=== PATIENT | female | born 1935 | race Caucasian/White ===

== ENCOUNTER → 2016-03-27 | Outpatient (CLI) | payer MEDICARE, BC ==
[~2016-03-27] MED LIST: /ADVA50050 IN; /CARBXR20T OR; /WARF25TA OR; ALBUPOW9 INH; ALBUTEROL INH; AMBI12.52 PO; AMBI5TAB OR; BONI3INJ PO; BONIVA PO; CALCTAB22 PO; CALCTAB7 PO; CALCTAB93 PO; FLON0.05; GASTROGRAFIN SOLUTION 30ML (Q9963) As Ordered ONE; IMIT5SPR INJ; IMIT6INJ IJ; ISOVUE-370 76% 100ML VIAL (Q9967) As Ordered ONE; TRAM50TA2 OR; TRAM50TA2 PO; TRAMADOL PO; TYLE325T5 PO; ULTR50TA PO; VALI2TAB OR; VALI5TAB PO; VICO5TA PO; VICO5TAB PO; VIT D 2000 PO; VITA100054 PO; VITAMIN D PO; VOLT1GEL TOP; celebrex PO
--- NOTE | 2016-03-27 18:46 | REP ---
CT PELVIS WITHOUT IV CONTRAST: CT pelvis performed in the axial plane with oral contrast only. No IV contrast was administered. Saggital and coronal reconstruction images are performed. There is no inguinal or anterior pelvic wall hernia. The appendix is normal. Bowel loops are not thickened. There is extensive sigmoid diverticulosis without evidence of acute diverticulitis. Patient appears to have had a hysterectomy. Urinary bladder is mildly distended and is not well evaluated to artifact from the adjacent metallic right hip prosthesis. There is no other evidence of mass, free fluid or adenopathy. There are degenerative changes of the lower lumbar spine. IMPRESSION: No evidence of inguinal or anterior pelvic wall hernia. Sigmoid diverticulosis with no acute diverticulitis. No adenopathy or free fluid. Appendix is normal. Signed by Onel Zayas MD 03/27/2016 07:43 P
== END ==
LOC: M RAD 16:07
PROVIDERS: ATTEND Surgery
DX: K57.30 Diverticulosis of large intestine without perforation or abscess without bleeding (principal)
CPT/HCPCS: 72192; Q9963

== ENCOUNTER 2016-12-12 07:27 | Inpatient (IN) | payer MEDICARE, BC ==
[~2016-12-12] VITALS: Ht 162.6 cm; Wt 75.9 kg
[~2016-12-12 07:27] MED LIST changes: +ALBU17IN INH; +CALC600T31 PO; -GASTROGRAFIN SOLUTION 30ML (Q9963) As Ordered ONE; +IMIT6INJ SC; -ISOVUE-370 76% 100ML VIAL (Q9967) As Ordered ONE; +TOPI200T7 PO; +VITA100067 PO
[2016-12-12] MEDS ORDERED: oxyCODONE 5MG TAB PO PRN (11:15)
[2016-12-12] MEDS ORDERED: LORazepam 1 MG TAB PO PRN (11:15)
[2016-12-12] MEDS ORDERED: ALBUTEROL 90 MCG/ACT 8GM HFA INHALER INH PRN (11:15)
[2016-12-12] MEDS ORDERED: MOM 30ML SUSPENSION UDC PO PRN (11:15)
[2016-12-12 14:15] VITALS: BP 137/67
[2016-12-12] MEDS ORDERED: DOCU100T8 PO (14:55)
[2016-12-12] MEDS ORDERED: TOPI50TA9 PO (14:55)
[2016-12-12] MEDS ORDERED: VANC10005 INJ (14:55)
[2016-12-12] MEDS ORDERED: OXYC-517 PO (14:55)
[2016-12-12] MEDS ORDERED: LIDO5DIS41 TD (14:55)
[2016-12-12] MEDS ORDERED: NUTRPOW11 PO (14:55)
[2016-12-12] MEDS ORDERED: ACET1TAB17 PO (14:55)
[2016-12-12] MEDS ORDERED: LEVO750T13 PO (14:55)
[2016-12-12] MEDS ORDERED: LOVE1INJ SC (14:55)
[2016-12-12] MEDS ORDERED: LACT1TAB4 PO (14:55)
--- NOTE | 2016-12-12 16:34 | PHACANCOPD ---
PHARMACY VANCOMYCIN DOSING Pt Demographics Demographics Patient Age:81 , Weight:80.000 , Gender: female Adjusted Body Weight Date: 12/12/16, Adjusted Body Weight: Kg Events Past 24 Hours Events Past 24 Hours: YES: Other Vancomycin Vancomycin indication: Left TKA infection Vancomycin Target Ranges: 10-20 mcg/ml Vancomycin Load Y/N: No Load Dose Date Time Vancomycin Load Dose: Date: Time: Vancomycin Dose Date: 12/12/16. Current Vancomycin Dose: [1g IV Q24H] Intermittent Dosing?: No Labs Creatinine Clearance Date:12/12/16. Estimated Creatinine Clearance: [~40 ml/min]. Assessment and Plan Maintaining Current Dose?: Yes Reason for dose change: No Dose Change Pharmacist Note Pharmacist Note Date: 12/12/16. Pharmacist note: Patient is a transfer from [facility] being treated with IV vancomycin for a left TKA infection, who is s/p placement of an abx spacer on 12/06/16. The patient was on a regimen of 1250mg IV Q24H at [place], however, it appears that a most recent trough level that was drawn last night resulted at ~19.5mcg/ml and a random level this morning that resulted at ~ 14.6mcg/ml. The patient was due for anything vancomycin dose this morning, so we will resume the patient's vancomycin tx at a reduced regimen of 1g IV Q24H, aiming for a goal trough of 10-20mcg/ml. Updated info about H&P, current labs, and micro are unavailable at this time; however, the patient is currently afebrile. No PMH of MRSA or vanco use here at [facility]. We will continue to monitor and schedule a trough accordingly. JOCELYN DIEZ PHARMACY Dec 12, 2016 16:34
[2016-12-12] MEDS: SODIUM CHLORIDE 0.9% INJ 10 ML SYR IV SCH (17:10)
[2016-12-12] MEDS: VANCOMYCIN HCL 1,000 MG, VIAL MATE ADAPTER 1 EACH in D5W 250 ML IV SCH (17:10)
[2016-12-12] MEDS: SODIUM CHLORIDE 0.9% INJ 10 ML SYR IV PRN (17:11)
--- NOTE | 2016-12-12 18:32 | CR ---
DATE OF CONSULTATION: 12/12/2016 I was asked to consult by Dr. 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 HISTORY OF PRESENT ILLNESS: Mrs. Fontaine is a pleasant 81-year-old female who was admitted to [facility] for evaluation of left total knee replacement. She was taken to the operating room (OR) with the plan of having a new total knee replacement done as this one was causing a lot of chronic pain which showed neutrophils and therefore replacement was not done and a cement spacer was placed. The original knee had been October of 2012. DICTATION CUT OFF AT THIS POINT. [facility]
[2016-12-12 20:00] VITALS: BP 116/57
[2016-12-12] MEDS: LACTOBACILLUS ACIDOPHILUS CAP (BACID) PO SCH (20:14)
[2016-12-12] MEDS: TOPIRAMATE (TopAMAX) 25 MG TAB PO SCH (20:14)
[2016-12-12] MEDS: ACETAMINOPHEN TAB 650MG DOSE (2X325MG) PO PRN (20:15)
[2016-12-12] MEDS: DOCUSATE SODIUM 100 MG CAP PO SCH (20:16)
[2016-12-12] MEDS: CALCIUM/VITAMIN D 250 MG TABLET PO SCH (20:19)
[2016-12-12] MEDS: SENNA 8.6 MG TAB (SENOKOT) PO SCH (20:20)
[2016-12-12] MEDS: NYSTATIN 100,000 UNITS/GM TOPICAL PWD 15 GM TOP SCH (20:20)
--- NOTE | 2016-12-12 20:51 | PMRHPE ---
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 However, she started developing loosening and infection and was found to be infected and on 12/05/2016, the patient had the left total knee replacement with temporary arthrodesis and wide surgical debridement. The patient's initial cultures are reported negative at this time but others are still pending. Aspirates did show 1000 white blood cells and 1,000,000 red blood cells and no purulent material was found. The patient was then started in physical and occupational therapy on a nonweightbearing status using a knee splint at all times on the left lower extremity as well as IV vancomycin 1.25 grams every 24 hours and Levaquin 750 mg by mouth daily. The patient is felt to be able to participate and benefit from acute intensive rehabilitation to return to her home here in [place]. PAST MEDICAL HISTORY: Includes: 1. Diverticulosis which has been causing some right lower quadrant pain off-and-on recently. 2. Hypertension. 3. Migraine headaches. 4. Osteopenia. 5. Two areas of prior abdominal herniation, midline and right lower quadrant. PAST SURGICAL HISTORY: Includes: 1. 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 2. Bladder repair. 3. Breast biopsy. 4. Cataract extraction. 5. Total knee surgery on the left. 6. Left knee hemiarthroplasty. 7. Right total knee arthroplasty. 8. Sphincter replacement. 9. Previous three right knee arthroscopes and four left knee arthroscopes. FAMILY HISTORY: Noncontributory. ALLERGIES: No known drug allergies. MEDICATIONS ON ADMISSION: - vancomycin 1.25 grams daily IV and this is continuing to 01/17/2017 - Tylenol 650 mg every six hours - Proventil inhaler two puffs every two hours as needed for shortness of breath - Os-Christiano D patient previously on the 600 mg, now on the 750 mg twice a day - Colace 100 mg twice a day for bowel program - Lovenox 40 subcutaneous daily for deep vein thrombosis (DVT) prophylaxis - heparin flushes of her peripherally inserted central catheter (PICC) line - lactobacillus acidophilus one capsule twice a day - Levaquin 750 mg daily - Lidoderm patch to the left knee 12 hours on and 12 hours off - patient previously on Valium 5 mg twice a day and I am changing this to Ativan 0.5 mg twice a day as needed for anxiety - oxycodone 5 mg for moderate pain every four hours as needed and 10 mg for severe pain every four hours as needed - tramadol previously on 50 mg three times a day as needed for pain, increasing to 50 mg every six hours as needed for pain - 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 She does not drink and does not smoke or use smokeless tobacco and no illicit drug history. REVIEW OF SYSTEMS: As noted above and complaints of left knee pain, the abdominal pain, and left leg nerve pain. Of note, patient with migraines previously on Imitrex, was not on it during her surgical admission. PHYSICAL EXAMINATION: The patient is 5 feet, 6 inches, approximately 79 kg, elderly white female in mild left lower extremity musculoskeletal distress who is alert and well-oriented. VITAL SIGNS: Temperature of 97.4, blood pressure 137/67, pulse 94, respirations 18, and pulse oximetry 95% on room air. HEENT: Normocephalic, atraumatic beyond having a mild left facial droop and slight left tongue deviation. There is no ptosis. Pupils are equal, round, and reactive to light and accommodation and extraocular motions are intact. Hearing is fairly good. Speech is without any dysarthria. Nasal passages are open without drainage and septum is straight. NECK: Supple. No carotid bruits were found. Thyroid is palpable, midline, normal texture and size. LUNGS: Clear in all kearns to auscultation without wheezes, rales, or rhonchi. CORONARY: Regular rate and rhythm with normal S1, S2 without S3, S4, murmurs or rubs. Patient with 2/4 bilateral radial pulses, good skin coloration and temperature in bilateral upper and lower extremities. ABDOMEN: Obese with no significant tenderness or palpable masses. Bowel sounds are present in all quadrants. EXTREMITIES: Bilateral upper extremities with functional range of motion. Right lower extremity with functional range of motion. There is a peripherally inserted central catheter (PICC) line in the right arm to the ulnar aspect. Left lower extremity with straight leg splint from proximal third of the thigh to the mid calf level. NEUROLOGIC: The patient is alert and oriented times four. Speech is clear, coherent and appropriate. Affect is slightly anxious but in general pleasant and cooperative. Memory is intact. Light touch to vibration intact in bilateral upper and lower extremities. Tone within normal limits in bilateral upper and lower extremities. Motor is 4+ to 5- in bilateral upper and right lower extremity and right and left ankle, plantar and dorsiflexion but some guarding and only 3/5 left hip demonstrated on testing today. ASSESSMENT AND PLAN: 1. Rehabilitation of left total knee revision with spacers and beads that are antibiotic impregnated to treat infected left total knee arthroplasty. The patient needs to regain modified independence in mobility, likely using a front wheeled walker to perform activities of daily living (ADLs) and ambulate greater than the four stairs she needs to get in and out of her home which is one story and everything is on the first floor, and to walk greater than or equal to 150 feet at a time. I do feel that she is capable of participating in and benefiting from acute musculoskeletal rehabilitation while undergoing the antibiotic treatment with the vancomycin and Levaquin. Because of the additional complexity of treating this infected joint, infectious disease, internal medicine as well as rehabilitation nursing and physiatry is needed beyond the physical and occupational therapy. The patient will probably need about 10 days to obtain the modified independent level noted above. 2. Osteoarthritis. Patient with right knee replacement and arthritis in multiple other joints. We will treat these accordingly. May look to use some physical modalities as appropriate such as heat and cold. For now, we will be using ice to the involved painful left knee. 3. Asthma. The patient will continue on her Ventolin. 4. Migraines. We will go ahead and see how the patient is doing and consider restarting her Imitrex. At this time, the surgical plan for the patient is to complete antibiotic management up to 01/17/2017 and then look at more definitive prosthesis that she will be able to weigh bear on being replaced into the left knee. POSTADMISSION PHYSICIAN EVALUATION: I feel the patient is consistent with the preadmission screening and is able to participate in three hours of therapy per day and benefit from it to proceed from her current dependent state where she is requiring minimum to occasionally maximum assistance with some of her activities of daily living (ADLs) and minimum to contact guard assistance in most of her transfers and to being able to ambulate, do stairs, and be modified independent in her ADLs. I think she will be able to be discharged to home. She does have a supportive family here and home setup is fairly reasonable without barriers inside and just a four-step barrier outside, and so I do feel that she is motivated and mentally and physically capable of participating and benefiting so her prognosis is good. Her estimated length of stay is 10 days. Time spent on chart review, history and physical, and documentation: Greater than 70 minutes. VIJI
[2016-12-12] MEDS: **NOTE PATIENT COMMENT** MISC XX SCH (21:00)
[2016-12-12] MEDS: MAALOX 30 ML SUSP *UDC PO PRN (21:49)
[2016-12-13] MEDS: SODIUM CHLORIDE 0.9% INJ 10 ML SYR IV SCH ×2 (05:42→18:07)
[2016-12-13] MEDS: LevoFLOXacin 750 MG TABLET PO SCH (05:44)
[2016-12-13 06:00] VITALS: BP 124/66
[2016-12-13 06:17] LABS: BASO % 0.5 % (0.0-1.0); EOS # 0.3 10^3/uL (0.0-0.50); EOS % 5.2 % (0.0-3.0); LYMPH # 0.9 10^3/uL (1.5-4.5); LYMPH % 14.5 % (24.0-44.0); MEAN CORPUSCULAR HEMOGLOBIN 29.2 pg (27.0-33.0); MEAN CORPUSCULAR HGB CONC 31.7 g/dl (32.0-36.5); MEAN CORPUSCULAR VOLUME 92.3 fl (80.0-96.0); MONO # 0.6 10^3/uL (0.0-0.8); MONO % 9.3 % (0.0-5.0); NEUTROPHILS # 4.3 10^3/uL (1.8-7.7); NEUTROPHILS % 69.5 % (36.0-66.0); PLATELET COUNT, AUTOMATED 238 10^3/uL (150-450); RED CELL DISTRIBUTION WIDTH 14.6 % (11.5-14.5); WHITE BLOOD COUNT 6.1 10^3/uL (4.0-10.0)
[2016-12-13 06:27] LABS: ALBUMIN 2.4 GM/DL (3.2-5.2); ALBUMIN/GLOBULIN RATIO 0.92 (1.00-1.93); ALKALINE PHOSPHATASE 137 U/L (45-117); ALT/SGPT 22 U/L (12-78); ANION GAP 8 MEQ/L (8-16); AST/SGOT 25 U/L (15-37); BILIRUBIN,TOTAL 0.5 MG/DL (0.2-1.0); BLOOD UREA NITROGEN 13 MG/DL (7-18); CALCIUM LEVEL 8.5 MG/DL (8.8-10.2); CARBON DIOXIDE LEVEL 24 MEQ/L (21-32); CHLORIDE LEVEL 113 MEQ/L (98-107); CREATININE FOR GFR 0.65 MG/DL (0.55-1.02); GLOMERULAR FILTRATION RATE > 60.0 (>32); GLUCOSE, FASTING 98 MG/DL (83-110); POTASSIUM SERUM 3.9 MEQ/L (3.5-5.1); SODIUM LEVEL 145 MEQ/L (136-145)
[2016-12-13 06:56] LABS: ERYTHROCYTE SEDIMENTATION RATE 67 mm/hr (0-30)
[2016-12-13] MEDS: DOCUSATE SODIUM 100 MG CAP PO SCH ×2 (08:43→20:43)
[2016-12-13] MEDS: TOPIRAMATE (TopAMAX) 25 MG TAB PO SCH ×2 (08:43→20:44)
[2016-12-13] MEDS: CALCIUM/VITAMIN D 250 MG TABLET PO SCH ×2 (08:43→20:47)
[2016-12-13] MEDS: LACTOBACILLUS ACIDOPHILUS CAP (BACID) PO SCH ×2 (08:43→20:48)
[2016-12-13] MEDS: ACETAMINOPHEN TAB 650MG DOSE (2X325MG) PO PRN ×2 (08:44→22:52)
[2016-12-13] MEDS: LIDOCAINE 5% (LIDODERM) PATCH TD SCH (08:44)
[2016-12-13] MEDS: ENOXAPARIN 40 MG/0.4 ML SYRINGE (J1650) SC SCH (08:44)
[2016-12-13] MEDS: NYSTATIN 100,000 UNITS/GM TOPICAL PWD 15 GM TOP SCH ×2 (08:46→20:48)
[2016-12-13] MEDS: MAALOX 30 ML SUSP *UDC PO PRN ×2 (08:52→18:07)
--- NOTE | 2016-12-13 10:28 | CR.PDOC ---
[facility] Consultation Consultation CONSULTATION REPORT FOR: Dr Park REASON FOR CONSULTATION: Medical Management DATE OF VISIT: 12/13/16 ATTENDING: Dr. Milton Clarke PCP: Dr Brittany Nascimento HPI: 81year oldF with a past medical history significant for history of left total knee arthroplasty 2012 with recent increasing pain in the left knee, has been following with Dr Donald, orthopedic surgery regarding this issue. The patient underwent bone scan indicating abnormal uptake, infection versus loosening. The patient was admitted to [facility] in [facility] as per Dr. Donald for revision surgery, temporary arthrodesis and antibiotic spacer placement. The patient was subsequently transferred to [facility], Dr Park, 12/12/16. No acute medical complaints today. Denies any fevers, chills, weakness, fatigue , Headache, Chest Pain, Shortness of breath, cough, palpitations, abdominal pain , N/V/D or changes in bowel or bladder habits. PMHx: Asthma Trigeminal neuralgia Aortic sclerosis Anxiety Depression Vitamin D deficiency Osteoporosis/osteoarthritis Hypertension Chronic migraine headache Insomnia Allergic rhinitis PSHX: Bilateral knee arthroscopy Bilateral TKA Right TRISHA 02/04 Hysterectomy Thyroidectomy Bladder sling Breast biopsy 08/08 left cataract EGD/colonoscopy 01/03. Brypedro. Adenomatous polyp. 05/03 bilateral inguinal hernia repair. Prisca. 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 PE: GEN: 81yoF, appears stated age. Well-nourished, well developed. No acute distress. Alert and oriented x 3. Pleasant, interactive. HEENT: Normocephalic, atraumatic. Extraocular movements are intact. No nystagmus appreciated. Sclera are nonicteric. Conjunctiva without injection. Nose midline. No facial asymmetry. Moist mucous membranes. Pharynx pink and moist, no cobblestoning. Neck supple, trachea midline. No lymphadenopathy or thyromegaly appreciated. CHEST: Regular rate and rhythm, +S1, +S2 LUNGS: Clear to auscultation bilaterally. No wheezes, rales, or rhonchi. Breathing appears symmetric and easy. Patient is speaking in full sentences. No accessory muscle use. ABD: Round, soft, non-tender, non-distended. +Bowel sounds throughout. No rebound or guarding. No costovertebral angle tenderness. EXT: No lower extremity edema appreciated. Knee immobilizer on Left side. SKIN: [place], dry, warm. No rashes. NEURO: Alert and oriented x 3. Cranial nerves III-XII are intact. No focal deficits appreciated. EKG 12/12/16NSR 77 bpm. Lyme screen pending. ESR 67 CRP 5.32 A&P: 81year oldF with a past medical history significant for history of left total knee arthroplasty 2012 with recent increasing pain in the left knee, has been following with Dr Donald, orthopedic surgery regarding this issue. The patient underwent bone scan indicating abnormal uptake, infection versus loosening. The patient was admitted to [facility] in [facility] as per Dr. Donald for revision surgery, temporary arthrodesis and antibiotic spacer placement. The patient was subsequently transferred to [facility], Dr Park, 12/12/16. 1. Status post left TKA revision with temporary arthrodesis, antibiotic spacer placement. Management as per Dr Park. PT/OT as per [facility]/Dr Park. Pain control as per [facility]/Dr Park. Bowel care as per as per [facility]/Dr Park. DVT prophylaxis, Lovenox as per [facility]/Dr Park. Infectious. 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 Patient remains on Levaquin 750 mg by mouth daily and IV vancomycin dosing as per clinical pharmacology. Infectious disease is consulted for any further recommendations. Await opinion from Dr. Declan Maria. Trend CRP. As per ID notes from [place], Cultures of Left knee done in OR neg. Plan was for IV Vanco and po Levaquin x 6 weeks. 2. Asthma. Continue albuterol 2 puffs every 4 hours as needed. 3. Trigeminal neuralgia. Continue Topamax 50 mg by mouth twice a day. Patient follows with neurology as outpatient. 4. Chronic migraine headache. Continue Topamax 50 mg by mouth twice a day. Patient follows with neurology as outpatient. 5. Hypertension. Blood pressure is noted to be 124/66. Monitor. 6. Anxiety/depression/insomnia. Patient remains on Ativan 0.5 mg twice a day as needed for anxiety. 7. Vitamin D deficiency. Continue supplement. 8. Allergic rhinitis. 9. Anemia, postoperative. S/P 1 u PRBC 12/10/16 Trey. Monitor. Add Fe studies , B12/folate. Thank you for your consultation. We will continue to follow along with you. Vital Signs/I&O Vital Signs Date Time Temp Pulse Resp B/P (MAP) Pulse Ox O2 Delivery O2 Flow Rate FiO2 12/13/16 06:00 99.3 81 18 124/66 (85) 96 Room Air I&O- Last 24 Hours up to 6 AM 12/14/16 06:00 Intake Total 120 ml Output Total 400 ml Balance -280 ml Laboratory Data Labs 24H Laboratory Tests 2 12/12/16 22:04: Urine Appearance CLEAR, Urine Color YELLOW, Urine pH 7.0, Urine Specific [place] 1.008, Urine Protein NEGATIVE, Urine Glucose (UA) NEGATIVE, Urine Ketones TRACEH, Urine Urobilinogen 0.2, Urine Bilirubin NEGATIVE, Urine Leukocyte Esterase NEGATIVE, Urine Blood 1+H, Urine Nitrite NEGATIVE, Urine WBC (Auto) 1, Urine RBC (Auto) 0, Urine Hyaline Casts (Auto) 0, Urine Bacteria (Auto ) NEGATIVE, Urine Squamous Epithelial Cells 0, Urine Mucus (Auto) SMALL, Urine Sperm (Auto) 12/13/16 05:54: Immature Granulocyte % (Auto) 1.0H, White Blood Count 6.1, Red Blood Count 2.84L , Hemoglobin 8.3L, Hematocrit 26.2L, Mean Corpuscular Volume 92.3, Mean Corpuscular Hemoglobin 29.2, Mean Corpuscular Hemoglobin Concent 31.7L, Red Cell Distribution Width 14.6H, Platelet Count 238, Neutrophils (%) (Auto) 69.5H , Lymphocytes (%) (Auto) 14.5L, Monocytes (%) (Auto) 9.3H, Eosinophils (%) (Auto ) 5.2H, Basophils (%) (Auto) 0.5, Neutrophils # (Auto) 4.3, Lymphocytes # (Auto ) 0.9L, Monocytes # (Auto) 0.6, Eosinophils # (Auto) 0.3, Basophils # (Auto) 0.0 , Immature Granulocyte # (Auto) 0.1H, Nucleated Red Blood Cells % (auto) 0.0, Erythrocyte Sedimentation Rate 67H, Anion Gap 8, Glomerular Filtration Rate > 60.0, Blood Urea Nitrogen 13, Creatinine 0.65, Sodium Level 145, Potassium Level 3.9, Chloride Level 113H, Carbon Dioxide Level 24, Calcium Level 8.5L, Aspartate Amino Transf (AST/SGOT) 25, Alanine Aminotransferase (ALT/SGPT) 22, Alkaline Phosphatase 137H, Total Bilirubin 0.5, Total Protein 5.0L, Albumin 2.4L , C-Reactive Protein, Quantitative 5.32H, Albumin/Globulin Ratio 0.92L CBC/BMP Laboratory Tests 12/13/16 05:54 Red Blood Count 2.84 L, Mean Corpuscular Volume 92.3, Mean Corpuscular Hemoglobin 29.2, Mean Corpuscular Hemoglobin Concent 31.7 L, Red Cell Distribution Width 14.6 H, Neutrophils (%) (Auto) 69.5 H, Lymphocytes (%) (Auto ) 14.5 L, Monocytes (%) (Auto) 9.3 H, Eosinophils (%) (Auto) 5.2 H, Basophils (% ) (Auto) 0.5, Neutrophils # (Auto) 4.3, Lymphocytes # (Auto) 0.9 L, Monocytes # (Auto) 0.6, Eosinophils # (Auto) 0.3, Basophils # (Auto) 0.0, Calcium Level 8.5 L, Aspartate Amino Transf (AST/SGOT) 25, Alanine Aminotransferase (ALT/SGPT) 22 , Alkaline Phosphatase 137 H, Total Bilirubin 0.5, Total Protein 5.0 L, Albumin 2.4 L Allergies Coded Allergies: No Known Allergies (Verified , 05/16/16) Home Medications Scheduled (Lactobacillus) 1 Tab Tab, 1 TAB PO BID, (Reported) Calcium (Calcium) 600 Mg Tab, 1,200 MG PO DAILY, (Reported) Docusate Sodium (Docusate Sodium) 100 Mg Tab, 100 MG PO BID, (Reported) Enoxaparin Sodium (Lovenox) 40 Mg/0.4 Ml Inj, 40 MG SC DAILY, (Reported) Guar Gum (Nutrisource Fiber) 1 Pow Pow, 1 POW PO DAILY, (Reported) Levofloxacin Hemihydrate (Levofloxacin) 750 Mg Tab, 750 MG PO DAILY, (Reported) Topiramate (Topiramate) 50 Mg Tab, 50 MG PO BID, (Reported) Vancomycin/Dextrose (Vancomycin HCl) 1,000 Mg Soln, 1,250 MG INJ DAILY, ( Reported) Scheduled PRN Acetaminophen (Acetaminophen) 325 Mg Tab, 975 MG PO Q6H PRN for PAIN, (Reported) Albuterol Sulfate (Ventolin Hfa) 200 Puff/8 Gm Aers, 2 PUFF INH PRN PRN for WHEEZING, (Reported) Diazepam (Valium) 5 Mg Tab, 5 MG PO BID PRN for ANXIETY/AGITATION, (Reported) Lidocaine (Lidoderm) 5 % Dis, 1 PATCH TD DAILY PRN for PAIN, (Reported) APPLY TO BACK Oxycodone HCl (Oxycodone HCl) 5 Mg Tab, 5 MG PO Q4H PRN for MODERATE PAIN (PS 5- 7), (Reported) Oxycodone HCl (Oxycodone HCl) 5 Mg Tab, 10 MG PO Q4H PRN for SEVERE PAIN (PS 8- 10), (Reported) Elvia Nails Dec 13, 2016 10:28
--- NOTE | 2016-12-13 11:04 | IPNPDOC ---
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 However, she started developing loosening and infection and was found to be infected and on 12/05/2016, the patient had the left total knee replacement with temporary arthrodesis and wide surgical debridement. Patient seen this morning in her room working with OT on Dressing and Grooming. She notes some pain in Left Knee region and having had some confusion and loading of the knee. Patient reports now understanding her NWB status and her desire to participate in and benefit from therapy. Patient did report some dyspepsia last night which was handled by the [facility]. ALLERGIES: See Below MEDICATIONS: Reviewed, see below. OBJECTIVE: VITAL SIGNS: Please see below. PHYSICAL EXAMINATION: GENERAL: Pleasant, slightly anxious, elderly, white female, who is sitting up in a manual wheelchair at the sink in her room working on grooming. Patient is alert and well oriented. She is a mild musculoskeletal distress around the left knee which has on the knee splint. HEENT: Normocephalic/atraumatic. CARDIOVASCULAR: Regular rate and rhythm with normal S1-S2. Bilateral 2 out 4 radial pulses. LUNGS: All kearns clear to auscultation with good air movement. ABDOMEN: Benign with normal bowel sounds in all quadrants. NEUROLOGICAL: Patient alert and oriented to person, place, time and situation. She is mildly anxious but in general pleasant and cooperative. Memory is grossly intact. Bilateral upper extremity with functional range of motion and strength. Right lower extremity with good strength and functional range of motion. Fair minus left lower extremity strength. LABORATORY DATA: Reviewed. Please see below. MICROBIOLOGY: Please see below. IMAGING: No new imaging. DVT prophylaxis ordered?: Shante and LARISSA mcelroy. ASSESSMENT AND PLAN: 1. 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 Vancomycin dosing should not interfere with physical and occupational therapy time. The patient does seem to tolerate the antibiotic without problems. Anticipated length of stay 10 days. 2. Anemia: Patient's H&H are 28.3 and 26.2% which is consistent with the values at [facility] yesterday. In light of the anticoagulation with Lovenox it will be important to track this. If hemoglobin falls below 8.0 patient will probably require transfusion. 3. DVT prophylaxis: Patient on Lovenox and using LARISSA hose. Left lower extremity in the splint with the inflammation postoperatively from the infected knee will be at greater at risk. 4. Hypoalbuminemia: Patient currently at 2.4. We will continue observe and try improve nutrition. TIME SPENT: Chart Review, examination and documentation 25 minutes. Allergies Coded Allergies: No Known Allergies (Verified , 05/16/16) Vital Signs Vital Signs Date Time Temp Pulse Resp B/P (MAP) Pulse Ox O2 Delivery O2 Flow Rate FiO2 12/13/16 06:00 99.3 81 18 124/66 (85) 96 Room Air Laboratory Data CBC/BMP Laboratory Tests 12/13/16 05:54 Red Blood Count 2.84 L, Mean Corpuscular Volume 92.3, Mean Corpuscular Hemoglobin 29.2, Mean Corpuscular Hemoglobin Concent 31.7 L, Red Cell Distribution Width 14.6 H, Neutrophils (%) (Auto) 69.5 H, Lymphocytes (%) (Auto ) 14.5 L, Monocytes (%) (Auto) 9.3 H, Eosinophils (%) (Auto) 5.2 H, Basophils (% ) (Auto) 0.5, Neutrophils # (Auto) 4.3, Lymphocytes # (Auto) 0.9 L, Monocytes # (Auto) 0.6, Eosinophils # (Auto) 0.3, Basophils # (Auto) 0.0, Calcium Level 8.5 L, Aspartate Amino Transf (AST/SGOT) 25, Alanine Aminotransferase (ALT/SGPT) 22 , Alkaline Phosphatase 137 H, Total Bilirubin 0.5, Total Protein 5.0 L, Albumin 2.4 L Labs 24H Laboratory Tests 2 12/12/16 22:04: Urine Appearance CLEAR, Urine Color YELLOW, Urine pH 7.0, Urine Specific [place] 1.008, Urine Protein NEGATIVE, Urine Glucose (UA) NEGATIVE, Urine Ketones TRACEH, Urine Urobilinogen 0.2, Urine Bilirubin NEGATIVE, Urine Leukocyte Esterase NEGATIVE, Urine Blood 1+H, Urine Nitrite NEGATIVE, Urine WBC (Auto) 1, Urine RBC (Auto) 0, Urine Hyaline Casts (Auto) 0, Urine Bacteria (Auto ) NEGATIVE, Urine Squamous Epithelial Cells 0, Urine Mucus (Auto) SMALL, Urine Sperm (Auto) 12/13/16 05:54: Immature Granulocyte % (Auto) 1.0H, White Blood Count 6.1, Red Blood Count 2.84L , Hemoglobin 8.3L, Hematocrit 26.2L, Mean Corpuscular Volume 92.3, Mean Corpuscular Hemoglobin 29.2, Mean Corpuscular Hemoglobin Concent 31.7L, Red Cell Distribution Width 14.6H, Platelet Count 238, Neutrophils (%) (Auto) 69.5H , Lymphocytes (%) (Auto) 14.5L, Monocytes (%) (Auto) 9.3H, Eosinophils (%) (Auto ) 5.2H, Basophils (%) (Auto) 0.5, Neutrophils # (Auto) 4.3, Lymphocytes # (Auto ) 0.9L, Monocytes # (Auto) 0.6, Eosinophils # (Auto) 0.3, Basophils # (Auto) 0.0 , Immature Granulocyte # (Auto) 0.1H, Nucleated Red Blood Cells % (auto) 0.0, Erythrocyte Sedimentation Rate 67H, Anion Gap 8, Glomerular Filtration Rate > 60.0, Blood Urea Nitrogen 13, Creatinine 0.65, Sodium Level 145, Potassium Level 3.9, Chloride Level 113H, Carbon Dioxide Level 24, Calcium Level 8.5L, Aspartate Amino Transf (AST/SGOT) 25, Alanine Aminotransferase (ALT/SGPT) 22, Alkaline Phosphatase 137H, Total Bilirubin 0.5, Total Protein 5.0L, Albumin 2.4L , C-Reactive Protein, Quantitative 5.32H, Albumin/Globulin Ratio 0.92L Current Medications Current Medications Current Medications Acetaminophen (Tylenol Tab) 650 mg Q6HP PRN PO PAIN OR FEVER Last administered on 12/13/16 08:44; Start 12/12/16 at 11:15; Stop 01/11/17 at 11:14 Al Hydrox/Mg Hydrox/Simethicone (Mylanta) 30 ml Q12HP PRN PO INDIGESTION Last administered on 12/13/16 08:52; Start 12/12/16 at 21:15; Stop 01/11/17 at 21 :14 Albuterol Sulfate (Proventil, Ventolin Hfa) 2 puff Q2HP PRN INH SHORTNESS OF BREATH; Start 12/12/16 at 11:15; Stop 01/11/17 at 11:14 Calcium/Vitamin D (Oscal D) 750 mg BID PO Last administered on 12/13/16 08:43 ; Start 12/12/16 at 21:00; Stop 01/11/17 at 20:59 Docusate Sodium (Colace) 100 mg BID PO Last administered on 12/13/16 08:43; Start 12/12/16 at 21:00; Stop 01/11/17 at 20:59 Enoxaparin Sodium (Lovenox) 40 mg DAILY SC Last administered on 12/13/16 08: 44; Start 12/13/16 at 09:00; Stop 12/18/16 at 08:59 Heparin Sodium (Heparin (Flush)) 200 units ASDIRECTED PRN IV SEE LABEL COMMENTS Last administered on 12/12/16 17:11; Start 12/12/16 at 15:00; Stop 01/11/17 at 14:59 Heparin Sodium (Heparin (Flush)) 200 units PICC IV Last administered on 05:42; Start 12/12/16 at 18:00; Stop 01/11/17 at 17:59 Home Med (Med Rec Complete!) ASDIRECTED XX ; Start 12/12/16 at 15:00; Stop at 15:27; Status DC Lactobacillus Acidophilus (Bacid) 1 ea BID PO Last administered on 12/13/16 08:43; Start 12/12/16 at 21:00; Stop 01/11/17 at 20:59 Levofloxacin (Levaquin) 750 mg DAILY@06 PO Last administered on 12/13/16 05: 44; Start 12/13/16 at 06:00; Stop 01/17/17 at 23:55 Lidocaine (Lidoderm Patch) 1 patch DAILY TD Last administered on 12/13/16 08: 44; Start 12/13/16 at 09:00; Stop 01/12/17 at 08:59 Lorazepam (Ativan) 0.5 mg BIDP PRN PO ANXIETY; Start 12/12/16 at 11:15; Stop 12/19/16 at 11:14 Magnesium Hydroxide (Milk Of Magnesia) 30 ml DAILYPRN PRN PO CONSTIPATION Last administered on 12/13/16 08:44; Start 12/12/16 at 11:15; Stop 01/11/17 at 11 :14 Non-Formulary Medication ( See Comment Field Below ) REMOVE LIDODERM PATCH DAILY@21 XX ; Start 12/12/16 at 21:00; Stop 01/11/17 at 20:59 Nystatin (Mycostatin Powder, Nystop) place under b/l vidya... BID TOP Last administered on 12/13/16 08:46; Start 12/12/16 at 21:00; Stop 01/11/17 at 20 :59 Oxycodone HCl (Roxicodone, Oxyir) 5 mg Q4HP PRN PO PAIN(5-7); Start 12/12/16 at 11:15; Stop 12/19/16 at 11:14 Oxycodone HCl (Roxicodone, Oxyir) 10 mg Q4HP PRN PO SEVERE PAIN (PS 8-10); Start 12/12/16 at 11:15; Stop 12/19/16 at 11:14 Senna (Senokot) 1 tab QHS PO ; Start 12/12/16 at 21:00; Stop 01/11/17 at 20:59 Sodium Chloride (Saline Lock Flush) 10 ml ASDIRECTED PRN IV SEE LABEL COMMENTS Last administered on 12/12/16 17:11; Start 12/12/16 at 15:00; Stop 01/11/17 at 14:59 Sodium Chloride (Saline Lock Flush) 10 ml PICC IV Last administered on 05:42; Start 12/12/16 at 18:00; Stop 01/11/17 at 17:59 Topiramate (TopAMAX) 50 mg BID PO Last administered on 12/13/16 08:43; Start 12/12/16 at 21:00; Stop 01/11/17 at 20:59 Tramadol HCl (Ultram) 50 mg Q6HP PRN PO PAIN; Start 12/12/16 at 11:15; Stop 12/19/16 at 11:14 Vancomycin HCl 1000 mg/IV Miscellaneous Supplies 1 each/ Dextrose 270 ml @ 270 mls/hr Q24H IV Last administered on 12/12/16 17:10; Start 12/12/16 at 17:00 ; Stop 01/17/17 at 16:59 CHRIS WASHINGTON MD Dec 13, 2016 11:04
[2016-12-13] MEDS: oxyCODONE 5MG TAB PO PRN ×2 (13:20→18:08)
[2016-12-13 14:00] VITALS: BP 111/54
[2016-12-13] MEDS: VANCOMYCIN HCL 1,000 MG, VIAL MATE ADAPTER 1 EACH in D5W 250 ML IV SCH (17:07)
[2016-12-13 20:00] VITALS: BP 128/57
[2016-12-13] MEDS: SENNA 8.6 MG TAB (SENOKOT) PO SCH (20:43)
[2016-12-13] MEDS: **NOTE PATIENT COMMENT** MISC XX SCH (20:52)
[2016-12-14 06:00] VITALS: BP 132/62
[2016-12-14] MEDS: SODIUM CHLORIDE 0.9% INJ 10 ML SYR IV SCH ×2 (06:00→17:30)
[2016-12-14] MEDS: ACETAMINOPHEN TAB 650MG DOSE (2X325MG) PO PRN ×2 (06:22→21:49)
[2016-12-14] MEDS: LevoFLOXacin 750 MG TABLET PO SCH (06:22)
[2016-12-14 06:43] LABS: MEAN CORPUSCULAR VOLUME 93.3 fl (80.0-96.0); PLATELET COUNT, AUTOMATED 267 10^3/uL (150-450); RED CELL DISTRIBUTION WIDTH 14.8 % (11.5-14.5); WHITE BLOOD COUNT 6.5 10^3/uL (4.0-10.0)
[2016-12-14] MEDS: LIDOCAINE 5% (LIDODERM) PATCH TD SCH (06:51)
[2016-12-14 07:09] LABS: ALBUMIN 2.6 GM/DL (3.2-5.2); ALKALINE PHOSPHATASE 152 U/L (45-117); ALT/SGPT 28 U/L (12-78); ANION GAP 7 MEQ/L (8-16); AST/SGOT 41 U/L (15-37); BILIRUBIN,TOTAL 0.6 MG/DL (0.2-1.0); BLOOD UREA NITROGEN 19 MG/DL (7-18); CALCIUM LEVEL 8.7 MG/DL (8.8-10.2); CARBON DIOXIDE LEVEL 26 MEQ/L (21-32); CHLORIDE LEVEL 112 MEQ/L (98-107); CREATININE FOR GFR 0.71 MG/DL (0.55-1.02); FERRITIN 116 NG/ML (8-252); GLOMERULAR FILTRATION RATE > 60.0 (>32); GLUCOSE, FASTING 99 MG/DL (83-110); PERCENT SATURATION 19.4 % (13.2-45.0); POTASSIUM SERUM 3.8 MEQ/L (3.5-5.1); SODIUM LEVEL 145 MEQ/L (136-145); TOTAL IRON BINDING CAPACITY 211 UG/DL (250-450); TOTAL PROTEIN 5.5 GM/DL (6.4-8.2)
[2016-12-14] MEDS: TOPIRAMATE (TopAMAX) 25 MG TAB PO SCH ×2 (09:18→21:48)
[2016-12-14] MEDS: ENOXAPARIN 40 MG/0.4 ML SYRINGE (J1650) SC SCH (09:18)
[2016-12-14] MEDS: CALCIUM/VITAMIN D 250 MG TABLET PO SCH ×2 (09:18→21:48)
[2016-12-14] MEDS: DOCUSATE SODIUM 100 MG CAP PO SCH ×2 (09:19→21:49)
[2016-12-14] MEDS: LACTOBACILLUS ACIDOPHILUS CAP (BACID) PO SCH ×2 (09:19→21:49)
[2016-12-14] MEDS: NYSTATIN 100,000 UNITS/GM TOPICAL PWD 15 GM TOP SCH ×2 (09:21→21:50)
[2016-12-14] MEDS: traMADol 50 MG TAB PO PRN (11:42)
[2016-12-14 14:00] VITALS: BP 123/57
[2016-12-14] MEDS: VANCOMYCIN HCL 1,000 MG, VIAL MATE ADAPTER 1 EACH in D5W 250 ML IV SCH (17:30)
[2016-12-14 20:00] VITALS: BP 132/58
[2016-12-14] MEDS: **NOTE PATIENT COMMENT** MISC XX SCH (21:00)
[2016-12-14] MEDS: SENNA 8.6 MG TAB (SENOKOT) PO SCH (21:48)
[2016-12-15 06:00] VITALS: BP 119/58
[2016-12-15] MEDS: LevoFLOXacin 750 MG TABLET PO SCH (06:02)
[2016-12-15] MEDS: ACETAMINOPHEN TAB 650MG DOSE (2X325MG) PO PRN ×2 (06:03→21:17)
[2016-12-15] MEDS: SODIUM CHLORIDE 0.9% INJ 10 ML SYR IV SCH ×2 (06:03→16:49)
[2016-12-15 06:43] LABS: MEAN CORPUSCULAR HGB CONC 31.7 g/dl (32.0-36.5); MEAN CORPUSCULAR VOLUME 94.4 fl (80.0-96.0); PLATELET COUNT, AUTOMATED 273 10^3/uL (150-450); RED CELL DISTRIBUTION WIDTH 14.7 % (11.5-14.5); WHITE BLOOD COUNT 6.1 10^3/uL (4.0-10.0)
[2016-12-15] MEDS: ENOXAPARIN 40 MG/0.4 ML SYRINGE (J1650) SC SCH (08:59)
[2016-12-15] MEDS: CALCIUM/VITAMIN D 250 MG TABLET PO SCH ×2 (08:59→21:16)
[2016-12-15] MEDS: DOCUSATE SODIUM 100 MG CAP PO SCH ×2 (08:59→21:16)
[2016-12-15] MEDS: TOPIRAMATE (TopAMAX) 25 MG TAB PO SCH ×2 (08:59→21:16)
[2016-12-15] MEDS: traMADol 50 MG TAB PO PRN ×2 (09:00→18:13)
[2016-12-15] MEDS: LACTOBACILLUS ACIDOPHILUS CAP (BACID) PO SCH ×2 (09:00→21:17)
[2016-12-15] MEDS: LIDOCAINE 5% (LIDODERM) PATCH TD SCH (09:00)
[2016-12-15] MEDS: NYSTATIN 100,000 UNITS/GM TOPICAL PWD 15 GM TOP SCH ×2 (09:02→21:19)
[2016-12-15 14:00] VITALS: BP 144/58
[2016-12-15] MEDS: VANCOMYCIN HCL 1,000 MG, VIAL MATE ADAPTER 1 EACH in D5W 250 ML IV SCH (16:48)
[2016-12-15] MEDS: **NOTE PATIENT COMMENT** MISC XX SCH (20:50)
[2016-12-15] MEDS: SENNA 8.6 MG TAB (SENOKOT) PO SCH (21:16)
[2016-12-15 21:20] VITALS: BP 131/63
[2016-12-16] MEDS: traMADol 50 MG TAB PO PRN ×2 (00:06→06:27)
[2016-12-16 06:00] VITALS: BP 110/53
[2016-12-16] MEDS: LevoFLOXacin 750 MG TABLET PO SCH (06:25)
[2016-12-16] MEDS: SODIUM CHLORIDE 0.9% INJ 10 ML SYR IV SCH ×2 (06:28→17:14)
[2016-12-16 07:02] LABS: MEAN CORPUSCULAR HGB CONC 30.7 g/dl (32.0-36.5); MEAN CORPUSCULAR VOLUME 94.3 fl (80.0-96.0); PLATELET COUNT, AUTOMATED 266 10^3/uL (150-450); RED CELL DISTRIBUTION WIDTH 14.5 % (11.5-14.5); WHITE BLOOD COUNT 5.2 10^3/uL (4.0-10.0)
[2016-12-16] MEDS: LIDOCAINE 5% (LIDODERM) PATCH TD SCH (08:08)
[2016-12-16] MEDS: ENOXAPARIN 40 MG/0.4 ML SYRINGE (J1650) SC SCH (08:08)
[2016-12-16] MEDS: NYSTATIN 100,000 UNITS/GM TOPICAL PWD 15 GM TOP SCH ×2 (08:09→21:57)
[2016-12-16] MEDS: TOPIRAMATE (TopAMAX) 25 MG TAB PO SCH ×2 (08:09→21:47)
[2016-12-16] MEDS: CALCIUM/VITAMIN D 250 MG TABLET PO SCH ×2 (08:09→21:48)
[2016-12-16] MEDS: DOCUSATE SODIUM 100 MG CAP PO SCH ×2 (08:09→21:00)
[2016-12-16] MEDS: LACTOBACILLUS ACIDOPHILUS CAP (BACID) PO SCH ×2 (08:09→21:47)
--- NOTE | 2016-12-16 12:10 | IPNPDOC ---
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 However, she started developing loosening and infection and was found to be infected and on 12/05/2016, the patient had the left total knee replacement with temporary arthrodesis and wide surgical debridement. Patient seen in her room this morning and expresses desire to get the most out of her ARU admission. Some manageable knee pain. ALLERGIES: See Below MEDICATIONS: Reviewed, see below. OBJECTIVE: VITAL SIGNS: Please see below. PHYSICAL EXAMINATION: GENERAL: Pleasant, slightly anxious, elderly, white female, who is sitting up in a chair at bedside finishing breakfast. Patient is alert and well oriented. She is a mild musculoskeletal distress around the left knee which has on the knee splint. HEENT: Normocephalic/atraumatic. CARDIOVASCULAR: Regular rate and rhythm with normal S1-S2. Bilateral 2/4 radial pulses. LUNGS: All kearns clear to auscultation with good air movement. ABDOMEN: Benign with normal bowel sounds in all quadrants. NEUROLOGICAL: Patient alert and oriented to person, place, time and situation. She is mildly anxious but in general pleasant and cooperative. Memory is grossly intact. Bilateral upper extremity with functional range of motion and strength. Right lower extremity with good strength and functional range of motion. Fair minus left lower extremity strength. LABORATORY DATA: Reviewed. Please see below. MICROBIOLOGY: Please see below. IMAGING: No new imaging. DVT prophylaxis ordered?: Yungx and LARISSA mcelroy. ASSESSMENT AND PLAN: 1. 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 Vancomycin dosing should not interfere with physical and occupational therapy time. The patient does seem to tolerate the antibiotic without problems. Patient notes problems with pain, but coping with use of Tramadol. . REHAB. TEAM ROUNDS: OT & PT noting some trouble with attention to task, word finding and slow and limited efforts in therapy sessions. Patient should be improving with energy due to fluid improvement and ongoing pneumonia treatment noted in decreasing O2 requirements. I will ask CUSTOMER SALES SPECIALIST to assess cognition and language. I feel most of the problems are the patient's way of controlling her environment and getting more attention and actions out of people. I believe some Ritalin 2.5 mg with breakfast and lunch should help. If H&H drops then transfuse with 2 units PRBCs should increase her energy also. Estimated Date of Discharge is 12/23/16. 2. Anemia: Patient's H&H are 8.2 and 26.7% today on 12/16/16. In light of the anticoagulation with Lovenox it will be important to track this. If hemoglobin falls below 8.0, then patient will probably require transfusion. 3. DVT prophylaxis: Patient on Lovenox and using LARISSA hose. Left lower extremity in the splint with the inflammation postoperatively from the infected knee will be at greater at risk. 4. Hypoalbuminemia: Patient currently at 2.6 today on 12/16/16. We will continue observe and try improve nutrition. TIME SPENT: Chart Review, examination and documentation 25 minutes. Allergies Coded Allergies: No Known Allergies (Verified , 05/16/16) Vital Signs Vital Signs Date Time Temp Pulse Resp B/P (MAP) Pulse Ox O2 Delivery O2 Flow Rate FiO2 12/16/16 07:17 18 12/16/16 06:00 97.8 72 110/53 (72) 97 Room Air Laboratory Data CBC/BMP Laboratory Tests 12/16/16 06:28 Red Blood Count 2.83 L, Mean Corpuscular Volume 94.3, Mean Corpuscular Hemoglobin 29.0, Mean Corpuscular Hemoglobin Concent 30.7 L, Red Cell Distribution Width 14.5 Labs 24H Laboratory Tests 2 12/16/16 06:28: Nucleated Red Blood Cells % (auto) 0.0, C-Reactive Protein, Quantitative 3.35H Current Medications Current Medications Current Medications Acetaminophen (Tylenol Tab) 650 mg Q6HP PRN PO PAIN OR FEVER Last administered on 12/15/16 21:17; Start 12/12/16 at 11:15; Stop 01/11/17 at 11:14 Al Hydrox/Mg Hydrox/Simethicone (Mylanta) 30 ml Q12HP PRN PO INDIGESTION Last administered on 12/13/16 18:07; Start 12/12/16 at 21:15; Stop 01/11/17 at 21 :14 Albuterol Sulfate (Proventil, Ventolin Hfa) 2 puff Q2HP PRN INH SHORTNESS OF BREATH; Start 12/12/16 at 11:15; Stop 01/11/17 at 11:14 Calcium/Vitamin D (Oscal D) 750 mg BID PO Last administered on 12/16/16 08:09 ; Start 12/12/16 at 21:00; Stop 01/11/17 at 20:59 Docusate Sodium (Colace) 100 mg BID PO Last administered on 12/16/16 08:09; Start 12/12/16 at 21:00; Stop 01/11/17 at 20:59 Enoxaparin Sodium (Lovenox) 40 mg DAILY SC Last administered on 12/16/16 08: 08; Start 12/13/16 at 09:00; Stop 12/23/16 at 23:55 Heparin Sodium (Heparin (Flush)) 200 units ASDIRECTED PRN IV SEE LABEL COMMENTS Last administered on 12/12/16 17:11; Start 12/12/16 at 15:00; Stop 01/11/17 at 14:59 Heparin Sodium (Heparin (Flush)) 200 units PICC IV Last administered on 06:28; Start 12/12/16 at 18:00; Stop 01/11/17 at 17:59 Home Med (Med Rec Complete!) ASDIRECTED XX ; Start 12/12/16 at 15:00; Stop at 15:27; Status DC Lactobacillus Acidophilus (Bacid) 1 ea BID PO Last administered on 12/16/16 08:09; Start 12/12/16 at 21:00; Stop 01/11/17 at 20:59 Levofloxacin (Levaquin) 750 mg DAILY@06 PO Last administered on 12/16/16 06: 25; Start 12/13/16 at 06:00; Stop 01/17/17 at 23:55 Lidocaine (Lidoderm Patch) 1 patch DAILY TD Last administered on 12/16/16 08: 08; Start 12/13/16 at 09:00; Stop 01/12/17 at 08:59 Lorazepam (Ativan) 0.5 mg BIDP PRN PO ANXIETY; Start 12/12/16 at 11:15; Stop 12/19/16 at 11:14 Magnesium Hydroxide (Milk Of Magnesia) 30 ml DAILYPRN PRN PO CONSTIPATION Last administered on 12/13/16 08:44; Start 12/12/16 at 11:15; Stop 01/11/17 at 11 :14 Non-Formulary Medication ( See Comment Field Below ) REMOVE LIDODERM PATCH DAILY@21 XX Last administered on 12/14/16 21:00; Start 12/12/16 at 21:00; Stop 01/11/17 at 20:59 Nystatin (Mycostatin Powder, Nystop) place under b/l vidya... BID TOP Last administered on 12/16/16 08:09; Start 12/12/16 at 21:00; Stop 01/11/17 at 20 :59 Oxycodone HCl (Roxicodone, Oxyir) 5 mg Q4HP PRN PO PAIN(5-7) Last administered on 12/13/16 18:08; Start 12/12/16 at 11:15; Stop 12/19/16 at 11:14 Oxycodone HCl (Roxicodone, Oxyir) 10 mg Q4HP PRN PO SEVERE PAIN (PS 8-10); Start 12/12/16 at 11:15; Stop 12/19/16 at 11:14 Senna (Senokot) 1 tab QHS PO Last administered on 12/15/16 21:16; Start at 21:00; Stop 01/11/17 at 20:59 Sodium Chloride (Saline Lock Flush) 10 ml ASDIRECTED PRN IV SEE LABEL COMMENTS Last administered on 12/12/16 17:11; Start 12/12/16 at 15:00; Stop 01/11/17 at 14:59 Sodium Chloride (Saline Lock Flush) 10 ml PICC IV Last administered on 06:28; Start 12/12/16 at 18:00; Stop 01/11/17 at 17:59 Topiramate (TopAMAX) 50 mg BID PO Last administered on 12/16/16 08:09; Start 12/12/16 at 21:00; Stop 01/11/17 at 20:59 Tramadol HCl (Ultram) 50 mg Q6HP PRN PO PAIN Last administered on 12/16/16 06 :27; Start 12/12/16 at 11:15; Stop 12/19/16 at 11:14 Vancomycin HCl 1000 mg/IV Miscellaneous Supplies 1 each/ Dextrose 270 ml @ 270 mls/hr Q24H IV Last administered on 12/15/16t 16:48; Start 12/12/16 at 17:00 ; Stop 01/17/17 at 16:59 CHRIS WASHINGTON MD Dec 16, 2016 12:10
[2016-12-16 12:35] LABS: FOLATE 7.8 NG/ML (>5.4); VITAMIN B12 LEVEL 377 PG/ML (247-911)
[2016-12-16 14:00] VITALS: BP 136/63
--- NOTE | 2016-12-16 14:59 | IPNPDOC ---
Date Seen The patient was seen on 12/16/16. Progress Note HPI: 81year old F with a past medical history significant for history of left total knee arthroplasty 2012 with recent increasing pain in the left knee, has been following with Dr Donald, orthopedic surgery regarding this issue. The patient underwent bone scan indicating abnormal uptake, infection versus loosening. The patient was admitted to [facility] in [facility] as per Dr. Donald for revision surgery, temporary arthrodesis and antibiotic spacer placement. The patient was subsequently transferred to ARU, Dr Park, 12/12/16. Pt states she is feeling tired from therapy, otherwise no new concerns. Denies any fevers, chills, weakness, fatigue, Headache, Chest Pain, Shortness of breath, cough, palpitations, abdominal pain, N/V/D or changes in bowel or bladder habits. PMHx: Asthma Trigeminal neuralgia Aortic sclerosis Anxiety Depression Vitamin D deficiency Osteoporosis/osteoarthritis Hypertension Chronic migraine headache Insomnia Allergic rhinitis PSHX: Bilateral knee arthroscopy Bilateral TKA Right TRISHA 02/04 Hysterectomy Thyroidectomy Bladder sling Breast biopsy 08/08 left cataract EGD/colonoscopy 01/03. [place]. Adenomatous polyp. 05/03 bilateral inguinal hernia repair. [place]. PE: GEN: 81yoF, appears stated age. Well-nourished, well developed. No acute distress. Alert and oriented x 3. Pleasant, interactive. HEENT: Normocephalic, atraumatic. Extraocular movements are intact. No nystagmus appreciated. Sclera are nonicteric. Conjunctiva without injection. Nose midline. No facial asymmetry. Moist mucous membranes. Pharynx pink and moist, no cobblestoning. Neck supple, trachea midline. No lymphadenopathy or thyromegaly appreciated. CHEST: Regular rate and rhythm, +S1, +S2 LUNGS: Clear to auscultation bilaterally. No wheezes, rales, or rhonchi. Breathing appears symmetric and easy. Patient is speaking in full sentences. No accessory muscle use. ABD: Round, soft, non-tender, non-distended. +Bowel sounds throughout. No rebound or guarding. No costovertebral angle tenderness. EXT: No lower extremity edema appreciated. Knee immobilizer on Left side. SKIN: [place], dry, warm. No rashes. NEURO: Alert and oriented x 3. Cranial nerves III-XII are intact. No focal deficits appreciated. EKG 12/12/16NSR 77 bpm. Lyme screen pending. ESR 67 CRP 5.32 A&P: 81year oldF with a past medical history significant for history of left total knee arthroplasty 2012 with recent increasing pain in the left knee, has been following with Dr Donald, orthopedic surgery regarding this issue. The patient underwent bone scan indicating abnormal uptake, infection versus loosening. The patient was admitted to [facility] in [facility] as per Dr. Donald for revision surgery, temporary arthrodesis and antibiotic spacer placement. The patient was subsequently transferred to ARU, Dr Park, 12/12/16. 1. Status post left TKA revision with temporary arthrodesis, antibiotic spacer placement. Management as per Dr Park. PT/OT as per ARU/Dr Park. Pain control as per ARU/Dr Park. Bowel care as per as per ARU/Dr Park. DVT prophylaxis, Lovenox as per ARU/Dr Park. Infectious. 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 Patient remains on Levaquin 750 mg by mouth daily and IV vancomycin dosing as per clinical pharmacology. Infectious disease is consulted for any further recommendations. Dr. Declan Maria following. Trend CRP. As per ID notes from [place], Cultures of Left knee done in OR neg. Plan was for IV Vanco and po Levaquin x 6 weeks. 2. Asthma. Continue albuterol 2 puffs every 4 hours as needed. 3. Trigeminal neuralgia. Continue Topamax 50 mg by mouth twice a day. Patient follows with neurology as outpatient. 4. Chronic migraine headache. Continue Topamax 50 mg by mouth twice a day. Patient follows with neurology as outpatient. 5. Hypertension. Blood pressure is noted to be 124/66. Monitor. 6. Anxiety/depression/insomnia. Patient remains on Ativan 0.5 mg twice a day as needed for anxiety. 7. Vitamin D deficiency. Continue supplement. 8. Allergic rhinitis. 9. Anemia, postoperative. S/P 1 u PRBC 12/10/16 [place]. Monitor. Fe studies, B12/folate. Thank you for your consultation. We will continue to follow along with you. VS, I&O, 24H, Fishbone Vital Signs/I&O Vital Signs Date Time Temp Pulse Resp B/P (MAP) Pulse Ox O2 Delivery O2 Flow Rate FiO2 12/16/16 07:17 18 12/16/16 06:00 97.8 72 110/53 (72) 97 Room Air I&O- Last 24 Hours up to 6 AM 12/17/16 06:00 Output Total 200 ml Balance -200 ml Laboratory Data 24H LABS Laboratory Tests 2 12/16/16 06:28: Nucleated Red Blood Cells % (auto) 0.0, C-Reactive Protein, Quantitative 3.35H CBC/BMP Laboratory Tests 12/16/16 06:28 Red Blood Count 2.83 L, Mean Corpuscular Volume 94.3, Mean Corpuscular Hemoglobin 29.0, Mean Corpuscular Hemoglobin Concent 30.7 L, Red Cell Distribution Width 14.5 Elvia Nails Dec 16, 2016 14:59
[2016-12-16] MEDS: VANCOMYCIN HCL 1,000 MG, VIAL MATE ADAPTER 1 EACH in D5W 250 ML IV SCH (17:13)
--- NOTE | 2016-12-16 17:22 | IPN ---
DATE: 12/16/2016 Mrs. Fontaine seems to be doing very well with rehabilitation. Elvia Nails asked me to see the patient as they had many questions regarding the cultures from the joint fluid. I had called [facility] on Friday and they stated that the cultures will be held for 14 days and we will call have [facility] at the end of the week to make sure they remain negative. The patient has no fever or chills. No nausea, vomiting or diarrhea. No abdominal pain. LABORATORY DATA: White count is 5.2, hemoglobin 8.2, hematocrit 26.7, platelets 266. ESR 67 on admission. Sodium 145, potassium 3.8, chloride 112, bicarbonate 26, BUN 19, creatinine 0.7, glucose 99, calcium 8.7, iron 41, TIBC 211, iron saturation 19, AST 41, ALT 28, CRP is 3.35 down from 5.32. PHYSICAL EXAMINATION: On physical examination, temperature is 96.4, pulse 80, respirations 18, blood pressure 136/63, oxygen saturation 99% on room air. HEART: Normal S1, S2 with no murmurs. LUNGS: Clear. No wheezes, rales, or rhonchi. ABDOMEN: Soft, nontender. EXTREMITIES: No clubbing, cyanosis or edema. Left knee has a surgical Aquacel dressing that has not been changed since the surgical date. IMPRESSION: 1. 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 The patient remains on IV vancomycin and oral Levaquin for culture negative prosthetic joint infection. Current dose of vancomycin is 1 gram every 24 hours and levofloxacin 750 mg daily. The patient continues on probiotics one tablet by mouth twice a day to hopefully decrease the risk of Clostridium (C) difficile. 2. Constipation, on Senokot and Colace. PLAN: Continue same medication for a total of six weeks. Monitor complete blood count (CBC), basic profile, vancomycin trough, and C-reactive protein (CRP) weekly. Most recent trough level done on 12/16/2016 was 10.2 with a goal of 10-20.
[2016-12-16 20:00] VITALS: BP 123/57
[2016-12-16] MEDS: **NOTE PATIENT COMMENT** MISC XX SCH (21:00)
[2016-12-16] MEDS: SENNA 8.6 MG TAB (SENOKOT) PO SCH (21:00)
[2016-12-16] MEDS: ACETAMINOPHEN TAB 650MG DOSE (2X325MG) PO PRN (21:51)
[2016-12-17 00:08] LABS: Lyme Disease IgG/IgM Antibodie <0.91 ISR (0.00-0.90); Lyme Disease IgM Ab Quantitati <0.80 index (0.00-0.79)
[2016-12-17 06:00] VITALS: BP 123/66
[2016-12-17] MEDS: LevoFLOXacin 750 MG TABLET PO SCH (06:22)
[2016-12-17] MEDS: SODIUM CHLORIDE 0.9% INJ 10 ML SYR IV SCH ×2 (06:23→18:22)
[2016-12-17] MEDS ORDERED: METHYLPHENIDATE 5 MG TAB PO SCH (07:00)
[2016-12-17] MEDS: LIDOCAINE 5% (LIDODERM) PATCH TD SCH (07:18)
[2016-12-17] MEDS: CALCIUM/VITAMIN D 250 MG TABLET PO SCH ×2 (08:41→20:53)
[2016-12-17] MEDS: NYSTATIN 100,000 UNITS/GM TOPICAL PWD 15 GM TOP SCH ×2 (08:42→20:53)
[2016-12-17] MEDS: DOCUSATE SODIUM 100 MG CAP PO SCH ×2 (08:42→20:55)
[2016-12-17] MEDS: ENOXAPARIN 40 MG/0.4 ML SYRINGE (J1650) SC SCH (08:42)
[2016-12-17] MEDS: LACTOBACILLUS ACIDOPHILUS CAP (BACID) PO SCH ×2 (08:42→20:53)
[2016-12-17] MEDS: TOPIRAMATE (TopAMAX) 25 MG TAB PO SCH ×2 (08:42→20:53)
[2016-12-17] MEDS: VANCOMYCIN HCL 1,000 MG, VIAL MATE ADAPTER 1 EACH in D5W 250 ML IV SCH (09:55)
--- NOTE | 2016-12-17 10:13 | IPNPDOC ---
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 However, she started developing loosening and infection and was found to be infected and on 12/05/2016, the patient had the left total knee replacement with temporary arthrodesis and wide surgical debridement. Patient seen in her room this morning and has some manageable knee pain. Mainly expresses upset about Team discussing her and making decisions without her and her PCP presence. ALLERGIES: See Below MEDICATIONS: Reviewed, see below. OBJECTIVE: VITAL SIGNS: Please see below. PHYSICAL EXAMINATION: GENERAL: Pleasant, slightly anxious, elderly, white female, who is sitting up in a chair at bedside finishing breakfast. Patient is alert and well oriented. She is a mild musculoskeletal distress around the left knee which has on the knee splint. HEENT: Normocephalic/atraumatic. CARDIOVASCULAR: Regular rate and rhythm with normal S1-S2. Bilateral 2/4 radial pulses. LUNGS: All kearns clear to auscultation with good air movement. ABDOMEN: Benign with normal bowel sounds in all quadrants. NEUROLOGICAL: Patient more alert and remains oriented to person, place, time and situation. She is in general pleasant and cooperative even while expressing her upset at the evaluation by CHOPPER GUN OPERATOR and the Ritalin dosing. Memory is grossly intact. Bilateral upper extremity with functional range of motion and strength. Right lower extremity with good strength and functional range of motion. Fair minus left lower extremity strength. LABORATORY DATA: Reviewed. Please see below. MICROBIOLOGY: Please see below. IMAGING: No new imaging. DVT prophylaxis ordered?: Lovenox and LARISSA minere. ASSESSMENT AND PLAN: 1. 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 Vancomycin dosing should not interfere with physical and occupational therapy time. The patient does seem to tolerate the antibiotic without problems. Patient notes problems with pain, but coping with use of Tramadol. OT & PT noting some trouble with attention to task, word finding and slow and limited efforts in therapy sessions. Patient should be improving with energy due to fluid improvement and ongoing pneumonia treatment noted in decreasing O2 requirements. I asked CHOPPER GUN OPERATOR to assess cognition and language, patient expresses being upset with the Ritalin and CHOPPER GUN OPERATOR evaluation being done. I feel most of the problems are the patient's way of controlling her environment and getting more attention and actions out of people. If H&H drops then transfuse with 2 units PRBCs should increase her energy also. Estimated Date of Discharge is 12/23/16. Vancomycin adjusted by Dr. Maria. I am uncertain that patient understands that her PCP is able to review and sign off on all care decisions here. 2. Anemia: Patient's H&H are 8.2 and 26.7% on 12/16/16. In light of the anticoagulation with Lovenox it will be important to track this. If hemoglobin falls below 8.0, then patient will probably require transfusion. Recheck CBC tomorrow. 3. DVT prophylaxis: Patient on Lovenox and using LARISSA hose. Left lower extremity in the splint with the inflammation postoperatively from the infected knee will be at greater at risk. 4. Hypoalbuminemia: Patient currently at 2.6 on 12/16/16. We will continue observe and try improve nutrition. TIME SPENT: Chart Review, examination and documentation 25 minutes. Allergies Coded Allergies: No Known Allergies (Verified , 05/16/16) Vital Signs Vital Signs Date Time Temp Pulse Resp B/P (MAP) Pulse Ox O2 Delivery O2 Flow Rate FiO2 12/17/16 08:00 98.9 12/17/16 06:00 77 16 123/66 (85) 98 Room Air Laboratory Data Labs 24H Laboratory Tests 2 12/16/16 16:05: Vancomycin Level Trough 10.2 Current Medications Current Medications Current Medications Acetaminophen (Tylenol Tab) 650 mg Q6HP PRN PO PAIN OR FEVER Last administered on 12/16/16 21:51; Start 12/12/16 at 11:15; Stop 01/11/17 at 11:14 Al Hydrox/Mg Hydrox/Simethicone (Mylanta) 30 ml Q12HP PRN PO INDIGESTION Last administered on 12/13/16 18:07; Start 12/12/16 at 21:15; Stop 01/11/17 at 21 :14 Albuterol Sulfate (Proventil, Ventolin Hfa) 2 puff Q2HP PRN INH SHORTNESS OF BREATH; Start 12/12/16 at 11:15; Stop 01/11/17 at 11:14 Calcium/Vitamin D (Oscal D) 750 mg BID PO Last administered on 12/17/16 08:41 ; Start 12/12/16 at 21:00; Stop 01/11/17 at 20:59 Docusate Sodium (Colace) 100 mg BID PO Last administered on 12/17/16 08:42; Start 12/12/16 at 21:00; Stop 01/11/17 at 20:59 Enoxaparin Sodium (Lovenox) 40 mg DAILY SC Last administered on 12/17/16 08: 42; Start 12/13/16 at 09:00; Stop 12/23/16 at 23:55 Heparin Sodium (Heparin (Flush)) 200 units ASDIRECTED PRN IV SEE LABEL COMMENTS Last administered on 12/12/16 17:11; Start 12/12/16 at 15:00; Stop 01/11/17 at 14:59 Heparin Sodium (Heparin (Flush)) 200 units PICC IV Last administered on 06:23; Start 12/12/16 at 18:00; Stop 01/11/17 at 17:59 Home Med (Med Rec Complete!) ASDIRECTED XX ; Start 12/12/16 at 15:00; Stop at 15:27; Status DC Lactobacillus Acidophilus (Bacid) 1 ea BID PO Last administered on 12/17/16 08:42; Start 12/12/16 at 21:00; Stop 01/11/17 at 20:59 Levofloxacin (Levaquin) 750 mg DAILY@06 PO Last administered on 12/17/16 06: 22; Start 12/13/16 at 06:00; Stop 01/17/17 at 23:55 Lidocaine (Lidoderm Patch) 1 patch DAILY TD Last administered on 12/17/16 07: 18; Start 12/13/16 at 09:00; Stop 01/12/17 at 08:59 Lorazepam (Ativan) 0.5 mg BIDP PRN PO ANXIETY; Start 12/12/16 at 11:15; Stop 12/24/16 at 23:55 Magnesium Hydroxide (Milk Of Magnesia) 30 ml DAILYPRN PRN PO CONSTIPATION Last administered on 10/20/17at 08:44; Start 12/12/16 at 11:15; Stop 01/11/17 at 11 :14 Methylphenidate HCl (Ritalin) 2.5 mg BID@0700,1200 PO Last administered on 07:21; Start 12/17/16 at 07:00; Stop 12/17/16 at 09:45; Status DC Non-Formulary Medication ( See Comment Field Below ) REMOVE LIDODERM PATCH DAILY@21 XX Last administered on 12/16/16 21:00; Start 12/12/16 at 21:00; Stop 01/11/17 at 20:59 Nystatin (Mycostatin Powder, Nystop) place under b/l vidya... BID TOP Last administered on 12/17/16 08:42; Start 12/12/16 at 21:00; Stop 01/11/17 at 20 :59 Oxycodone HCl (Roxicodone, Oxyir) 5 mg Q4HP PRN PO PAIN(6-10) Last administered on 12/13/16 18:08; Start 12/12/16 at 11:15; Stop 12/24/16 at 23 :55 Oxycodone HCl (Roxicodone, Oxyir) 10 mg Q4HP PRN PO SEVERE PAIN (PS 8-10); Start 12/12/16 at 11:15; Stop 12/19/16 at 11:14; Status Cancel Senna (Senokot) 1 tab QHS PO Last administered on 12/15/16 21:16; Start at 21:00; Stop 01/11/17 at 20:59 Sodium Chloride (Saline Lock Flush) 10 ml ASDIRECTED PRN IV SEE LABEL COMMENTS Last administered on 12/12/16 17:11; Start 12/12/16 at 15:00; Stop 01/11/17 at 14:59 Sodium Chloride (Saline Lock Flush) 10 ml PICC IV Last administered on 06:23; Start 12/12/16 at 18:00; Stop 01/11/17 at 17:59 Topiramate (TopAMAX) 50 mg BID PO Last administered on 12/17/16 08:42; Start 12/12/16 at 21:00; Stop 11/18/17 at 20:59 Tramadol HCl (Ultram) 50 mg Q6HP PRN PO PAIN Last administered on 12/16/16 06 :27; Start 12/12/16 at 11:15; Stop 12/24/16 at 23:55 Vancomycin HCl 1000 mg/IV Miscellaneous Supplies 1 each/ Dextrose 270 ml @ 270 mls/hr Q24H IV Last administered on 12/16/16 17:13; Start 12/12/16 at 17:00 ; Stop 12/16/16 at 18:30; Status DC Vancomycin HCl 1000 mg/IV Miscellaneous Supplies 1 each/ Dextrose 270 ml @ 270 mls/hr Q24H IV Last administered on 12/17/16 09:55; Start 12/17/16 at 10:00 ; Stop 12/24/16 at 09:59 CHRIS WASHINGOTN MD Dec 17, 2016 10:13
[2016-12-17] MEDS: oxyCODONE 5MG TAB PO PRN (12:55)
[2016-12-17 16:00] VITALS: BP 138/70
[2016-12-17 20:00] VITALS: BP 128/61
[2016-12-17] MEDS: **NOTE PATIENT COMMENT** MISC XX SCH (20:53)
[2016-12-17] MEDS: SENNA 8.6 MG TAB (SENOKOT) PO SCH (20:55)
[2016-12-18] MEDS: ACETAMINOPHEN TAB 650MG DOSE (2X325MG) PO PRN ×2 (02:03→22:02)
[2016-12-18 06:00] VITALS: BP 134/71
[2016-12-18] MEDS: LevoFLOXacin 750 MG TABLET PO SCH (06:20)
[2016-12-18] MEDS: SODIUM CHLORIDE 0.9% INJ 10 ML SYR IV SCH ×2 (06:20→16:54)
[2016-12-18 06:45] LABS: MEAN CORPUSCULAR HEMOGLOBIN 29.5 pg (27.0-33.0); PLATELET COUNT, AUTOMATED 286 10^3/uL (150-450); RED CELL DISTRIBUTION WIDTH 14.9 % (11.5-14.5); WHITE BLOOD COUNT 6.4 10^3/uL (4.0-10.0)
[2016-12-18 07:03] LABS: ALBUMIN 2.8 GM/DL (3.2-5.2); ALBUMIN/GLOBULIN RATIO 1.08 (1.00-1.93); ALKALINE PHOSPHATASE 130 U/L (45-117); ALT/SGPT 18 U/L (12-78); ANION GAP 7 MEQ/L (8-16); AST/SGOT 19 U/L (15-37); BILIRUBIN,TOTAL 0.4 MG/DL (0.2-1.0); BLOOD UREA NITROGEN 14 MG/DL (7-18); CALCIUM LEVEL 8.8 MG/DL (8.8-10.2); CARBON DIOXIDE LEVEL 27 MEQ/L (21-32); CHLORIDE LEVEL 113 MEQ/L (98-107); CREATININE FOR GFR 0.79 MG/DL (0.55-1.02); GLOMERULAR FILTRATION RATE > 60.0 (>32); GLUCOSE, FASTING 89 MG/DL (83-110); POTASSIUM SERUM 3.7 MEQ/L (3.5-5.1); SODIUM LEVEL 147 MEQ/L (136-145); TOTAL PROTEIN 5.4 GM/DL (6.4-8.2)
[2016-12-18] MEDS: CALCIUM/VITAMIN D 250 MG TABLET PO SCH ×2 (08:50→22:03)
[2016-12-18] MEDS: ENOXAPARIN 40 MG/0.4 ML SYRINGE (J1650) SC SCH (08:50)
[2016-12-18] MEDS: LACTOBACILLUS ACIDOPHILUS CAP (BACID) PO SCH ×2 (08:51→22:00)
[2016-12-18] MEDS: LIDOCAINE 5% (LIDODERM) PATCH TD SCH ×2 (08:51→08:58)
[2016-12-18] MEDS: DOCUSATE SODIUM 100 MG CAP PO SCH ×2 (08:51→21:00)
[2016-12-18] MEDS: TOPIRAMATE (TopAMAX) 25 MG TAB PO SCH ×2 (08:51→22:01)
[2016-12-18] MEDS: SODIUM CHLORIDE 0.9% INJ 10 ML SYR IV PRN (08:52)
[2016-12-18] MEDS: NYSTATIN 100,000 UNITS/GM TOPICAL PWD 15 GM TOP SCH ×2 (08:52→22:04)
[2016-12-18] MEDS: VANCOMYCIN HCL 1,000 MG, VIAL MATE ADAPTER 1 EACH in D5W 250 ML IV SCH (09:00)
--- NOTE | 2016-12-18 09:45 | IPNPDOC ---
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 However, she started developing loosening and infection and was found to be infected and on 12/05/2016, the patient had the left total knee replacement with temporary arthrodesis and wide surgical debridement. Patient seen in her room this morning and has some manageable knee pain. ALLERGIES: See Below MEDICATIONS: Reviewed, see below. OBJECTIVE: VITAL SIGNS: Please see below. PHYSICAL EXAMINATION: GENERAL: Pleasant, slightly anxious, elderly, white female, who is sitting up in a chair at bedside finishing breakfast. Patient is alert and well oriented. She is a mild musculoskeletal distress around the left knee which has on the knee splint. HEENT: Normocephalic/atraumatic. CARDIOVASCULAR: Regular rate and rhythm with normal S1-S2. Bilateral 2/4 radial pulses. LUNGS: All kearns clear to auscultation with good air movement. ABDOMEN: Benign with normal bowel sounds in all quadrants. NEUROLOGICAL: Patient more alert and remains oriented to person, place, time and situation. She is in general pleasant and cooperative. Memory is grossly intact. Bilateral upper extremity with functional range of motion and strength. Right lower extremity with good strength and functional range of motion. Fair minus left lower extremity strength. LABORATORY DATA: Reviewed. Please see below. MICROBIOLOGY: Please see below. IMAGING: No new imaging. DVT prophylaxis ordered?: Shante and LARISSA mcelroy. ASSESSMENT AND PLAN: 1. 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 Vancomycin dosing should not interfere with physical and occupational therapy time. The patient does seem to tolerate the antibiotic without problems. Patient notes problems with pain, but coping with use of Tramadol. OT & PT noting some trouble with attention to task, word finding and slow and limited efforts in therapy sessions. Patient should be improving with energy due to fluid improvement and ongoing pneumonia treatment noted in decreasing O2 requirements. I asked OPERATOR GROUND BASED AIR DEFENCE to assess cognition and language, patient expresses being upset with the Ritalin and OPERATOR GROUND BASED AIR DEFENCE evaluation being done. I feel most of the problems are the patient's way of controlling her environment and getting more attention and actions out of people. Estimated Date of Discharge is 12/23/16. 2. Anemia: Patient's H&H are 8.9 and 28.7% on 12/16/16. In light of the anticoagulation with Lovenox it will be important to track this. 3. DVT prophylaxis: Patient on Lovenox and using LARISSA hose. Left lower extremity in the splint with the inflammation postoperatively from the infected knee will be at greater at risk. 4. Hypoalbuminemia: Patient currently at 2.8 today on 12/18/16. We will continue observe and try improve nutrition. TIME SPENT: Chart Review, examination and documentation 25 minutes. Allergies Coded Allergies: No Known Allergies (Verified , 05/16/16) Vital Signs Vital Signs Date Time Temp Pulse Resp B/P (MAP) Pulse Ox O2 Delivery O2 Flow Rate FiO2 12/18/16 06:00 99.3 83 18 134/71 (92) 98 Room Air Laboratory Data CBC/BMP Laboratory Tests 12/18/16 06:29 Red Blood Count 3.02 L, Mean Corpuscular Volume 95.0, Mean Corpuscular Hemoglobin 29.5, Mean Corpuscular Hemoglobin Concent 31.0 L, Red Cell Distribution Width 14.9 H, Calcium Level 8.8, Aspartate Amino Transf (AST/SGOT) 19, Alanine Aminotransferase (ALT/SGPT) 18, Alkaline Phosphatase 130 H, Total Bilirubin 0.4, Total Protein 5.4 L, Albumin 2.8 L Labs 24H Laboratory Tests 2 12/18/16 06:29: Nucleated Red Blood Cells % (auto) 0.0, Anion Gap 7L, Glomerular Filtration Rate > 60.0, Blood Urea Nitrogen 14, Creatinine 0.79, Sodium Level 147H, Potassium Level 3.7, Chloride Level 113H, Carbon Dioxide Level 27, Calcium Level 8.8, Aspartate Amino Transf (AST/SGOT) 19, Alanine Aminotransferase (ALT/ SGPT) 18, Alkaline Phosphatase 130H, Total Bilirubin 0.4, Total Protein 5.4L, Albumin 2.8L, C-Reactive Protein, Quantitative 2.35H, Albumin/Globulin Ratio 1.08 Current Medications Current Medications Current Medications Acetaminophen (Tylenol Tab) 650 mg Q6HP PRN PO PAIN OR FEVER Last administered on 12/18/16 02:03; Start 12/12/16 at 11:15; Stop 01/11/17 at 11:14 Al Hydrox/Mg Hydrox/Simethicone (Mylanta) 30 ml Q12HP PRN PO INDIGESTION Last administered on 12/13/16 18:07; Start 12/12/16 at 21:15; Stop 01/11/17 at 21 :14 Albuterol Sulfate (Proventil, Ventolin Hfa) 2 puff Q2HP PRN INH SHORTNESS OF BREATH; Start 12/12/16 at 11:15; Stop 01/11/17 at 11:14 Calcium/Vitamin D (Oscal D) 750 mg BID PO Last administered on 12/18/16 08:50 ; Start 12/12/16 at 21:00; Stop 01/11/17 at 20:59 Docusate Sodium (Colace) 100 mg BID PO Last administered on 12/17/16 08:42; Start 12/12/16 at 21:00; Stop 01/11/17 at 20:59 Enoxaparin Sodium (Lovenox) 40 mg DAILY SC Last administered on 12/18/16 08: 50; Start 12/13/16 at 09:00; Stop 12/23/16 at 23:55 Heparin Sodium (Heparin (Flush)) 200 units ASDIRECTED PRN IV SEE LABEL COMMENTS Last administered on 12/18/16 08:52; Start 12/12/16 at 15:00; Stop 01/11/17 at 14:59 Heparin Sodium (Heparin (Flush)) 200 units PICC IV Last administered on 06:20; Start 12/12/16 at 18:00; Stop 01/11/17 at 17:59 Home Med (Med Rec Complete!) ASDIRECTED XX ; Start 12/12/16 at 15:00; Stop at 15:27; Status DC Lactobacillus Acidophilus (Bacid) 1 ea BID PO Last administered on 12/18/16 08:51; Start 12/12/16 at 21:00; Stop 01/11/17 at 20:59 Levofloxacin (Levaquin) 750 mg DAILY@06 PO Last administered on 12/18/16 06: 20; Start 12/13/16 at 06:00; Stop 01/17/17 at 23:55 Lidocaine (Lidoderm Patch) 1 patch DAILY TD Last administered on 12/17/16 07: 18; Start 12/13/16 at 09:00; Stop 01/12/17 at 08:59 Lorazepam (Ativan) 0.5 mg BIDP PRN PO ANXIETY; Start 12/12/16 at 11:15; Stop 12/24/16 at 23:55 Magnesium Hydroxide (Milk Of Magnesia) 30 ml DAILYPRN PRN PO CONSTIPATION Last administered on 12/13/16 08:44; Start 12/12/16 at 11:15; Stop 01/11/17 at 11 :14 Methylphenidate HCl (Ritalin) 2.5 mg BID@0700,1200 PO Last administered on 07:21; Start 12/17/16 at 07:00; Stop 12/17/16 at 09:45; Status DC Non-Formulary Medication ( See Comment Field Below ) REMOVE LIDODERM PATCH DAILY@21 XX Last administered on 12/17/16 20:53; Start 12/12/16 at 21:00; Stop 01/11/17 at 20:59 Nystatin (Mycostatin Powder, Nystop) place under b/l vidya... BID TOP Last administered on 12/18/16 08:52; Start 12/12/16 at 21:00; Stop 01/11/17 at 20 :59 Oxycodone HCl (Roxicodone, Oxyir) 5 mg Q4HP PRN PO PAIN(6-10) Last administered on 12/17/16 12:55; Start 12/12/16 at 11:15; Stop 12/24/16 at 23 :55 Oxycodone HCl (Roxicodone, Oxyir) 10 mg Q4HP PRN PO SEVERE PAIN (PS 8-10); Start 12/12/16 at 11:15; Stop 12/19/16 at 11:14; Status Cancel Senna (Senokot) 1 tab QHS PO Last administered on 12/15/16 21:16; Start at 21:00; Stop 01/11/17 at 20:59 Sodium Chloride (Saline Lock Flush) 10 ml ASDIRECTED PRN IV SEE LABEL COMMENTS Last administered on 12/18/16 08:52; Start 12/12/16 at 15:00; Stop 01/11/17 at 14:59 Sodium Chloride (Saline Lock Flush) 10 ml PICC IV Last administered on 06:20; Start 12/12/16 at 18:00; Stop 01/11/17 at 17:59 Topiramate (TopAMAX) 50 mg BID PO Last administered on 12/18/16 08:51; Start 12/12/16 at 21:00; Stop 01/11/17 at 20:59 Tramadol HCl (Ultram) 50 mg Q6HP PRN PO PAIN Last administered on 12/16/16 06 :27; Start 12/12/16 at 11:15; Stop 12/24/16 at 23:55 Vancomycin HCl 1000 mg/IV Miscellaneous Supplies 1 each/ Dextrose 270 ml @ 270 mls/hr Q24H IV Last administered on 12/16/16 17:13; Start 12/12/16 at 17:00 ; Stop 12/16/16 at 18:30; Status DC Vancomycin HCl 1000 mg/IV Miscellaneous Supplies 1 each/ Dextrose 270 ml @ 270 mls/hr Q24H IV Last administered on 12/18/16 09:00; Start 12/17/16 at 10:00 ; Stop 12/24/16 at 09:59 CHRIS WASHINGTON MD Dec 18, 2016 09:45
--- NOTE | 2016-12-18 11:48 | IPNPDOC ---
Date Seen The patient was seen on 12/18/16. Progress Note HPI: 81year old F with a past medical history significant for history of left total knee arthroplasty 2012 with recent increasing pain in the left knee, has been following with Dr Donald, orthopedic surgery regarding this issue. The patient underwent bone scan indicating abnormal uptake, infection versus loosening. The patient was admitted to [facility] in [facility] as per Dr. Donald for revision surgery, temporary arthrodesis and antibiotic spacer placement. The patient was subsequently transferred to ARU, Dr Park, 12/12/16. Pt states she is feeling tired from therapy, otherwise no new concerns. Denies any fevers, chills, weakness, fatigue, Headache, Chest Pain, Shortness of breath, cough, palpitations, abdominal pain, N/V/D or changes in bowel or bladder habits. PMHx: Asthma Trigeminal neuralgia Aortic sclerosis Anxiety Depression Vitamin D deficiency Osteoporosis/osteoarthritis Hypertension Chronic migraine headache Insomnia Allergic rhinitis PSHX: Bilateral knee arthroscopy Bilateral TKA Right TRISHA 02/04 Hysterectomy Thyroidectomy Bladder sling Breast biopsy 08/08 left cataract EGD/colonoscopy 01/03. [place]. Adenomatous polyp. 05/03 bilateral inguinal hernia repair. [place]. PE: GEN: 81yoF, appears stated age. Well-nourished, well developed. No acute distress. Alert and oriented x 3. Pleasant, interactive. HEENT: Normocephalic, atraumatic. Sclera are nonicteric. Conjunctiva without injection. Nose midline. No facial asymmetry. Moist mucous membranes. Pharynx pink and moist. Neck supple, trachea midline. No lymphadenopathy or thyromegaly appreciated. CHEST: Regular rate and rhythm, +S1, +S2 LUNGS: Clear to auscultation bilaterally. No wheezes, rales, or rhonchi. Breathing appears symmetric and easy. Patient is speaking in full sentences. No accessory muscle use. ABD: Round, soft, non-tender, non-distended. +Bowel sounds throughout. No rebound or guarding. No costovertebral angle tenderness. EXT: No lower extremity edema appreciated. Knee immobilizer on Left side. SKIN: [place], dry, warm. No rashes. NEURO: Alert and oriented x 3. Cranial nerves III-XII are intact. No focal deficits appreciated. EKG 12/12/16NSR 77 bpm. Lyme screen neg. 12/13/16 ESR 67 12/13/16 CRP 5.32 A&P: 81year oldF with a past medical history significant for history of left total knee arthroplasty 2012 with recent increasing pain in the left knee, has been following with Dr Donald, orthopedic surgery regarding this issue. The patient underwent bone scan indicating abnormal uptake, infection versus loosening. The patient was admitted to [facility] in [facility] as per Dr. Donald for revision surgery, temporary arthrodesis and antibiotic spacer placement. The patient was subsequently transferred to ARU, Dr Park, 12/12/16. 1. Status post left TKA revision with temporary arthrodesis, antibiotic spacer placement. Management as per Dr Park. PT/OT as per ARU/Dr Park. Pain control as per ARU/Dr Park. Bowel care as per as per ARU/Dr Park. DVT prophylaxis, Lovenox as per ARU/Dr Park. Infectious. 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 Patient remains on Levaquin 750 mg by mouth daily and IV vancomycin dosing as per clinical pharmacology. Infectious disease is consulted for any further recommendations. Dr. Declan Maria following. Cont to trend CRP. As per ID notes from [facility], Cultures of Left knee done in OR neg. Plan was for IV Vanco and po Levaquin x 6 weeks. 2. Asthma. Continue albuterol 2 puffs every 4 hours as needed. 3. Trigeminal neuralgia. Continue Topamax 50 mg by mouth twice a day. Patient follows with neurology as outpatient. 4. Chronic migraine headache. Continue Topamax 50 mg by mouth twice a day. Patient follows with neurology as outpatient. 5. Hypertension. Blood pressure is noted to be 124/66. Monitor. 6. Anxiety/depression/insomnia. Patient remains on Ativan 0.5 mg twice a day as needed for anxiety. 7. Vitamin D deficiency. Continue supplement. 8. Allergic rhinitis. 9. Anemia, postoperative. S/P 1 u PRBC 12/10/16 [place]. Hgb 8.9, trend upward. Monitor. Fe studies, B12/folate. 10. Hypernatremia. Na noted to be 147 today, previous labs WNL. Pt states she is not drinking as much water as she does at home. Encourage po intake. Recheck labs in AM. VS, I&O, 24H, Fishbone Vital Signs/I&O Vital Signs Date Time Temp Pulse Resp B/P (MAP) Pulse Ox O2 Delivery O2 Flow Rate FiO2 12/18/16 06:00 99.3 83 18 134/71 (92) 98 Room Air I&O- Last 24 Hours up to 6 AM 12/19/16 06:00 Intake Total 240 ml Balance 240 ml Laboratory Data 24H LABS Laboratory Tests 2 12/18/16 06:29: Nucleated Red Blood Cells % (auto) 0.0, Anion Gap 7L, Glomerular Filtration Rate > 60.0, Blood Urea Nitrogen 14, Creatinine 0.79, Sodium Level 147H, Potassium Level 3.7, Chloride Level 113H, Carbon Dioxide Level 27, Calcium Level 8.8, Aspartate Amino Transf (AST/SGOT) 19, Alanine Aminotransferase (ALT/ SGPT) 18, Alkaline Phosphatase 130H, Total Bilirubin 0.4, Total Protein 5.4L, Albumin 2.8L, C-Reactive Protein, Quantitative 2.35H, Albumin/Globulin Ratio 1.08 CBC/BMP Laboratory Tests 12/18/16 06:29 Red Blood Count 3.02 L, Mean Corpuscular Volume 95.0, Mean Corpuscular Hemoglobin 29.5, Mean Corpuscular Hemoglobin Concent 31.0 L, Red Cell Distribution Width 14.9 H, Calcium Level 8.8, Aspartate Amino Transf (AST/SGOT) 19, Alanine Aminotransferase (ALT/SGPT) 18, Alkaline Phosphatase 130 H, Total Bilirubin 0.4, Total Protein 5.4 L, Albumin 2.8 L Elvia Nails Dec 18, 2016 11:48
[2016-12-18 14:53] VITALS: BP 113/61
[2016-12-18] MEDS: MAALOX 30 ML SUSP *UDC PO PRN (17:32)
[2016-12-18 20:00] VITALS: BP 151/72
[2016-12-18] MEDS: **NOTE PATIENT COMMENT** MISC XX SCH (21:00)
[2016-12-18] MEDS: SENNA 8.6 MG TAB (SENOKOT) PO SCH (21:00)
[2016-12-19] MEDS ORDERED: MAALOX 30 ML SUSP *UDC PO ONE
[2016-12-19] MEDS: LevoFLOXacin 750 MG TABLET PO SCH (05:58)
[2016-12-19] MEDS: SODIUM CHLORIDE 0.9% INJ 10 ML SYR IV SCH ×2 (05:58→18:00)
[2016-12-19 06:00] VITALS: BP 132/62
[2016-12-19 06:27] LABS: ALBUMIN 2.6 GM/DL (3.2-5.2); ALBUMIN/GLOBULIN RATIO 0.87 (1.00-1.93); ALKALINE PHOSPHATASE 128 U/L (45-117); ALT/SGPT 17 U/L (12-78); ANION GAP 7 MEQ/L (8-16); AST/SGOT 18 U/L (15-37); BILIRUBIN,TOTAL 0.4 MG/DL (0.2-1.0); BLOOD UREA NITROGEN 11 MG/DL (7-18); CALCIUM LEVEL 8.5 MG/DL (8.8-10.2); CARBON DIOXIDE LEVEL 26 MEQ/L (21-32); CHLORIDE LEVEL 113 MEQ/L (98-107); CHOLESTEROL LEVEL 153 MG/DL (<200); CREATININE FOR GFR 0.72 MG/DL (0.55-1.02); GLOMERULAR FILTRATION RATE > 60.0 (>32); GLUCOSE, FASTING 91 MG/DL (83-110); POTASSIUM SERUM 3.4 MEQ/L (3.5-5.1); SODIUM LEVEL 146 MEQ/L (136-145); TOTAL PROTEIN 5.6 GM/DL (6.4-8.2); TRIGLYCERIDES LEVEL 137 MG/DL (<150)
[2016-12-19] MEDS: LIDOCAINE 5% (LIDODERM) PATCH TD SCH (08:49)
[2016-12-19] MEDS: CALCIUM/VITAMIN D 250 MG TABLET PO SCH ×2 (08:50→20:35)
[2016-12-19] MEDS: LACTOBACILLUS ACIDOPHILUS CAP (BACID) PO SCH ×2 (08:50→20:34)
[2016-12-19] MEDS: ENOXAPARIN 40 MG/0.4 ML SYRINGE (J1650) SC SCH (08:50)
[2016-12-19] MEDS: TOPIRAMATE (TopAMAX) 25 MG TAB PO SCH ×2 (08:50→20:35)
[2016-12-19] MEDS: DOCUSATE SODIUM 100 MG CAP PO SCH ×2 (08:50→20:35)
[2016-12-19] MEDS: MAALOX 30 ML SUSP *UDC PO PRN (08:52)
[2016-12-19] MEDS: NYSTATIN 100,000 UNITS/GM TOPICAL PWD 15 GM TOP SCH ×2 (08:55→20:36)
[2016-12-19] MEDS: ACETAMINOPHEN TAB 650MG DOSE (2X325MG) PO PRN ×2 (08:59→20:35)
--- NOTE | 2016-12-19 09:40 | REPUSA ---
CLINICAL HISTORY: Not provided. COMMENTS: The cardiac silhouette is enlarged. There is evidence for pulmonary venous congestion compatible with CHF. There is no definite radiographic evidence for a lung mass or consolidation. Bony structures appear normal. Right PICC line is in good position with its tip in the superior vena cava. IMPRESSION: 1. Enlarged cardiac silhouette. 2. Pulmonary venous congestion compatible with CHF. Thank you for your kind referral of this patient.
[2016-12-19] MEDS ORDERED: POTASSIUM CHLORIDE 10 MEQ SR TABLET PO ONE (11:15)
[2016-12-19] MEDS: VANCOMYCIN HCL 1,000 MG, VIAL MATE ADAPTER 1 EACH in D5W 250 ML IV SCH (11:58)
[2016-12-19 14:00] VITALS: BP 152/66
--- NOTE | 2016-12-19 15:35 | IPNPDOC ---
Date Seen The patient was seen on 12/19/16. Progress Note HPI: 81year old F with a past medical history significant for history of left total knee arthroplasty 2012 with recent increasing pain in the left knee, has been following with Dr Donald, orthopedic surgery regarding this issue. The patient underwent bone scan indicating abnormal uptake, infection versus loosening. The patient was admitted to [facility] in [facility] as per Dr. Donald for revision surgery, temporary arthrodesis and antibiotic spacer placement. The patient was subsequently transferred to ARU, Dr Park, 12/12/16. Pt states she has no new concerns. Was evaluated last PM related to low grade temp. Pt states she also had some epigastric discomfort that resolved with Mylanta. Pt states she has h/o HH. Denies any fevers, chills, weakness, fatigue, Headache, Chest Pain, Shortness of breath, cough, palpitations, abdominal pain, N/V/D or changes in bowel or bladder habits. PMHx: Asthma Trigeminal neuralgia Aortic sclerosis Anxiety Depression Vitamin D deficiency Osteoporosis/osteoarthritis Hypertension Chronic migraine headache Insomnia Allergic rhinitis PSHX: Bilateral knee arthroscopy Bilateral TKA Right TRISHA 02/04 Hysterectomy Thyroidectomy Bladder sling Breast biopsy 08/08 left cataract EGD/colonoscopy 01/03. [place]. Adenomatous polyp. 05/03 bilateral inguinal hernia repair. [place]. PE: GEN: 81yoF, appears stated age. Well-nourished, well developed. No acute distress. Alert and oriented x 3. Pleasant, interactive. HEENT: Normocephalic, atraumatic. Sclera are nonicteric. Conjunctiva without injection. Nose midline. No facial asymmetry. Moist mucous membranes. Pharynx pink and moist. Neck supple, trachea midline. No lymphadenopathy or thyromegaly appreciated. CHEST: Regular rate and rhythm, +S1, +S2 LUNGS: Clear to auscultation bilaterally. No wheezes, rales, or rhonchi. Breathing appears symmetric and easy. Patient is speaking in full sentences. No accessory muscle use. ABD: Round, soft, non-tender, non-distended. +Bowel sounds throughout. No rebound or guarding. No costovertebral angle tenderness. EXT: Knee immobilizer on Left side. No LE edema RLE, trace distal LLE. SKIN: [place], dry, warm. No rashes. NEURO: Alert and oriented x 3. Cranial nerves III-XII are intact. No focal deficits appreciated. EKG 12/12/16NSR 77 bpm. Lyme screen neg. 12/13/16 ESR 67 12/13/16 CRP 5.32 A&P: 81year oldF with a past medical history significant for history of left total knee arthroplasty 2012 with recent increasing pain in the left knee, has been following with Dr Donald, orthopedic surgery regarding this issue. The patient underwent bone scan indicating abnormal uptake, infection versus loosening. The patient was admitted to [facility] in [facility] as per Dr. Donald for revision surgery, temporary arthrodesis and antibiotic spacer placement. The patient was subsequently transferred to ARU, Dr Park, 12/12/16. 1. Status post left TKA revision with temporary arthrodesis, antibiotic spacer placement. Management as per Dr Park. PT/OT as per ARU/Dr Park. Pain control as per ARU/Dr Park. Bowel care as per as per ARU/Dr Park. DVT prophylaxis, Lovenox as per ARU/Dr Park. 2. Infectious. 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 Patient remains on Levaquin 750 mg by mouth daily and IV vancomycin dosing as per clinical pharmacology. Infectious disease is consulted for any further recommendations. Dr. Declan Maria following. CRP trend downward. UC pending. BC x 2 pending. As per ID notes from [place], Cultures of Left knee done in OR neg. Plan was for IV Vanco and po Levaquin x 6 weeks. 3. Asthma. Continue albuterol 2 puffs every 4 hours as needed. 4. Trigeminal neuralgia. Continue Topamax 50 mg by mouth twice a day. Patient follows with neurology as outpatient. 5. Chronic migraine headache. Continue Topamax 50 mg by mouth twice a day. Patient follows with neurology as outpatient. 6. Hypertension. BP 113-152 systolic. Monitor. 7. Anxiety/depression/insomnia. Patient remains on Ativan 0.5 mg twice a day as needed for anxiety. 8. Vitamin D deficiency. Continue supplement. 9. Allergic rhinitis. 10. Anemia, postoperative. S/P 1 u PRBC 12/10/16 [place]. Hgb 8.9, trend upward. Monitor. Fe studies, B12/folate. 11. Hypernatremia. 146 today. Recheck labs in AM. 12. Hypokalemia. po supplement. Recheck labs in AM. VS, I&O, 24H, Fishbone Vital Signs/I&O Vital Signs Date Time Temp Pulse Resp B/P (MAP) Pulse Ox O2 Delivery O2 Flow Rate FiO2 12/19/16 14:00 98.6 80 18 152/66 (94) 99 Room Air I&O- Last 24 Hours up to 6 AM 12/20/16 06:00 Intake Total 480 ml Balance 480 ml Laboratory Data 24H LABS Laboratory Tests 2 12/18/16 23:43: Urine Appearance CLOUDYH, Urine Color YELLOW, Urine pH 7.0, Urine Specific [place] 1.012, Urine Protein NEGATIVE, Urine Glucose (UA) NEGATIVE, Urine Ketones NEGATIVE, Urine Urobilinogen 0.2, Urine Bilirubin NEGATIVE, Urine Leukocyte Esterase TRACEH, Urine Blood NEGATIVE, Urine Nitrite NEGATIVE, Urine WBC (Auto) 9H, Urine RBC (Auto) 2, Urine Hyaline Casts (Auto) 0, Urine Bacteria (Auto) NEGATIVE, Urine Squamous Epithelial Cells 0, Urine Amorphous Sediment MODERATEH, Urine Sperm (Auto) 12/19/16 00:30: Total Creatine Kinase 17L, Creatine Kinase MB 1.0, Creatine Kinase MB Relative Index 5.88H, Troponin I < 0.02 12/19/16 05:53: Anion Gap 7L, Glomerular Filtration Rate > 60.0, Blood Urea Nitrogen 11, Creatinine 0.72, Sodium Level 146H, Potassium Level 3.4L, Chloride Level 113H, Carbon Dioxide Level 26, Calcium Level 8.5L, Aspartate Amino Transf (AST/SGOT) 18, Alanine Aminotransferase (ALT/SGPT) 17, Alkaline Phosphatase 128H, Total Bilirubin 0.4, Triglycerides Level 137, LDL Cholesterol 79.6, Total Protein 5.6L , Albumin 2.6L, Albumin/Globulin Ratio 0.87L, Total Cholesterol 153, Non-HDL Cholesterol (LDL + VLDL) 107, Total HDL Cholesterol 46, Cholesterol/HDL Ratio 3.326 12/19/16 11:29: C-Reactive Protein, Quantitative 1.87H CBC/BMP Laboratory Tests 12/19/16 05:53 Calcium Level 8.5 L, Aspartate Amino Transf (AST/SGOT) 18, Alanine Aminotransferase (ALT/SGPT) 17, Alkaline Phosphatase 128 H, Total Bilirubin 0.4 , Triglycerides Level 137, LDL Cholesterol 79.6, Total Protein 5.6 L, Albumin 2.6 L Microbiology Microbiology 12/18/16 Blood Culture, Received Pending 12/18/16 Blood Culture, Received Pending Elvia Nails Dec 19, 2016 15:35
--- NOTE | 2016-12-19 16:42 | IPNPDOC ---
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 However, she started developing loosening and infection and was found to be infected and on 12/05/2016, the patient had the left total knee replacement with temporary arthrodesis and wide surgical debridement. Patient seen in the therapy gym this morning and has some manageable knee pain. Patient doing fairly well with w/c mobility. No specific complaints, happy to know heart w/u last night went well. 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 ALLERGIES: See Below MEDICATIONS: Reviewed, see below. OBJECTIVE: VITAL SIGNS: Please see below. PHYSICAL EXAMINATION: GENERAL: Pleasant, slightly anxious, elderly, white female, who is sitting up in a chair at bedside finishing breakfast. Patient is alert and well oriented. She is a mild musculoskeletal distress around the left knee which has on the knee splint. HEENT: Normocephalic/atraumatic. CARDIOVASCULAR: Regular rate and rhythm with normal S1-S2. Bilateral 2/4 radial pulses. LUNGS: All kearns clear to auscultation with good air movement. ABDOMEN: Benign with normal bowel sounds in all quadrants. NEUROLOGICAL: Patient more alert and remains oriented to person, place, time and situation. She is in general pleasant and cooperative. Memory is grossly intact. Bilateral upper extremity with functional range of motion and strength. Right lower extremity with good strength and functional range of motion. Fair minus left lower extremity strength. LABORATORY DATA: Reviewed. Please see below. MICROBIOLOGY: Please see below. IMAGING: No new imaging. DVT prophylaxis ordered?: Lovenox and LARISSA mcelroy. ASSESSMENT AND PLAN: 1. 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 Vancomycin dosing should not interfere with physical and occupational therapy time. The patient does seem to tolerate the antibiotic without problems. Patient notes problems with pain, but coping with use of Tramadol. OT & PT noting some trouble with attention to task, word finding and slow and limited efforts in therapy sessions. Patient should be improving with energy due to fluid improvement and ongoing pneumonia treatment noted in decreasing O2 requirements. Estimated Date of Discharge is 12/23/16. 2. Anemia: Patient's H&H are 8.9 and 28.7% on 12/16/16. In light of the anticoagulation with Lovenox it will be important to track this. 3. DVT prophylaxis: Patient on Lovenox and using LARISSA hose. Left lower extremity in the splint with the inflammation postoperatively from the infected knee will be at greater at risk. 4. Hypoalbuminemia: Patient currently at 2.6 today on 12/19/16 a slight drop. REHAB TEAM ROUNDS: Patient on track for discharge to home with family for . Therapy per below notes. Patient: Saritha Fontaine : 1935 Age/Sex: 81/F Unit#: [id number] Room/Bed: M4147/01 User: Nona Flannery PT PT Date: 12/18/16 15:04 Type: PT Progress Note Time In * 13:50 Time Out * 14:05 PT Treatment Time-Minutes * 15 mins Type of Therapy Provided * Individual Precautions * Fall * NWB * Other Unit * Acute Inpatient Rehab Pain Comment * no report of pain. Subjective * pt was reclined in her recliner and willing to complete exercises in her recliner at this time. Cognition * Within Normal Limits Cognition Comments * A&Ox3 Supine to Sit * Not Tested Sit to Supine * Not Tested Rolling * Not Tested Bed Mobility Notes * not tested today Sit to Stand * Not Tested Stand to Sit * Not Tested Bed to Chair * Not Tested Chair to Bed * Not Tested Toilet/Commode * Not Tested Transfer Training Notes * not tested today Sit-Static * G Sit-Dynamic * G- Stand-Static * F+ Stand-Dynamic * F Balance Training Note * Standing assessed using RW; pt able to maintain NWB LLE during transfers. Stair Training Note * pt has ramp put in at her home so she does not have to complete stairs. A. Roll Left and Right: * 88.Not Attempted B. Sit to Lying: * 88.Not Attempted C. Lying to Sitting on Side of Bed: * 88.Not Attempted D. Sit to Stand: * 88.Not Attempted E. Chair/Wii-hn-Przpi Transfer: * 88.Not Attempted F. Toilet Transfer: * 88.Not Attempted G. Car Transfer: * 88.Not Attempted H. Does the patient walk?: * 2. Yes I. Walk 10 Feet: * 88.Not Attempted J. Walk 50' with Two Turns: * 88.Not Attempted K. Walk 150 Feet: * 88.Not Attempted L. Walking 10' on uneven surfaces: * 88.Not Attempted M. 1 Step (curb): * 88.Not Attempted N. 4 Steps (with or without railing): * 88.Not Attempted O. 12 Steps (with or without railing): * 88.Not Attempted P. Picking up Object from the Floor (from a standing): * 88.Not Attempted Q. Does the patient use a w/c (other than just transport): * 0. No RR. What type of w/c?: * 1. Manual SS. What type of w/c?: * 1. Manual Lower Extremity Exercised * Bilateral Supine Exercises * Ankle Pumps * Glut Sets * Heel Slides * Hip Abductions * Straight Leg Raises * Hip Adduction Other Supine Exercises * Heel slides and SAQ (R)only Number of Reps Supine * 10-15 Reps Therapeutic Exercises Note * pt completing ther ex well with no major adverse effects noted at this time. PT Interventions * Functional Training * Safety/Precautions * Pt./Family Education * D/C Needs PT Progress Note * pt was left reclined in her recliner at this time with her call redd in her lap. personal possessions are within her reach. Nursing is notified. PT Goal Note * Encouraged pt to have son measure distance from bed to bathroom to ensure ability to complete that distance safely Discharge Recommendations * Home w/services Safe for discharge at this time * No Patient: Saritha Fontaine : 1935 Age/Sex: 81/F Unit#: [id number] Room/Bed: M4147/01 User: Lidia Singh OT OT Date: 12/18/16 12:08 Type: OT Progress Time In * 07:05 Time Out * 08:20 OT Treatment Time-Minutes * 75 mins Type of Therapy Provided * Individual Precautions * Fall * NWB * Other Other Precautions * L immobilizer on at all times. Unit * Acute Inpatient Rehab Pain Comment * No formal c/o pain Subjective * Pt supine upon OT arrival, attempting to don L sock using sock aide. Pt reports she will have her son do this at home; though when talking it through, pt reports she wants to be able to complete this task on her own in case she needs to doff/don socks while son is sleeping or away. Cognition * Within Normal Limits Cognition Comments * A&Ox3 Supine to Sit * Standby Assist Bed Mobility Notes * SBA supine to sit EOB. Sit to Stand * Standby Assist Stand to Sit * Standby Assist Bed to Chair * Contact Guard Assist Toilet/Commode * Contact Guard Assist Functional Transfer Notes: * SBA for initial sit<>stand; then pt able to transfer with CGA to w/c. Pt reports she will be w/c level mostly at home, therefore goal is to ambulate from bathroom door to toilet only. Pt transferred to w/c then self propelled w/c to bathroom door with SBA and cueing for safety with w/c propulsion. Pt then ambulated ~6' from bathroom door to toilet with CGA and encouragement to complete task. CGA for toilet transfer due to fatigue. Bathing * Standby Assist Dressing-Upper Body * Standby Assist Dressing-Lower Body * Standby Assist Grooming * Independent Toileting * Contact Guard Assist Eating * Independent ADL Training Note * Pt completed LB dressing of LARISSA hose on RLE, B socks, and donning knee brace with supervision while supine. Pt then transferred to EOB>w/c and to bathroom, see mobility note above. Pt completed toileting with CGA with 1 rest break between transfer and clothing management due to fatigue. Pt edu re: energy conservation and rest breaks during ADL tasks for increased safety. Pt then returned to w/c and completed sponge bathing using CHG wipes per protocol. Pt noted to have rash on abdomen and L flank area, RN-Nehemiah notified and aware. Pt completed UB dressing with set-up assist. LB dressing to don skirt with set-up only, donned overhead. Pt completed grooming independently at sink. A. Eating (include only those with PO intake): * 06.Independent Eating Comments: * See ADL note. B. Oral Hygiene (includes gums in edentulous pts): * 06.Independent Oral Hygiene Comments: * See ADL note. C. Toileting Hygiene (not transfers): * 04.Sup/Touch Assist Toileting Hygiene Comments: * See ADL note. E. Shower/Bathe Self (not transfers, can be sponge bath): * 05.Setup/clean up Asst Shower/Bathe Self Comments: * See ADL note. F. Upper Body Dressing (includes bra, not hospital gown): * 05.Setup/clean up Asst Upper Body Dressing Comments: * See ADL note. G. Lower Body Dressing (includes briefs and knee braces): * 05.Setup/clean up Asst Lower Body Dressing Comments: * See ADL note. H. Putting on/taking off footwear (includes TEDS and AFO): * 05.Setup/clean up Asst Putting on/taking off footwear Comments: * See ADL note. Sit-Static * G Sit-Dynamic * G- Stand-Static * F+ Stand-Dynamic * F Balance Training Note * Standing assessed using RW; pt able to maintain NWB LLE during transfers. OT Intervention Note * See ADL notes above. Following ADLs, pt remained seated in w/c with all needs met, call light in reach, LLE supported on foot rest for comfort.Breakfast in front of pt. OT Goal Note * Continue with OT plan of care Discharge Recommendations * Home w/services Safe for discharge at this time * No Patient: Saritha Fontaine : 1935 Age/Sex: 81/F Unit#: [id number] Room/Bed: M4147/01 User: St Vanessa Nguyễn SP Date: 12/19/16 15:27 Type: ST Tang Cognitive Lingusti... Exercise Education Label * Verbal * Other Cognitive Linguistic Topic maintenance, organization of plan for d/c * Level of Assistance Maximal Assist Distractable * Level of Assistance Comment Verbal cues to inc awareness. Pt not receptive to strategies. Requested d/c * Tolerance Poor * Therapeutic Exercise Yes Pt/Family Education * Therapeutic Exercise Comment Supervising EXTERNAL GRINDER present, agrees w/ tx and outcomes. MS Shari, [facility]-EXTERNAL GRINDER. TIME SPENT: Chart Review, examination and documentation 25 minutes. Allergies Coded Allergies: No Known Allergies (Verified , 05/16/16) Vital Signs Vital Signs Date Time Temp Pulse Resp B/P (MAP) Pulse Ox O2 Delivery O2 Flow Rate FiO2 12/19/16 14:00 98.6 80 18 152/66 (94) 99 Room Air Laboratory Data CBC/BMP Laboratory Tests 12/19/16 05:53 Calcium Level 8.5 L, Aspartate Amino Transf (AST/SGOT) 18, Alanine Aminotransferase (ALT/SGPT) 17, Alkaline Phosphatase 128 H, Total Bilirubin 0.4 , Triglycerides Level 137, LDL Cholesterol 79.6, Total Protein 5.6 L, Albumin 2.6 L Labs 24H Laboratory Tests 2 12/18/16 23:43: Urine Appearance CLOUDYH, Urine Color YELLOW, Urine pH 7.0, Urine Specific [place] 1.012, Urine Protein NEGATIVE, Urine Glucose (UA) NEGATIVE, Urine Ketones NEGATIVE, Urine Urobilinogen 0.2, Urine Bilirubin NEGATIVE, Urine Leukocyte Esterase TRACEH, Urine Blood NEGATIVE, Urine Nitrite NEGATIVE, Urine WBC (Auto) 9H, Urine RBC (Auto) 2, Urine Hyaline Casts (Auto) 0, Urine Bacteria (Auto) NEGATIVE, Urine Squamous Epithelial Cells 0, Urine Amorphous Sediment MODERATEH, Urine Sperm (Auto) 12/19/16 00:30: Total Creatine Kinase 17L, Creatine Kinase MB 1.0, Creatine Kinase MB Relative Index 5.88H, Troponin I < 0.02 12/19/16 05:53: Anion Gap 7L, Glomerular Filtration Rate > 60.0, Blood Urea Nitrogen 11, Creatinine 0.72, Sodium Level 146H, Potassium Level 3.4L, Chloride Level 113H, Carbon Dioxide Level 26, Calcium Level 8.5L, Aspartate Amino Transf (AST/SGOT) 18, Alanine Aminotransferase (ALT/SGPT) 17, Alkaline Phosphatase 128H, Total Bilirubin 0.4, Triglycerides Level 137, LDL Cholesterol 79.6, Total Protein 5.6L , Albumin 2.6L, Albumin/Globulin Ratio 0.87L, Total Cholesterol 153, Non-HDL Cholesterol (LDL + VLDL) 107, Total HDL Cholesterol 46, Cholesterol/HDL Ratio 3.326 12/19/16 11:29: C-Reactive Protein, Quantitative 1.87H Microbiology Microbiology 12/18/16 Blood Culture, Received Pending 12/18/16 Blood Culture, Received Pending Current Medications Current Medications Current Medications Acetaminophen (Tylenol Tab) 650 mg Q6HP PRN PO PAIN OR FEVER Last administered on 12/19/16 08:59; Start 12/12/16 at 11:15; Stop 01/11/17 at 11:14 Al Hydrox/Mg Hydrox/Simethicone (Mylanta) 30 ml Q12HP PRN PO INDIGESTION Last administered on 12/19/16 08:52; Start 12/12/16 at 21:15; Stop 01/11/17 at 21 :14 Albuterol Sulfate (Proventil, Ventolin Hfa) 2 puff Q2HP PRN INH SHORTNESS OF BREATH; Start 12/12/16 at 11:15; Stop 01/11/17 at 11:14 Calcium/Vitamin D (Oscal D) 750 mg BID PO Last administered on 12/19/16 08:50 ; Start 12/12/16 at 21:00; Stop 01/11/17 at 20:59 Docusate Sodium (Colace) 100 mg BID PO Last administered on 12/19/16 08:50; Start 12/12/16 at 21:00; Stop 01/11/17 at 20:59 Enoxaparin Sodium (Lovenox) 40 mg DAILY SC Last administered on 12/19/16 08: 50; Start 12/13/16 at 09:00; Stop 12/23/16 at 23:55 Heparin Sodium (Heparin (Flush)) 200 units ASDIRECTED PRN IV SEE LABEL COMMENTS Last administered on 12/18/16 08:52; Start 12/12/16 at 15:00; Stop 01/11/17 at 14:59 Heparin Sodium (Heparin (Flush)) 200 units PICC IV Last administered on 05:58; Start 12/12/16 at 18:00; Stop 01/11/17 at 17:59 Home Med (Med Rec Complete!) ASDIRECTED XX ; Start 12/12/16 at 15:00; Stop at 15:27; Status DC Lactobacillus Acidophilus (Bacid) 1 ea BID PO Last administered on 12/19/16 08:50; Start 12/12/16 at 21:00; Stop 01/11/17 at 20:59 Levofloxacin (Levaquin) 750 mg DAILY@06 PO Last administered on 12/19/16 05: 58; Start 12/13/16 at 06:00; Stop 01/17/17 at 23:55 Lidocaine (Lidoderm Patch) 1 patch DAILY TD Last administered on 12/17/16 07: 18; Start 12/13/16 at 09:00; Stop 12/19/16 at 10:07; Status DC Lorazepam (Ativan) 0.5 mg BIDP PRN PO ANXIETY; Start 12/12/16 at 11:15; Stop 12/24/16 at 23:55 Magnesium Hydroxide (Milk Of Magnesia) 30 ml DAILYPRN PRN PO CONSTIPATION Last administered on 12/13/16 08:44; Start 12/12/16 at 11:15; Stop 01/11/17 at 11 :14 Methylphenidate HCl (Ritalin) 2.5 mg BID@0700,1200 PO Last administered on 07:21; Start 12/17/16 at 07:00; Stop 12/17/16 at 09:45; Status DC Miscellaneous (Unresolved Patient Own Med Order) SEE LABEL COMMENTS UNRESOLVED XX Last administered on 12/18/16 11:45; Start 12/18/16 at 00:01; Stop 01/17 at 00:00 Non-Formulary Medication Patient may use ... TIDP PRN TOP PAIN; Start at 19:00; Stop 01/17/17 at 18:59; Status UNV Non-Formulary Medication ( See Comment Field Below ) REMOVE LIDODERM PATCH DAILY@21 XX Last administered on 12/17/16 20:53; Start 12/12/16 at 21:00; Stop 12/19/16 at 10:07; Status DC Nystatin (Mycostatin Powder, Nystop) place under b/l vidya... BID TOP Last administered on 12/19/16 08:55; Start 12/12/16 at 21:00; Stop 01/11/17 at 20 :59 Oxycodone HCl (Roxicodone, Oxyir) 5 mg Q4HP PRN PO PAIN(6-10) Last administered on 12/17/16 12:55; Start 12/12/16 at 11:15; Stop 12/24/16 at 23 :55 Oxycodone HCl (Roxicodone, Oxyir) 10 mg Q4HP PRN PO SEVERE PAIN (PS 8-10); Start 12/12/16 at 11:15; Stop 12/19/16 at 11:14; Status Cancel Senna (Senokot) 1 tab QHS PO Last administered on 12/15/16 21:16; Start at 21:00; Stop 01/11/17 at 20:59 Sodium Chloride (Saline Lock Flush) 10 ml ASDIRECTED PRN IV SEE LABEL COMMENTS Last administered on 12/18/16 08:52; Start 12/12/16 at 15:00; Stop 01/11/17 at 14:59 Sodium Chloride (Saline Lock Flush) 10 ml PICC IV Last administered on 05:58; Start 12/12/16 at 18:00; Stop 01/11/17 at 17:59 Topiramate (TopAMAX) 50 mg BID PO Last administered on 12/19/16 08:50; Start 12/12/16 at 21:00; Stop 01/11/17 at 20:59 Tramadol HCl (Ultram) 50 mg Q6HP PRN PO PAIN Last administered on 12/16/16 06 :27; Start 12/12/16 at 11:15; Stop 12/24/16 at 23:55 Vancomycin HCl 1000 mg/IV Miscellaneous Supplies 1 each/ Dextrose 270 ml @ 270 mls/hr Q24H IV Last administered on 12/16/16 17:13; Start 12/12/16 at 17:00 ; Stop 12/16/16 at 18:30; Status DC Vancomycin HCl 1000 mg/IV Miscellaneous Supplies 1 each/ Dextrose 270 ml @ 270 mls/hr Q24H IV Last administered on 12/19/16 11:58; Start 12/17/16 at 10:00 ; Stop 12/24/16 at 09:59 CHRIS WASHINGTON MD Dec 19, 2016 16:42
--- NOTE | 2016-12-19 17:22 | ECGEPIP ---
Stationary ECG Study [facility] Test Date: 2016-12-19 Pat Name: CRICKET STEVENS Department: Room: [place] [address] Gender: F Quality Checker: [employer]ER : 1935 Requested By: JIMMY PEARSON Order Number: [id number] Reading MD: Jayant Parada Measurements Intervals [place] Rate: 81 P: 15 OR: 156 QRS: 8 QRSD: 88 T: 30 QT: 378 QTc: 440 Interpretive Statements SINUS RHYTHM Normal. No change from 01/20/12 Electronically Signed On 12-19-2016 17:22:08 EDT by Jayant Parada
[2016-12-19 20:00] VITALS: BP 138/74
[2016-12-19] MEDS: SENNA 8.6 MG TAB (SENOKOT) PO SCH (20:35)
[2016-12-20 06:00] VITALS: BP 152/68
[2016-12-20] MEDS: LevoFLOXacin 750 MG TABLET PO SCH (06:07)
[2016-12-20] MEDS: SODIUM CHLORIDE 0.9% INJ 10 ML SYR IV SCH ×2 (06:07→17:31)
[2016-12-20] MEDS: ACETAMINOPHEN TAB 650MG DOSE (2X325MG) PO PRN ×2 (06:10→20:06)
[2016-12-20 06:26] LABS: MEAN CORPUSCULAR HEMOGLOBIN 29.8 pg (27.0-33.0); MEAN CORPUSCULAR HGB CONC 31.3 g/dl (32.0-36.5); MEAN CORPUSCULAR VOLUME 95.4 fl (80.0-96.0); PLATELET COUNT, AUTOMATED 257 10^3/uL (150-450); WHITE BLOOD COUNT 5.2 10^3/uL (4.0-10.0)
[2016-12-20 06:36] LABS: ALBUMIN 2.9 GM/DL (3.2-5.2); ALBUMIN/GLOBULIN RATIO 1.04 (1.00-1.93); ALKALINE PHOSPHATASE 134 U/L (45-117); ALT/SGPT 16 U/L (12-78); ANION GAP 5 MEQ/L (8-16); AST/SGOT 18 U/L (15-37); BILIRUBIN,TOTAL 0.4 MG/DL (0.2-1.0); BLOOD UREA NITROGEN 11 MG/DL (7-18); CALCIUM LEVEL 8.4 MG/DL (8.8-10.2); CARBON DIOXIDE LEVEL 27 MEQ/L (21-32); CHLORIDE LEVEL 113 MEQ/L (98-107); CREATININE FOR GFR 0.71 MG/DL (0.55-1.02); GLOMERULAR FILTRATION RATE > 60.0 (>32); GLUCOSE, FASTING 88 MG/DL (83-110); POTASSIUM SERUM 3.9 MEQ/L (3.5-5.1); SODIUM LEVEL 145 MEQ/L (136-145); TOTAL PROTEIN 5.7 GM/DL (6.4-8.2)
[2016-12-20] MEDS: VANCOMYCIN HCL 1,000 MG, VIAL MATE ADAPTER 1 EACH in D5W 250 ML IV SCH (09:03)
[2016-12-20] MEDS: ENOXAPARIN 40 MG/0.4 ML SYRINGE (J1650) SC SCH (09:03)
[2016-12-20] MEDS: SODIUM CHLORIDE 0.9% INJ 10 ML SYR IV PRN (09:04)
[2016-12-20] MEDS: LACTOBACILLUS ACIDOPHILUS CAP (BACID) PO SCH ×2 (09:04→20:06)
[2016-12-20] MEDS: TOPIRAMATE (TopAMAX) 25 MG TAB PO SCH ×2 (09:05→20:06)
[2016-12-20] MEDS: DOCUSATE SODIUM 100 MG CAP PO SCH ×2 (09:05→20:06)
[2016-12-20] MEDS: CALCIUM/VITAMIN D 250 MG TABLET PO SCH ×2 (09:05→20:06)
[2016-12-20] MEDS: NYSTATIN 100,000 UNITS/GM TOPICAL PWD 15 GM TOP SCH ×2 (09:06→20:07)
--- NOTE | 2016-12-20 11:01 | IPNPDOC ---
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 However, she started developing loosening and infection and was found to be infected and on 12/05/2016, the patient had the left total knee replacement with temporary arthrodesis and wide surgical debridement. Patient seen in the therapy gym this morning and has some manageable knee pain. Patient doing fairly well with w/c mobility. No specific complaints, happy to know heart w/u last night went well. 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 ALLERGIES: See Below MEDICATIONS: Reviewed, see below. OBJECTIVE: VITAL SIGNS: Please see below. PHYSICAL EXAMINATION: GENERAL: Pleasant, slightly anxious, elderly, white female, who is sitting up in a chair at bedside finishing breakfast. Patient is alert and well oriented. She is a mild musculoskeletal distress around the left knee which has on the knee splint. HEENT: Normocephalic/atraumatic. CARDIOVASCULAR: Regular rate and rhythm with normal S1-S2. Bilateral 2/4 radial pulses. LUNGS: All kearns clear to auscultation with good air movement. ABDOMEN: Benign with normal bowel sounds in all quadrants. NEUROLOGICAL: Patient more alert and remains oriented to person, place, time and situation. She is in general pleasant and cooperative. Memory is grossly intact. Bilateral upper extremity with functional range of motion and strength. Right lower extremity with good strength and functional range of motion. Fair minus left lower extremity strength. LABORATORY DATA: Reviewed. Please see below. MICROBIOLOGY: Please see below. IMAGING: No new imaging. DVT prophylaxis ordered?: Lovenox and LARISSA mcelroy. ASSESSMENT AND PLAN: 1. 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 Vancomycin dosing should not interfere with physical and occupational therapy time. The patient does seem to tolerate the antibiotic without problems. Patient notes problems with pain, but coping with use of Tramadol. OT & PT noting some trouble with attention to task, word finding and slow and limited efforts in therapy sessions. Patient should be improving with energy due to fluid improvement and ongoing pneumonia treatment noted in decreasing O2 requirements. Estimated Date of Discharge is 12/23/16. 2. Anemia: Patient's H&H are 9.1 and 29.1% on 12/20/16. In light of the anticoagulation with Lovenox it will be important to track this. 3. DVT prophylaxis: Patient on Lovenox and using LARISSA hose. Left lower extremity in the splint with the inflammation postoperatively from the infected knee will be at greater at risk. 4. Hypoalbuminemia: Patient currently at 2.9 today on 12/20/16. TIME SPENT: Chart Review, examination and documentation required greater than 25 minutes. Allergies Coded Allergies: No Known Allergies (Verified , 05/16/16) Vital Signs Vital Signs Date Time Temp Pulse Resp B/P (MAP) Pulse Ox O2 Delivery O2 Flow Rate FiO2 12/20/16 06:00 98.8 70 18 152/68 (96) 98 Room Air Laboratory Data CBC/BMP Laboratory Tests 12/20/16 06:05 Red Blood Count 3.05 L, Mean Corpuscular Volume 95.4, Mean Corpuscular Hemoglobin 29.8, Mean Corpuscular Hemoglobin Concent 31.3 L, Red Cell Distribution Width 15.0 H, Calcium Level 8.4 L, Aspartate Amino Transf (AST/SGOT ) 18, Alanine Aminotransferase (ALT/SGPT) 16, Alkaline Phosphatase 134 H, Total Bilirubin 0.4, Total Protein 5.7 L, Albumin 2.9 L Labs 24H Laboratory Tests 2 12/19/16 11:29: C-Reactive Protein, Quantitative 1.87H 12/20/16 06:05: Nucleated Red Blood Cells % (auto) 0.0, Anion Gap 5L, Glomerular Filtration Rate > 60.0, Blood Urea Nitrogen 11, Creatinine 0.71, Sodium Level 145, Potassium Level 3.9, Chloride Level 113H, Carbon Dioxide Level 27, Calcium Level 8.4L, Aspartate Amino Transf (AST/SGOT) 18, Alanine Aminotransferase (ALT/ SGPT) 16, Alkaline Phosphatase 134H, Total Bilirubin 0.4, Total Protein 5.7L, Albumin 2.9L, Magnesium Level 2.7H, Albumin/Globulin Ratio 1.04 Microbiology Microbiology 12/18/16 Blood Culture - Preliminary, Resulted No growth after 24 hours . All specim... 12/18/16 Blood Culture - Preliminary, Resulted No growth after 24 hours . All specim... 12/19/16 Urine Culture, Received Pending Current Medications Current Medications Current Medications Acetaminophen (Tylenol Tab) 650 mg Q6HP PRN PO PAIN OR FEVER Last administered on 12/20/16 06:10; Start 12/12/16 at 11:15; Stop 01/11/17 at 11:14 Al Hydrox/Mg Hydrox/Simethicone (Mylanta) 30 ml Q12HP PRN PO INDIGESTION Last administered on 12/19/16 08:52; Start 12/12/16 at 21:15; Stop 01/11/17 at 21 :14 Albuterol Sulfate (Proventil, Ventolin Hfa) 2 puff Q2HP PRN INH SHORTNESS OF BREATH; Start 12/12/16 at 11:15; Stop 01/11/17 at 11:14 Calcium/Vitamin D (Oscal D) 750 mg BID PO Last administered on 12/20/16 09:05 ; Start 12/12/16 at 21:00; Stop 01/11/17 at 20:59 Docusate Sodium (Colace) 100 mg BID PO Last administered on 12/20/16 09:05; Start 12/12/16 at 21:00; Stop 01/11/17 at 20:59 Enoxaparin Sodium (Lovenox) 40 mg DAILY SC Last administered on 12/20/16 09: 03; Start 12/13/16 at 09:00; Stop 12/23/16 at 23:55 Heparin Sodium (Heparin (Flush)) 200 units ASDIRECTED PRN IV SEE LABEL COMMENTS Last administered on 12/20/16 09:03; Start 12/12/16 at 15:00; Stop 01/11/17 at 14:59 Heparin Sodium (Heparin (Flush)) 200 units PICC IV Last administered on 06:07; Start 12/12/16 at 18:00; Stop 01/11/17 at 17:59 Home Med (Med Rec Complete!) ASDIRECTED XX ; Start 12/12/16 at 15:00; Stop at 15:27; Status DC Lactobacillus Acidophilus (Bacid) 1 ea BID PO Last administered on 12/20/16 09:04; Start 12/12/16 at 21:00; Stop 01/11/17 at 20:59 Levofloxacin (Levaquin) 750 mg DAILY@06 PO Last administered on 12/20/16 06: 07; Start 12/13/16 at 06:00; Stop 01/17/17 at 23:55 Lidocaine (Lidoderm Patch) 1 patch DAILY TD Last administered on 12/17/16 07: 18; Start 12/13/16 at 09:00; Stop 12/19/16 at 10:07; Status DC Lorazepam (Ativan) 0.5 mg BIDP PRN PO ANXIETY; Start 12/12/16 at 11:15; Stop 12/24/16 at 23:55 Magnesium Hydroxide (Milk Of Magnesia) 30 ml DAILYPRN PRN PO CONSTIPATION Last administered on 12/13/16 08:44; Start 12/12/16 at 11:15; Stop 12/20/16 at 10 :17; Status DC Methylphenidate HCl (Ritalin) 2.5 mg BID@0700,1200 PO Last administered on 07:21; Start 12/17/16 at 07:00; Stop 12/17/16 at 09:45; Status DC Miscellaneous (Unresolved Patient Own Med Order) SEE LABEL COMMENTS UNRESOLVED XX Last administered on 12/18/16 11:45; Start 12/18/16 at 00:01; Stop 01/17 at 00:00 Non-Formulary Medication Patient may use ... TIDP PRN TOP PAIN; Start at 19:00; Stop 01/17/17 at 18:59; Status UNV Non-Formulary Medication ( See Comment Field Below ) REMOVE LIDODERM PATCH DAILY@21 XX Last administered on 12/17/16 20:53; Start 12/12/16 at 21:00; Stop 12/19/16 at 10:07; Status DC Nystatin (Mycostatin Powder, Nystop) place under b/l vidya... BID TOP Last administered on 12/20/16 09:06; Start 12/12/16 at 21:00; Stop 01/11/17 at 20 :59 Oxycodone HCl (Roxicodone, Oxyir) 5 mg Q4HP PRN PO PAIN(6-10) Last administered on 12/17/16 12:55; Start 12/12/16 at 11:15; Stop 12/24/16 at 23 :55 Oxycodone HCl (Roxicodone, Oxyir) 10 mg Q4HP PRN PO SEVERE PAIN (PS 8-10); Start 12/12/16 at 11:15; Stop 12/19/16 at 11:14; Status Cancel Senna (Senokot) 1 tab QHS PO Last administered on 12/15/16 21:16; Start at 21:00; Stop 01/11/17 at 20:59 Sodium Chloride (Saline Lock Flush) 10 ml ASDIRECTED PRN IV SEE LABEL COMMENTS Last administered on 12/20/16 09:04; Start 12/12/16 at 15:00; Stop 01/11/17 at 14:59 Sodium Chloride (Saline Lock Flush) 10 ml PICC IV Last administered on 06:07; Start 12/12/16 at 18:00; Stop 01/11/17 at 17:59 Topiramate (TopAMAX) 50 mg BID PO Last administered on 12/20/16 09:05; Start 12/12/16 at 21:00; Stop 01/11/17 at 20:59 Tramadol HCl (Ultram) 50 mg Q6HP PRN PO PAIN Last administered on 12/16/16 06 :27; Start 12/12/16 at 11:15; Stop 12/24/16 at 23:55 Vancomycin HCl 1000 mg/IV Miscellaneous Supplies 1 each/ Dextrose 270 ml @ 270 mls/hr Q24H IV Last administered on 12/16/16 17:13; Start 12/12/16 at 17:00 ; Stop 12/16/16 at 18:30; Status DC Vancomycin HCl 1000 mg/IV Miscellaneous Supplies 1 each/ Dextrose 270 ml @ 270 mls/hr Q24H IV Last administered on 12/20/16 09:03; Start 12/17/16 at 10:00 ; Stop 12/24/16 at 09:59 CHRIS WASHINGTON MD Dec 20, 2016 11:01
[2016-12-20 14:00] VITALS: BP 135/64
[2016-12-20] MEDS ORDERED: OXYCO5TA PO (14:20)
[2016-12-20] MEDS ORDERED: TOPI50TA9 PO (14:20)
[2016-12-20] MEDS ORDERED: LOVE1INJ SC (14:20)
[2016-12-20] MEDS ORDERED: TRAM50TA2 PO (14:20)
[2016-12-20 20:00] VITALS: BP 137/74
[2016-12-20] MEDS: SENNA 8.6 MG TAB (SENOKOT) PO SCH (20:07)
[2016-12-21] MEDS: oxyCODONE 5MG TAB PO PRN (01:18)
[2016-12-21 06:00] VITALS: BP 118/57
[2016-12-21] MEDS: LevoFLOXacin 750 MG TABLET PO SCH (06:19)
[2016-12-21] MEDS: SODIUM CHLORIDE 0.9% INJ 10 ML SYR IV SCH ×2 (06:20→17:25)
[2016-12-21] MEDS: ACETAMINOPHEN TAB 650MG DOSE (2X325MG) PO PRN ×3 (06:20→20:08)
[2016-12-21 06:37] LABS: MEAN CORPUSCULAR HEMOGLOBIN 29.7 pg (27.0-33.0); MEAN CORPUSCULAR HGB CONC 31.2 g/dl (32.0-36.5); PLATELET COUNT, AUTOMATED 255 10^3/uL (150-450); RED CELL DISTRIBUTION WIDTH 14.7 % (11.5-14.5); WHITE BLOOD COUNT 5.6 10^3/uL (4.0-10.0)
[2016-12-21 07:03] LABS: ALBUMIN 2.9 GM/DL (3.2-5.2); ALBUMIN/GLOBULIN RATIO 1.07 (1.00-1.93); ALKALINE PHOSPHATASE 132 U/L (45-117); ALT/SGPT 14 U/L (12-78); ANION GAP 5 MEQ/L (8-16); AST/SGOT 16 U/L (7-37); BILIRUBIN,TOTAL 0.3 MG/DL (0.2-1.0); BLOOD UREA NITROGEN 13 MG/DL (7-18); CALCIUM LEVEL 8.6 MG/DL (8.8-10.2); CARBON DIOXIDE LEVEL 27 MEQ/L (21-32); CHLORIDE LEVEL 112 MEQ/L (98-107); CREATININE FOR GFR 0.72 MG/DL (0.55-1.02); GLOMERULAR FILTRATION RATE > 60.0 (>32); GLUCOSE, FASTING 87 MG/DL (83-110); MAGNESIUM LEVEL 2.7 MG/DL (1.8-2.4); POTASSIUM SERUM 4.1 MEQ/L (3.5-5.1); SODIUM LEVEL 144 MEQ/L (136-145); TOTAL PROTEIN 5.6 GM/DL (6.4-8.2)
[2016-12-21] MEDS: NYSTATIN 100,000 UNITS/GM TOPICAL PWD 15 GM TOP SCH ×2 (08:55→20:10)
[2016-12-21] MEDS: CALCIUM/VITAMIN D 250 MG TABLET PO SCH ×2 (08:55→20:07)
[2016-12-21] MEDS: LACTOBACILLUS ACIDOPHILUS CAP (BACID) PO SCH ×2 (08:55→20:07)
[2016-12-21] MEDS: TOPIRAMATE (TopAMAX) 25 MG TAB PO SCH ×2 (08:55→20:07)
[2016-12-21] MEDS: DOCUSATE SODIUM 100 MG CAP PO SCH ×2 (08:55→20:07)
[2016-12-21] MEDS: ENOXAPARIN 40 MG/0.4 ML SYRINGE (J1650) SC SCH (08:56)
[2016-12-21] MEDS: VANCOMYCIN HCL 1,000 MG, VIAL MATE ADAPTER 1 EACH in D5W 250 ML IV SCH (10:44)
--- NOTE | 2016-12-21 11:54 | IPN ---
DATE OF SERVICE: 12/20/2016 Mrs. Fontaine is doing fairly well. She denies any nausea, vomiting, diarrhea. She is tolerating antibiotics fairly well. The patient had left total knee removal of joint replacement done on 12/05/2016 at [facility]. Wound cultures were sent to [facility], and the final cultures were negative. The patient was transferred for rehabilitation and has been on intravenous (IV) vancomycin and Levaquin. The anticipated date of discharge would be on Friday. The patient had low-grade fever on 12/18/2016 with a temperature of 100.7. For the past 24 hours, she has been afebrile. Temperature currently 98.8, pulse 70, respirations 18, blood pressure 152/68, oxygen (O2) saturation 98% on room air. Heart: Normal S1, S2, with no murmurs. Lungs: Are clear. No wheezes, rales, or rhonchi. Abdomen is soft, nontender. No hepatosplenomegaly (HSM). No costovertebral angle (CVA) tenderness. Extremities: Left knee immobilizer. No lower extremity edema. Skin is no rashes. Neurologic: Examination normal. LABORATORIES: Urinalysis was cloudy with trace leukocyte esterase, 9 white cells. Urine culture is pending from 12/18/2016. White count 5.2, hemoglobin 9.1, hematocrit 29.1, platelets 257. Sodium 145, potassium 3.9, chloride 113, bicarbonate 27, BUN 11, creatinine 0.71, glucose 88, calcium 8.4, magnesium 2.7, AST 18, ALT 16, alkaline phosphatase 134, CRP 1.87 down from 5.32. Blood cultures: On 12/18/2016, two sets are no growth after 24 hours. Urine culture from 12/19/2016 is pending. A final culture from synovial fluid and synovial biopsy at [facility] with no growth after 14 days. IMPRESSION: 1. 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 On IV vancomycin, currently at 1 gram every 24 hours and by mouth Levaquin 750 mg daily. The patient doing well. Vancomycin trough was 10.2 on 12/16/2016. Will recheck vancomycin level in the morning. The patient will be treated for a total of 6 weeks with antibiotic. End of therapy is scheduled to be 6 weeks from 12/06/2016. 2. Low-grade fever has resolved. Urine culture is pending. If the patient not symptomatic, does not need to be treated. PLAN: Anticipated discharge on Friday with IV vancomycin and by mouth Levaquin. End of therapy would be 01/17/2017.
[2016-12-21 14:00] VITALS: BP 137/69
[2016-12-21 20:00] VITALS: BP 141/68
[2016-12-21] MEDS: SENNA 8.6 MG TAB (SENOKOT) PO SCH (20:07)
[2016-12-22] MEDS: ACETAMINOPHEN TAB 650MG DOSE (2X325MG) PO PRN ×4 (02:08→20:22)
[2016-12-22 06:00] VITALS: BP 116/55
[2016-12-22] MEDS: SODIUM CHLORIDE 0.9% INJ 10 ML SYR IV SCH ×2 (06:05→17:34)
[2016-12-22] MEDS: LevoFLOXacin 750 MG TABLET PO SCH (06:05)
[2016-12-22] MEDS: ENOXAPARIN 40 MG/0.4 ML SYRINGE (J1650) SC SCH (08:12)
[2016-12-22] MEDS: LACTOBACILLUS ACIDOPHILUS CAP (BACID) PO SCH ×2 (08:13→20:21)
[2016-12-22] MEDS: NYSTATIN 100,000 UNITS/GM TOPICAL PWD 15 GM TOP SCH ×2 (08:13→20:27)
[2016-12-22] MEDS: TOPIRAMATE (TopAMAX) 25 MG TAB PO SCH ×2 (08:14→20:22)
[2016-12-22] MEDS: DOCUSATE SODIUM 100 MG CAP PO SCH ×2 (08:14→20:21)
[2016-12-22] MEDS: CALCIUM/VITAMIN D 250 MG TABLET PO SCH ×2 (08:14→20:21)
[2016-12-22] MEDS: VANCOMYCIN HCL 1,000 MG, VIAL MATE ADAPTER 1 EACH in D5W 250 ML IV SCH (10:19)
[2016-12-22] MEDS: SODIUM CHLORIDE 0.9% INJ 10 ML SYR IV PRN ×3 (10:19→17:33)
[2016-12-22] MEDS: [UNRECOGNIZED DRUG - OTHER] TOP PRN ×3 (11:29→20:32)
[2016-12-22 14:05] VITALS: BP 135/63
[2016-12-22 20:19] VITALS: BP 132/61
[2016-12-22] MEDS: SENNA 8.6 MG TAB (SENOKOT) PO SCH (20:21)
[2016-12-23] MEDS: ACETAMINOPHEN TAB 650MG DOSE (2X325MG) PO PRN (02:13)
[2016-12-23] MEDS: SODIUM CHLORIDE 0.9% INJ 10 ML SYR IV SCH ×2 (05:26→09:07)
[2016-12-23] MEDS: LevoFLOXacin 750 MG TABLET PO SCH (05:26)
[2016-12-23 06:00] VITALS: BP 129/66
[2016-12-23] MEDS: CALCIUM/VITAMIN D 250 MG TABLET PO SCH (08:31)
[2016-12-23] MEDS: TOPIRAMATE (TopAMAX) 25 MG TAB PO SCH (08:32)
[2016-12-23] MEDS: LACTOBACILLUS ACIDOPHILUS CAP (BACID) PO SCH (08:32)
[2016-12-23] MEDS: DOCUSATE SODIUM 100 MG CAP PO SCH (08:32)
[2016-12-23] MEDS: ENOXAPARIN 40 MG/0.4 ML SYRINGE (J1650) SC SCH (08:32)
[2016-12-23] MEDS: NYSTATIN 100,000 UNITS/GM TOPICAL PWD 15 GM TOP SCH (08:33)
[2016-12-23] MEDS: VANCOMYCIN HCL 1,000 MG, VIAL MATE ADAPTER 1 EACH in D5W 250 ML IV SCH (09:03)
--- NOTE | 2016-12-24 23:48 | PMRDS ---
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 HISTORY OF PRESENT ILLNESS: Patient is an 81-year-old white female with history of end-stage degenerative joint disease of the left knee who approximately 3 years ago, having failed conservative therapy, had a left total knee arthroplasty done, which then became infected, and so patient on 12/05/2016 had removal of the infected prosthesis with a temporary arthrodesis and wide surgical debridement and antibiotic beads and started on a program of intravenous (IV) vancomycin and Levaquin by mouth. Patient limited in her mobility and activities of daily living (ADLs) and was admitted to the acute rehabilitation unit on 12/13/2016 for rehabilitation, as she is nonweightbearing on the left lower extremity with the temporary spacers. PAST MEDICAL HISTORY: 1. Diverticulosis. 2. Hypertension. 3. Migraine headaches. 4. Osteopenia. 5. Two prior abdominal hernias. CURRENT PROBLEMS: Include: 1. Her pain. 2. Anemia. 3. Renal function. PROCEDURES PERFORMED OM THIS UNIT: Included chest x-ray on 12/18/2016, which showed an enlarged cardiac silhouette and pulmonary venous congestion compatible with congestive heart failure (CHF). DIAGNOSTIC AND LABORATORY DATA: Patient admitted with a white count of 6.1 thousand, hemoglobin and hematocrit of 8.3 and 26.2, for a moderate to severe anemia, and patient's most recent hemoglobin and hematocrit and white count are 8.9 and 28.5%, having remained relatively stable, and 5.6 thousand on December 21. Comprehensive metabolic panel has shown on admission normal sodium and potassium, elevated chloride at 113, normal carbon dioxide. BUN and creatinine with albumin of 2.4, for hypoalbuminemia, and some elevation of C-reactive protein at 5.3 and alkaline phosphatase elevated at 137. By discharge, sodium, potassium, carbon dioxide remain normal. Chloride had improved to 112. Magnesium has remained high during the admission at 2.7, calcium low at 8.6. Alkaline phosphatase has remained somewhat elevated at 132. Other liver function tests normal. C-reactive protein has improved to 1.08, and albumin improved to 2.9. Vancomycin troughs have been followed to determine the appropriate dosing, and Dr. Maria will manage this. This patient will be on home infusion. Serology to check for possible Lyme disease that may have started the infection process has shown to be negative for IgG/IgM and IgM quantitative. HOSPITAL COURSE: Patient admitted on 12/13/2016 and started a program of physical occupational therapy. There was some concern about patient's word finding and cognitive expressions, and speech therapy assessment was done. Patient, however, showed herself to be fairly competent, though slightly eccentric in her judgment, decision making, and expression; however, patient is competent. Patient did, however, progress in occupational therapy from standby assist, contact guard in transfers, except bathing was minimal registrar assistant, and dressing lower body contact-guard assist with fair-plus standing balance for static and dynamic to modified independent to standby assist in all transfers, bathing, and modified independent in dressing upper. Standby assist in dressing lower, and modified independence in grooming and good-minus static and dynamic balance. Patient will have family members at home to assist her and physical therapy, initially ambulating 25 feet with contact-guard assist, rolling walker and gait belt, and 150 feet wheelchair with standby assist, being nonweightbearing on her left lower extremity to modified independence to standby assistance in all transfers. Wheelchair distance up to 1000 feet. Able to return to her home environment with family support and fairly accessible one-level home. DISCHARGE MEDICATIONS: - oxycodone 5 mg 20 tablets issued to use one tablet every 4 hours as needed for moderate to severe pain - tramadol 50 mg every 6 hours, 40 tablets issued - Tylenol 975 mg every 6 hours as needed for pain - Ventolin inhaler two puffs as needed for wheezing - calcium 1200 mg daily - diazepam 5 mg twice a day as needed for anxiety/agitation, though patient has not required the lorazepam during the course of admission to the rehabilitation unit. That was substituted for the diazepam. - Colace 100 mg twice a day - Nutrisource fiber one packet of powder daily - Lactobacillus one tablet twice a day - levofloxacin 750 mg daily to complete the 6-week course of antibiotics - Lidoderm 5% patch, applied to the left knee daily for 12 hours on/12 hours off as needed - vancomycin. Patient currently transitioned down to 1 gram IV daily - Lovenox 40 mg subcutaneous daily for 11 days - Topamax 50 mg twice a day COMPLICATIONS: None. DISCHARGE PLANS AND INSTRUCTIONS: Patient will followup with Dr. Maria within 4 weeks, Dr. Nascimento within 2 weeks, and her surgeon, Dr. Christian Donald at [facility], in 2 weeks. TIME SPENT ON DISCHARGE: Greater than 35 minutes.
== END 2016-12-23 13:05 | disposition home health service (06) | DRG 950 ==
LOC: M PM&R 14:15
PROVIDERS: ADMIT Physical Medicine & Rehabilitation; ATTEND Physical Medicine & Rehabilitation
DX: T84.54XD Infection and inflammatory reaction due to internal left knee prosthesis, subsequent encounter (principal); K57.90 Diverticulosis of intestine, part unspecified, without perforation or abscess without bleeding; I10 Essential (primary) hypertension; G43.909 Migraine, unspecified, not intractable, without status migrainosus; M85.80 Other specified disorders of bone density and structure, unspecified site; M15.0 Primary generalized (osteo)arthritis; J45.909 Unspecified asthma, uncomplicated; Z96.653 Presence of artificial knee joint, bilateral; Z79.891 Long term (current) use of opiate analgesic; Z79.899 Other long term (current) drug therapy; D64.9 Anemia, unspecified; Z96.651 Presence of right artificial knee joint; Z96.652 Presence of left artificial knee joint; Z96.641 Presence of right artificial hip joint; G50.0 Trigeminal neuralgia; I35.0 Nonrheumatic aortic (valve) stenosis; E55.9 Vitamin D deficiency, unspecified; G47.00 Insomnia, unspecified; F41.9 Anxiety disorder, unspecified; F32.9 Major depressive disorder, single episode, unspecified; E88.09 Other disorders of plasma-protein metabolism, not elsewhere classified; M89.9 Disorder of bone, unspecified; K59.00 Constipation, unspecified; E87.5 Hyperkalemia; Y83.1 Surgical operation with implant of artificial internal device as the cause of abnormal reaction of the patient, or of later complication, without mention of misadventure at the time of the procedure

== ENCOUNTER → 2017-01-06 | Outpatient (REF) | payer MEDICARE, BC ==
[~2017-01-06] MED LIST changes: +ACET1TAB17 PO; +DOCU100T8 PO; +LACT1TAB4 PO; +LEVO750T13 PO; +LIDO5DIS41 TD; +LOVE1INJ SC; +NUTRPOW11 PO; +OXYC-517 PO; +OXYCO5TA PO; +TOPI50TA9 PO; +VANC10005 INJ
[2017-01-06 15:05] LABS: BASO % 0.5 % (0.0-1.0); EOS # 0.2 10^3/uL (0.0-0.50); EOS % 4.2 % (0.0-3.0); IMMATURE GRANULOCYTE % 0.2 % (0-0); LYMPH # 1.3 10^3/uL (1.5-4.5); LYMPH % 23.2 % (24.0-44.0); MEAN CORPUSCULAR HEMOGLOBIN 29.2 pg (27.0-33.0); MEAN CORPUSCULAR HGB CONC 31.1 g/dl (32.0-36.5); MEAN CORPUSCULAR VOLUME 93.9 fl (80.0-96.0); MONO # 0.5 10^3/uL (0.0-0.8); MONO % 8.1 % (0.0-5.0); NEUTROPHILS # 3.6 10^3/uL (1.8-7.7); NEUTROPHILS % 63.8 % (36.0-66.0); PLATELET COUNT, AUTOMATED 169 10^3/uL (150-450); RED CELL DISTRIBUTION WIDTH 13.5 % (11.5-14.5); WHITE BLOOD COUNT 5.7 10^3/uL (4.0-10.0)
[2017-01-06 15:06] LABS: ANION GAP 7 MEQ/L (8-16); BLOOD UREA NITROGEN 18 MG/DL (7-18); CALCIUM LEVEL 8.6 MG/DL (8.8-10.2); CARBON DIOXIDE LEVEL 26 MEQ/L (21-32); CHLORIDE LEVEL 112 MEQ/L (98-107); CREATININE FOR GFR 0.62 MG/DL (0.55-1.02); GLOMERULAR FILTRATION RATE > 60.0 (>32); GLUCOSE, FASTING 79 MG/DL (83-110); POTASSIUM SERUM 3.7 MEQ/L (3.5-5.1); SODIUM LEVEL 145 MEQ/L (136-145)
[2017-01-06 15:41] LABS: ERYTHROCYTE SEDIMENTATION RATE 28 mm/hr (0-30)
== END ==
LOC: M LAB REF 14:24
PROVIDERS: ATTEND Internal Medicine Infectious Disease
DX: T84.54XA Infection and inflammatory reaction due to internal left knee prosthesis, initial encounter (principal); Y92.9 Unspecified place or not applicable; Y93.9 Activity, unspecified

== ENCOUNTER → 2017-01-13 | Outpatient (REF) | payer MEDICARE, BC ==
[2017-01-13 12:26] LABS: BASO % 0.8 % (0.0-1.0); EOS # 0.2 10^3/uL (0.0-0.50); EOS % 3.7 % (0.0-3.0); IMMATURE GRANULOCYTE % 0.2 % (0-0); LYMPH # 1.4 10^3/uL (1.5-4.5); LYMPH % 27.9 % (24.0-44.0); MEAN CORPUSCULAR HEMOGLOBIN 29.1 pg (27.0-33.0); MEAN CORPUSCULAR HGB CONC 31.7 g/dl (32.0-36.5); MEAN CORPUSCULAR VOLUME 91.8 fl (80.0-96.0); MONO # 0.4 10^3/uL (0.0-0.8); MONO % 8.4 % (0.0-5.0); NEUTROPHILS # 2.9 10^3/uL (1.8-7.7); PLATELET COUNT, AUTOMATED 202 10^3/uL (150-450); RED CELL DISTRIBUTION WIDTH 13.1 % (11.5-14.5); WHITE BLOOD COUNT 4.9 10^3/uL (4.0-10.0)
[2017-01-13 13:01] LABS: ERYTHROCYTE SEDIMENTATION RATE 34 mm/hr (0-30)
[2017-01-13 13:29] LABS: ANION GAP 9 MEQ/L (8-16); BLOOD UREA NITROGEN 16 MG/DL (7-18); CALCIUM LEVEL 8.6 MG/DL (8.8-10.2); CARBON DIOXIDE LEVEL 24 MEQ/L (21-32); CHLORIDE LEVEL 114 MEQ/L (98-107); CREATININE FOR GFR 0.74 MG/DL (0.55-1.02); GLOMERULAR FILTRATION RATE > 60.0 (>32); GLUCOSE, FASTING 110 MG/DL (83-110); POTASSIUM SERUM 3.4 MEQ/L (3.5-5.1); SODIUM LEVEL 147 MEQ/L (136-145)
== END ==
LOC: M LAB REF 11:41
PROVIDERS: ATTEND Family Medicine
DX: E88.09 Other disorders of plasma-protein metabolism, not elsewhere classified (principal); D64.9 Anemia, unspecified

== ENCOUNTER → 2017-01-27 | Outpatient (REF) | payer MEDICARE, BC ==
[2017-01-27 11:25] LABS: BASO % 0.6 % (0.0-1.0); EOS # 0.2 10^3/uL (0.0-0.50); EOS % 3.4 % (0.0-3.0); IMMATURE GRANULOCYTE % 0.2 % (0-0); LYMPH # 1.1 10^3/uL (1.5-4.5); LYMPH % 24.1 % (24.0-44.0); MEAN CORPUSCULAR HEMOGLOBIN 28.6 pg (27.0-33.0); MEAN CORPUSCULAR HGB CONC 31.3 g/dl (32.0-36.5); MEAN CORPUSCULAR VOLUME 91.5 fl (80.0-96.0); MONO # 0.4 10^3/uL (0.0-0.8); MONO % 7.4 % (0.0-5.0); NEUTROPHILS # 3.1 10^3/uL (1.8-7.7); NEUTROPHILS % 64.3 % (36.0-66.0); PLATELET COUNT, AUTOMATED 211 10^3/uL (150-450); RED CELL DISTRIBUTION WIDTH 12.4 % (11.5-14.5); WHITE BLOOD COUNT 4.7 10^3/uL (4.0-10.0)
[2017-01-27 12:21] LABS: ERYTHROCYTE SEDIMENTATION RATE 30 mm/hr (0-30)
== END ==
LOC: M LAB REF 10:49
PROVIDERS: ATTEND Internal Medicine Infectious Disease
DX: T84.59XD Infection and inflammatory reaction due to other internal joint prosthesis, subsequent encounter (principal)

== ENCOUNTER → 2017-03-12 | Outpatient (CLI) | payer MEDICARE, BC | LOC: M RAD 15:34 | DX: M51.06 Intervertebral disc disorders with myelopathy, lumbar region (principal); M54.5 Low back pain | CPT/HCPCS: 72131 ==

== ENCOUNTER → 2018-03-04 | Outpatient (CLI) | payer MEDICARE, BC ==
[~2018-03-04] MED LIST changes: -ACET1TAB17 PO; +ACET1TAB55 PO
--- NOTE | 2018-03-04 14:58 | REP ---
WHOLE BODY RADIONUCLIDE BONE SCAN: HISTORY: Increased alkaline phosphatase. No comparison study. TECHNIQUE: 21.8 mCi technetium 99m MDP is injected and standard whole body bone scan imaging was acquired. SCINTIGRAPHIC FINDINGS: There are photopenic areas at the knees and prosthesis bone interface uptake associated with bilateral knee arthroplasties and a right hip arthroplasty. There is uptake in the kidneys and in the urinary bladder. There is a levoconvex curve in the lumbar spine and a dextroconvex curve in the thoracic spine. Arthritic uptake is seen in each wrist and in each acromioclavicular joint. There is a focus of increased uptake at the level of the left SI joint of uncertain significance. There is no other evidence to suggest skeletal metastatic disease. There is clothing artifact activity from urine contamination posteriorly at the pelvis and in the perineum. Mild arthritic uptake is seen in the left mid foot articulations. IMPRESSION: Arthritic uptake. Prosthesis associated uptake status post bilateral knee and right hip arthroplasties. There is a focus of increased uptake in the left SI joint region of uncertain significance. Pelvic CT imaging may be helpful. Otherwise, degenerative uptake pattern seen. Electronically Signed by Pedro Ferrer MD 03/04/2018 05:55 P
== END ==
LOC: M RAD 09:27
PROVIDERS: ATTEND Family Medicine
DX: R74.8 Abnormal levels of other serum enzymes (principal)
CPT/HCPCS: 78306; A9503

== ENCOUNTER → 2018-07-28 | Outpatient (REF) | payer MEDICARE, BC ==
[~2018-07-28] MED LIST changes: -/ADVA50050 IN; -/CARBXR20T OR; -/WARF25TA OR; +ADVA1AER2 IN; +COUM1TAB18 OR; +TEGR1TAB OR
== END ==
LOC: M LAB REF 13:20
PROVIDERS: ATTEND Family Medicine
DX: R79.89 Other specified abnormal findings of blood chemistry (principal); R74.8 Abnormal levels of other serum enzymes

== ENCOUNTER → 2018-08-25 | Outpatient (CLI) | payer MEDICARE, BC ==
[~2018-08-25] MED LIST changes: +CALC600T60 PO; +CIPR-249 PO; +D-20TAB PO; +DICL1GEL3 TOP; +GASTROGRAFIN SOLUTION 30ML (Q9963) As Ordered ONE; +ISOVUE-370 76% 100ML VIAL (Q9967) As Ordered ONE; +METR-265 PO; +MM S100C PO; +MULTCAP PO; +NATU1TAB5 PO; +OMEP1CAP73 PO; +RA A PO; +RANI150T PO; +SUMA6KIT SC; +TOPA100T12 PO; +VENTAER INH; +VITA1CAP14 PO; +flector patch TOP; +unknown antibiotic
--- NOTE | 2018-08-26 07:38 | REP ---
REASON FOR EXAM: Weight loss. There is no prior CT of the abdomen for comparison. Prior CT of the pelvis 03/27/2016 was reviewed. CONTRAST: 100 mL Isovue 370. There are fibrotic changes suspected in the lung kearns. There are no pleural effusions. There is a pericardial effusion versus asymmetric chronic pericardial thickening since it is seen anteriorly only. There is intrahepatic ductal dilatation. There is dilatation of the intrapancreatic common bile duct. The gallbladder wall enhances and there is evidence of mild pericholecystic edema. In the pancreatic tail there is a 1.2 cm sized peripheral enhancing nodule which has a low density central portion but higher than water Hounsfield unit readings. The pancreas is atrophic. There is no evidence of pancreatic ductal dilatation. There is nodularity and irregularity of the duodenum. This is nonspecific by CT standards. There are no enhancing hepatic lesions. The spleen, adrenal glands, and right kidney are unremarkable. There is a round 3.8 cm size low density lesion arising from the inferior pole of the left kidney which has water Hounsfield unit readings. There are no septations or enhancing mural nodules. The abdominal aorta and para-aortic regions are within normal limits. There is descending colon diverticulosis. There is no evidence of an intra-abdominal mass or adenopathy. Small but round lymph nodes are seen in the gastrohepatic ligament. There is no free fluid or free air. CT PELVIS: There is sigmoid colon diverticulosis. [place] artifact arises from a right hip prosthesis limiting evaluation of the pelvis. There is no evidence of a mass or adenopathy. There is no free fluid or free air. Bone window technique throughout the exam shows spinal, left hip and sacroiliac joint degenerative changes. IMPRESSION: 1. The gallbladder wall abnormally enhances and there is evidence of pericholecystic edema. Cholecystitis should be clinically evaluated for. 2. Abnormal appearing duodenum as described above. EGD is recommended for further evaluation. Duodenal neoplasm cannot be ruled out. 3. Small peripherally enhancing nodule in the pancreatic tale. Pancreatic neoplasm cannot be ruled out. Consider pre and post gadolinium-enhanced pancreatic MRI. 4. Bosniak class I simple left renal cyst. 5. Nonenlarged but round and somewhat suspicious appearing lymph nodes in the gastrohepatic ligament. Followup is recommended. 6. There is intrahepatic ductal dilatation along with common bile duct dilatation and dilatation of the intrapancreatic common bile duct. This too, needs to be evaluated clinically with appropriate followup. 7. Colonic diverticulosis as described above. 8. Other findings and exam limitations as described above. Electronically Signed by Leonard Magdaleno DO 08/26/2018 03:37 P
== END ==
LOC: M RAD 15:46
PROVIDERS: ATTEND Surgery
DX: R63.4 Abnormal weight loss (principal); R94.5 Abnormal results of liver function studies; K57.30 Diverticulosis of large intestine without perforation or abscess without bleeding; N28.1 Cyst of kidney, acquired; K86.89 Other specified diseases of pancreas
CPT/HCPCS: 74177; Q9963; Q9967

== ENCOUNTER → 2018-09-10 | Outpatient (CLI) | payer MEDICARE, BC ==
[~2018-09-10] MED LIST changes: -CALC600T60 PO; -CIPR-249 PO; -D-20TAB PO; -DICL1GEL3 TOP; -GASTROGRAFIN SOLUTION 30ML (Q9963) As Ordered ONE; -ISOVUE-370 76% 100ML VIAL (Q9967) As Ordered ONE; -METR-265 PO; -MM S100C PO; -MULTCAP PO; -NATU1TAB5 PO; -OMEP1CAP73 PO; -RA A PO; -RANI150T PO; -SUMA6KIT SC; -TOPA100T12 PO; -VENTAER INH; -VITA1CAP14 PO; -flector patch TOP; -unknown antibiotic
--- NOTE | 2018-09-11 11:03 | REP ---
MRCP: MRCP exam is accomplished utilizing blood pool heavily T2-weighted sequences in the axial and coronal planes. MIP reconstruction images are performed. Multiple large gallstones are seen in the gallbladder. The largest are slightly greater than 2 cm in diameter. There is no gallbladder wall edema. Cystic duct is somewhat dilated and contains several subcentimeter stones. There is moderate intrahepatic biliary dilatation and there is diffuse dilatation of the common hepatic and common bile ducts. Multiple innumerable calculi fill the common hepatic and common bile ducts. Maximum diameter of the common hepatic and common bile ducts is 1.3 cm. The largest stones are of similar diameter. Pancreatic duct is not dilated. Incidental note is made of the a septated cyst in the left lobe of the liver 1.3 cm in diameter. Cystic structure is again seen in the tail of the pancreas approximately 1.4 cm in diameter. Dominant cyst is noted of the lower pole of the left kidney 3.6 cm in diameter. IMPRESSION: Moderate intrahepatic and extrahepatic biliary dilatation. Common hepatic and common bile ducts have maximum diameter of the 1.3 cm. Multiple innumerable calculi are seen in the gallbladder, largest slightly greater than 2 cm in diameter. The cystic duct is dilated with multiple tiny stones. There are multiple innumerable calculi throughout the common hepatic and common bile ducts measuring up to 1.3 cm in diameter. Electronically Signed by Onel Zayas MD 09/13/2018 07:21 P
== END ==
LOC: M RAD 16:42
PROVIDERS: ATTEND Surgery
DX: K83.8 Other specified diseases of biliary tract (principal)

== ENCOUNTER 2018-09-30 10:05 | Day surgery (SDC) | payer MEDICARE, BC ==
[~2018-09-30] VITALS: Ht 162.6 cm; Wt 59.5 kg
[~2018-09-30 10:05] MED LIST changes: +CALC600T60 PO; +LIDOCAINE 1% MDV 20ML VIAL SQ PRN; +LR 1,000 ML IV ONE; +MM S100C PO; +RANI150T PO; +TOPA100T12 PO; +VENTAER INH; +[UNRECOGNIZED DRUG - CODE] PO; +unknown antibiotic
[2018-09-30] MEDS ORDERED: CIPR-249 PO (10:32)
[2018-09-30] MEDS ORDERED: METR-265 PO (10:32)
[2018-09-30] MEDS ORDERED: ROCURONIUM BROMIDE 50 MG/5 ML VIAL As Ordered ONE (11:24)
[2018-09-30] MEDS ORDERED: LIDOCAINE 2% INJ 100 MG/5 ML SDV (FOR ANES.) As Ordered ONE (11:24)
[2018-09-30] MEDS ORDERED: PROPOFOL 200 MG/20 ML VIAL As Ordered ONE (11:24)
[2018-09-30] MEDS ORDERED: dexameTHASONE 4 MG/ML 1ML VIAL (J1100) As Ordered ONE (11:24)
[2018-09-30] MEDS ORDERED: MIDAZOLAM INJ 2 MG/2 ML VIAL (J2250) As Ordered ONE (11:25)
[2018-09-30] MEDS ORDERED: ONDANSETRON 4MG/2ML VIAL (J2405) As Ordered ONE (11:25)
[2018-09-30] MEDS ORDERED: fentaNYL 100 MCG/2 ML INJECTION (J3010) As Ordered ONE ×2 (11:25→14:36)
[2018-09-30] MEDS ORDERED: ISOVUE-300 61% 50ML VIAL (Q9967) As Ordered ONE ×2 (12:02→12:08)
[2018-09-30] MEDS ORDERED: GLUCAGON FOR INJ 1 MG VIAL (J1610) As Ordered ONE (12:03)
[2018-09-30] MEDS ORDERED: PHENYLephrine HCL 500 MCG/5 ML (100MCG/ML) SYRINGE (J2370) As Ordered ONE (13:37)
[2018-09-30] MEDS ORDERED: NEOSTIGMINE 10 MG/10 ML VIAL (J2710) As Ordered ONE (13:47)
[2018-09-30] MEDS ORDERED: GLYCOPYRROLATE INJ 0.2 MG/ML 2 ML VIAL As Ordered ONE (13:47)
--- NOTE | 2018-09-30 14:23 | ROOR ---
Patient Name: Saritha Fontaine Procedure Date: 09/30/2018 12:11 PM Date of : 1935 Age: 82 Room: [facility] Gender: Female Note Status: Finalized Procedure: ERCP Indications: Evaluation and possible treatment of bile duct stone(s) Providers: Milton PERRY MD Referring MD: Allen Nascimento MD Requesting Provider: Medicines: Monitored Anesthesia Care Complications: No immediate complications. Procedure: Pre-Anesthesia Assessment: - The heart rate, respiratory rate, oxygen saturations, blood pressure, adequacy of pulmonary ventilation, and response to care were monitored throughout the procedure. The Duodenoscope was introduced through the mouth, and advanced to the duodenum and used to inject contrast into the bile duct and ventral pancreatic duct. The ERCP was accomplished without difficulty. The patient tolerated the procedure well. Findings: The die press operator film was normal. The esophagus was successfully intubated under direct vision. The scope was advanced to a normal major papilla in the descending duodenum without detailed examination of the pharynx, larynx and associated structures, and upper GI tract. The upper GI tract was grossly normal. The ventral pancreatic duct was deeply cannulated. Contrast was injected. A wire was passed into the ventral pancreatic duct. One 4 Fr by 3 cm temporary stent with a 3/4 internal pigtail was placed into the ventral pancreatic duct. The stent was in good position. A wire was passed into the biliary tree. The bile duct was then deeply cannulated over the guidewire. Contrast was injected. The main bile duct contained multiple stones, and sludge, the largest of which was 12 mm in diameter. A 10 mm biliary sphincterotomy was made with a traction (standard) sphincterotome using ERBE electrocautery. There was no post-sphincterotomy bleeding. The biliary tree was swept with a 12 mm balloon starting at the bifurcation. Sludge and small stones were swept from the duct. A few stones were removed. Several larger stones remained and would not pass. Therefore Lithotripsy with a basket-type device was successfully performed. The biliary tree was then again swept with a 12 mm balloon starting at the bifurcation. Sludge and fragments of stones were swept from the duct. No stones remained. One 10 Fr by 5 cm plastic stent was placed into the common bile duct. Bile, clear fluid and small gravel/fragments flowed through the stent. The stent was in good position. Impression: - Choledocholithiasis was found. Removal was accomplished with biliary sphincterotomy, Lithotripsy and balloon sweep. - A biliary sphincterotomy was performed. - The biliary tree was swept. - Lithotripsy was successful. - One plastic stent was placed into the common bile duct. - One temporary stent was placed into the ventral pancreatic duct. Recommendation: - Surgical consultation for consideration of cholecystectomy at the next available appointment. - Repeat ERCP in 2 - 3 months (sometime after cholecystectomy) to remove stent (s) to assure no new stones have passed into CBD in interim. (multiple cystic duct stones seen on MRCP, but not today--likely passed prior todays exam) Milton Perry MD Milton PERRY MD 09/30/2018 2:23:12 PM Electronically signed by Milton PERRY MD Number of Addenda: 0 Note Initiated On: 09/30/2018 12:11 PM Estimated Blood Loss: Estimated blood loss: none.
[2018-09-30] MEDS ORDERED: LR 1,000 ML IV SCH (15:00)
[2018-09-30] MEDS ORDERED: fentaNYL 100 MCG/2 ML INJECTION (J3010) IV PRN (15:00)
[2018-09-30] MEDS ORDERED: ONDANSETRON 4MG/2ML VIAL (J2405) IV PRN (15:00)
[2018-09-30 16:10] VITALS: BP 167/72
--- NOTE | 2018-09-30 19:12 | REP ---
C-ARM VIEWS DURING ERCP: Multiple C-ARM views are performed during ERCP. Contrast was injected into a dilated biliary system. Catheter manipulation is performed. Multiple filling defects are seen in the common bile duct consistent with choledocholithiasis. Final images show no definite filling defects. Common bile duct stent was placed. 17 minutes and 13 seconds of fluoroscopy time was utilized. Electronically Signed by Onel Zayas MD 10/01/2018 07:54 A
--- NOTE | 2018-10-01 08:39 | ECGEPIP ---
[facility] Test Date: 2018-09-30 Pat Name: CRICKET STEVENS Department: Room: - Gender: Female Demographer: [facility] : 1935 Requested By: ALEX SANCHEZ Order Number: [id number] Reading MD: Cody Garrett Measurements Intervals [place] Rate: 58 P: 46 MA: 164 QRS: -5 QRSD: 86 T: 19 QT: 408 QTc: 402 Interpretive Statements Sinus bradycardia Nonspecific T wave abnormality No significant change when compared to prior tracing of 12/19/2016 Electronically Signed on 10-01-2018 8:38:57 EDT by Cody Garrett
== END 2018-09-30 16:25 | disposition home or self-care (01) ==
LOC: M SDC 10:05
PROVIDERS: ATTEND Internal Medicine Gastroenterology
DX: K80.50 Calculus of bile duct without cholangitis or cholecystitis without obstruction (principal); E78.00 Pure hypercholesterolemia, unspecified; K44.9 Diaphragmatic hernia without obstruction or gangrene; J45.909 Unspecified asthma, uncomplicated; Z86.718 Personal history of other venous thrombosis and embolism; E03.9 Hypothyroidism, unspecified; F41.9 Anxiety disorder, unspecified; Z79.51 Long term (current) use of inhaled steroids; Z79.899 Other long term (current) drug therapy
CPT/HCPCS: 43265; 43274; 74330; 93005; C1876; C2625; J1100; J2250; J2370; J2405; J2710; J3010; Q9967

== ENCOUNTER 2018-12-01 05:55 | Day surgery (SDC) | payer MEDICARE, BC ==
[~2018-12-01] VITALS: Ht 167.6 cm; Wt 60.2 kg
[~2018-12-01 05:55] MED LIST changes: +CIPR-249 PO; +DICL1GEL3 TOP; -LIDOCAINE 1% MDV 20ML VIAL SQ PRN; -LR 1,000 ML IV ONE; +METR-265 PO
[2018-12-01] MEDS ORDERED: CONRAY-60 60% 50ML VIAL (Q9961) As Ordered ONE (06:53)
[2018-12-01] MEDS ORDERED: VITA1CAP14 PO (06:53)
[2018-12-01] MEDS ORDERED: BUPIVACAINE HCL 0.25% 30 ML VIAL As Ordered ONE (06:53)
[2018-12-01] MEDS ORDERED: LR 1,000 ML IV ONE (07:00)
[2018-12-01] MEDS ORDERED: fentaNYL 250 MCG/5 ML INJECTION (J3010) As Ordered ONE (07:05)
[2018-12-01] MEDS ORDERED: HYDROmorphone HCL 2 MG/ML 1ML VIAL (J1170) As Ordered ONE (07:05)
[2018-12-01] MEDS ORDERED: PROPOFOL 200 MG/20 ML VIAL As Ordered ONE (07:06)
[2018-12-01] MEDS ORDERED: LACRILUBE (AKWA TEARS) OPHTH OINT 3.5 GM As Ordered ONE (07:06)
[2018-12-01] MEDS ORDERED: LIDOCAINE 2% INJ 100 MG/5 ML SDV (FOR ANES.) As Ordered ONE (07:06)
[2018-12-01] MEDS ORDERED: dexameTHASONE 4 MG/ML 1ML VIAL (J1100) As Ordered ONE (07:06)
[2018-12-01] MEDS ORDERED: MIDAZOLAM INJ 2 MG/2 ML VIAL (J2250) As Ordered ONE (07:06)
[2018-12-01] MEDS ORDERED: ROCURONIUM BROMIDE 50 MG/5 ML VIAL As Ordered ONE ×2 (07:06→08:20)
[2018-12-01] MEDS ORDERED: ONDANSETRON 4MG/2ML VIAL (J2405) As Ordered ONE (08:03)
[2018-12-01] MEDS ORDERED: KETOROLAC 60 MG/2 ML VIAL (J1885) As Ordered ONE (08:04)
[2018-12-01] MEDS ORDERED: PHENYLephrine HCL 500 MCG/5 ML (100MCG/ML) SYRINGE (J2370) As Ordered ONE (08:33)
[2018-12-01] MEDS ORDERED: ePHEDrine SULFATE 25 MG/5 ML(5MG/ML) SYRINGE As Ordered ONE (08:33)
[2018-12-01] MEDS ORDERED: SUGAMMADEX SODIUM 500 MG/5 ML VIAL (BRIDION) As Ordered ONE (09:19)
[2018-12-01] MEDS ORDERED: HYDROMORPHONE HCL 0.5 MG/ 0.5 ML SYRINGE (J1170 PER 1) IV PRN (10:15)
[2018-12-01] MEDS ORDERED: PERCOCET 5MG/325MG TAB PO PRN (10:15)
[2018-12-01] MEDS ORDERED: LR 1,000 ML IV SCH (10:15)
[2018-12-01] MEDS ORDERED: ACETAMINOPHEN TAB 650MG DOSE (2X325MG) PO PRN (10:15)
[2018-12-01] MEDS ORDERED: ONDANSETRON 4MG/2ML VIAL (J2405) IV PRN (10:15)
[2018-12-01] MEDS ORDERED: fentaNYL 100 MCG/2 ML INJECTION (J3010) IV PRN (10:15)
[2018-12-01] MEDS ORDERED: traMADol 50 MG TAB PO PRN (10:15)
[2018-12-01 12:15] VITALS: BP 142/63
--- NOTE | 2018-12-01 22:10 | RO ---
DATE OF PROCEDURE: 12/01/2018 PREOPERATIVE DIAGNOSIS: Symptomatic gallstones with a recent common bile duct stones. POSTOPERATIVE DIAGNOSIS: Cholelithiasis with acute and chronic cholecystitis and abdominal adhesions. PROCEDURE PERFORMED: Robotic-assisted laparoscopic cholecystectomy with lysis of adhesions. SURGEON: Christian Nichole MD ANESTHESIA: General. INDICATIONS FOR PROCEDURE The patient is an 83-year-old woman who had been seen earlier in the year for upper abdominal discomfort. An ultrasound confirmed cholelithiasis. Her liver function tests were somewhat elevated and further testing revealed multiple common bile duct stones. She was seen by Dr. Perry of gastroenterology who performed an ERCP approximately 2 months ago with removal of multiple stones and placement of a biliary stent. She is now for a laparoscopic cholecystectomy. OPERATIVE PROCEDURE The patient was brought to the operating room and placed supine on the operating table. The patient's abdomen was prepped and draped in a sterile fashion. Local anesthesia was achieved with 0.25% Marcaine at each of the trocar sites. A skin marker was used to outline the location for four trocar sites across the abdomen from the left upper quadrant to the right lower quadrant. The left upper quadrant incision was made and a Veress needle was inserted. After positive hanging drop test, the abdomen was insufflated with carbon dioxide gas. An 8 mm robotic Visiport was placed over a 5 mm scope and advanced through the abdominal wall without difficulty. Initial examination showed several patches of adhesions of the omentum to the anterior abdominal wall. One of these was right in the center of the abdomen just above the umbilicus at what would be the second port site. There were a few filmy adhesions between the right lobe of the liver and the anterior abdominal wall. The gallbladder appeared somewhat distended and thickened but did not seem acutely inflamed. The two right-sided trocars were then (cut off). The camera was shifted to the right lower quadrant and using a pair of cauterizing scissors, the adhesions to the anterior abdominal wall were taken down and the final port was placed just above the umbilicus. The [place] patient cart was then brought into position. The patient was tilted to a slight reverse Trendelenburg position and rolled slightly to the left. The camera port was docked and targeting took place and the additional ports were then docked as well. A hook cautery was placed in the left upper quadrant and a bipolar cautery and a grasping retractor were placed in the right lower quadrant. I then moved to the control console to proceed with the robotic portion of the procedure. The gallbladder was somewhat distended, but it was possible to gain purchase to grasp the gallbladder and elevate it. I did lyse the adhesions above the liver just to avoid tearing the liver capsule with manipulation. The gallbladder wall was quite thickened and there did appear to be still some significant edema and inflammation of the gallbladder wall. Dissection was carried out at the gallbladder neck. The peritoneum was incised. The common bile duct appeared to be somewhat dilated but this was not surprising. As dissection proceeded the cholecystic artery was identified approaching the gallbladder on the medial aspect. This was freed circumferentially and then doubly clipped with hemoclips and divided. With further dissection the cystic duct was clearly identified and dissected circumferentially. This appeared enlarged enough that I obtained a large clip perianesthesia manager and large clips for this. The cystic duct was clipped and divided. The gallbladder was then dissected free from the gallbladder bed. There was a perforation of the gallbladder that occurred near the fundus with release of a small amount of thin lightly colored bilious fluid. A suction student development specialist was used to irrigate and remove any spilled bile. The dissection of the gallbladder was completed and the gallbladder was placed in an Endopouch. The right upper quadrant was then irrigated and inspected. There was no residual bile staining. There was no sign of bile leak or any bleeding. The patient was returned to a flat position. I would note that on the initial inspection of the abdomen, she was noted to have mesh visible in both the right and left lower quadrants from her prior hernia repairs. The robotic instruments were removed and the robot was undocked. I returned to the patient's side. She was returned to a flat position and the abdomen was deflated. The trocars were removed. The incision in the supraumbilical site was extended slightly to remove the gallbladder which was found to contain perhaps eight or ten marble sized gallstones. This was sent for permanent pathology. The fascia was closed with interrupted simple sutures of #1-0 Vicryl. The skin incisions were all closed with buried #5-0 Vicryl and Steri-Strips. Light dressings were applied. The patient tolerated the procedure well without apparent complication. She was awakened in the operating room, extubated and moved to the recovery room in stable condition.
== END 2018-12-01 12:28 | disposition home or self-care (01) ==
LOC: M SDC 05:55
PROVIDERS: ATTEND Surgery
DX: K80.10 Calculus of gallbladder with chronic cholecystitis without obstruction (principal); K21.9 Gastro-esophageal reflux disease without esophagitis; K44.9 Diaphragmatic hernia without obstruction or gangrene; M81.0 Age-related osteoporosis without current pathological fracture; E03.9 Hypothyroidism, unspecified; E05.90 Thyrotoxicosis, unspecified without thyrotoxic crisis or storm; J44.9 Chronic obstructive pulmonary disease, unspecified; Z79.51 Long term (current) use of inhaled steroids; Z79.899 Other long term (current) drug therapy
CPT/HCPCS: 47562; 88304; J1100; J1170; J1885; J2250; J2370; J2405; J3010

== ENCOUNTER 2018-12-31 05:44 | Day surgery (SDC) | payer MEDICARE, BC ==
[~2018-12-31] VITALS: Ht 162.6 cm; Wt 58.2 kg
[~2018-12-31 05:44] MED LIST changes: +MULTCAP PO; +NATU1TAB5 PO; +OMEP20CA4 PO; +SUMA6KIT SC; +VITA1CAP14 PO; +flector patch TOP
[2018-12-31] MEDS ORDERED: LR 1,000 ML IV ONE (06:00)
[2018-12-31] MEDS ORDERED: LIDOCAINE 1% MDV 20ML VIAL SQ PRN (06:00)
[2018-12-31] MEDS ORDERED: ROCURONIUM BROMIDE 50 MG/5 ML VIAL As Ordered ONE (07:07)
[2018-12-31] MEDS ORDERED: fentaNYL 100 MCG/2 ML INJECTION (J3010) As Ordered ONE (07:07)
[2018-12-31] MEDS ORDERED: MIDAZOLAM INJ 2 MG/2 ML VIAL (J2250) As Ordered ONE (07:07)
[2018-12-31] MEDS ORDERED: LIDOCAINE 2% INJ 100 MG/5 ML SDV (FOR ANES.) As Ordered ONE (07:07)
[2018-12-31] MEDS ORDERED: PROPOFOL 200 MG/20 ML VIAL As Ordered ONE (07:07)
[2018-12-31] MEDS ORDERED: CONRAY-60 60% 50ML VIAL (Q9961) As Ordered ONE (07:13)
[2018-12-31] MEDS ORDERED: ISOVUE-300 61% 50ML VIAL (Q9967) As Ordered ONE (07:28)
[2018-12-31] MEDS ORDERED: ePHEDrine SULFATE 25 MG/5 ML(5MG/ML) SYRINGE As Ordered ONE (07:46)
[2018-12-31] MEDS ORDERED: METOCLOPRAMIDE INJ 10MG/2ML VIAL (J2765) As Ordered ONE (08:07)
[2018-12-31] MEDS ORDERED: dexameTHASONE 4 MG/ML 1ML VIAL (J1100) As Ordered ONE (08:07)
[2018-12-31] MEDS ORDERED: PHENYLephrine HCL 500 MCG/5 ML (100MCG/ML) SYRINGE (J2370) As Ordered ONE (08:19)
[2018-12-31] MEDS ORDERED: ONDANSETRON 4MG/2ML VIAL (J2405) As Ordered ONE (08:19)
[2018-12-31] MEDS ORDERED: GLYCOPYRROLATE INJ 0.2 MG/ML 2 ML VIAL As Ordered ONE (08:19)
[2018-12-31] MEDS ORDERED: NEOSTIGMINE 10 MG/10 ML VIAL (J2710) As Ordered ONE (08:19)
--- NOTE | 2018-12-31 09:00 | ROOR ---
Patient Name: Saritha Fontaine Procedure Date: 12/31/2018 7:40 AM Date of : 1935 Age: 83 Room: [facility] Gender: Female Note Status: Finalized Procedure: ERCP Indications: Bile duct stone(s), Biliary stent removal Providers: Milton PERRY MD Referring MD: Allen Nascimento MD Requesting Provider: Medicines: General Anesthesia Complications: No immediate complications. Procedure: Pre-Anesthesia Assessment: - The heart rate, respiratory rate, oxygen saturations, blood pressure, adequacy of pulmonary ventilation, and response to care were monitored throughout the procedure. The Duodenoscope was introduced through the mouth, and advanced to the duodenum and used to inject contrast into the bile duct. The ERCP was accomplished without difficulty. The patient tolerated the procedure well. Findings: A biliary stent was visible on the v belt mold assembler and curer film. The esophagus was successfully intubated under direct vision without detailed examination of the pharynx, larynx, and associated structures, and upper GI tract. The upper GI tract was grossly normal. One plastic stent originating in the biliary tree was emerging from the major papilla. One stent was removed from the biliary tree using a snare. A wire was passed into the biliary tree. The bile duct was then deeply cannulated over the guidewire. Contrast was injected. I personally interpreted the bile duct images. Ductal flow of contrast was adequate. Image quality was adequate. The middle third of the main bile duct contained filling defect(s) thought to be sludge. The biliary tree was swept with a 15 mm balloon starting at the bifurcation. Sludge was swept from the duct. The lower third of the main bile duct contained a single mild localized stenosis 10 mm in length. The lower third of the main bile duct was biopsied with a cold forceps for histology. Cells for cytology were obtained by brushing in the lower third of the main bile duct. Impression: Endoscopy: - One stent from the biliary tree was seen in the major papilla- This was removed. - A previous sphincterotomy was noted. Cholangiogram: - The examination is noted for a previous cholecystectomy. - The examination was suspicious for bile duct sludge. - The biliary tree was swept and sludge was found. - A single localized mild biliary stricture was found in the lower third of the main bile duct. The stricture was patent to 12 mm balloon sweep. It is smooth/fibrotic, benign appearing. - Biopsy was performed in the stricture/lower third of the main duct. - Cells for cytology obtained in the stricture/lower third of the main duct. Recommendation: - Watch for pancreatitis, bleeding, perforation, and cholangitis. - Observe patient's clinical course. - Await cytology results and await path results. Milton Perry MD Milton PERRY MD 12/31/2018 8:59:59 AM Electronically signed by Milton PERRY MD Number of Addenda: 0 Note Initiated On: 12/31/2018 7:40 AM Estimated Blood Loss: Estimated blood loss: none.
[2018-12-31 09:28] VITALS: BP 145/65
--- NOTE | 2018-12-31 09:44 | REP ---
ERCP: 28 views. History: Bile duct stone. Stent for removal. 6 minutes 18 seconds of fluoroscopy time is reported. Findings: A sequence of 28 last image hold fluoroscopically obtained spot radiographs of the right upper quadrant document endoscopic cannulation, contrast injection, balloon catheter manipulation of the common bile duct. Electronically Signed by Pedro Ferrer MD 12/31/2018 12:55 P
[2018-12-31] MEDS ORDERED: fentaNYL 100 MCG/2 ML INJECTION (J3010) IV PRN (09:45)
[2018-12-31] MEDS ORDERED: ONDANSETRON 4MG/2ML VIAL (J2405) IV PRN (09:45)
[2018-12-31] MEDS ORDERED: oxyCODONE 5MG TAB PO PRN (09:45)
[2018-12-31] MEDS ORDERED: LR 1,000 ML IV SCH (09:45)
== END 2018-12-31 09:48 | disposition home or self-care (01) ==
LOC: M SDC 05:44
PROVIDERS: ATTEND Internal Medicine Gastroenterology
DX: Z46.59 Encounter for fitting and adjustment of other gastrointestinal appliance and device (principal); K80.51 Calculus of bile duct without cholangitis or cholecystitis with obstruction; E05.90 Thyrotoxicosis, unspecified without thyrotoxic crisis or storm; E03.9 Hypothyroidism, unspecified; K21.9 Gastro-esophageal reflux disease without esophagitis; J45.909 Unspecified asthma, uncomplicated; G43.909 Migraine, unspecified, not intractable, without status migrainosus; M81.0 Age-related osteoporosis without current pathological fracture; Z79.899 Other long term (current) drug therapy
CPT/HCPCS: 43261; 43264; 43275; 74330; 88104; 88305; J2250; J2370; J2405; J2710; J2765; J3010; Q9967

== ENCOUNTER 2019-02-22 08:35 | Day surgery (SDC) | payer MEDICARE, BC ==
[~2019-02-22] VITALS: Ht 162.6 cm; Wt 58.1 kg
[~2019-02-22 08:35] MED LIST changes: +D-20TAB PO; +NS 1,000 ML IV ONE; +OMEP-172 PO; -OMEP20CA4 PO; +RA A PO; -[UNRECOGNIZED DRUG - CODE] PO
[2019-02-22] MEDS ORDERED: LIDOCAINE 2% INJ 100 MG/5 ML SDV (FOR ANES.) As Ordered ONE (09:41)
[2019-02-22] MEDS ORDERED: PROPOFOL 200 MG/20 ML VIAL As Ordered ONE ×2 (09:41→09:58)
--- NOTE | 2019-02-22 10:13 | ROOR ---
Patient Name: Saritha Fontaine Procedure Date: 02/22/2019 9:40 AM Date of : 1935 Age: 83 Room: [facility] Gender: Female Note Status: Finalized Procedure: Colonoscopy Indications: High risk colon cancer surveillance: Personal history of colonic polyps Providers: Leno Reed Jr, MD Referring MD: Allen Nascimento MD Requesting Provider: Medicines: Propofol per Anesthesia Complications: No immediate complications. Procedure: Pre-Anesthesia Assessment: - Prior to the procedure, a History and Physical was performed, and patient medications and allergies were reviewed. The patient is competent. The risks and benefits of the procedure and the sedation options and risks were discussed with the patient. All questions were answered and informed consent was obtained. Patient identification and proposed procedure were verified by the physician and the nurse in the pre-procedure area and in the procedure room. Mental Status Examination: alert and oriented. Airway Examination: normal oropharyngeal airway and neck mobility. Respiratory Examination: clear to auscultation. CV Examination: normal. ASA Grade Assessment: II - A patient with mild systemic disease. After reviewing the risks and benefits, the patient was deemed in satisfactory condition to undergo the procedure. The anesthesia plan was to use moderate sedation / analgesia (conscious sedation). Immediately prior to administration of medications, the patient was re-assessed for adequacy to receive sedatives. The heart rate, respiratory rate, oxygen saturations, blood pressure, adequacy of pulmonary ventilation, and response to care were monitored throughout the procedure. The physical status of the patient was re-assessed after the procedure. The Colonoscope was introduced through the anus and advanced to the cecum, identified by appendiceal orifice and ileocecal valve. The colonoscopy was performed without difficulty. The patient tolerated the procedure well. The quality of the bowel preparation was adequate. Findings: The cecum, appendiceal orifice and ileocecal valve appeared normal. Multiple small and large-mouthed diverticula were found in the descending colon, transverse colon and ascending colon. Many small and large-mouthed diverticula were found in the sigmoid colon. Non-bleeding external and internal hemorrhoids were found during endoscopy. The hemorrhoids were Grade II (internal hemorrhoids that prolapse but reduce spontaneously) and Grade III (internal hemorrhoids that prolapse but require manual reduction). A small polyp was found in the sigmoid colon. The polyp was removed with a hot snare. Resection and retrieval were complete. A diminutive polyp was found in the ascending colon. The polyp was removed with a hot snare. Resection and retrieval were complete. Impression: - The cecum, appendiceal orifice and ileocecal valve are normal. - Diverticulosis in the descending colon, in the transverse colon and in the ascending colon. - Diverticulosis in the sigmoid colon. - Non-bleeding external and internal hemorrhoids. - One small polyp in the sigmoid colon, removed with a hot snare. Resected and retrieved. - One diminutive polyp in the ascending colon, removed with a hot snare. Resected and retrieved. Recommendation: - Discharge patient to home (ambulatory). - Repeat colonoscopy in 5 years for surveillance. Leno Reed MD Leno Reed Jr, MD 02/22/2019 10:13:09 AM Electronically signed by Leno Reed Jr, MD Number of Addenda: 0 Note Initiated On: 02/22/2019 9:40 AM Estimated Blood Loss: Estimated blood loss: none.
[2019-02-22 10:39] VITALS: BP 147/94
== END 2019-02-22 10:40 | disposition home or self-care (01) ==
LOC: M OPP 08:35
PROVIDERS: ATTEND Surgery
DX: Z12.11 Encounter for screening for malignant neoplasm of colon (principal); Z86.010 Personal history of colon polyps; K64.2 Third degree hemorrhoids; K57.30 Diverticulosis of large intestine without perforation or abscess without bleeding; D12.5 Benign neoplasm of sigmoid colon; D12.2 Benign neoplasm of ascending colon; Z79.899 Other long term (current) drug therapy

== ENCOUNTER → 2019-08-10 | Outpatient (REF) | payer MEDICARE, BC ==
[~2019-08-10] MED LIST changes: -NS 1,000 ML IV ONE; -OMEP-172 PO; +OMEP1CAP73 PO
== END ==
LOC: M WUC 16:18
PROVIDERS: ATTEND Physician Assistant
DX: Z20.828 Contact with and (suspected) exposure to other viral communicable diseases (principal)

== ENCOUNTER → 2020-03-22 | Outpatient (CLI) | payer MEDICARE, BC ==
--- NOTE | 2020-03-22 14:24 | REP ---
INDICATION: PAIN. COMPARISON: None. TECHNIQUE: Four views. FINDINGS: Four views of the left ankle demonstrate diffuse osteopenia. There is mild anterolateral soft tissue swelling. No fracture or subluxation is seen. Ankle mortise is intact. There is Achilles and plantar calcaneal spurring. IMPRESSION: No fracture seen. Diffuse osteoporosis. Anterolateral swelling. <Electronically signed by Pedro Ferrer > 03/22/20 [id number]
--- NOTE | 2020-03-22 15:54 | REP ---
INDICATION: PAIN. COMPARISON: Comparison left ankle radiographs 22 March 2020. TECHNIQUE: Two views. FINDINGS: Two views of the left tib fib demonstrate left knee arthroplasty components in good position. There is diffuse osteopenia. No fracture or subluxation is seen. No opaque foreign body noted. IMPRESSION: Status post left knee arthroplasty. Diffuse osteopenia. No acute bony abnormality.. <Electronically signed by Pedro Ferrer > 03/22/20 [id number]
== END ==
LOC: M WUC 12:25
PROVIDERS: ATTEND Physician Assistant
DX: M79.662 Pain in left lower leg (principal); M25.572 Pain in left ankle and joints of left foot; M81.0 Age-related osteoporosis without current pathological fracture

== ENCOUNTER 2020-05-30 12:29 | Inpatient (IN) | payer MEDICARE, BC ==
[~2020-05-30] VITALS: Ht 165.1 cm; Wt 71.3 kg
[2020-05-30] MEDS ORDERED: BISACODYL 10 MG SUPP PR PRN (15:55)
[2020-05-30 16:55] VITALS: BP 135/68
[2020-05-30] MEDS: REMEDY PHYTOPLEX Z-GUARD PASTE 113GM TUBE (FROM STOREROOM PRODUCT) TOP SCH ×2 (17:00→20:04)
[2020-05-30] MEDS ORDERED: DEXA2TA PO (17:50)
[2020-05-30] MEDS ORDERED: AMLO1TAB25 PO (17:50)
[2020-05-30] MEDS ORDERED: RISP-7 PO (17:50)
[2020-05-30] MEDS ORDERED: NYST1POW9 TOP (17:50)
[2020-05-30] MEDS ORDERED: DOCU5LIQ PO (17:50)
[2020-05-30] MEDS ORDERED: FAMO40TA3 PO (17:50)
[2020-05-30] MEDS ORDERED: HEPA500057 SC (17:50)
[2020-05-30] MEDS ORDERED: GNP8.6TA7 PO (17:50)
[2020-05-30] MEDS ORDERED: PANT-23 PO (17:50)
[2020-05-30] MEDS ORDERED: CHLO120L TOP (17:50)
[2020-05-30] MEDS ORDERED: DEPA1TAB3 PO (17:50)
[2020-05-30] MEDS ORDERED: ALBU8.5H INH (17:50)
[2020-05-30 20:00] VITALS: BP 144/71
[2020-05-30] MEDS: DOCUSATE SODIUM 100MG CAPSULE PO SCH (20:03)
[2020-05-30] MEDS: POLYVINYL ALCOHOL OPHTH SOLN 15 ML(LIQUITEARS) OU SCH (20:03)
[2020-05-30] MEDS: MAGIC MOUTHWASH SUSPENSION BTL SSP SCH (20:04)
[2020-05-30] MEDS: HEPARIN SOD (PORCINE) 5000UNITS/ML 1ML VIAL/SYRINGE SC SCH (20:04)
[2020-05-30] MEDS: risperiDONE 0.5 MG TAB PO SCH (20:04)
[2020-05-30] MEDS: DIVALPROEX 500 MG TAB PO SCH (20:04)
[2020-05-30] MEDS ORDERED: SENNA 8.6 MG TAB (SENOKOT) PO SCH (21:00)
[2020-05-31 06:00] VITALS: BP 155/69
[2020-05-31] MEDS: ACETAMINOPHEN 325 MG TAB PO SCH ×3 (06:00→22:09)
--- NOTE | 2020-05-31 08:11 | HPEPDOC ---
Fabric Cutter Note DATE OF ADMISSION: 05-30-20 DATE OF SERVICE: 05-31-20 TIME OF ADMISSION: Please refer to physician's admission order. SOURCE OF ADMISSION INFORMATION: [facility] record and patient CHIEF COMPLAINT: s/p right temporal meningioma resection with craniotomy HISTORY OF PRESENT ILLNESS: 84F pmh migraines and asthma admitted to [facility] on 05-16-20 for right temporal lobe brain tumor identified on an outpatient performed MRI. She was evaluated by neurosurgery and underwent a right iuwleq-ffjcksf-itboptay craniotomy with meningioma resection on 05-17-20 performed by Augie Ewing. She had intra-operative cardiac arrest and remained intubated until 05-19-20. For her vasogenic and cytotoxic edema she was treated with decadron and hypertonic saline with post-op CT on 05-25-20 showing "right sided craniotomy changes with very slight improvement in hemorrhage within the postoperative cavity and deep to the craniotomy. Persistent large amount of vasogenic edema in the right cerebral hemisphere with approximately 10mm of right to left midline shift. 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 REVIEW OF SYSTEMS: The following is a completed review of systems and has been reviewed. Review of systems otherwise unremarkable. PAIN: Patient self reports no pain EYES: No recent vision changes EARS, NOSE, & THROAT: +dysphagia CARDIOVASCULAR: Denies chest pain or palpitations PULMONARY: Denies shortness of breath, +mild cough GASTROINTESTINAL: Denies constipation/diarrhea GENITOURINARY: denies dysuria MUSCULOSKELETAL:left sided weakness NEUROLOGICAL:left sided inattention and paresis HEMATOLOGICAL:denies easy bruising SKIN: denies rash PSYCHIATRIC: Unremarkable All other review of systems found to be negative. PAST MEDICAL HISTORY: as per HPI PAST SURGICAL HISTORY: Bilat intraocular lens replacement, bilat TKR, right THR, hernia repair ALLERGIES: Please see below. MEDICATIONS: Please see below. SOCIAL HISTORY: no smoking/etoh/illicit drugs DIET: puree and honey thickened PHYSICAL EXAMINATION: VITAL SIGNS: Please see below. GENERAL: Pleasant and cooperative. No acute distress. dry oral mucosa HEENT: PERRL. Extraocular movements intact. Clear conjunctiva, +left facial droop, tongue midline CARDIOVASCULAR: Regular rate and rhythm. No murmurs, rubs, or gallops LUNGS: Clear to auscultation bilaterally. No wheezes. No rhonchi ABDOMEN: Soft, nontender, nondistended. Positive bowel sounds. Normal active bowel sounds NEUROLOGICAL: Alert and oriented times to self and place, disoriented to time, +dysarthria, Sensation grossly intact, +left sided inattention +apraxia EXTREMITIES: 5\\5 strength right upper extremity, 4/5 LUE 5\\5 strength right lower extremity. 4/5 strength in left lower extremity. SKIN: right fronto-parietal incision LABORATORY DATA: Please see below. IMAGING: Imaging documentation personally reviewed by record FUNCTIONAL STATUS: Premorbid: Mod-Independent with all activities of daily life as well as mobility with cane On Admission: Mod-assist for functional transfers, ambulation, dressing, toileting, bathing GOALS: Supervision ambulation, functional transfers, dressing, bathing, toileting ASSESSMENT:84-year-old F with past medical history of asthma who presents status post right temporal lobe meningioma resection PLAN: 1. Rehab- PT/OT advance mobility and ADLs, strengthen/stretch/maintain ROM all 4 extremities -[employer]- swallow and cog eval 2. Neuro- s/p right temporal lobe meningioma resection 05-17-20 with post-op vasogenic and cytotoxic edema, last CT on 05-25 showing 10mm icqsn-sz-[id number] midline shift, will order CTH inhouse to monitor, c/u decadron -seizure ppx- Depakote -HOB 30 degrees to prevent increased intracerebral pressures -will start SSRI for motor recovery and mood 3. Cardiac- HTN c/u amlodipine 4. Resp- hx of asthma, will order Duonebs, and CXR to r/o aspiration pna since patient with dysphagia and cough 5. GI ppx- pepcid 6. DVT ppx- heparin 7. Pain- tylenol standing, tramadol prn 8. Dispo- tbd POST ADMISSION PHYSICIAN EVALUATION: Medical and functional status: Description of medical status, medical assessment: As above. Rehabilitation diagnosis and current and prior cold morbid medical conditions as above. Risk of complications and plans to mitigate them as above. Description of functional status current status is as above. Prior status as above. Status compared to preadmission: There are no clinically significant differences between the patient's current status and the information described on the preadmission screening document. Treatment plan anticipated: Treatment plan is as described above. Required disciplines including physical therapy, occupational therapy, others as noted above. Intensity of services: 3 hours a day, 6 days a week. Special considerations: There are no specific special or safety considerations that would likely preclude immediate implementation of an intensive rehabilitation program or subsequently influence the plan of care. ATTESTATION: Considering all the information above, it is my best judgment that this patient requires intensive rehabilitation therapy as described above and an inpatient hospital environment due to the complexity of nursing, medical, and rehabilitation needs required by the patient. Furthermore, this patient can reasonably be expected to participate in an benefit from an inpatient rehabilitation stay with an interdisciplinary team approach to the delivery of rehabilitation care under the direction and supervision of rehabilitation physician. PROGNOSIS: good ESTIMATED LENGTH OF STAY:12-14 days. PROJECTED DISCHARGE DESTINATION: Home with family support and any durable medical equipment required to increase functional safety and mobility. TIME SPENT COUNSELING AND COORDINATING INITIAL CARE: Greater than 70 minutes. Vital Signs Vital Sign - Last 24 Hours 05/30/20 05/30/20 05/31/20 16:55 20:00 06:00 Temp 99.0 99.1 98.7 Pulse 103 100 89 Resp 18 18 8 B/P (MAP) 135/68 (90) 144/71 (95) 155/69 (97) Pulse Ox 96 98 96 O2 Delivery Room Air Room Air Room Air Home Medications Scheduled Amlodipine Besylate (Amlodipine Besylate) 10 Mg Tablet, 20 MG PO DAILY, (Reported) STARTED AT [facility] Chlorhexidin/Isopropyl Alcohol (Dynahex 2% Liquid) 120 Ml Liquid, 1 DOSE TOP DAILY, (Reported) STARTED AT [facility] Dexamethasone (Dexamethasone) 2 Mg Tablet, 2 MG PO BID, (Reported) STARTED AT [facility] Divalproex Sodium (Depakote) 500 Mg Tablet.dr, 500 MG PO Q12H, (Reported) STARTED AT [facility] Docusate Sodium (Docusate Sodium) 50 Mg/5 Ml Liquid, 100 MG PO BID, (Reported) STARTED AT [facility] Famotidine (Famotidine) 40 Mg Tablet, 40 MG PO BID, (Reported) Heparin Sodium,Porcine/Pf (Heparin Sod 5,000 Unit/ml Syrg) 5,000 Unit/1 Ml Syringe, 5,000 UNIT SC BID, (Reported) STARTED AT [facility] Pantoprazole Sodium (Pantoprazole Sodium) 40 Mg Tablet.dr, 40 MG PO DAILY, (Reported) STARTED AT [facility] Risperidone (Risperidone) 0.5 Mg Tablet, 0.5 MG PO QPM, (Reported) STARTED AT [facility] Sennosides (Senna Lax) 8.6 Mg Tablet, 17.2 MG PO QHS, (Reported) STARTED AT [facility] Scheduled PRN Albuterol Sulfate (Albuterol Sulfate Hfa) 8.5 Gm Hfa.aer.ad, 2 PUFFS INH QID PRN for SHORTNESS OF BREATH, (Reported) Diazepam (Valium) 5 Mg Tab, 5 MG PO BID PRN for ANXIETY/AGITATION, (Reported) Diclofenac Sodium (Diclofenac Sodium) 1% 100GM Gel..gram., 2 GM TOP QID PRN for PAIN, (Reported) Apply to area of pain Nystatin (Nystatin Powder) 15 Gm Powder, 1 DOSE TOP BID PRN for REDNESS/IRRITATION, (Reported) APPLY TO FOLDS Allergies Coded Allergies: No Known Allergies (Verified , 12/30/18) A-FIB/CHADSVASC A-FIB History Current/History of A-Fib/PAF?: No Current PO Anticoag Therapy: No MARY FARR MD May 31, 2020 08:10
[2020-05-31] MEDS: MAGIC MOUTHWASH SUSPENSION BTL SSP SCH ×4 (08:19→22:10)
[2020-05-31] MEDS: POLYVINYL ALCOHOL OPHTH SOLN 15 ML(LIQUITEARS) OU SCH ×3 (08:19→22:09)
[2020-05-31] MEDS: REMEDY PHYTOPLEX Z-GUARD PASTE 113GM TUBE (FROM STOREROOM PRODUCT) TOP SCH ×3 (08:20→22:10)
[2020-05-31] MEDS: HEPARIN SOD (PORCINE) 5000UNITS/ML 1ML VIAL/SYRINGE SC SCH ×2 (08:20→22:08)
[2020-05-31] MEDS: DIVALPROEX 500 MG TAB PO SCH ×2 (08:21→22:08)
[2020-05-31] MEDS: DOCUSATE SODIUM 100MG CAPSULE PO SCH ×2 (08:21→22:08)
[2020-05-31] MEDS: amLODIPine 5 MG TAB PO SCH (08:21)
[2020-05-31] MEDS: FAMOTIDINE 20 MG TAB PO SCH (08:27)
[2020-05-31 08:28] LABS: BASO % 0.2 % (0.0-1.0); EOS % 0.1 % (0.0-3.0); HEMOGLOBIN 9.6 g/dl (12.0-15.5); LYMPH # 1.4 10^3/uL (1.5-5.0); LYMPH % 12.9 % (24.0-44.0); MONO # 1.2 10^3/uL (0.0-0.8); MONO % 11.6 % (2.0-8.0); NEUTROPHILS # 7.8 10^3/uL (1.5-8.5); NEUTROPHILS % 72.3 % (36.0-66.0); PLATELET COUNT, AUTOMATED 158 10^3/uL (150-450); WHITE BLOOD COUNT 10.7 10^3/uL (4.0-10.0)
[2020-05-31 08:57] LABS: ALBUMIN 2.8 GM/DL (3.2-5.2); ALT/SGPT 61 U/L (12-78); BILIRUBIN,TOTAL 0.7 MG/DL (0.2-1.0); BLOOD UREA NITROGEN 21 MG/DL (7-18); CARBON DIOXIDE LEVEL 29 MEQ/L (21-32); CHLORIDE LEVEL 112 MEQ/L (98-107); CREATININE FOR GFR 0.56 MG/DL (0.55-1.30); GLOMERULAR FILTRATION RATE > 60.0 (>32); GLUCOSE, FASTING 109 MG/DL (70-100); POTASSIUM SERUM 3.6 MEQ/L (3.5-5.1); SODIUM LEVEL 146 MEQ/L (136-145); TOTAL PROTEIN 6.2 GM/DL (6.4-8.2)
[2020-05-31] MEDS: IPRATROPIUM 0.5MG/ALBUTEROL 2.5MG INH SOL UD 3ML (DUONEB) NEB SCH ×3 (11:29→19:53)
[2020-05-31] MEDS ORDERED: NS 0.45% 1,000 ML IV ONE (12:35)
--- NOTE | 2020-05-31 13:53 | REP ---
INDICATION: s/p recent right sided craniotomy-. COMPARISON: None. TECHNIQUE: Axial CT images with multiplanar reformations. FINDINGS: Consistent with history, there is evidence of large right-sided craniotomy. The flap positioning approximates the normal contours of the skull. There is a subdural collection of air and fluid beneath the craniotomy flap. There is subcortical hypodensity seen throughout much of the right hemisphere. Toward the convexity there is crowding of the sulci. Ventricular size somewhat reduced but within normal limits. There is no evidence of downward herniation. IMPRESSION: Status post large right-sided craniotomy with replacement of the craniotomy flap. Air and fluid seen subjacent to the craniotomy flap. Much of the right hemisphere demonstrates subcortical hypodensity. There is a 7.4 mm mtfdx-qe-pafg midline shift. No evidence of hemorrhage. <Electronically signed by Abhijit Brothers > 05/31/20 [id number]
[2020-05-31 14:00] VITALS: BP 135/62
[2020-05-31] MEDS: ESCITALOPRAM OXALATE 10 MG TAB (LEXAPRO) PO SCH (14:04)
--- NOTE | 2020-05-31 16:31 | REP ---
INDICATION: r/o infiltrate. COMPARISON: 12/18/2016 and 01/26/2020. TECHNIQUE: Semiupright AP and lateral views of the chest. FINDINGS: The lung kearns are clear. Cardiac size is upper normal. There is demineralization. Patient is rotated. There is a right upper extremity PICC line with the tip in the right atrium in satisfactory position, as an interval change. IMPRESSION: No acute cardiopulmonary findings. Patient rotated. Right upper extremity PICC line as described. <Electronically signed by Onel Sargent > 05/31/20 [id number]
[2020-05-31 20:00] VITALS: BP 133/62
[2020-05-31] MEDS: SENNA 8.6 MG TAB (SENOKOT) PO SCH (22:09)
[2020-05-31] MEDS: risperiDONE 0.5 MG TAB PO SCH (22:09)
--- NOTE | 2020-05-31 22:38 | CR.PDOC ---
General Date of Consultation: May 31, 2020 Consultation REASON FOR CONSULTATION/CHIEF COMPLAINT: Medical comanagement s/p right temporo-parietal meningioma resection with craniotomy HISTORY OF PRESENT ILLNESS: 84F pmh migraines and asthma has been having progressively increasing left sided weakness since February first noticed after a mechanical fall at home. Initially it was felt to be due to artificial hip and knee joint associated with the fall was causing the weakness. She was also having increasing right sided headaches for about 1 month initially it was felt to be migraine. Subsequently she went to see her Neurologist for migraine management and an MRi was ordered. He was urgently admitted to [facility] on 05-16-20 for right temporal lobe brain tumor with edema and midline shift identified on the outpatient performed MRI. She was evaluated by neurosurgery and underwent a right kvufep-lckbrus-rpxcjzbs craniotomy with meningioma resection on 05-17-20 performed by Augie Ewing. She had intra-operative cardiac arrest and remained intubated until 05-19-20. For her vasogenic and cytotoxic edema she was treated with decadron and hypertonic saline with post-op CT on 05-25-20 showing "right sided craniotomy changes with very slight improvement in hemorrhage within the postoperative cavity and deep to the craniotomy. Per sistent large amount of vasogenic edema in the right cerebral hemisphere with approximately 10mm of right to left midline shift. 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 Today She complains of left sided weakness including left sided facial weakness. She also says that she has trouble remembering things. She also complains of difficulty swallowing. Denies any pain, denies any chest pain or sob, does have some intermittent cough. ALLERGIES: Please see below. HOME MEDICATIONS: Please see below. PAST MEDICAL HISTORY: Migraine asthma Low back pain GERD PAST SURGICAL HISTORY: cholecystectomy 2019 left total hip replacement left total knee replacement FAMILY HISTORY: Mother had stroke SOCIAL HISTORY: does not smoke, does not drink of use drugs. REVIEW OF SYSTEMS: All 11 point review of systemas negative except those mentioned in HPI PHYSICAL EXAMINATION: VITAL SIGNS: Please see below. GENERAL APPEARANCE: Sitting up in chair HEENT: Face deviated to the right RESPIRATORY: Clear to auscultation CARDIOVASCULAR: S1 ,S2 regular, tachycardic, no rub, murmur or gallop. ABDOMEN: Soft nontender, bowel sounds normal. EXTREMITIES: trace bipedal edema NEUROLOGICAL: Left hemiparesis, dysarthria, left sided inattention. Alert and oriented x2 EXTREMITIES: 5\\5 strength right upper and lower extremity, 4/5 LUE, 3/5 strength in left lower extremity. SKIN: right fronto-parietal incision LABORATORY DATA: Please see below. ASSESSMENT/PLAN: 84-year-old F with past medical history of asthma, migraine who presents status post right temporal lobe meningioma resection with left sided hemiparesis, dysphagia for continued rehab. S/p right temporal lobe meningioma resection 05-17-20 with post-op vasogenic and cytotoxic edema last CT on 05-25 showing 10mm nmbaa-bh-tldy midline shift continue decadron seizure ppx with Depakote HOB 30 degrees to prevent increased intracerebral pressures started on SSRI for motor recovery and mood pain control with tylenol / tramadol Left Hemiparesis wth dysphagia Post op CT in [place] showed subacute evolving infarction in the right temporal , occipital and parietal lobes with [address] here shows Status post large right-sided craniotomy with replacement of the craniotomy flap. Air and fluid seen subjacent to the craniotomy flap. Much of the right hemisphere demonstrates subcortical hypodensity. There is a 7.4 mm kruln-nk-tqhw midline shift. PT/OT as per ARU. HTN amlodipine Asthma, Duonebs, and CXR to r/o aspiration pna since patient with dysphagia and cough GI ppx- pepcid DVT ppx heparin Vital Signs/I&O Vital Signs Date Time Temp Pulse Resp B/P (MAP) Pulse Ox O2 Delivery O2 Flow Rate FiO2 05/31/20 19:53 16 05/31/20 14:00 98.9 96 135/62 (86) 98 Room Air I&O- Last 24 Hours up to 6 AM 05/31/20 07:00 Intake Total 230 ml Balance 230 ml Laboratory Data Labs 24H Laboratory Tests 2 05/31/20 08:00: Immature Granulocyte % (Auto) 2.9, Neutrophils (%) (Auto) 72.3H, Lymphocytes (%) (Auto) 12.9L, Monocytes (%) (Auto) 11.6H, Eosinophils (%) (Auto) 0.1, Basophils (%) (Auto) 0.2, Neutrophils # (Auto) 7.8, Lymphocytes # (Auto) 1.4L, Monocytes # (Auto) 1.2H, Eosinophils # (Auto) 0.0, Basophils # (Auto) 0.0, Nucleated Red Blood Cells % (auto) 0.0, Anion Gap 5L, Glomerular Filtration Rate > 60.0, Calcium Level 9.0, Total Bilirubin 0.7, Aspartate Amino Transf (AST/SGOT) 31, Alanine Aminotransferase (ALT/SGPT) 61, Alkaline Phosphatase 168H, Total Protein 6.2L, Albumin 2.8L, Albumin/Globulin Ratio 0.8L CBC/BMP Laboratory Tests 05/31/20 08:00 Microbiology Microbiology 05/31/20 Blood Culture, Received Pending 05/31/20 Blood Culture, Received Pending Allergies Coded Allergies: No Known Allergies (Verified , 12/30/18) Home Medications Scheduled Amlodipine Besylate (Amlodipine Besylate) 10 Mg Tablet, 20 MG PO DAILY, (Reported) STARTED AT [facility] Chlorhexidin/Isopropyl Alcohol (Dynahex 2% Liquid) 120 Ml Liquid, 1 DOSE TOP DAILY, (Reported) STARTED AT [facility] Dexamethasone (Dexamethasone) 2 Mg Tablet, 2 MG PO BID, (Reported) STARTED AT [facility] Divalproex Sodium (Depakote) 500 Mg Tablet.dr, 500 MG PO Q12H, (Reported) STARTED AT [facility] Docusate Sodium (Docusate Sodium) 50 Mg/5 Ml Liquid, 100 MG PO BID, (Reported) STARTED AT [facility] Famotidine (Famotidine) 40 Mg Tablet, 40 MG PO BID, (Reported) Heparin Sodium,Porcine/Pf (Heparin Sod 5,000 Unit/ml Syrg) 5,000 Unit/1 Ml Syringe, 5,000 UNIT SC BID, (Reported) STARTED AT [facility] Pantoprazole Sodium (Pantoprazole Sodium) 40 Mg Tablet.dr, 40 MG PO DAILY, (Reported) STARTED AT [facility] Risperidone (Risperidone) 0.5 Mg Tablet, 0.5 MG PO QPM, (Reported) STARTED AT [facility] Sennosides (Senna Lax) 8.6 Mg Tablet, 17.2 MG PO QHS, (Reported) STARTED AT [facility] Scheduled PRN Albuterol Sulfate (Albuterol Sulfate Hfa) 8.5 Gm Hfa.aer.ad, 2 PUFFS INH QID PRN for SHORTNESS OF BREATH, (Reported) Diazepam (Valium) 5 Mg Tab, 5 MG PO BID PRN for ANXIETY/AGITATION, (Reported) Diclofenac Sodium (Diclofenac Sodium) 1% 100GM Gel..gram., 2 GM TOP QID PRN for PAIN, (Reported) Apply to area of pain Nystatin (Nystatin Powder) 15 Gm Powder, 1 DOSE TOP BID PRN for REDNESS/IRRITATION, (Reported) APPLY TO FOLDS NEREYDA BERRIOS MD May 31, 2020 22:38
[2020-06-01] MEDS: ACETAMINOPHEN 325 MG TAB PO SCH ×3 (06:01→20:38)
[2020-06-01 06:18] VITALS: BP 151/77
[2020-06-01] MEDS: IPRATROPIUM 0.5MG/ALBUTEROL 2.5MG INH SOL UD 3ML (DUONEB) NEB SCH ×3 (07:19→20:27)
[2020-06-01] MEDS: HEPARIN SOD (PORCINE) 5000UNITS/ML 1ML VIAL/SYRINGE SC SCH ×2 (09:05→20:37)
[2020-06-01] MEDS: amLODIPine 5 MG TAB PO SCH (09:05)
[2020-06-01] MEDS: DIVALPROEX 500 MG TAB PO SCH (09:05)
[2020-06-01] MEDS: DOCUSATE SODIUM 100MG CAPSULE PO SCH ×2 (09:06→20:36)
[2020-06-01] MEDS: FAMOTIDINE 20 MG TAB PO SCH (09:06)
[2020-06-01] MEDS: ESCITALOPRAM OXALATE 10 MG TAB (LEXAPRO) PO SCH (09:06)
[2020-06-01] MEDS: MAGIC MOUTHWASH SUSPENSION BTL SSP SCH ×4 (09:07→20:39)
[2020-06-01] MEDS: POLYVINYL ALCOHOL OPHTH SOLN 15 ML(LIQUITEARS) OU SCH ×3 (09:08→20:39)
[2020-06-01] MEDS: REMEDY PHYTOPLEX Z-GUARD PASTE 113GM TUBE (FROM STOREROOM PRODUCT) TOP SCH ×3 (09:10→20:38)
--- NOTE | 2020-06-01 11:53 | IPNPDOC ---
PM&R Progress Note DATE OF SERVICE: Jun 01, 2020 Dining Room Tables Set Up Attendant Progress Note Subjective: Patient seen in her room stating she feels ok, denies having headache, fever, or chills. She states she thinks she did well in therapy. She wants to know what exercises she can do in bed to get stronger. REVIEW OF SYSTEMS: The following is a completed review of systems and has been reviewed. Review of systems otherwise unremarkable. PAIN: Patient self reports no pain EYES: No recent vision changes EARS, NOSE, & THROAT: +dysphagia CARDIOVASCULAR: Denies chest pain or palpitations PULMONARY: Denies shortness of breath, +mild cough GASTROINTESTINAL: Denies constipation/diarrhea GENITOURINARY: denies dysuria MUSCULOSKELETAL:left sided weakness NEUROLOGICAL:left sided inattention and paresis HEMATOLOGICAL:denies easy bruising SKIN: denies rash PSYCHIATRIC: Unremarkable All other review of systems found to be negative. PHYSICAL EXAMINATION: VITAL SIGNS: Please see below. GENERAL: Pleasant and cooperative. No acute distress. dry oral mucosa HEENT: PERRL. Extraocular movements intact. Clear conjunctiva, +left facial droop, tongue midline CARDIOVASCULAR: Regular rate and rhythm. No murmurs, rubs, or gallops LUNGS: Clear to auscultation bilaterally. No wheezes. No rhonchi ABDOMEN: Soft, nontender, nondistended. Positive bowel sounds. Normal active bowel sounds NEUROLOGICAL: Alert and oriented times to self and place, disoriented to time, +dysarthria, Sensation grossly intact, +left sided inattention +apraxia EXTREMITIES: 5\\5 strength right upper extremity, 4/5 LUE 5\\5 strength right lower extremity. 4/5 strength in left lower extremity. SKIN: right fronto-parietal incision ASSESSMENT:84-year-old F with past medical history of asthma who presents status post right temporal lobe meningioma resection PLAN: 1. Rehab- PT/OT advance mobility and ADLs, strengthen/stretch/maintain ROM all 4 extremities -[employer]- swallow and cog eval 2. Neuro- s/p right temporal lobe meningioma resection 05-17-20 with post-op vasogenic and cytotoxic edema, last CT on 05-25 showing 10mm kqswo-lu-qfis midline shift, CTH inhouse showing, improvment, " 7.4 mm hitfj-ci-pgwm midline shift. No evidence of hemorrhage", c/u decadron -seizure ppx- Depakote -HOB 30 degrees to prevent increased intracerebral pressures -SSRI for motor recovery and mood 3. Cardiac- HTN c/u amlodipine 4. Resp- hx of asthma, will order Duonebs, -CXR negative for infiltrate 5. GI ppx- pepcid 6. DVT ppx- heparin 7. Pain- tylenol standing, tramadol prn 8. Dispo- tbd Allergies Coded Allergies: No Known Allergies (Verified , 12/30/18) Vital Signs Vital Signs Date Time Temp Pulse Resp B/P (MAP) Pulse Ox O2 Delivery O2 Flow Rate FiO2 06/01/20 09:05 82 151/77 06/01/20 06:18 97.9 18 98 Room Air Microbiology Microbiology 05/31/20 Blood Culture - Preliminary, Resulted No growth after 24 hours . All specim... 05/31/20 Blood Culture - Preliminary, Resulted No growth after 24 hours . All specim... Current Medications Current Medications Current Medications Medications (Trade) Dose Ordered Sig/Joleen Route PRN Reason Start Time Stop Time Status Last Admin Dose Admin Acetaminophen (Tylenol Tab) 975 mg Q8H PO 05/31/20 06:00 06/01/20 06:01 Albuterol/ Ipratropium (Duoneb (Ipr 0.5mg/Alb 2.5mg)) 3 ml RTID NEB 05/31/20 08:00 06/01/20 07:19 Amlodipine Besylate (Norvasc) 5 mg DAILY PO 05/31/20 09:00 06/01/20 09:05 Artificial Tears (Akwa Tears) 2 drop TID OU 05/30/20 21:00 06/01/20 09:08 Bisacodyl (Dulcolax Suppository) 10 mg DAILYPRN PRN DC CONSTIPATION 05/30/20 15:55 Dexamethasone (Decadron) 2 mg BID PO 05/30/20 21:00 06/01/20 09:06 Divalproex Sodium (Depakote Sprinkles) 500 mg BID PO 06/01/20 21:00 Divalproex Sodium (Depakote) 500 mg BID PO 05/30/20 21:00 06/01/20 10:17 DC 06/01/20 09:05 Docusate Sodium (Colace) 100 mg BID PO 05/30/20 21:00 06/01/20 09:06 Escitalopram Oxalate (Lexapro) 10 mg DAILY PO 05/31/20 09:00 06/01/20 09:06 Famotidine (Pepcid) 20 mg DAILY PO 05/31/20 09:00 06/01/20 09:06 Heparin Sodium (Porcine) (Heparin) 5,000 units Q12H SC 05/30/20 21:00 06/01/20 09:05 Home Med (Med Rec Complete!) ASDIRECTED XX 05/30/20 17:50 05/30/20 18:10 DC Lidocaine/ Diphenhydr/Alum/ Mg/Simeth (Magic Mouthwash) 5ML ACHS SSP 05/30/20 21:00 06/01/20 09:07 Ramelteon (Rozerem) 8 mg QHS PRN PO INSOMNIA 05/31/20 08:35 Risperidone (RisperDAL) 0.5 mg QHS PO 05/30/20 21:00 05/31/20 22:09 Senna (Senokot) 1 tab QHS PO 05/31/20 21:00 05/31/20 22:09 Senna (Senokot) 2 tab QHS PO 05/30/20 21:00 05/30/20 20:59 DC 05/30/20 20:04 Tramadol HCl (Ultram) 50 mg Q4HP PRN PO MODERATE PAIN (PS 5-7) 05/31/20 08:35 MARY FARR MD Jun 01, 2020 11:53
[2020-06-01] MEDS ORDERED: LIDOCAINE VISCOUS 2% SOLN 15ML UDC TOP PRN (13:15)
[2020-06-01 14:00] VITALS: BP 110/59
[2020-06-01 20:10] VITALS: BP 124/60
[2020-06-01] MEDS: SENNA 8.6 MG TAB (SENOKOT) PO SCH (20:36)
[2020-06-01] MEDS: risperiDONE 0.5 MG TAB PO SCH (20:37)
[2020-06-01] MEDS: DIVALPROEX SPRINKLE 125 MG CAP PO SCH (20:37)
[2020-06-02] MEDS: ACETAMINOPHEN 325 MG TAB PO SCH ×3 (05:27→22:26)
[2020-06-02 06:34] VITALS: BP 150/74
[2020-06-02] MEDS: IPRATROPIUM 0.5MG/ALBUTEROL 2.5MG INH SOL UD 3ML (DUONEB) NEB SCH ×3 (07:22→20:32)
[2020-06-02] MEDS: MAGIC MOUTHWASH SUSPENSION BTL SSP SCH ×4 (07:30→22:41)
[2020-06-02 08:11] LABS: BASO # 0.1 10^3/uL (0.0-0.2); BASO % 0.7 % (0.0-1.0); EOS % 0.2 % (0.0-3.0); HEMATOCRIT 31.3 % (36.0-47.0); HEMOGLOBIN 9.4 g/dl (12.0-15.5); LYMPH % 22.3 % (24.0-44.0); MEAN CORPUSCULAR HEMOGLOBIN 30.2 pg (27.0-33.0); MEAN CORPUSCULAR VOLUME 100.6 fl (80.0-96.0); MONO % 11.4 % (2.0-8.0); NEUTROPHILS # 5.5 10^3/uL (1.5-8.5); NEUTROPHILS % 60.4 % (36.0-66.0); PLATELET COUNT, AUTOMATED 164 10^3/uL (150-450); RED BLOOD COUNT 3.11 10^6/uL (4.00-5.40)
[2020-06-02 08:30] LABS: BLOOD UREA NITROGEN 11 MG/DL (7-18); CALCIUM LEVEL 8.4 MG/DL (8.8-10.2); CARBON DIOXIDE LEVEL 28 MEQ/L (21-32); CHLORIDE LEVEL 108 MEQ/L (98-107); CREATININE FOR GFR 0.54 MG/DL (0.55-1.30); GLOMERULAR FILTRATION RATE > 60.0 (>32); GLUCOSE, FASTING 90 MG/DL (70-100); POTASSIUM SERUM 3.9 MEQ/L (3.5-5.1); SODIUM LEVEL 143 MEQ/L (136-145)
[2020-06-02] MEDS: FAMOTIDINE 20 MG TAB PO SCH (10:22)
[2020-06-02] MEDS: DIVALPROEX SPRINKLE 125 MG CAP PO SCH ×2 (10:22→22:24)
[2020-06-02] MEDS: amLODIPine 5 MG TAB PO SCH (10:25)
[2020-06-02] MEDS: DOCUSATE SODIUM 100MG CAPSULE PO SCH ×2 (10:26→22:25)
[2020-06-02] MEDS: HEPARIN SOD (PORCINE) 5000UNITS/ML 1ML VIAL/SYRINGE SC SCH (10:26)
[2020-06-02] MEDS: REMEDY PHYTOPLEX Z-GUARD PASTE 113GM TUBE (FROM STOREROOM PRODUCT) TOP SCH ×3 (10:26→22:42)
[2020-06-02] MEDS: POLYVINYL ALCOHOL OPHTH SOLN 15 ML(LIQUITEARS) OU SCH ×3 (10:27→22:42)
[2020-06-02] MEDS: ESCITALOPRAM OXALATE 10 MG TAB (LEXAPRO) PO SCH (10:29)
[2020-06-02] MEDS: risperiDONE 0.5 MG TAB PO SCH ×2 (13:50→22:24)
[2020-06-02 14:00] VITALS: BP 141/65
--- NOTE | 2020-06-02 14:33 | IPNPDOC ---
PM&R Progress Note DATE OF SERVICE: Jun 02, 2020 Motor Runner Progress Note Subjective: Patient seen in her room appearing confused and upset, but was consolable. She wanted to know when she could go home. REVIEW OF SYSTEMS: The following is a completed review of systems and has been reviewed. Review of systems otherwise unremarkable. PAIN: Patient self reports no pain EYES: No recent vision changes EARS, NOSE, & THROAT: +dysphagia CARDIOVASCULAR: Denies chest pain or palpitations PULMONARY: Denies shortness of breath, +mild cough GASTROINTESTINAL: Denies constipation/diarrhea GENITOURINARY: denies dysuria MUSCULOSKELETAL:left sided weakness NEUROLOGICAL:left sided inattention and paresis HEMATOLOGICAL:denies easy bruising SKIN: denies rash PSYCHIATRIC: Unremarkable All other review of systems found to be negative. PHYSICAL EXAMINATION: VITAL SIGNS: Please see below. GENERAL: Pleasant and cooperative. No acute distress. dry oral mucosa HEENT: PERRL. Extraocular movements intact. Clear conjunctiva, +left facial droop, tongue midline CARDIOVASCULAR: Regular rate and rhythm. No murmurs, rubs, or gallops LUNGS: Clear to auscultation bilaterally. No wheezes. No rhonchi ABDOMEN: Soft, nontender, nondistended. Positive bowel sounds. Normal active bowel sounds NEUROLOGICAL: Alert and oriented times to self and place, disoriented to time, +dysarthria, Sensation grossly intact, +left sided inattention +apraxia EXTREMITIES: 5\\5 strength right upper extremity, 4/5 LUE 5\\5 strength right lower extremity. 4/5 strength in left lower extremity. SKIN: right fronto-parietal incision ASSESSMENT:84-year-old F with past medical history of asthma who presents status post right temporal lobe meningioma resection PLAN: 1. 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 Neuro- s/p right temporal lobe meningioma resection 05-17-20 with post-op vasogenic and cytotoxic edema, last CT on 05-25 showing 10mm [id number] midline shift, CTH inhouse showing, improvment, " 7.4 mm [id number]-jd-[id number] midline shift. No evidence of hemorrhage", c/u decadron -seizure ppx- Depakote -HOB 30 degrees to prevent increased intracerebral pressures -will stop lexapro as may be contributing to agitation, and will increase Risperdal from qHS to BID-discussed plan with patient's son who was bedside 3. Cardiac- HTN c/u amlodipine 4. Resp- hx of asthma, will order Duonebs, -CXR negative for infiltrate 5. GI ppx- pepcid 6. DVT ppx- heparin 7. Pain- tylenol standing, tramadol prn 8. - although patient not complaining of dysuria, she is altered today and will order UA to r/o infection 9. Dispo- tbd Allergies Coded Allergies: No Known Allergies (Verified , 12/30/18) Vital Signs Vital Signs Date Time Temp Pulse Resp B/P (MAP) Pulse Ox O2 Delivery O2 Flow Rate FiO2 06/02/20 14:00 98.3 93 18 141/65 (90) 96 Room Air Laboratory Data CBC/BMP Laboratory Tests 06/02/20 07:12 Labs 24H Laboratory Tests 2 06/02/20 07:12: Immature Granulocyte % (Auto) 5.0H, Neutrophils (%) (Auto) 60.4, Lymphocytes (%) (Auto) 22.3L, Monocytes (%) (Auto) 11.4H, Eosinophils (%) (Auto) 0.2, Basophils (%) (Auto) 0.7, Neutrophils # (Auto) 5.5, Lymphocytes # (Auto) 2.0, Monocytes # (Auto) 1.0H, Eosinophils # (Auto) 0.0, Basophils # (Auto) 0.1, Nucleated Red Blood Cells % (auto) 0.0, Anion Gap 7L, Glomerular Filtration Rate > 60.0, Calcium Level 8.4L Microbiology Microbiology 05/31/20 Blood Culture - Preliminary, Resulted No Growth after 48 hours. All Specime... 05/31/20 Blood Culture - Preliminary, Resulted No Growth after 48 hours. All Specime... Current Medications Current Medications Current Medications Medications (Trade) Dose Ordered Sig/Joleen Route PRN Reason Start Time Stop Time Status Last Admin Dose Admin Acetaminophen (Tylenol Tab) 975 mg Q8H PO 05/31/20 06:00 06/02/20 13:51 Albuterol/ Ipratropium (Duoneb (Ipr 0.5mg/Alb 2.5mg)) 3 ml RTID NEB 05/31/20 08:00 06/02/20 13:13 Amlodipine Besylate (Norvasc) 5 mg DAILY PO 05/31/20 09:00 06/02/20 10:25 Artificial Tears (Akwa Tears) 2 drop TID OU 05/30/20 21:00 06/02/20 10:27 Bisacodyl (Dulcolax Suppository) 10 mg DAILYPRN PRN [place] CONSTIPATION 05/30/20 15:55 Dexamethasone (Decadron) 2 mg BID PO 05/30/20 21:00 06/02/20 10:22 Divalproex Sodium (Depakote Sprinkles) 500 mg BID PO 06/01/20 21:00 06/02/20 10:22 Divalproex Sodium (Depakote) 500 mg BID PO 05/30/20 21:00 06/01/20 10:17 DC 06/01/20 09:05 Docusate Sodium (Colace) 100 mg BID PO 05/30/20 21:00 06/02/20 10:26 Escitalopram Oxalate (Lexapro) 10 mg DAILY PO 05/31/20 09:00 06/02/20 11:53 DC 06/02/20 10:29 Famotidine (Pepcid) 20 mg DAILY PO 05/31/20 09:00 06/02/20 10:22 Heparin Sodium (Porcine) (Heparin) 5,000 units Q12H SC 05/30/20 21:00 06/02/20 11:53 DC 06/02/20 10:26 Home Med (Med Rec Complete!) ASDIRECTED XX 05/30/20 17:50 05/30/20 18:10 DC Lidocaine HCl (Lidocaine 2% Visc Soln) 5 ml QID PRN TOP SORE Tongue 06/01/20 13:15 Lidocaine/ Diphenhydr/Alum/ Mg/Simeth (Magic Mouthwash) 5ML ACHS SSP 05/30/20 21:00 06/01/20 20:39 Ramelteon (Rozerem) 8 mg QHS PRN PO INSOMNIA 05/31/20 08:35 Risperidone (RisperDAL) 0.5 mg BID PO 06/02/20 11:55 06/02/20 13:50 Risperidone (RisperDAL) 0.5 mg QHS PO 05/30/20 21:00 06/02/20 11:53 DC 06/01/20 20:37 Senna (Senokot) 1 tab QHS PO 05/31/20 21:00 05/31/20 22:09 Senna (Senokot) 2 tab QHS PO 05/30/20 21:00 05/30/20 20:59 DC 05/30/20 20:04 Tramadol HCl (Ultram) 50 mg Q4HP PRN PO MODERATE PAIN (PS 5-7) 05/31/20 08:35 MARY FARR MD Jun 02, 2020 14:33
[2020-06-02 20:00] VITALS: BP 149/65
[2020-06-02] MEDS: RAMELTEON 8 MG TAB (ROZEREM) PO PRN (22:24)
[2020-06-02] MEDS: SENNA 8.6 MG TAB (SENOKOT) PO SCH (22:25)
[2020-06-03 05:20] VITALS: BP 110/59
[2020-06-03] MEDS: ACETAMINOPHEN 325 MG TAB PO SCH ×3 (06:12→21:22)
[2020-06-03] MEDS: IPRATROPIUM 0.5MG/ALBUTEROL 2.5MG INH SOL UD 3ML (DUONEB) NEB SCH ×3 (07:25→19:54)
[2020-06-03] MEDS: amLODIPine 5 MG TAB PO SCH (08:40)
[2020-06-03] MEDS: FAMOTIDINE 20 MG TAB PO SCH (08:41)
[2020-06-03] MEDS: DOCUSATE SODIUM 100MG CAPSULE PO SCH ×2 (08:41→21:21)
[2020-06-03] MEDS: DIVALPROEX SPRINKLE 125 MG CAP PO SCH ×2 (08:41→21:21)
[2020-06-03] MEDS: risperiDONE 0.5 MG TAB PO SCH ×2 (08:41→21:21)
[2020-06-03] MEDS: POLYVINYL ALCOHOL OPHTH SOLN 15 ML(LIQUITEARS) OU SCH ×3 (08:42→21:23)
[2020-06-03] MEDS: REMEDY PHYTOPLEX Z-GUARD PASTE 113GM TUBE (FROM STOREROOM PRODUCT) TOP SCH ×3 (08:42→21:23)
[2020-06-03] MEDS: MAGIC MOUTHWASH SUSPENSION BTL SSP SCH ×4 (08:42→21:23)
[2020-06-03 14:00] VITALS: BP 142/58
[2020-06-03] MEDS: SODIUM CHLORIDE 0.9% INJ 10 ML SYR IV SCH (18:05)
[2020-06-03 20:00] VITALS: BP 128/60
[2020-06-03] MEDS: RAMELTEON 8 MG TAB (ROZEREM) PO PRN (21:21)
[2020-06-03] MEDS: SENNA 8.6 MG TAB (SENOKOT) PO SCH (21:21)
[2020-06-04 05:21] VITALS: BP 138/63
[2020-06-04] MEDS: ACETAMINOPHEN 325 MG TAB PO SCH ×3 (06:16→21:05)
[2020-06-04] MEDS: SODIUM CHLORIDE 0.9% INJ 10 ML SYR IV SCH ×2 (06:16→17:55)
[2020-06-04] MEDS: DIVALPROEX SPRINKLE 125 MG CAP PO SCH ×2 (08:38→21:02)
[2020-06-04] MEDS: amLODIPine 5 MG TAB PO SCH (08:38)
[2020-06-04] MEDS: FAMOTIDINE 20 MG TAB PO SCH (08:38)
[2020-06-04] MEDS: risperiDONE 0.5 MG TAB PO SCH ×2 (08:38→21:03)
[2020-06-04] MEDS: DOCUSATE SODIUM 100MG CAPSULE PO SCH ×2 (08:39→21:03)
[2020-06-04] MEDS: REMEDY PHYTOPLEX Z-GUARD PASTE 113GM TUBE (FROM STOREROOM PRODUCT) TOP SCH ×3 (08:39→21:04)
[2020-06-04] MEDS: MAGIC MOUTHWASH SUSPENSION BTL SSP SCH ×4 (08:39→21:04)
[2020-06-04] MEDS: POLYVINYL ALCOHOL OPHTH SOLN 15 ML(LIQUITEARS) OU SCH ×3 (08:39→21:04)
[2020-06-04] MEDS: IPRATROPIUM 0.5MG/ALBUTEROL 2.5MG INH SOL UD 3ML (DUONEB) NEB SCH ×3 (11:59→20:24)
[2020-06-04 20:10] VITALS: BP 124/60
[2020-06-04] MEDS: RAMELTEON 8 MG TAB (ROZEREM) PO PRN (21:03)
[2020-06-04] MEDS: SENNA 8.6 MG TAB (SENOKOT) PO SCH (21:03)
[2020-06-05 06:02] VITALS: BP 115/58
[2020-06-05] MEDS: ACETAMINOPHEN 325 MG TAB PO SCH ×3 (06:14→20:49)
[2020-06-05] MEDS: SODIUM CHLORIDE 0.9% INJ 10 ML SYR IV SCH ×2 (06:15→17:42)
[2020-06-05 06:59] LABS: BASO % 0.3 % (0.0-1.0); EOS # 0.1 10^3/uL (0.0-0.5); EOS % 0.6 % (0.0-3.0); HEMATOCRIT 32.7 % (36.0-47.0); HEMOGLOBIN 9.7 g/dl (12.0-15.5); LYMPH # 2.4 10^3/uL (1.5-5.0); LYMPH % 22.1 % (24.0-44.0); MEAN CORPUSCULAR HEMOGLOBIN 29.8 pg (27.0-33.0); MEAN CORPUSCULAR HGB CONC 29.7 g/dl (32.0-36.5); MEAN CORPUSCULAR VOLUME 100.6 fl (80.0-96.0); MONO # 1.3 10^3/uL (0.0-0.8); MONO % 12.2 % (2.0-8.0); NEUTROPHILS # 6.5 10^3/uL (1.5-8.5); NEUTROPHILS % 60.6 % (36.0-66.0); PLATELET COUNT, AUTOMATED 218 10^3/uL (150-450); RED BLOOD COUNT 3.25 10^6/uL (4.00-5.40); WHITE BLOOD COUNT 10.8 10^3/uL (4.0-10.0)
[2020-06-05] MEDS: IPRATROPIUM 0.5MG/ALBUTEROL 2.5MG INH SOL UD 3ML (DUONEB) NEB SCH ×3 (07:18→20:39)
[2020-06-05] MEDS: MAGIC MOUTHWASH SUSPENSION BTL SSP SCH ×4 (07:30→20:45)
[2020-06-05 07:32] LABS: BLOOD UREA NITROGEN 17 MG/DL (7-18); CALCIUM LEVEL 8.6 MG/DL (8.8-10.2); CARBON DIOXIDE LEVEL 28 MEQ/L (21-32); CHLORIDE LEVEL 108 MEQ/L (98-107); CREATININE FOR GFR 0.72 MG/DL (0.55-1.30); GLOMERULAR FILTRATION RATE > 60.0 (>32); GLUCOSE, FASTING 113 MG/DL (70-100); POTASSIUM SERUM 4.5 MEQ/L (3.5-5.1); SODIUM LEVEL 141 MEQ/L (136-145)
[2020-06-05] MEDS: REMEDY PHYTOPLEX Z-GUARD PASTE 113GM TUBE (FROM STOREROOM PRODUCT) TOP SCH ×3 (09:00→20:46)
[2020-06-05] MEDS: LevoFLOXacin 750 MG TABLET PO SCH (10:38)
[2020-06-05] MEDS: risperiDONE 0.5 MG TAB PO SCH ×2 (10:39→20:43)
[2020-06-05] MEDS: FAMOTIDINE 20 MG TAB PO SCH (10:39)
[2020-06-05] MEDS: DIVALPROEX SPRINKLE 125 MG CAP PO SCH ×2 (10:39→20:44)
[2020-06-05] MEDS: DOCUSATE SODIUM 100MG CAPSULE PO SCH ×2 (10:40→20:44)
[2020-06-05] MEDS: amLODIPine 5 MG TAB PO SCH (10:41)
[2020-06-05] MEDS: LACTOBACILLUS ACIDOPHILUS CAP (BACID) PO SCH ×3 (10:41→20:44)
[2020-06-05] MEDS: POLYVINYL ALCOHOL OPHTH SOLN 15 ML(LIQUITEARS) OU SCH ×3 (10:42→20:45)
--- NOTE | 2020-06-05 13:52 | IPNPDOC ---
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 REVIEW OF SYSTEMS: The following is a completed review of systems and has been reviewed. Review of systems otherwise unremarkable. PAIN: Patient self reports no pain EYES: No recent vision changes EARS, NOSE, & THROAT: +dysphagia CARDIOVASCULAR: Denies chest pain or palpitations PULMONARY: Denies shortness of breath, +mild cough GASTROINTESTINAL: Denies constipation/diarrhea GENITOURINARY: denies dysuria MUSCULOSKELETAL:left sided weakness NEUROLOGICAL:left sided inattention and paresis HEMATOLOGICAL:denies easy bruising SKIN: denies rash PSYCHIATRIC: Unremarkable All other review of systems found to be negative. PHYSICAL EXAMINATION: VITAL SIGNS: Please see below. GENERAL: Pleasant and cooperative. No acute distress. dry oral mucosa HEENT: PERRL. Extraocular movements intact. Clear conjunctiva, +left facial droop, tongue midline CARDIOVASCULAR: Regular rate and rhythm. No murmurs, rubs, or gallops LUNGS: Clear to auscultation bilaterally. No wheezes. No rhonchi ABDOMEN: Soft, nontender, nondistended. Positive bowel sounds. Normal active bowel sounds NEUROLOGICAL: Alert and oriented times to self and place, disoriented to time, +dysarthria, Sensation grossly intact, +left sided inattention +apraxia EXTREMITIES: 5\\5 strength right upper extremity, 4/5 LUE 5\\5 strength right lower extremity. 4/5 strength in left lower extremity. SKIN: right fronto-parietal incision ASSESSMENT:84-year-old F with past medical history of asthma who presents status post right temporal lobe meningioma resection PLAN: 1. 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 Neuro- s/p right temporal lobe meningioma resection 05-17-20 with post-op vasogenic and cytotoxic edema, last CT on 05-25 showing 10mm [id number]-bm-[id number] midline shift, CTH inhouse showing, improvment, " 7.4 mm [id number]-nj-tbqm midline shift. No evidence of hemorrhage", c/u decadron -seizure ppx- Depakote -HOB 30 degrees to prevent increased intracerebral pressures -will stop lexapro as may be contributing to agitation, and will increase Risperdal from qHS to BID-discussed plan with patient's son who was bedside 3. Cardiac- HTN c/u amlodipine 4. Resp- hx of asthma, will order Duonebs, -CXR negative for infiltrate 5. GI ppx- pepcid 6. DVT ppx- heparin 7. Pain- tylenol standing, tramadol prn 8. - started on Levaquin for UA suspicious for UTI, Ucx pending 9. Dispo- tbd Allergies Coded Allergies: No Known Allergies (Verified , 12/30/18) Vital Signs Vital Signs Date Time Temp Pulse Resp B/P (MAP) Pulse Ox O2 Delivery O2 Flow Rate FiO2 06/05/20 06:02 97.2 80 18 115/58 (77) 95 Room Air Laboratory Data CBC/BMP Laboratory Tests 06/05/20 06:00 Labs 24H Laboratory Tests 2 06/05/20 06:00: Immature Granulocyte % (Auto) 4.2H, Neutrophils (%) (Auto) 60.6, Lymphocytes (%) (Auto) 22.1L, Monocytes (%) (Auto) 12.2H, Eosinophils (%) (Auto) 0.6, Basophils (%) (Auto) 0.3, Neutrophils # (Auto) 6.5, Lymphocytes # (Auto) 2.4, Monocytes # (Auto) 1.3H, Eosinophils # (Auto) 0.1, Basophils # (Auto) 0.0, Nucleated Red Blood Cells % (auto) 0.0, Anion Gap 5L, Glomerular Filtration Rate > 60.0, Calcium Level 8.6L Microbiology Microbiology 06/04/20 Urine Culture, Received Pending 05/31/20 Blood Culture - Final, Complete NO GROWTH AFTER 5 DAYS 05/31/20 Blood Culture - Final, Complete NO GROWTH AFTER 5 DAYS Current Medications Current Medications Current Medications Medications (Trade) Dose Ordered Sig/Joleen Route PRN Reason Start Time Stop Time Status Last Admin Dose Admin Acetaminophen (Tylenol Tab) 975 mg Q8H PO 05/31/20 06:00 06/05/20 06:14 Albuterol/ Ipratropium (Duoneb (Ipr 0.5mg/Alb 2.5mg)) 3 ml RTID NEB 05/31/20 08:00 06/05/20 13:17 Amlodipine Besylate (Norvasc) 5 mg DAILY PO 05/31/20 09:00 06/05/20 10:41 Artificial Tears (Akwa Tears) 2 drop TID OU 05/30/20 21:00 06/05/20 10:42 Bisacodyl (Dulcolax Suppository) 10 mg DAILYPRN PRN [place] CONSTIPATION 05/30/20 15:55 Dexamethasone (Decadron) 2 mg BID PO 05/30/20 21:00 06/05/20 10:41 Divalproex Sodium (Depakote Sprinkles) 500 mg BID PO 06/01/20 21:00 06/05/20 10:39 Divalproex Sodium (Depakote) 500 mg BID PO 05/30/20 21:00 06/01/20 10:17 DC 06/01/20 09:05 Docusate Sodium (Colace) 100 mg BID PO 05/30/20 21:00 06/05/20 10:40 Escitalopram Oxalate (Lexapro) 10 mg DAILY PO 05/31/20 09:00 06/02/20 11:53 DC 06/02/20 10:29 Famotidine (Pepcid) 20 mg DAILY PO 05/31/20 09:00 06/05/20 10:39 Heparin Sodium (Heparin (Flush)) 200 units ASDIRECTED PRN IV SEE LABEL COMMENTS 06/03/20 06:30 Heparin Sodium (Heparin (Flush)) 200 units PICC IV 06/03/20 18:00 06/05/20 06:14 Heparin Sodium (Porcine) (Heparin) 5,000 units Q12H SC 05/30/20 21:00 06/02/20 11:53 DC 06/02/20 10:26 Home Med (Med Rec Complete!) ASDIRECTED XX 05/30/20 17:50 05/30/20 18:10 DC Lactobacillus Acidophilus (Bacid) 1 ea TID PO 06/05/20 09:00 06/05/20 10:41 Levofloxacin (Levaquin) 750 mg DAILY@06 PO 06/06/20 06:00 06/05/20 07:47 DC Levofloxacin (Levaquin) 750 mg Q48H PO 06/05/20 06:00 06/10/20 05:59 06/05/20 10:38 Lidocaine HCl (Lidocaine 2% Visc Soln) 5 ml QID PRN TOP SORE Tongue 06/01/20 13:15 Lidocaine/ Diphenhydr/Alum/ Mg/Simeth (Magic Mouthwash) 5ML ACHS SSP 05/30/20 21:00 06/05/20 12:39 Ramelteon (Rozerem) 8 mg QHS PRN PO INSOMNIA 05/31/20 08:35 06/04/20 21:03 Risperidone (RisperDAL) 0.5 mg BID PO 06/02/20 11:55 06/05/20 10:39 Risperidone (RisperDAL) 0.5 mg QHS PO 05/30/20 21:00 06/02/20 11:53 DC 06/01/20 20:37 Senna (Senokot) 1 tab QHS PO 05/31/20 21:00 06/04/20 21:03 Senna (Senokot) 2 tab QHS PO 05/30/20 21:00 05/30/20 20:59 DC 05/30/20 20:04 Sodium Chloride (Saline Lock Flush) 10 ml ASDIRECTED PRN IV SEE LABEL COMMENTS 06/03/20 06:30 Sodium Chloride (Saline Lock Flush) 10 ml PICC IV 06/03/20 18:00 06/05/20 06:15 Tramadol HCl (Ultram) 50 mg Q4HP PRN PO MODERATE PAIN (PS 5-7) 05/31/20 08:35 MARY FARR MD Jun 05, 2020 13:52
[2020-06-05 14:00] VITALS: BP 132/63
[2020-06-05 20:15] VITALS: BP 110/61
[2020-06-05] MEDS: SENNA 8.6 MG TAB (SENOKOT) PO SCH (20:44)
[2020-06-06] MEDS ORDERED: LevoFLOXacin 750 MG TABLET PO SCH (06:00)
[2020-06-06] MEDS: ACETAMINOPHEN 325 MG TAB PO SCH ×3 (06:05→21:27)
[2020-06-06] MEDS: SODIUM CHLORIDE 0.9% INJ 10 ML SYR IV SCH ×2 (06:06→17:35)
[2020-06-06 06:18] VITALS: BP 121/59
[2020-06-06] MEDS: IPRATROPIUM 0.5MG/ALBUTEROL 2.5MG INH SOL UD 3ML (DUONEB) NEB SCH ×3 (07:42→19:53)
[2020-06-06] MEDS: LACTOBACILLUS ACIDOPHILUS CAP (BACID) PO SCH ×3 (09:00→20:21)
[2020-06-06] MEDS: DIVALPROEX SPRINKLE 125 MG CAP PO SCH ×2 (10:31→20:22)
[2020-06-06] MEDS: amLODIPine 5 MG TAB PO SCH (10:32)
[2020-06-06] MEDS: risperiDONE 0.5 MG TAB PO SCH ×2 (10:32→20:21)
[2020-06-06] MEDS: DOCUSATE SODIUM 100MG CAPSULE PO SCH ×2 (10:32→20:21)
[2020-06-06] MEDS: FAMOTIDINE 20 MG TAB PO SCH (10:32)
[2020-06-06] MEDS: MAGIC MOUTHWASH SUSPENSION BTL SSP SCH ×4 (10:34→20:22)
[2020-06-06] MEDS: POLYVINYL ALCOHOL OPHTH SOLN 15 ML(LIQUITEARS) OU SCH ×3 (12:16→20:22)
[2020-06-06] MEDS: REMEDY PHYTOPLEX Z-GUARD PASTE 113GM TUBE (FROM STOREROOM PRODUCT) TOP SCH ×3 (12:17→20:23)
[2020-06-06] MEDS ORDERED: BARIUM SULFATE 700 MG TABLET (E-Z-DISK) As Ordered ONE (12:54)
[2020-06-06] MEDS ORDERED: E-Z-PAQUE 96% w/w SUSP 176GM BTL As Ordered ONE (12:54)
[2020-06-06] MEDS ORDERED: VARIBAR NECTAR 40% w/v 240ML SUSP BTL As Ordered ONE (12:54)
[2020-06-06] MEDS ORDERED: VARIBAR PUDDING 40% w/v 230ML TUBE As Ordered ONE (12:54)
[2020-06-06 14:00] VITALS: BP 128/61
--- NOTE | 2020-06-06 19:59 | REP ---
INDICATION: dysphagia. COMPARISON: None. TECHNIQUE: The procedure was performed by TADEO Pressley, under the direct supervision of Dr. Zayas. The procedure was performed with Amber Dailey from speech pathology present. 5 ml aliquots of thin, pudding, nectar thick, and honey thick consistency barium was administered. FINDINGS: Penetration was visualized with thin consistency barium. Penetration and aspiration were visualized with nectar thick consistency barium. The detailed report of this examination will be provided by speech pathology. IMPRESSION: Penetration and aspiration were visualized during the exam, a detailed report will be provided by speech pathology. 1.6 minutes of fluoroscopy time was utilized for this procedure. Some fluoroscopic images are performed with last image hold technology. These images require no additional radiation <Electronically signed by Melissa Moseley > 06/06/20 1422 <Electronically signed by Onel Zayas > 06/06/20 195
[2020-06-06 20:07] VITALS: BP 150/66
[2020-06-06] MEDS: SENNA 8.6 MG TAB (SENOKOT) PO SCH (20:21)
[2020-06-06] MEDS: RAMELTEON 8 MG TAB (ROZEREM) PO PRN (20:21)
[2020-06-07 04:23] VITALS: BP 123/58
[2020-06-07] MEDS: ACETAMINOPHEN 325 MG TAB PO SCH ×3 (05:31→21:35)
[2020-06-07] MEDS: SODIUM CHLORIDE 0.9% INJ 10 ML SYR IV PRN (05:32)
[2020-06-07] MEDS: LevoFLOXacin 750 MG TABLET PO SCH (05:32)
[2020-06-07] MEDS: SODIUM CHLORIDE 0.9% INJ 10 ML SYR IV SCH ×2 (05:32→17:25)
[2020-06-07] MEDS: IPRATROPIUM 0.5MG/ALBUTEROL 2.5MG INH SOL UD 3ML (DUONEB) NEB SCH ×3 (08:13→19:33)
[2020-06-07] MEDS: LACTOBACILLUS ACIDOPHILUS CAP (BACID) PO SCH ×3 (09:09→21:35)
[2020-06-07] MEDS: DOCUSATE SODIUM 100MG CAPSULE PO SCH ×2 (09:09→21:34)
[2020-06-07] MEDS: FAMOTIDINE 20 MG TAB PO SCH (09:09)
[2020-06-07] MEDS: amLODIPine 5 MG TAB PO SCH (09:09)
[2020-06-07] MEDS: risperiDONE 0.5 MG TAB PO SCH ×2 (09:10→21:34)
[2020-06-07] MEDS: MAGIC MOUTHWASH SUSPENSION BTL SSP SCH ×4 (09:10→21:36)
[2020-06-07] MEDS: DIVALPROEX SPRINKLE 125 MG CAP PO SCH ×2 (09:10→21:34)
[2020-06-07] MEDS: POLYVINYL ALCOHOL OPHTH SOLN 15 ML(LIQUITEARS) OU SCH ×3 (09:10→21:36)
[2020-06-07] MEDS: REMEDY PHYTOPLEX Z-GUARD PASTE 113GM TUBE (FROM STOREROOM PRODUCT) TOP SCH ×3 (09:11→21:00)
[2020-06-07 10:32] LABS: BASO % 0.4 % (0.0-1.0); EOS % 0.6 % (0.0-3.0); HEMATOCRIT 33.4 % (36.0-47.0); HEMOGLOBIN 9.9 g/dl (12.0-15.5); LYMPH # 1.8 10^3/uL (1.5-5.0); LYMPH % 24.6 % (24.0-44.0); MEAN CORPUSCULAR HEMOGLOBIN 29.8 pg (27.0-33.0); MEAN CORPUSCULAR HGB CONC 29.6 g/dl (32.0-36.5); MEAN CORPUSCULAR VOLUME 100.6 fl (80.0-96.0); MONO % 13.8 % (2.0-8.0); NEUTROPHILS # 4.1 10^3/uL (1.5-8.5); NEUTROPHILS % 56.6 % (36.0-66.0); PLATELET COUNT, AUTOMATED 165 10^3/uL (150-450); RED BLOOD COUNT 3.32 10^6/uL (4.00-5.40); WHITE BLOOD COUNT 7.3 10^3/uL (4.0-10.0)
[2020-06-07 11:01] LABS: BLOOD UREA NITROGEN 16 MG/DL (7-18); CALCIUM LEVEL 8.8 MG/DL (8.8-10.2); CARBON DIOXIDE LEVEL 29 MEQ/L (21-32); CHLORIDE LEVEL 108 MEQ/L (98-107); CREATININE FOR GFR 0.74 MG/DL (0.55-1.30); GLOMERULAR FILTRATION RATE > 60.0 (>32); GLUCOSE, FASTING 95 MG/DL (70-100); SODIUM LEVEL 142 MEQ/L (136-145)
--- NOTE | 2020-06-07 13:13 | IPNPDOC ---
PM&R Progress Note DATE OF SERVICE: Jun 06, 2020 Pillowcase Folder Progress Note Subjective: Patient seen in her room with her son bedside stating she is happy to be going home in a week and is hopeful that her diet will be upgraded following the co okie swallow. REVIEW OF SYSTEMS: The following is a completed review of systems and has been reviewed. Review of systems otherwise unremarkable. PAIN: Patient self reports no pain EYES: No recent vision changes EARS, NOSE, & THROAT: +dysphagia CARDIOVASCULAR: Denies chest pain or palpitations PULMONARY: Denies shortness of breath, +mild cough GASTROINTESTINAL: Denies constipation/diarrhea GENITOURINARY: denies dysuria MUSCULOSKELETAL:left sided weakness NEUROLOGICAL:left sided inattention and paresis HEMATOLOGICAL:denies easy bruising SKIN: denies rash PSYCHIATRIC: Unremarkable All other review of systems found to be negative. PHYSICAL EXAMINATION: VITAL SIGNS: Please see below. GENERAL: Pleasant and cooperative. No acute distress. dry oral mucosa HEENT: PERRL. Extraocular movements intact. Clear conjunctiva, +left facial droop, tongue midline CARDIOVASCULAR: Regular rate and rhythm. No murmurs, rubs, or gallops LUNGS: Clear to auscultation bilaterally. No wheezes. No rhonchi ABDOMEN: Soft, nontender, nondistended. Positive bowel sounds. Normal active bowel sounds NEUROLOGICAL: Alert and oriented times to self and place, disoriented to time, +dysarthria, Sensation grossly intact, +left sided inattention +apraxia EXTREMITIES: 5\\5 strength right upper extremity, 4/5 LUE 5\\5 strength right lower extremity. 4/5 strength in left lower extremity. SKIN: right fronto-parietal incision ASSESSMENT:84-year-old F with past medical history of asthma who presents status post right temporal lobe meningioma resection PLAN: 1. 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 Neuro- s/p right temporal lobe meningioma resection 05-17-20 with post-op v asogenic and cytotoxic edema, last CT on 05-25 showing 10mm [id number]-dt-[id number] midline shift, CTH inhouse showing, improvement, " 7.4 mm nyyzf-do-nrhc midline shift. No evidence of hemorrhage", c/u decadron -seizure ppx- Depakote -HOB 30 degrees to prevent increased intracerebral pressures -stopped lexapro as may have contributed to agitation -c/u Risperdal BID 3. Cardiac- HTN c/u amlodipine 4. Resp- hx of asthma, Duonebs -CXR negative for infiltrate 5. GI ppx- pepcid 6. DVT ppx- heparin 7. Pain- tylenol standing, tramadol prn 8. - c/u Levaquin for UA suspicious for UTI, Ucx pending 9. Dispo- 06-13-20 to home Allergies Coded Allergies: No Known Allergies (Verified , 12/30/18) Vital Signs Vital Signs Date Time Temp Pulse Resp B/P (MAP) Pulse Ox O2 Delivery O2 Flow Rate FiO2 06/07/20 09:09 77 123/58 06/07/20 04:23 99.0 18 97 Room Air Laboratory Data CBC/BMP Laboratory Tests 06/07/20 10:08 Labs 24H Laboratory Tests 2 06/07/20 10:08: Immature Granulocyte % (Auto) 4.0H, Neutrophils (%) (Auto) 56.6, Lymphocytes (%) (Auto) 24.6, Monocytes (%) (Auto) 13.8H, Eosinophils (%) (Auto) 0.6, Basophils (%) (Auto) 0.4, Neutrophils # (Auto) 4.1, Lymphocytes # (Auto) 1.8, Monocytes # (Auto) 1.0H, Eosinophils # (Auto) 0.0, Basophils # (Auto) 0.0, Nucleated Red Blood Cells % (auto) 0.0, Anion Gap 5L, Glomerular Filtration Rate > 60.0, Calcium Level 8.8 Microbiology Microbiology 06/04/20 Urine Culture - Final, Complete Klebsiella Pneumoniae 05/31/20 Blood Culture - Final, Complete NO GROWTH AFTER 5 DAYS 05/31/20 Blood Culture - Final, Complete NO GROWTH AFTER 5 DAYS Current Medications Current Medications Current Medications Medications (Trade) Dose Ordered Sig/Joleen Route PRN Reason Start Time Stop Time Status Last Admin Dose Admin Acetaminophen (Tylenol Tab) 975 mg Q8H PO 05/31/20 06:00 06/07/20 06:01 Albuterol/ Ipratropium (Duoneb (Ipr 0.5mg/Alb 2.5mg)) 3 ml RTID NEB 05/31/20 08:00 06/07/20 08:13 Amlodipine Besylate (Norvasc) 5 mg DAILY PO 05/31/20 09:00 06/07/20 09:09 Artificial Tears (Akwa Tears) 2 drop TID OU 05/30/20 21:00 06/07/20 09:10 Bisacodyl (Dulcolax Suppository) 10 mg DAILYPRN PRN [place] CONSTIPATION 05/30/20 15:55 Dexamethasone (Decadron) 2 mg BID PO 05/30/20 21:00 06/07/20 09:09 Divalproex Sodium (Depakote Sprinkles) 500 mg BID PO 06/01/20 21:00 06/07/20 09:10 Divalproex Sodium (Depakote) 500 mg BID PO 05/30/20 21:00 06/01/20 10:17 DC 06/01/20 09:05 Docusate Sodium (Colace) 100 mg BID PO 05/30/20 21:00 06/07/20 09:09 Escitalopram Oxalate (Lexapro) 10 mg DAILY PO 05/31/20 09:00 06/02/20 11:53 DC 06/02/20 10:29 Famotidine (Pepcid) 20 mg DAILY PO 05/31/20 09:00 06/07/20 09:09 Heparin Sodium (Heparin (Flush)) 200 units ASDIRECTED PRN IV SEE LABEL COMMENTS 06/03/20 06:30 06/07/20 05:32 Heparin Sodium (Heparin (Flush)) 200 units PICC IV 06/03/20 18:00 06/07/20 05:32 Heparin Sodium (Porcine) (Heparin) 5,000 units Q12H SC 05/30/20 21:00 06/02/20 11:53 DC 06/02/20 10:26 Home Med (Med Rec Complete!) ASDIRECTED XX 05/30/20 17:50 05/30/20 18:10 DC Lactobacillus Acidophilus (Bacid) 1 ea TID PO 06/05/20 09:00 06/07/20 09:09 Levofloxacin (Levaquin) 750 mg DAILY@06 PO 06/06/20 06:00 06/05/20 07:47 DC Levofloxacin (Levaquin) 750 mg Q48H PO 06/05/20 06:00 06/10/20 05:59 06/07/20 05:32 Lidocaine HCl (Lidocaine 2% Visc Soln) 5 ml QID PRN TOP SORE Tongue 06/01/20 13:15 06/06/20 10:31 Lidocaine/ Diphenhydr/Alum/ Mg/Simeth (Magic Mouthwash) 5ML ACHS SSP 05/30/20 21:00 06/07/20 11:43 Ramelteon (Rozerem) 8 mg QHS PRN PO INSOMNIA 05/31/20 08:35 06/06/20 20:21 Risperidone (RisperDAL) 0.5 mg BID PO 06/02/20 11:55 06/07/20 09:10 Risperidone (RisperDAL) 0.5 mg QHS PO 05/30/20 21:00 06/02/20 11:53 DC 06/01/20 20:37 Senna (Senokot) 1 tab QHS PO 05/31/20 21:00 06/06/20 20:21 Senna (Senokot) 2 tab QHS PO 05/30/20 21:00 05/30/20 20:59 DC 05/30/20 20:04 Sodium Chloride (Saline Lock Flush) 10 ml ASDIRECTED PRN IV SEE LABEL COMMENTS 06/03/20 06:30 06/07/20 05:32 Sodium Chloride (Saline Lock Flush) 10 ml PICC IV 06/03/20 18:00 06/07/20 05:32 Tramadol HCl (Ultram) 50 mg Q4HP PRN PO MODERATE PAIN (PS 5-7) 05/31/20 08:35 MARY FARR MD Jun 07, 2020 13:13
[2020-06-07 14:00] VITALS: BP 134/64
[2020-06-07 20:00] VITALS: BP 102/58
[2020-06-07] MEDS: RAMELTEON 8 MG TAB (ROZEREM) PO PRN (21:35)
[2020-06-07] MEDS: SENNA 8.6 MG TAB (SENOKOT) PO SCH (21:35)
[2020-06-08 05:27] VITALS: BP 118/58
[2020-06-08] MEDS: SODIUM CHLORIDE 0.9% INJ 10 ML SYR IV SCH ×2 (05:40→17:26)
[2020-06-08] MEDS: ACETAMINOPHEN 325 MG TAB PO SCH ×3 (05:40→22:12)
[2020-06-08] MEDS: SODIUM CHLORIDE 0.9% INJ 10 ML SYR IV PRN (05:41)
[2020-06-08] MEDS: DOCUSATE SODIUM 100MG CAPSULE PO SCH ×2 (07:12→20:16)
[2020-06-08] MEDS: IPRATROPIUM 0.5MG/ALBUTEROL 2.5MG INH SOL UD 3ML (DUONEB) NEB SCH ×3 (07:14→19:48)
[2020-06-08] MEDS: MAGIC MOUTHWASH SUSPENSION BTL SSP SCH ×4 (07:48→20:17)
[2020-06-08] MEDS: LACTOBACILLUS ACIDOPHILUS CAP (BACID) PO SCH ×3 (08:21→20:16)
[2020-06-08] MEDS: FAMOTIDINE 20 MG TAB PO SCH (08:21)
[2020-06-08] MEDS: DIVALPROEX SPRINKLE 125 MG CAP PO SCH ×2 (08:22→20:16)
[2020-06-08] MEDS: POLYVINYL ALCOHOL OPHTH SOLN 15 ML(LIQUITEARS) OU SCH ×3 (08:22→20:17)
[2020-06-08] MEDS: risperiDONE 0.5 MG TAB PO SCH ×2 (08:22→20:16)
[2020-06-08] MEDS: amLODIPine 5 MG TAB PO SCH (08:22)
[2020-06-08] MEDS: REMEDY PHYTOPLEX Z-GUARD PASTE 113GM TUBE (FROM STOREROOM PRODUCT) TOP SCH ×3 (08:22→20:18)
[2020-06-08] MEDS: ESCITALOPRAM OXALATE 5MG TABLET (LEXAPRO) PO SCH (12:29)
--- NOTE | 2020-06-08 13:56 | IPNPDOC ---
PM&R Progress Note DATE OF SERVICE: Jun 07, 2020 Therapy Tech Progress Note Subjective: Patient seen in her room appearing sad and tired, states she feels ok, has no new weakness or pain. REVIEW OF SYSTEMS: The following is a completed review of systems and has been reviewed. Review of systems otherwise unremarkable. PAIN: Patient self reports no pain EYES: No recent vision changes EARS, NOSE, & THROAT: +dysphagia CARDIOVASCULAR: Denies chest pain or palpitations PULMONARY: Denies shortness of breath GASTROINTESTINAL: Denies constipation/diarrhea GENITOURINARY: denies dysuria MUSCULOSKELETAL:left sided weakness NEUROLOGICAL:left sided inattention and paresis HEMATOLOGICAL:denies easy bruising SKIN: denies rash PSYCHIATRIC: Unremarkable All other review of systems found to be negative. PHYSICAL EXAMINATION: VITAL SIGNS: Please see below. GENERAL: Pleasant and cooperative. No acute distress. dry oral mucosa HEENT: PERRL. Extraocular movements intact. Clear conjunctiva, +left facial droop, tongue midline CARDIOVASCULAR: Regular rate and rhythm. No murmurs, rubs, or gallops LUNGS: Clear to auscultation bilaterally. No wheezes. No rhonchi ABDOMEN: Soft, nontender, nondistended. Positive bowel sounds. Normal active bowel sounds NEUROLOGICAL: Alert and oriented times to self and place, disoriented to time, +dysarthria, Sensation grossly intact, +left sided inattention +apraxia EXTREMITIES: 5\\5 strength right upper extremity, 4/5 LUE 5\\5 strength right lower extremity. 4/5 strength in left lower extremity. SKIN: right fronto-parietal incision ASSESSMENT:84-year-old F with past medical history of asthma who presents status post right temporal lobe meningioma resection PLAN: 1. Rehab- PT/OT advance mobility and ADLs, strengthen/stretch/maintain ROM all 4 extremities, ambulating with RW -COBBLER MCKAY- swallow and cog eval- c/u honey thickened and puree per repeat MBS 2. Neuro- s/p right temporal lobe meningioma resection 05-17-20 with post-op vasogenic and cytotoxic edema, last CT on 05-25 showing 10mm mhqvi-ku-fkiw midline shift, CTH inhouse showing, improvement, " 7.4 mm spkwp-yp-hbca midline shift. No evidence of hemorrhage", c/u decadron -seizure ppx- Depakote -HOB 30 degrees to prevent increased intracerebral pressures -stopped lexapro as may have contributed to agitation -c/u Risperdal BID 3. Cardiac- HTN c/u amlodipine 4. Resp- hx of asthma, Duonebs -CXR negative for infiltrate 5. GI ppx- pepcid 6. DVT ppx- heparin 7. Pain- tylenol standing, tramadol prn 8. - c/u Levaquin UTI- Ucx + klebsiella 9. Dispo- 06-13-20 to home Allergies Coded Allergies: No Known Allergies (Verified , 12/30/18) Vital Signs Vital Signs Date Time Temp Pulse Resp B/P (MAP) Pulse Ox O2 Delivery O2 Flow Rate FiO2 06/08/20 08:22 73 118/58 06/08/20 05:27 100.0 18 97 Room Air Microbiology Microbiology 06/04/20 Urine Culture - Final, Complete Klebsiella Pneumoniae 05/31/20 Blood Culture - Final, Complete NO GROWTH AFTER 5 DAYS 05/31/20 Blood Culture - Final, Complete NO GROWTH AFTER 5 DAYS Current Medications Current Medications Current Medications Medications (Trade) Dose Ordered Sig/Joleen Route PRN Reason Start Time Stop Time Status Last Admin Dose Admin Acetaminophen (Tylenol Tab) 975 mg Q8H PO 05/31/20 06:00 06/08/20 05:40 Albuterol/ Ipratropium (Duoneb (Ipr 0.5mg/Alb 2.5mg)) 3 ml RTID NEB 05/31/20 08:00 06/08/20 07:14 Amlodipine Besylate (Norvasc) 5 mg DAILY PO 05/31/20 09:00 06/08/20 08:22 Artificial Tears (Akwa Tears) 2 drop TID OU 05/30/20 21:00 06/08/20 08:22 Bisacodyl (Dulcolax Suppository) 10 mg DAILYPRN PRN [place] CONSTIPATION 05/30/20 15:55 Dexamethasone (Decadron) 2 mg BID PO 05/30/20 21:00 06/08/20 08:21 Divalproex Sodium (Depakote Sprinkles) 500 mg BID PO 06/01/20 21:00 06/08/20 08:22 Divalproex Sodium (Depakote) 500 mg BID PO 05/30/20 21:00 06/01/20 10:17 DC 06/01/20 09:05 Docusate Sodium (Colace) 100 mg BID PO 05/30/20 21:00 06/07/20 21:34 Escitalopram Oxalate (Lexapro) 5 mg DAILY PO 06/08/20 13:00 06/08/20 12:29 Escitalopram Oxalate (Lexapro) 10 mg DAILY PO 05/31/20 09:00 06/02/20 11:53 DC 06/02/20 10:29 Famotidine (Pepcid) 20 mg DAILY PO 05/31/20 09:00 06/08/20 08:21 Heparin Sodium (Heparin (Flush)) 200 units ASDIRECTED PRN IV SEE LABEL COMMENTS 06/03/20 06:30 06/08/20 05:41 Heparin Sodium (Heparin (Flush)) 200 units PICC IV 06/03/20 18:00 06/08/20 05:40 Heparin Sodium (Porcine) (Heparin) 5,000 units Q12H SC 05/30/20 21:00 06/02/20 11:53 DC 06/02/20 10:26 Home Med (Med Rec Complete!) ASDIRECTED XX 05/30/20 17:50 05/30/20 18:10 DC Lactobacillus Acidophilus (Bacid) 1 ea TID PO 06/05/20 09:00 06/08/20 08:21 Levofloxacin (Levaquin) 750 mg DAILY@06 PO 06/06/20 06:00 06/05/20 07:47 DC Levofloxacin (Levaquin) 750 mg Q48H PO 06/05/20 06:00 06/10/20 05:59 06/07/20 05:32 Lidocaine HCl (Lidocaine 2% Visc Soln) 5 ml QID PRN TOP SORE Tongue 06/01/20 13:15 06/06/20 10:31 Lidocaine/ Diphenhydr/Alum/ Mg/Simeth (Magic Mouthwash) 5ML ACHS SSP 05/30/20 21:00 06/08/20 12:25 Ramelteon (Rozerem) 8 mg QHS PRN PO INSOMNIA 05/31/20 08:35 06/07/20 21:35 Risperidone (RisperDAL) 0.5 mg BID PO 06/02/20 11:55 06/08/20 08:22 Risperidone (RisperDAL) 0.5 mg QHS PO 05/30/20 21:00 06/02/20 11:53 DC 06/01/20 20:37 Senna (Senokot) 1 tab QHS PO 05/31/20 21:00 06/07/20 21:35 Senna (Senokot) 2 tab QHS PO 05/30/20 21:00 05/30/20 20:59 DC 05/30/20 20:04 Sodium Chloride (Saline Lock Flush) 10 ml ASDIRECTED PRN IV SEE LABEL COMMENTS 06/03/20 06:30 06/08/20 05:41 Sodium Chloride (Saline Lock Flush) 10 ml PICC IV 06/03/20 18:00 06/08/20 05:40 Tramadol HCl (Ultram) 50 mg Q4HP PRN PO MODERATE PAIN (PS 5-7) 05/31/20 08:35 MARY FARR MD Jun 08, 2020 13:56
[2020-06-08 14:00] VITALS: BP 126/58
--- NOTE | 2020-06-08 14:00 | IPNPDOC ---
PM&R Progress Note DATE OF SERVICE: Jun 08, 2020 Miner Assistant Progress Note Subjective: Patient seen in her room eating, stating she was enjoying her food. Her son was bedside asking if his mom should go back on her home opioids and valium and was urged to not have her take theses medications any longer. REVIEW OF SYSTEMS: The following is a completed review of systems and has been reviewed. Review of systems otherwise unremarkable. PAIN: Patient self reports no pain EYES: No recent vision changes EARS, NOSE, & THROAT: +dysphagia CARDIOVASCULAR: Denies chest pain or palpitations PULMONARY: Denies shortness of breath GASTROINTESTINAL: Denies constipation/diarrhea GENITOURINARY: denies dysuria MUSCULOSKELETAL:left sided weakness NEUROLOGICAL:left sided inattention and paresis HEMATOLOGICAL:denies easy bruising SKIN: denies rash PSYCHIATRIC: Unremarkable All other review of systems found to be negative. PHYSICAL EXAMINATION: VITAL SIGNS: Please see below. GENERAL: Pleasant and cooperative. No acute distress. dry oral mucosa HEENT: PERRL. Extraocular movements intact. Clear conjunctiva, +left facial droop, tongue midline CARDIOVASCULAR: Regular rate and rhythm. No murmurs, rubs, or gallops LUNGS: Clear to auscultation bilaterally. No wheezes. No rhonchi ABDOMEN: Soft, nontender, nondistended. Positive bowel sounds. Normal active bowel sounds NEUROLOGICAL: Alert and oriented times to self and place, disoriented to time, +dysarthria, Sensation grossly intact, +left sided inattention +apraxia EXTREMITIES: 5\\5 strength right upper extremity, 4/5 LUE 5\\5 strength right lower extremity. 4/5 strength in left lower extremity. SKIN: right fronto-parietal incision ASSESSMENT:84-year-old F with past medical history of asthma who presents status post right temporal lobe meningioma resection PLAN: 1. Rehab- PT/OT advance mobility and ADLs, strengthen/stretch/maintain ROM all 4 extremities, ambulating with RW -[employer]STHE[employer] INSTRU[employer]- swallow and cog eval- c/u honey thickened and puree per repeat MBS 2. Neuro- s/p right temporal lobe meningioma resection 05-17-20 with post-op vasogenic and cytotoxic edema, last CT on 05-25 showing 10mm rjwnp-cq-xhhr midline shift, CTH inhouse showing, improvement, " 7.4 mm qibyh-dt-cmmv midline shift. No evidence of hemorrhage", c/u decadron -seizure ppx- Depakote -HOB 30 degrees to prevent increased intracerebral pressures -c/u Risperdal BID-patient participating very well in therapy and overall calmer -will start back low does Lexapro to assist with mood and motor recovery, will monitor for side effects- discussed with son who was bedside 3. Cardiac- HTN c/u amlodipine 4. Resp- hx of asthma, Duonebs -CXR negative for infiltrate 5. GI ppx- pepcid 6. DVT ppx- heparin 7. Pain- tylenol standing, tramadol prn 8. - c/u Levaquin UTI- Ucx + klebsiella 9. Dispo- 06-13-20 to home Allergies Coded Allergies: No Known Allergies (Verified , 12/30/18) Vital Signs Vital Signs Date Time Temp Pulse Resp B/P (MAP) Pulse Ox O2 Delivery O2 Flow Rate FiO2 06/08/20 08:22 73 118/58 06/08/20 05:27 100.0 18 97 Room Air Microbiology Microbiology 06/04/20 Urine Culture - Final, Complete Klebsiella Pneumoniae 05/31/20 Blood Culture - Final, Complete NO GROWTH AFTER 5 DAYS 05/31/20 Blood Culture - Final, Complete NO GROWTH AFTER 5 DAYS Current Medications Current Medications Current Medications Medications (Trade) Dose Ordered Sig/Joleen Route PRN Reason Start Time Stop Time Status Last Admin Dose Admin Acetaminophen (Tylenol Tab) 975 mg Q8H PO 05/31/20 06:00 06/08/20 05:40 Albuterol/ Ipratropium (Duoneb (Ipr 0.5mg/Alb 2.5mg)) 3 ml RTID NEB 05/31/20 08:00 06/08/20 07:14 Amlodipine Besylate (Norvasc) 5 mg DAILY PO 05/31/20 09:00 06/08/20 08:22 Artificial Tears (Akwa Tears) 2 drop TID OU 05/30/20 21:00 06/08/20 08:22 Bisacodyl (Dulcolax Suppository) 10 mg DAILYPRN PRN [place] CONSTIPATION 05/30/20 15:55 Dexamethasone (Decadron) 2 mg BID PO 05/30/20 21:00 06/08/20 08:21 Divalproex Sodium (Depakote Sprinkles) 500 mg BID PO 06/01/20 21:00 06/08/20 08:22 Divalproex Sodium (Depakote) 500 mg BID PO 05/30/20 21:00 06/01/20 10:17 DC 06/01/20 09:05 Docusate Sodium (Colace) 100 mg BID PO 05/30/20 21:00 06/07/20 21:34 Escitalopram Oxalate (Lexapro) 5 mg DAILY PO 06/08/20 13:00 06/08/20 12:29 Escitalopram Oxalate (Lexapro) 10 mg DAILY PO 05/31/20 09:00 06/02/20 11:53 DC 06/02/20 10:29 Famotidine (Pepcid) 20 mg DAILY PO 05/31/20 09:00 06/08/20 08:21 Heparin Sodium (Heparin (Flush)) 200 units ASDIRECTED PRN IV SEE LABEL COMMENTS 06/03/20 06:30 06/08/20 05:41 Heparin Sodium (Heparin (Flush)) 200 units PICC IV 06/03/20 18:00 06/08/20 05:40 Heparin Sodium (Porcine) (Heparin) 5,000 units Q12H SC 05/30/20 21:00 06/02/20 11:53 DC 06/02/20 10:26 Home Med (Med Rec Complete!) ASDIRECTED XX 05/30/20 17:50 05/30/20 18:10 DC Lactobacillus Acidophilus (Bacid) 1 ea TID PO 06/05/20 09:00 06/08/20 08:21 Levofloxacin (Levaquin) 750 mg DAILY@06 PO 06/06/20 06:00 06/05/20 07:47 DC Levofloxacin (Levaquin) 750 mg Q48H PO 06/05/20 06:00 06/10/20 05:59 06/07/20 05:32 Lidocaine HCl (Lidocaine 2% Visc Soln) 5 ml QID PRN TOP SORE Tongue 06/01/20 13:15 06/06/20 10:31 Lidocaine/ Diphenhydr/Alum/ Mg/Simeth (Magic Mouthwash) 5ML ACHS SSP 05/30/20 21:00 06/08/20 12:25 Ramelteon (Rozerem) 8 mg QHS PRN PO INSOMNIA 05/31/20 08:35 06/07/20 21:35 Risperidone (RisperDAL) 0.5 mg BID PO 06/02/20 11:55 06/08/20 08:22 Risperidone (RisperDAL) 0.5 mg QHS PO 05/30/20 21:00 06/02/20 11:53 DC 06/01/20 20:37 Senna (Senokot) 1 tab QHS PO 05/31/20 21:00 06/07/20 21:35 Senna (Senokot) 2 tab QHS PO 05/30/20 21:00 05/30/20 20:59 DC 05/30/20 20:04 Sodium Chloride (Saline Lock Flush) 10 ml ASDIRECTED PRN IV SEE LABEL COMMENTS 06/03/20 06:30 06/08/20 05:41 Sodium Chloride (Saline Lock Flush) 10 ml PICC IV 06/03/20 18:00 06/08/20 05:40 Tramadol HCl (Ultram) 50 mg Q4HP PRN PO MODERATE PAIN (PS 5-7) 05/31/20 08:35 MARY FARR MD Jun 08, 2020 14:00
[2020-06-08 20:00] VITALS: BP 132/60
[2020-06-08] MEDS: SENNA 8.6 MG TAB (SENOKOT) PO SCH (20:17)
[2020-06-09] MEDS: SODIUM CHLORIDE 0.9% INJ 10 ML SYR IV PRN (05:59)
[2020-06-09] MEDS: LevoFLOXacin 750 MG TABLET PO SCH (05:59)
[2020-06-09] MEDS: SODIUM CHLORIDE 0.9% INJ 10 ML SYR IV SCH ×2 (05:59→17:26)
[2020-06-09] MEDS: ACETAMINOPHEN 325 MG TAB PO SCH ×3 (05:59→21:54)
[2020-06-09 06:00] VITALS: BP 131/66
[2020-06-09] MEDS: IPRATROPIUM 0.5MG/ALBUTEROL 2.5MG INH SOL UD 3ML (DUONEB) NEB SCH ×3 (07:27→19:13)
[2020-06-09] MEDS: DIVALPROEX SPRINKLE 125 MG CAP PO SCH ×2 (07:50→21:54)
[2020-06-09] MEDS: LACTOBACILLUS ACIDOPHILUS CAP (BACID) PO SCH ×3 (07:51→21:54)
[2020-06-09] MEDS: FAMOTIDINE 20 MG TAB PO SCH (07:51)
[2020-06-09] MEDS: DOCUSATE SODIUM 100MG CAPSULE PO SCH ×2 (07:51→20:02)
[2020-06-09] MEDS: MAGIC MOUTHWASH SUSPENSION BTL SSP SCH ×4 (07:51→21:55)
[2020-06-09] MEDS: ESCITALOPRAM OXALATE 5MG TABLET (LEXAPRO) PO SCH (07:51)
[2020-06-09] MEDS: risperiDONE 0.5 MG TAB PO SCH ×2 (07:52→21:54)
[2020-06-09] MEDS: amLODIPine 5 MG TAB PO SCH (07:52)
[2020-06-09] MEDS: POLYVINYL ALCOHOL OPHTH SOLN 15 ML(LIQUITEARS) OU SCH ×3 (07:53→21:50)
[2020-06-09 08:13] LABS: BASO % 0.6 % (0.0-1.0); EOS % 0.6 % (0.0-3.0); HEMATOCRIT 35.5 % (36.0-47.0); HEMOGLOBIN 10.6 g/dl (12.0-15.5); LYMPH # 1.7 10^3/uL (1.5-5.0); LYMPH % 25.5 % (24.0-44.0); MEAN CORPUSCULAR HEMOGLOBIN 30.4 pg (27.0-33.0); MEAN CORPUSCULAR HGB CONC 29.9 g/dl (32.0-36.5); MEAN CORPUSCULAR VOLUME 101.7 fl (80.0-96.0); MONO # 0.5 10^3/uL (0.0-0.8); MONO % 7.7 % (2.0-8.0); NEUTROPHILS # 4.1 10^3/uL (1.5-8.5); NEUTROPHILS % 61.1 % (36.0-66.0); PLATELET COUNT, AUTOMATED 175 10^3/uL (150-450); RED BLOOD COUNT 3.49 10^6/uL (4.00-5.40); WHITE BLOOD COUNT 6.7 10^3/uL (4.0-10.0)
[2020-06-09 08:33] LABS: BLOOD UREA NITROGEN 21 MG/DL (7-18); CALCIUM LEVEL 8.8 MG/DL (8.8-10.2); CARBON DIOXIDE LEVEL 26 MEQ/L (21-32); CHLORIDE LEVEL 109 MEQ/L (98-107); CREATININE FOR GFR 0.66 MG/DL (0.55-1.30); GLOMERULAR FILTRATION RATE > 60.0 (>32); GLUCOSE, FASTING 135 MG/DL (70-100); POTASSIUM SERUM 4.2 MEQ/L (3.5-5.1); SODIUM LEVEL 141 MEQ/L (136-145)
[2020-06-09] MEDS: REMEDY PHYTOPLEX Z-GUARD PASTE 113GM TUBE (FROM STOREROOM PRODUCT) TOP SCH ×3 (09:30→21:00)
[2020-06-09 14:00] VITALS: BP 121/56
[2020-06-09] MEDS: SENNA 8.6 MG TAB (SENOKOT) PO SCH (20:02)
[2020-06-09 20:15] VITALS: BP 131/68
[2020-06-09] MEDS: RAMELTEON 8 MG TAB (ROZEREM) PO PRN (21:58)
[2020-06-10] MEDS: SODIUM CHLORIDE 0.9% INJ 10 ML SYR IV SCH ×2 (05:31→16:01)
[2020-06-10] MEDS: ACETAMINOPHEN 325 MG TAB PO SCH ×3 (05:31→20:37)
[2020-06-10 05:58] VITALS: BP 133/63
[2020-06-10] MEDS: IPRATROPIUM 0.5MG/ALBUTEROL 2.5MG INH SOL UD 3ML (DUONEB) NEB SCH ×3 (07:24→19:37)
[2020-06-10] MEDS: MAGIC MOUTHWASH SUSPENSION BTL SSP SCH ×4 (08:45→20:32)
[2020-06-10] MEDS: DIVALPROEX SPRINKLE 125 MG CAP PO SCH ×2 (08:46→20:32)
[2020-06-10] MEDS: DOCUSATE SODIUM 100MG CAPSULE PO SCH ×2 (08:46→20:10)
[2020-06-10] MEDS: risperiDONE 0.5 MG TAB PO SCH ×2 (08:46→20:32)
[2020-06-10] MEDS: amLODIPine 5 MG TAB PO SCH (08:47)
[2020-06-10] MEDS: FAMOTIDINE 20 MG TAB PO SCH (08:48)
[2020-06-10] MEDS: ESCITALOPRAM OXALATE 5MG TABLET (LEXAPRO) PO SCH (08:48)
[2020-06-10] MEDS: LACTOBACILLUS ACIDOPHILUS CAP (BACID) PO SCH ×3 (08:48→20:32)
[2020-06-10] MEDS: POLYVINYL ALCOHOL OPHTH SOLN 15 ML(LIQUITEARS) OU SCH ×3 (08:49→20:40)
[2020-06-10] MEDS: REMEDY PHYTOPLEX Z-GUARD PASTE 113GM TUBE (FROM STOREROOM PRODUCT) TOP SCH ×3 (08:49→20:33)
[2020-06-10 14:00] VITALS: BP 118/57
--- NOTE | 2020-06-10 18:04 | IPNPDOC ---
Date Seen The patient was seen on 06/10/20. Progress Note SUBJECTIVE: "84F pmh migraines and asthma has been having progressively increasing left sided weakness since February first noticed after a mechanical f all at home. Initially it was felt to be due to artificial hip and knee joint associated with the fall was causing the weakness. She was also having increasing right sided headaches for about 1 month initially it was felt to be migraine. Subsequently she went to see her Neurologist for migraine management and an MRi was ordered. He was urgently admitted to [facility] on 05-16-20 for right temporal lobe brain tumor with edema and midline shift identified on the outpatient performed MRI. She was evaluated by neurosurgery and underwent a right [id number]-[id number] craniotomy with meningioma resection on 05-17-20 performed by Augie Ewing. She had intra-operative cardiac arrest and remained intubated until 05-19-20. For her vasogenic and cytotoxic edema she was treated with decadron and hypertonic saline with post-op CT on 05-25-20 showing "right sided craniotomy changes with very slight improvement in hemorrhage within the postoperative cavity and deep to the craniotomy. Persistent large amount of vasogenic edema in the right cerebral hemisphere with approximately 10mm of right to left midline shift. 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 " Patient was seen and examined at bedside. She is doing well as no acute complaints. Noted persistent left-sided facial droop. She denies chest pain, fevers, chills, seizures of breath, nausea, vomiting, diarrhea. No new nausea, weakness or paresthesia. OBJECTIVE PHYSICAL EXAMINATION: VITAL SIGNS: please see below General: NAD, comfortable HEENT: PERRLA, EOMI, sclerae clear Neck: supple, normal ROM, no JVD Respiratory: lungs CTAB, no wheeze, no rales, no crackles CVS: RRR, normal S1, S2, no murmurs Abdo: soft, no masses, no hepatosplenomegaly, BS+, no rebound tenderness Extremities: no edema, pulses 2+ MSK: no joint deformities, normal ROM Neuro: no focal neuro deficits, moving all 4 extremities, CN2-12 intact. Strength 5/5 R upper and R lower extremity. 4/5 in the LUE and 3/5 in the LLE. Psych: calm, cooperative, AAO x 3 LABORATORY DATA, IMAGING STUDIES, MICROBIOLOGY: Please see below. Barium swallow (06/09/20): Penetration and aspiration were visualized during the exam, a detailed report will be provided by speech pathology. DVT prophylaxis ordered?: heparin ASSESSMENT AND PLAN: T 84-year-old F with past medical history of asthma, migraine who presents status post right temporal lobe meningioma resection with left sided hemiparesis, dysphagia for continued rehab. S/p right temporal lobe meningioma resection 05-17-20 with post-op vasogenic and cytotoxic edema -last CT on 05-25 showing 10mm jootm-ku-gecn midline shift - continue decadron - seizure ppx with Depakote - HOB 30 degrees to prevent increased intracerebral pressures - started on SSRI for motor recovery and mood - pain control with tylenol / tramadol Left Hemiparesis wth dysphagia - Post op CT in [place] showed subacute evolving infarction in the right temporal , occipital and parietal lobes with 10 mm midline shift - CT here shows Status post large right-sided craniotomy with replacement of the craniotomy flap. Air and fluid seen subjacent to the craniotomy flap. - Much of the right hemisphere demonstrates subcortical hypodensity. -There is a 7.4 mm vlxlx-fm-yaws midline shift. - PT/OT as per ARU. HTN - BP well controlled - amlodipine Klebsiella pneumonia uti - s/p levaquin Aspiration - seen on barium swallow study on 06/09/20 - ongoing ST eval - presently on puree diet Asthma - Duonebs GI ppx- pepcid DVT ppx heparin VS, I&O, 24H, Fishbone Vital Signs/I&O Vital Signs Date Time Temp Pulse Resp B/P (MAP) Pulse Ox O2 Delivery O2 Flow Rate FiO2 06/10/20 14:00 98.8 88 18 118/57 (77) 96 Room Air I&O- Last 24 Hours up to 6 AM 06/10/20 06:00 Intake Total 470 ml Balance 470 ml Laboratory Data Microbiology Microbiology 06/04/20 Urine Culture - Final, Complete Klebsiella Pneumoniae 05/31/20 Blood Culture - Final, Complete NO GROWTH AFTER 5 DAYS 05/31/20 Blood Culture - Final, Complete NO GROWTH AFTER 5 DAYS CHARMAINE MCMAHON MD Jun 10, 2020 18:04
[2020-06-10 19:49] VITALS: BP 114/55
[2020-06-10] MEDS: RAMELTEON 8 MG TAB (ROZEREM) PO PRN (20:31)
[2020-06-10] MEDS: SENNA 8.6 MG TAB (SENOKOT) PO SCH (20:40)
[2020-06-11 05:14] VITALS: BP 122/60
[2020-06-11] MEDS: ACETAMINOPHEN 325 MG TAB PO SCH ×3 (05:19→20:44)
[2020-06-11] MEDS: SODIUM CHLORIDE 0.9% INJ 10 ML SYR IV SCH ×2 (05:19→16:42)
[2020-06-11] MEDS: IPRATROPIUM 0.5MG/ALBUTEROL 2.5MG INH SOL UD 3ML (DUONEB) NEB SCH ×3 (07:29→19:16)
[2020-06-11] MEDS: MAGIC MOUTHWASH SUSPENSION BTL SSP SCH ×4 (08:31→20:36)
[2020-06-11] MEDS: amLODIPine 5 MG TAB PO SCH (08:32)
[2020-06-11] MEDS: FAMOTIDINE 20 MG TAB PO SCH (08:32)
[2020-06-11] MEDS: LACTOBACILLUS ACIDOPHILUS CAP (BACID) PO SCH ×3 (08:32→20:44)
[2020-06-11] MEDS: ESCITALOPRAM OXALATE 5MG TABLET (LEXAPRO) PO SCH (08:33)
[2020-06-11] MEDS: REMEDY PHYTOPLEX Z-GUARD PASTE 113GM TUBE (FROM STOREROOM PRODUCT) TOP SCH ×3 (08:33→20:26)
[2020-06-11] MEDS: risperiDONE 0.5 MG TAB PO SCH ×2 (08:33→20:44)
[2020-06-11] MEDS: DIVALPROEX SPRINKLE 125 MG CAP PO SCH ×2 (08:33→20:44)
[2020-06-11] MEDS: POLYVINYL ALCOHOL OPHTH SOLN 15 ML(LIQUITEARS) OU SCH ×3 (08:33→20:36)
[2020-06-11] MEDS: DOCUSATE SODIUM 100MG CAPSULE PO SCH ×2 (08:34→20:44)
[2020-06-11 14:14] VITALS: BP 159/73
[2020-06-11 20:00] VITALS: BP 126/64
[2020-06-11] MEDS: SENNA 8.6 MG TAB (SENOKOT) PO SCH (20:44)
[2020-06-11] MEDS: RAMELTEON 8 MG TAB (ROZEREM) PO PRN (20:44)
[2020-06-12 05:36] VITALS: BP 134/72
[2020-06-12] MEDS: ACETAMINOPHEN 325 MG TAB PO SCH ×3 (06:00→21:19)
[2020-06-12] MEDS: SODIUM CHLORIDE 0.9% INJ 10 ML SYR IV SCH ×2 (06:11→17:46)
[2020-06-12] MEDS: IPRATROPIUM 0.5MG/ALBUTEROL 2.5MG INH SOL UD 3ML (DUONEB) NEB SCH ×3 (08:02→21:56)
[2020-06-12] MEDS: traMADol 50 MG TAB PO PRN ×2 (08:09→21:27)
[2020-06-12] MEDS: DOCUSATE SODIUM 100MG CAPSULE PO SCH ×2 (08:09→21:00)
[2020-06-12] MEDS: amLODIPine 5 MG TAB PO SCH (08:10)
[2020-06-12] MEDS: risperiDONE 0.5 MG TAB PO SCH ×2 (08:10→21:24)
[2020-06-12] MEDS: LACTOBACILLUS ACIDOPHILUS CAP (BACID) PO SCH ×3 (08:10→21:19)
[2020-06-12] MEDS: ESCITALOPRAM OXALATE 5MG TABLET (LEXAPRO) PO SCH (08:11)
[2020-06-12] MEDS: DIVALPROEX SPRINKLE 125 MG CAP PO SCH ×2 (08:11→21:24)
[2020-06-12] MEDS: FAMOTIDINE 20 MG TAB PO SCH (08:12)
[2020-06-12] MEDS: MAGIC MOUTHWASH SUSPENSION BTL SSP SCH ×4 (08:12→21:23)
[2020-06-12] MEDS: POLYVINYL ALCOHOL OPHTH SOLN 15 ML(LIQUITEARS) OU SCH ×3 (08:12→21:23)
[2020-06-12] MEDS: REMEDY PHYTOPLEX Z-GUARD PASTE 113GM TUBE (FROM STOREROOM PRODUCT) TOP SCH ×3 (08:13→21:27)
[2020-06-12 08:32] LABS: BASO # 0.1 10^3/uL (0.0-0.2); BASO % 0.7 % (0.0-1.0); HEMATOCRIT 33.9 % (36.0-47.0); HEMOGLOBIN 10.3 g/dl (12.0-15.5); LYMPH # 1.7 10^3/uL (1.5-5.0); LYMPH % 22.7 % (24.0-44.0); MEAN CORPUSCULAR HEMOGLOBIN 30.1 pg (27.0-33.0); MEAN CORPUSCULAR HGB CONC 30.4 g/dl (32.0-36.5); MEAN CORPUSCULAR VOLUME 99.1 fl (80.0-96.0); MONO # 0.7 10^3/uL (0.0-0.8); MONO % 9.2 % (2.0-8.0); NEUTROPHILS # 4.9 10^3/uL (1.5-8.5); NEUTROPHILS % 63.7 % (36.0-66.0); PLATELET COUNT, AUTOMATED 182 10^3/uL (150-450); RED BLOOD COUNT 3.42 10^6/uL (4.00-5.40); WHITE BLOOD COUNT 7.6 10^3/uL (4.0-10.0)
[2020-06-12 08:34] LABS: BLOOD UREA NITROGEN 19 MG/DL (7-18); CALCIUM LEVEL 8.9 MG/DL (8.8-10.2); CARBON DIOXIDE LEVEL 27 MEQ/L (21-32); CHLORIDE LEVEL 108 MEQ/L (98-107); CREATININE FOR GFR 0.58 MG/DL (0.55-1.30); GLOMERULAR FILTRATION RATE > 60.0 (>32); GLUCOSE, FASTING 94 MG/DL (70-100); POTASSIUM SERUM 4.4 MEQ/L (3.5-5.1); SODIUM LEVEL 142 MEQ/L (136-145)
--- NOTE | 2020-06-12 11:43 | IPNPDOC ---
Text Note Date of Service The patient was seen on 06/12/20. NOTE Patient was seen and examined at bedside. She is doing well with no acute com plaints. Noted persistent left-sided facial droop. PHYSICAL EXAMINATION: General: NAD, comfortable HEENT: PERRLA, EOMI, sclerae clear Neck: supple, normal ROM, no JVD Respiratory: lungs CTAB, no wheeze, no rales, no crackles CVS: RRR, normal S1, S2, no murmurs Abdo: soft, no masses, no hepatosplenomegaly, BS+, no rebound tenderness Extremities: no edema, pulses 2+ MSK: no joint deformities, normal ROM Neuro: no focal neuro deficits, moving all 4 extremities, CN2-12 intact. Strength 5/5 R upper and R lower extremity. 4/5 in the LUE and 3/5 in the LLE. Psych: calm, cooperative, AAO x 3 ASSESSMENT AND PLAN: 84-year-old F with past medical history of asthma, migraine who presents status post right temporal lobe meningioma resection with left sided hemiparesis, dysphagia for continued rehab. 1) S/p right temporal lobe meningioma resection 05-17-20 with post-op vasogenic and cytotoxic edema -last CT on 05-25 showing 10mm vbobx-dg-ldgv midline shift - continue decadron - seizure ppx with Depakote - HOB 30 degrees to prevent increased intracerebral pressures - started on SSRI for motor recovery and mood - pain control with tylenol / tramadol 2) Left Hemiparesis wth dysphagia - Post op CT in [place] showed subacute evolving infarction in the right temporal , occipital and parietal lobes with 10 mm midline shift - CT here shows Status post large right-sided craniotomy with replacement of the craniotomy flap. Air and fluid seen subjacent to the craniotomy flap. - Much of the right hemisphere demonstrates subcortical hypodensity. -There is a 7.4 mm rstqi-sb-wenk midline shift. - PT/OT as per ARU. 3) HTN - BP well controlled - amlodipine 4) Klebsiella pneumonia uti - s/p levaquin 5) Aspiration - seen on barium swallow study on 06/09/20 - ongoing ST eval - presently on puree diet 6) Asthma - Duonebs 7) GI ppx- pepcid 8) DVT ppx- heparin Disposition as per primary VS,Funmilayo, I+O VS, Fishbone, I+O Laboratory Tests 06/12/20 07:33 Vital Signs Date Time Temp Pulse Resp B/P (MAP) Pulse Ox O2 Delivery O2 Flow Rate FiO2 06/12/20 08:47 20 Room Air 06/12/20 08:10 69 134/72 06/12/20 05:36 97.9 97 I&O- Last 24 Hours up to 6 AM 06/12/20 06:00 Intake Total 960 ml Balance 960 ml ARTEMIO TOTH MD Jun 12, 2020 11:43
[2020-06-12 20:00] VITALS: BP 106/58
[2020-06-12] MEDS: SENNA 8.6 MG TAB (SENOKOT) PO SCH (21:00)
[2020-06-13 05:26] VITALS: BP 120/68
[2020-06-13] MEDS: ACETAMINOPHEN 325 MG TAB PO SCH ×2 (05:58→13:40)
[2020-06-13] MEDS: SODIUM CHLORIDE 0.9% INJ 10 ML SYR IV SCH (05:58)
[2020-06-13] MEDS: IPRATROPIUM 0.5MG/ALBUTEROL 2.5MG INH SOL UD 3ML (DUONEB) NEB SCH ×2 (07:01→13:06)
[2020-06-13] MEDS ORDERED: FAMO20TA PO (07:07)
[2020-06-13] MEDS ORDERED: LEXA5TAB13 PO (07:07)
[2020-06-13] MEDS ORDERED: RISP-7 PO (07:07)
[2020-06-13] MEDS ORDERED: ALBU8.5H INH (07:07)
[2020-06-13] MEDS ORDERED: DIVA1CAP PO (07:07)
[2020-06-13] MEDS ORDERED: DEXA2TA PO (07:07)
[2020-06-13] MEDS ORDERED: AMLO1TAB24 PO (07:07)
--- NOTE | 2020-06-13 07:11 | IPNPDOC ---
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 She feels ready to go home tomorrow with her family. REVIEW OF SYSTEMS: The following is a completed review of systems and has been reviewed. Review of systems otherwise unremarkable. PAIN: Patient self reports no pain EYES: No recent vision changes EARS, NOSE, & THROAT: +dysphagia CARDIOVASCULAR: Denies chest pain or palpitations PULMONARY: Denies shortness of breath GASTROINTESTINAL: Denies constipation/diarrhea GENITOURINARY: denies dysuria MUSCULOSKELETAL:left sided weakness NEUROLOGICAL:left sided inattention and paresis HEMATOLOGICAL:denies easy bruising SKIN: denies rash PSYCHIATRIC: Unremarkable All other review of systems found to be negative. PHYSICAL EXAMINATION: VITAL SIGNS: Please see below. GENERAL: Pleasant and cooperative. No acute distress. dry oral mucosa HEENT: PERRL. Extraocular movements intact. Clear conjunctiva, +left facial droop, tongue midline CARDIOVASCULAR: Regular rate and rhythm. No murmurs, rubs, or gallops LUNGS: Clear to auscultation bilaterally. No wheezes. No rhonchi ABDOMEN: Soft, nontender, nondistended. Positive bowel sounds. Normal active bowel sounds NEUROLOGICAL: Alert and oriented times to self and place, disoriented to time, +dysarthria, Sensation grossly intact, +left sided inattention +apraxia EXTREMITIES: 5\\5 strength right upper extremity, 4/5 LUE 5\\5 strength right lower extremity. 4/5 strength in left lower extremity. SKIN: right fronto-parietal incision ASSESSMENT:84-year-old F with past medical history of asthma who presents status post right temporal lobe meningioma resection PLAN: 1. Rehab- PT/OT advance mobility and ADLs, strengthen/stretch/maintain ROM all 4 extremities, ambulating with RW -[facility]- swallow and cog eval- c/u honey thickened and puree per repeat MBS 2. Neuro- s/p right temporal lobe meningioma resection 05-17-20 with post-op vasogenic and cytotoxic edema, last CT on 05-25 showing 10mm fqbym-tk-ypno midline shift, CTH inhouse showing, improvement, " 7.4 mm jzqkz-ko-esaw midline shift. No evidence of hemorrhage", c/u decadron -seizure ppx- Depakote -HOB 30 degrees to prevent increased intracerebral pressures -c/u Risperdal BID-patient participating very well in therapy and overall calmer -c/u low does Lexapro to assist with mood and motor recovery-patient tolerating 3. Cardiac- HTN c/u amlodipine 4. Resp- hx of asthma, Duonebs -CXR negative for infiltrate 5. GI ppx- pepcid 6. DVT ppx- heparin 7. Pain- tylenol standing, tramadol prn 8. - s/p course of Levaquin UTI- Ucx + klebsiella 9. Dispo- 06-13-20 to home Allergies Coded Allergies: No Known Allergies (Verified , 12/30/18) Vital Signs Vital Signs Date Time Temp Pulse Resp B/P (MAP) Pulse Ox O2 Delivery O2 Flow Rate FiO2 06/13/20 05:26 98.2 72 18 120/68 (85) 96 Room Air Laboratory Data CBC/BMP Laboratory Tests 06/12/20 07:33 Labs 24H Laboratory Tests 2 06/12/20 07:33: Immature Granulocyte % (Auto) 3.7H, Neutrophils (%) (Auto) 63.7, Lymphocytes (%) (Auto) 22.7L, Monocytes (%) (Auto) 9.2H, Eosinophils (%) (Auto) 0.0, Basophils ( %) (Auto) 0.7, Neutrophils # (Auto) 4.9, Lymphocytes # (Auto) 1.7, Monocytes # (Auto) 0.7, Eosinophils # (Auto) 0.0, Basophils # (Auto) 0.1, Nucleated Red Blood Cells % (auto) 0.0, Anion Gap 7L, Glomerular Filtration Rate > 60.0, Calcium Level 8.9 Microbiology Microbiology 06/04/20 Urine Culture - Final, Complete Klebsiella Pneumoniae Current Medications Current Medications Current Medications Medications (Trade) Dose Ordered Sig/Joleen Route PRN Reason Start Time Stop Time Status Last Admin Dose Admin Acetaminophen (Tylenol Tab) 975 mg Q8H PO 05/31/20 06:00 06/13/20 05:58 Albuterol/ Ipratropium (Duoneb (Ipr 0.5mg/Alb 2.5mg)) 3 ml RTID NEB 05/31/20 08:00 06/13/20 07:01 Amlodipine Besylate (Norvasc) 5 mg DAILY PO 05/31/20 09:00 06/12/20 08:10 Artificial Tears (Akwa Tears) 2 drop TID OU 05/30/20 21:00 06/12/20 21:23 Bisacodyl (Dulcolax Suppository) 10 mg DAILYPRN PRN GA CONSTIPATION 05/30/20 15:55 Dexamethasone (Decadron) 2 mg BID PO 05/30/20 21:00 06/12/20 21:21 Divalproex Sodium (Depakote Sprinkles) 500 mg BID PO 06/01/20 21:00 06/12/20 21:24 Divalproex Sodium (Depakote) 500 mg BID PO 05/30/20 21:00 06/01/20 10:17 DC 06/01/20 09:05 Docusate Sodium (Colace) 100 mg BID PO 05/30/20 21:00 06/12/20 08:09 Escitalopram Oxalate (Lexapro) 5 mg DAILY PO 06/08/20 13:00 06/12/20 08:11 Escitalopram Oxalate (Lexapro) 10 mg DAILY PO 05/31/20 09:00 06/02/20 11:53 DC 06/02/20 10:29 Famotidine (Pepcid) 20 mg DAILY PO 05/31/20 09:00 06/12/20 08:12 Heparin Sodium (Heparin (Flush)) 200 units ASDIRECTED PRN IV SEE LABEL COMMENTS 06/03/20 06:30 06/09/20 05:59 Heparin Sodium (Heparin (Flush)) 200 units PICC IV 06/03/20 18:00 06/13/20 05:58 Heparin Sodium (Porcine) (Heparin) 5,000 units Q12H SC 05/30/20 21:00 06/02/20 11:53 DC 06/02/20 10:26 Home Med (Med Rec Complete!) ASDIRECTED XX 05/30/20 17:50 05/30/20 18:10 DC Lactobacillus Acidophilus (Bacid) 1 ea TID PO 06/05/20 09:00 06/12/20 21:19 Levofloxacin (Levaquin) 750 mg DAILY@06 PO 06/06/20 06:00 06/05/20 07:47 DC Levofloxacin (Levaquin) 750 mg Q48H PO 06/05/20 06:00 06/10/20 05:59 DC 06/09/20 05:59 Lidocaine HCl (Lidocaine 2% Visc Soln) 5 ml QID PRN TOP SORE Tongue 06/01/20 13:15 06/06/20 10:31 Lidocaine/ Diphenhydr/Alum/ Mg/Simeth (Magic Mouthwash) 5ML ACHS SSP 05/30/20 21:00 06/12/20 21:23 Ramelteon (Rozerem) 8 mg QHS PRN PO INSOMNIA 05/31/20 08:35 06/11/20 20:44 Risperidone (RisperDAL) 0.5 mg BID PO 06/02/20 11:55 06/12/20 21:24 Risperidone (RisperDAL) 0.5 mg QHS PO 05/30/20 21:00 06/02/20 11:53 DC 06/01/20 20:37 Senna (Senokot) 1 tab QHS PO 05/31/20 21:00 06/11/20 20:44 Senna (Senokot) 2 tab QHS PO 05/30/20 21:00 05/30/20 20:59 DC 05/30/20 20:04 Sodium Chloride (Saline Lock Flush) 10 ml ASDIRECTED PRN IV SEE LABEL COMMENTS 06/03/20 06:30 06/09/20 05:59 Sodium Chloride (Saline Lock Flush) 10 ml PICC IV 06/03/20 18:00 06/13/20 05:58 Tramadol HCl (Ultram) 50 mg Q4HP PRN PO MODERATE PAIN (PS 5-7) 05/31/20 08:35 06/12/20 21:27 MARY FARR MD Jun 13, 2020 07:11
[2020-06-13] MEDS: DOCUSATE SODIUM 100MG CAPSULE PO SCH (09:00)
[2020-06-13] MEDS: MAGIC MOUTHWASH SUSPENSION BTL SSP SCH ×2 (09:25→13:00)
[2020-06-13] MEDS: FAMOTIDINE 20 MG TAB PO SCH (09:26)
[2020-06-13] MEDS: DIVALPROEX SPRINKLE 125 MG CAP PO SCH (09:26)
[2020-06-13] MEDS: risperiDONE 0.5 MG TAB PO SCH (09:26)
[2020-06-13] MEDS: LACTOBACILLUS ACIDOPHILUS CAP (BACID) PO SCH (09:26)
[2020-06-13] MEDS: ESCITALOPRAM OXALATE 5MG TABLET (LEXAPRO) PO SCH (09:26)
[2020-06-13] MEDS: POLYVINYL ALCOHOL OPHTH SOLN 15 ML(LIQUITEARS) OU SCH (09:27)
[2020-06-13] MEDS: traMADol 50 MG TAB PO PRN (09:27)
[2020-06-13] MEDS: REMEDY PHYTOPLEX Z-GUARD PASTE 113GM TUBE (FROM STOREROOM PRODUCT) TOP SCH (09:28)
[2020-06-13 09:30] VITALS: BP 136/63
[2020-06-13 09:32] VITALS: BP 136/63
[2020-06-13] MEDS: amLODIPine 5 MG TAB PO SCH (09:32)
[2020-06-13] MEDS ORDERED: NEOSPORIN TOP OINT 15GM TOP ONE (10:00)
--- NOTE | 2020-06-13 10:49 | IPNPDOC ---
Text Note Date of Service The patient was seen on 06/13/20. NOTE Patient was seen and examined at bedside. She is doing well with no acute complaints. Noted persistent left-sided facial droop. PHYSICAL EXAMINATION: General: NAD, comfortable HEENT: PERRLA, EOMI, sclerae clear Neck: supple, normal ROM, no JVD Respiratory: lungs CTAB, no wheeze, no rales, no crackles CVS: RRR, normal S1, S2, no murmurs Abdo: soft, no masses, no hepatosplenomegaly, BS+, no rebound tenderness Extremities: no edema, pulses 2+ MSK: no joint deformities, normal ROM Neuro: no focal neuro deficits, moving all 4 extremities, CN2-12 intact. Strength 5/5 R upper and R lower extremity. 4/5 in the LUE and 3/5 in the LLE. Psych: calm, cooperative, AAO x 3 ASSESSMENT AND PLAN: 84-year-old F with past medical history of asthma, migraine who presents status post right temporal lobe meningioma resection with left sided hemiparesis, dysphagia for continued rehab. 1) S/p right temporal lobe meningioma resection 05-17-20 with post-op vasogenic and cytotoxic edema -last CT on 05-25 showing 10mm kzofy-le-fpmh midline shift - continue decadron - seizure ppx with Depakote - HOB 30 degrees to prevent increased intracerebral pressures - started on SSRI for motor recovery and mood - pain control with tylenol / tramadol 2) Left Hemiparesis wth dysphagia - Post op CT in [place] showed subacute evolving infarction in the right temporal , occipital and parietal lobes with 10 mm midline shift - CT here shows Status post large right-sided craniotomy with replacement of the craniotomy flap. Air and fluid seen subjacent to the craniotomy flap. - Much of the right hemisphere demonstrates subcortical hypodensity. -There is a 7.4 mm wnwiv-hr-sfwz midline shift. - PT/OT as per ARU. 3) HTN - BP well controlled - amlodipine 4) Klebsiella pneumonia uti - s/p levaquin 5) Aspiration - seen on barium swallow study on 06/09/20 - ongoing ST eval - presently on puree diet 6) Asthma - Duonebs 7) GI ppx- pepcid 8) DVT ppx- heparin Disposition as per primary VS,Fishbone, I+O VS, Fishbone, I+O Vital Signs Date Time Temp Pulse Resp B/P (MAP) Pulse Ox O2 Delivery O2 Flow Rate FiO2 06/13/20 09:57 18 06/13/20 09:32 74 136/63 06/13/20 05:26 98.2 96 Room Air I&O- Last 24 Hours up to 6 AM 06/13/20 06:00 Intake Total 360 ml Balance 360 ml ARTEMIO TOTH MD Jun 13, 2020 10:49
[2020-06-13] MEDS ORDERED: NEOSPORIN OINT 0.9 GM PKT TOP ONE (10:50)
[2020-06-13 14:00] VITALS: BP 143/65
== END 2020-06-13 14:20 | disposition home health service (06) | DRG 57 ==
LOC: M PM&R 15:40
PROVIDERS: ADMIT Physical Medicine & Rehabilitation; ATTEND Physical Medicine & Rehabilitation
DX: I69.354 Hemiplegia and hemiparesis following cerebral infarction affecting left non-dominant side (principal); N39.0 Urinary tract infection, site not specified; I69.391 Dysphagia following cerebral infarction; I69.390 Apraxia following cerebral infarction; I69.322 Dysarthria following cerebral infarction; R13.10 Dysphagia, unspecified; Z96.652 Presence of left artificial knee joint; Z96.1 Presence of intraocular lens; I10 Essential (primary) hypertension; Z96.642 Presence of left artificial hip joint; Z79.899 Other long term (current) drug therapy; G43.909 Migraine, unspecified, not intractable, without status migrainosus; J45.909 Unspecified asthma, uncomplicated; B96.1 Klebsiella pneumoniae [K. pneumoniae] as the cause of diseases classified elsewhere

== ENCOUNTER 2020-07-03 10:29 | Observation (INO) | payer MEDICARE, BC ==
[~2020-07-03] VITALS: Ht 165.1 cm; Wt 77.3 kg
[~2020-07-03 10:29] MED LIST changes: +ALBU8.5H INH; +AMLO1TAB24 PO; +AMLO1TAB25 PO; +CHLO120L TOP; +DEPA1TAB3 PO; +DEXA2TA PO; +DIVA1CAP PO; +DOCU5LIQ PO; +FAMO20TA PO; +FAMO40TA3 PO; +GNP8.6TA7 PO; +HEPA500057 SC; +LEXA5TAB13 PO; +NYST1POW9 TOP; +PANT-23 PO; +RISP-7 PO
--- NOTE | 2020-07-03 11:33 | REP ---
INDICATION: DYSPNEA/COUGH. COMPARISON: 05/31/2020. TECHNIQUE: Single portable AP view of the chest was performed. FINDINGS: Left hemidiaphragm silhouette appears obscured by left base infiltrate. The right lung is clear. There is left ventricular prominence. There is calcification of the thoracic aorta. Left pleural effusion cannot be excluded. IMPRESSION: Left lower lobe infiltrate is suspected with possible small left pleural effusion. <Electronically signed by Onel Zayas > 07/03/20 [id number]
[2020-07-03 11:41] LABS: BASO % 0.1 % (0.0-1.0); HEMATOCRIT 39.7 % (36.0-47.0); LYMPH # 1.3 10^3/uL (1.5-5.0); LYMPH % 14.1 % (24.0-44.0); MEAN CORPUSCULAR HEMOGLOBIN 28.2 pg (27.0-33.0); MEAN CORPUSCULAR HGB CONC 30.2 g/dl (32.0-36.5); MEAN CORPUSCULAR VOLUME 93.4 fl (80.0-96.0); MONO # 0.9 10^3/uL (0.0-0.8); NEUTROPHILS # 6.7 10^3/uL (1.5-8.5); NEUTROPHILS % 73.9 % (36.0-66.0); PLATELET COUNT, AUTOMATED 114 10^3/uL (150-450); RED BLOOD COUNT 4.25 10^6/uL (4.00-5.40); WHITE BLOOD COUNT 9.1 10^3/uL (4.0-10.0)
[2020-07-03 12:07] LABS: D-DIMER QUANT > 4000.0 ng/ml (<500)
[2020-07-03 12:15] LABS: ALBUMIN 2.9 GM/DL (3.2-5.2); ALT/SGPT 18 U/L (12-78); BILIRUBIN,DIRECT < 0.1 MG/DL (0.0-0.2); BILIRUBIN,TOTAL 0.4 MG/DL (0.2-1.0); BLOOD UREA NITROGEN 21 MG/DL (7-18); CALCIUM LEVEL 8.9 MG/DL (8.8-10.2); CARBON DIOXIDE LEVEL 28 MEQ/L (21-32); CHLORIDE LEVEL 107 MEQ/L (98-107); CK-MB VALUE MASS < 1.0 NG/ML (<3.6); CPK CREATINE PHOSPHOKINASE 30 U/L (26-192); CREATININE FOR GFR 0.69 MG/DL (0.55-1.30); FREE T4 0.87 NG/DL (0.76-1.46); GLOMERULAR FILTRATION RATE > 60.0 (>32); GLUCOSE, FASTING 132 MG/DL (70-100); MB/CK RELATIVE INDEX 3.33 (< OR =4); NT-PRO BNP 281 PG/ML (<450); POTASSIUM SERUM 4.4 MEQ/L (3.5-5.1); SODIUM LEVEL 141 MEQ/L (136-145); TOTAL PROTEIN 6.2 GM/DL (6.4-8.2); TROPONIN I < 0.02 NG/ML (< 0.10); VALPROIC ACID (DEPAKOTE) 92.7 UG/ML (50.0-100.0)
--- NOTE | 2020-07-03 12:31 | REP ---
INDICATION: edema r/o DVT COMPARISON: 07/17/2009. TECHNIQUE: Real time compression and duplex Doppler interrogation of the bilateral lower extremity deep venous system is performed. FINDINGS: There is nonocclusive thrombus in the right common femoral vein. There is occlusive thrombus throughout the right femoral vein and popliteal vein. The left common femoral, superficial femoral and popliteal veins demonstrate no intraluminal thrombus, with these vessels fully compressible with transducer pressure. Mid femoral vein demonstrates somewhat thickened escobedo. IMPRESSION: Nonocclusive thrombus right common femoral vein with occlusive thrombus throughout the right femoral and popliteal veins. No DVT left lower extremity deep vein system. <Electronically signed by Onel Zayas > 07/03/20 [id number]
[2020-07-03] MEDS ORDERED: cefTRIAXone SOD 1 GM in D5W MINI-BAG PLUS 50 ML IV ONE (12:40)
[2020-07-03] MEDS ORDERED: ISOVUE-370 76% 100ML VIAL As Ordered ONE (12:48)
[2020-07-03] MEDS ORDERED: FUROSEMIDE 40MG/4ML VIAL (J1940) IV ONE (12:50)
[2020-07-03] MEDS ORDERED: RISP-7 PO (13:00)
[2020-07-03] MEDS ORDERED: LEXA5TAB13 PO (13:00)
[2020-07-03] MEDS ORDERED: DIVA1TAB48 PO (13:00)
[2020-07-03] MEDS ORDERED: FAMO20TA5 PO (13:00)
[2020-07-03] MEDS ORDERED: ALBU8.5H INH (13:00)
[2020-07-03] MEDS ORDERED: AMLO1TAB24 PO (13:00)
[2020-07-03] MEDS ORDERED: FLUT1BLS5 INH (13:04)
--- NOTE | 2020-07-03 13:32 | REP ---
INDICATION: SOB. COMPARISON: None. TECHNIQUE: CT angiogram chest performed following the intravenous administration of 100 cc of Isovue 370. Sagittal and coronal reconstruction images are performed. FINDINGS: Lungs: There is fibro atelectasis in the lingula and left lower lobe with no evidence of pneumonic infiltrate. Mediastinum: No adenopathy. Pulmonary arteries: There are multiple filling defects in the left lower lobe pulmonary arteries consistent with pulmonary embolism.Pulmonary embolism is also seen in a segmental branch of the right lower lobe laterally. Zulma: No adenopathy. Axilla: No adenopathy. Pleura: No effusion. Heart: There is aklx-zp-epvpmgvc cardiomegaly. Thoracic aorta: No aneurysm or dissection. Upper abdominal structures: There is a stable 1.3 cm nodule in the tail of the pancreas compared to the CT the abdomen 08/25/2018. Visualized osseous structures: Unremarkable. IMPRESSION: Pulmonary emboli in segmental branches of bilateral lower lobe pulmonary arteries as discussed in detail above. No infiltrate seen. Stable 1.3 cm nodule in the tail the pancreas compared to 08/25/2018. <Electronically signed by Onel Zayas > 07/03/20 [id number]
[2020-07-03] MEDS ORDERED: HEPARIN DRIP 25,000 UNITS in IV 1 EA IV SCH (14:10)
[2020-07-03] MEDS ORDERED: HEPARIN SOD (PORCINE) 5000UNITS/ML 1ML VIAL/SYRINGE IV ONE (14:10)
[2020-07-03 14:17] LABS: INR 0.99; PROTHROMBIN TIME 13.3 SECONDS (12.5-14.3)
[2020-07-03 14:18] LABS: PARTIAL THROMBOPLASTIN TIME 25.9 SECONDS (24.2-38.5)
[2020-07-03] MEDS ORDERED: ACETAMINOPHEN TAB 650MG DOSE (2X325MG) PO PRN (14:55)
[2020-07-03] MEDS ORDERED: ALBUTEROL 90 MCG/ACT 8GM HFA INHALER INH PRN (14:55)
[2020-07-03] MEDS ORDERED: DIVA1CAP PO (15:12)
--- NOTE | 2020-07-03 15:13 | HPEPDOC ---
General Date of Admission Date of Service: July 03, 2020 Chief Complaint The patient is a 84-year-old female admitted with a reason for visit of Shortness Of Breath. Source: Patient Timing/Duration: Day(s) Severity: Moderate History of Present Illness Patient is 84 years old female with past medical history of migraines, asthma, meningioma status post right qsaxfo-qisstix-oopzhods craniotomy with meningioma resection on 05-17-20 presented to the hospital with increased shortness of breath. Patient stated that for past 2 weeks she has been having increased shortness of breath progressively worse on exertion. Patient denies fever, chills, diarrhea or dysuria. Patient denies chest pain or palpitations. Of note in May 2020 patient received treatment in ARU in [facility]. Of note patient stated 10 to 15 years ago she had a history of provoked DVT after surgery. In ER patient was found to have Nonocclusive thrombus right common femoral vein with occlusive thrombus throughout the right femoral and popliteal veins. No DVT left lower extremity deep vein system. CTA showed Pulmonary emboli in segmental branches of bilateral lower lobe pulmonary arteries. UA showed pyuria, patient denied any symptoms of dysuria Home Medications Scheduled Amlodipine Besylate (Amlodipine Besylate) 5 Mg Tablet, 5 MG PO DAILY, (Reported) Dexamethasone (Dexamethasone) 2 Mg Tablet, 2 MG PO BID, (Reported) Divalproex Sodium (Divalproex Sodium) 125 Mg Devon.spr, 500 MG PO BID, (Reported) Escitalopram Oxalate (Lexapro) 5 Mg Tablet, 5 MG PO DAILY, (Reported) Famotidine (Famotidine) 20 Mg Tablet, 20 MG PO DAILY, (Reported) Fluticasone Propion/Salmeterol (Fluticasone-Salmeterol 250-50) 1 Each Blst.w.dev, 1 PUFF INH BID, (Reported) Risperidone (Risperidone) 0.5 Mg Tablet, 0.5 MG PO BID, (Reported) Scheduled PRN Albuterol Sulfate (Albuterol Sulfate Hfa) 8.5 Gm Hfa.aer.ad, 2 PUFFS INH QID PRN for SHORTNESS OF BREATH, (Reported) Allergies Coded Allergies: No Known Allergies (Verified , 12/30/18) Past Medical History Medical History Meningioma, migraine, asthma Surgical History Bilat intraocular lens replacement, bilat TKR, right THR, hernia repair, craniotomy Social History * Smoker: Denies Alcohol: Denies Drugs: denies A-FIB/CHADSVASC A-FIB History Current/History of A-Fib/PAF?: No Current PO Anticoag Therapy: No Review of Systems Constitutional: Reports: Malaise, Weakness; Denies: Chills, Fever Eyes: Denies: Pain ENT: Denies: Head Aches Skin: Denies: Rash, Lesions Pulmonary: Reports: Dyspnea Cardiovascular: Denies: Chest Pain Gastrointestinal: Denies: Nausea Genitourinary: Denies: Dysuria Hematologic: Denies: Bruising Endocrine: Denies: Polydipsia Musculoskeletal: Denies: Neck Pain Neurological: Denies: Weakness Psych: Reports: Mood Normal Physical Examination General Exam: Positive: Alert, Cooperative Eye Exam: Positive: PERRLA ENT Exam: Positive: Atraumatic Neck Exam: Positive: Supple; Negative: JVD Chest Exam: Positive: Diminished Heart Exam: Positive: Rate Normal Telemetry: Positive: No significant arrhythmia Abdomen Exam: Positive: Normal bowel sounds Extremity Exam: Negative: Clubbing, Cyanosis Skin Exam: Positive: Nl turgor and temperature Neuro Exam: Positive: Reflexes 2+ Psych Exam: Positive: Mental status NL, Oriented x 3 Vital Signs Vital Signs Date Time Temp Pulse Resp B/P (MAP) Pulse Ox O2 Delivery O2 Flow Rate FiO2 07/03/20 13:05 153/64 (93) 07/03/20 12:46 65 99 07/03/20 12:00 18 Room Air 07/03/20 10:38 97.7 Laboratory Data Labs 24H Laboratory Tests 2 07/03/20 11:05: Immature Granulocyte % (Auto) 1.9, Neutrophils (%) (Auto) 73.9H, Lymphocytes (%) (Auto) 14.1L, Monocytes (%) (Auto) 10.0H, Eosinophils (%) (Auto) 0.0, Basophils (%) (Auto) 0.1, Neutrophils # (Auto) 6.7, Lymphocytes # (Auto) 1.3L, Monocytes # (Auto) 0.9H, Eosinophils # (Auto) 0.0, Basophils # (Auto) 0.0, Nucleated Red Blood Cells % (auto) 0.0, Anion Gap 6L, Glomerular Filtration Rate > 60.0, Calcium Level 8.9, Total Bilirubin 0.4, Direct Bilirubin < 0.1, Aspartate Amino Transf (AST/SGOT) 22, Alanine Aminotransferase (ALT/SGPT) 18, Alkaline Phosphatase 90, Total Creatine Kinase 30, Creatine Kinase MB < 1.0, Creatine Kinase MB Relative Index 3.33, Troponin I < 0.02, YO-Tdu-L-Type Natriuretic Peptide 281, Total Protein 6.2L, Albumin 2.9L, Albumin/Globulin Ratio 0.9L, Thyroid Stimulating Hormone (TSH) 1.680, Free Thyroxine 0.87, Valproic Acid (Depakene) Level 92.7 07/03/20 11:24: Prothrombin Time 13.3, Prothromb Time International Ratio 0.99, Activated Partial Thromboplast Time 25.9, D-Dimer, Quantitative > 4000.0H 07/03/20 12:07: Urine Color SYDNIE, Urine Appearance CLOUDYH, Urine pH 5.0, Urine Specific Grav ity 1.027, Urine Protein 1+H, Urine Glucose (UA) NEGATIVE, Urine Ketones TRACEH, Urine Blood 1+H, Urine Nitrite POSITIVEH, Urine Bilirubin NEGATIVE, Urine Urobilinogen 4.0H, Urine Leukocyte Esterase 2+H, Urine WBC (Auto) 36H, Urine RBC (Auto) 2, Urine Hyaline Casts (Auto) 0, Urine Bacteria (Auto) 2+H, Urine Squamous Epithelial Cells 9, Urine Sperm (Auto) CBC/BMP Laboratory Tests 07/03/20 11:05 Microbiology Microbiology 07/03/20 Urine Culture, Received Pending 07/03/20 Respiratory Virus Panel (PCR) (EDDI) - Final, Complete 07/03/20 Blood Culture, Received Pending 07/03/20 Blood Culture, Received Pending Assessment/Plan Patient is 84 years old female with past medical history of migraines, asthma, meningioma status post right kkbyru-flpspth-ffrwmaco craniotomy with meningioma resection on 05-17-20 presented to the hospital with increased shortness of breath. Patient stated that for past 2 weeks she has been having increased shortness of breath progressively worse on exertion. Patient denies fever, chills, diarrhea or dysuria. Patient denies chest pain or palpitations. Of note in May 2020 patient received treatment in ARU in [facility]. In ER patient was found to have Nonocclusive thrombus right common femoral vein with occlusive thrombus throughout the right femoral and popliteal veins. No DVT left lower extremity deep vein system. CTA showed Pulmonary emboli in segmental branches of bilateral lower lobe pulmonary arteries Problems (1) Bilateral pulmonary embolism Status: Acute Problem Text: Most likely secondary to DVT Started Lovenox 75 mg twice a day (2) Asthma Status: Chronic Problem Text: Not in acute exacerbation (3) Meningioma Status: Chronic Problem Text: Follow-up with neurologist in the outpatient settings (4) HTN (hypertension) Status: Chronic Problem Text: Continue home cardioprotective medications (5) Deep vein thrombosis of right lower extremity Status: Acute Problem Text: Continue Lovenox 75 mg twice a day (6) Pancreatic abnormality Status: Acute Problem Text: CT showed Stable 1.3 cm nodule in the tail the pancreas compared to 08/25/2018 Follow-up with PCP in the outpatient settings (7) Pyuria Status: Chronic Problem Text: Patient denied any symptoms of dysuria Antibiotics not indicated Plan / VTE VTE Prophylaxis Ordered?: Yes PHILL MCCULLOUGH DO July 03, 2020 15:12
[2020-07-03 17:35] VITALS: BP 138/62
--- NOTE | 2020-07-03 20:09 | ECGEPIP ---
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
[2020-07-03] MEDS: DIVALPROEX SPRINKLE 125 MG CAP PO SCH (21:23)
[2020-07-03] MEDS: risperiDONE 0.5 MG TAB PO SCH (21:23)
[2020-07-03] MEDS: ENOXAPARIN 80MG/0.8ML SYRINGE (J1650 PER 10MG) SC SCH (21:23)
[2020-07-03 22:00] VITALS: BP 117/56
[2020-07-04 06:00] VITALS: BP 138/72
[2020-07-04 06:35] LABS: HEMATOCRIT 39.3 % (36.0-47.0); MEAN CORPUSCULAR HEMOGLOBIN 28.6 pg (27.0-33.0); MEAN CORPUSCULAR HGB CONC 30.5 g/dl (32.0-36.5); MEAN CORPUSCULAR VOLUME 93.8 fl (80.0-96.0); PLATELET COUNT, AUTOMATED 108 10^3/uL (150-450); RED BLOOD COUNT 4.19 10^6/uL (4.00-5.40); WHITE BLOOD COUNT 7.5 10^3/uL (4.0-10.0)
[2020-07-04 07:05] LABS: ALBUMIN 2.7 GM/DL (3.2-5.2); ALT/SGPT 18 U/L (12-78); BILIRUBIN,TOTAL 0.3 MG/DL (0.2-1.0); BLOOD UREA NITROGEN 21 MG/DL (7-18); CALCIUM LEVEL 8.3 MG/DL (8.8-10.2); CARBON DIOXIDE LEVEL 24 MEQ/L (21-32); CHLORIDE LEVEL 109 MEQ/L (98-107); CREATININE FOR GFR 0.45 MG/DL (0.55-1.30); GLOMERULAR FILTRATION RATE > 60.0 (>32); GLUCOSE, FASTING 96 MG/DL (70-100); MAGNESIUM LEVEL 2.4 MG/DL (1.8-2.4); POTASSIUM SERUM 3.8 MEQ/L (3.5-5.1); SODIUM LEVEL 140 MEQ/L (136-145)
[2020-07-04] MEDS: ENOXAPARIN 80MG/0.8ML SYRINGE (J1650 PER 10MG) SC SCH (08:08)
[2020-07-04 08:09] VITALS: BP 142/76
[2020-07-04] MEDS: DIVALPROEX SPRINKLE 125 MG CAP PO SCH (08:09)
[2020-07-04] MEDS: risperiDONE 0.5 MG TAB PO SCH (08:09)
[2020-07-04] MEDS ORDERED: amLODIPine 5 MG TAB PO SCH (09:00)
[2020-07-04] MEDS ORDERED: ESCITALOPRAM OXALATE 5MG TABLET (LEXAPRO) PO SCH (09:00)
[2020-07-04] MEDS ORDERED: FAMOTIDINE 20 MG TAB PO SCH (09:00)
[2020-07-04] MEDS ORDERED: ELIQ5TAB PO (10:29)
--- NOTE | 2020-07-04 15:04 | ECGEPIP ---
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 Order Number: [id number] Reading MD: Milton Virgen Measurements Intervals [place] Rate: 67 P: 41 SC: 146 QRS: 7 QRSD: 84 T: 46 QT: 402 QTc: 424 Interpretive Statements Normal sinus rhythm Within normal limits. No significant change compared with 07/03/2020 at 1114 hrs. Electronically Signed on 07-04-2020 15:04:14 EDT by Milton Virgen
--- NOTE | 2020-07-04 18:37 | DS.PDOC ---
Discharge Summary General Date of Admission July 03, 2020 at 14:53 Date of Discharge 07/04/20 Discharge Summary PROCEDURES PERFORMED DURING STAY: [None]. ADMITTING DIAGNOSES: Bilateral pulmonary embolism Asthma Meningioma HTN (hypertension) Deep vein thrombosis of right lower extremity Pancreatic abnormality Pyuria DISCHARGE DIAGNOSES: Bilateral pulmonary embolism Asthma Meningioma HTN (hypertension) Deep vein thrombosis of right lower extremity Pancreatic abnormality Pyuria COMPLICATIONS/CHIEF COMPLAINT: Asthma, Bilateral pulmonary embolism, HTN, DVT. HISTORY OF PRESENT ILLNESS: Patient is 84 years old female with past medical history of migraines, asthma, meningioma status post right fronto-parieto- temporal craniotomy with meningioma resection on 05-17-20 presented to the hospital with increased shortness of breath. Patient stated that for past 2 weeks she has been having increased shortness of breath progressively worse on exertion. Patient denies fever, chills, diarrhea or dysuria. Patient denies chest pain or palpitations. Of note in May 2020 patient received treatment in ARU in [facility]. In ER patient was found to have Nonocclusive thrombus right common femoral vein with occlusive thrombus throughout the right femoral and popliteal veins. No DVT left lower extremity deep vein system. CTA showed Pulmonary emboli in segmental branches of bilateral lower lobe pulmonary arteries HOSPITAL COURSE: During the hospital stay the following issues addressed (1) Bilateral pulmonary embolism Most likely secondary to DVT Patient received treatment with Lovenox 75 mg twice a day (2) Asthma Not in acute exacerbation (3) Meningioma Follow-up with neurologist in the outpatient settings (4) HTN (hypertension) Continue home cardioprotective medications (5) Deep vein thrombosis of right lower extremity Continue Lovenox 75 mg twice a day (6) Pancreatic abnormality CT showed Stable 1.3 cm nodule in the tail the pancreas compared to 08/25/2018 Follow-up with PCP in the outpatient settings (7) Pyuria Patient denied any symptoms of dysuria Antibiotics not indicated DISCHARGE MEDICATIONS: Please see below. ALLERGIES: Please see below. PHYSICAL EXAMINATION ON DISCHARGE: VITAL SIGNS: Please see below. Physical Examination General Exam: Positive: Alert, Cooperative Eye Exam: Positive: PERRLA ENT Exam: Positive: Atraumatic Neck Exam: Positive: Supple; Negative: JVD Chest Exam: Positive: Diminished Heart Exam: Positive: Rate Normal Telemetry: Positive: No significant arrhythmia Abdomen Exam: Positive: Normal bowel sounds Extremity Exam: Negative: Clubbing, Cyanosis Skin Exam: Positive: Nl turgor and temperature Neuro Exam: Positive: Reflexes 2+ Psych Exam: Positive: Mental status NL, Oriented x 3 LABORATORY DATA: Please see below. Imaging: [facility] NAME: CRICKET STEVENS DATE OF : 1935 AGE: 84 SEX: F REPORT #: [id number] ROOM: ED TECHNOLOGIST: LSIA DOCTOR: RIA CASTELLON MD Ordered for Date&Time: 07/03/20 1238 cc: [~ rep ct ivnm] Service Date&Time: This report is in Signed status. If this report is in a DRAFT status it has not yet been reviewed by the radiologist for accuracy. Thank you for having your radiology procedures performed at [facility] RADIOLOGY REPORT Date&Time printed: [~ rep prt dt last] [~ rep prt tm last] Page 2 of [address] [id number] RADIOLOGY REPORT This report is in Signed status. If this report is in a DRAFT status it has not yet been reviewed by the radiologist for accuracy. Thank you for having your radiology procedures performed at [facility] RADIOLOGY REPORT Date&Time printed: [~ rep prt dt last] [~ rep prt tm last] Page 1 of 1 INDICATION: SOB. COMPARISON: None. TECHNIQUE: CT angiogram chest performed following the intravenous administration of 100 cc of Isovue 370. Sagittal and coronal reconstruction images are performed. FINDINGS: Lungs: There is fibro atelectasis in the lingula and left lower lobe with no evidence of pneumonic infiltrate. Mediastinum: No adenopathy. Pulmonary arteries: There are multiple filling defects in the left lower lobe pulmonary arteries consistent with pulmonary embolism.Pulmonary embolism is also seen in a segmental branch of the right lower lobe laterally. Zulma: No adenopathy. Axilla: No adenopathy. Pleura: No effusion. Heart: There is keso-mf-aapogisx cardiomegaly. Thoracic aorta: No aneurysm or dissection. Upper abdominal structures: There is a stable 1.3 cm nodule in the tail of the pancreas compared to the CT the abdomen 08/25/2018. Visualized osseous structures: Unremarkable. IMPRESSION: Pulmonary emboli in segmental branches of bilateral lower lobe pulmonary arteries as discussed in detail above. No infiltrate seen. Stable 1.3 cm nodule in the tail the pancreas compared to 08/25/2018. <Electronically signed by Onel Zayas > 07/03/20 1328 DD: Onel Zayas MD, MD 07/03/205 DT: CELY 07/03/208 DS: MARIAMA 07/03/20 1315 07/03/20 1315 [~ rep ct labl] IMAGING: See above PROGNOSIS: Fair ACTIVITY: [As tolerated]. DIET: Cardiac DISPOSITION: Home, Self-Care. ITEMS TO FOLLOWUP ON ON OUTPATIENT: Follow-up with PCP DISCHARGE CONDITION: [Stable]. TIME SPENT ON DISCHARGE: 40 minutes. Vital Signs/I&Os Vital Signs Date Time Temp Pulse Resp B/P (MAP) Pulse Ox O2 Delivery O2 Flow Rate FiO2 07/04/20 08:09 71 142/76 07/04/20 06:00 97.0 18 98 Room Air I&O- Last 24 Hours up to 6 AM 07/04/20 06:00 Intake Total 290 ml Output Total 0 ml Balance 290 ml Laboratory Data Labs 24H Laboratory Tests 2 07/04/20 05:56: Nucleated Red Blood Cells % (auto) 0.0, Anion Gap 7L, Glomerular Filtration Rate > 60.0, Calcium Level 8.3L, Magnesium Level 2.4, Total Bilirubin 0.3, Aspartate Amino Transf (AST/SGOT) 15, Alanine Aminotransferase (ALT/SGPT) 18, Alkaline Phosphatase 88, Total Protein 6.0L, Albumin 2.7L, Albumin/Globulin Ratio 0.8L CBC/BMP Laboratory Tests 07/04/20 05:56 Microbiology Microbiology 07/03/20 Urine Culture - Final, Complete 07/03/20 Respiratory Virus Panel (PCR) (EDDI) - Final, Complete 07/03/20 Blood Culture - Preliminary, Resulted No growth after 24 hours . All specim... 07/03/20 Blood Culture - Preliminary, Resulted No growth after 24 hours . All specim... Discharge Medications Scheduled Amlodipine Besylate (Amlodipine Besylate) 5 Mg Tablet, 5 MG PO DAILY, (Reported) Apixaban (Eliquis) 5 Mg Tablet, 5 MG PO BID Dexamethasone (Dexamethasone) 2 Mg Tablet, 2 MG PO BID, (Reported) Divalproex Sodium (Divalproex Sodium) 125 Mg , 500 MG PO BID, (Reported) Escitalopram Oxalate (Lexapro) 5 Mg Tablet, 5 MG PO DAILY, (Reported) Famotidine (Famotidine) 20 Mg Tablet, 20 MG PO DAILY, (Reported) Fluticasone Propion/Salmeterol (Fluticasone-Salmeterol 250-50) 1 Each Blst.w.dev, 1 PUFF INH BID, (Reported) Risperidone (Risperidone) 0.5 Mg Tablet, 0.5 MG PO BID, (Reported) Scheduled PRN Albuterol Sulfate (Albuterol Sulfate Hfa) 8.5 Gm Hfa.aer.ad, 2 PUFFS INH QID PRN for SHORTNESS OF BREATH, (Reported) Allergies Coded Allergies: No Known Allergies (Verified , 12/30/18) PHILL MCCULLOUGH DO July 04, 2020 18:37
== END 2020-07-04 11:46 | disposition home or self-care (01) ==
LOC: M ED 10:29 → M ED INP 14:53 → M MSPAV 17:28
PROVIDERS: ADMIT Internal Medicine; ATTEND Internal Medicine
DX: I26.99 Other pulmonary embolism without acute cor pulmonale (principal); J45.909 Unspecified asthma, uncomplicated; D32.9 Benign neoplasm of meninges, unspecified; I10 Essential (primary) hypertension; G43.909 Migraine, unspecified, not intractable, without status migrainosus; I82.401 Acute embolism and thrombosis of unspecified deep veins of right lower extremity; K86.9 Disease of pancreas, unspecified; R82.81 Pyuria; Z79.01 Long term (current) use of anticoagulants; Z79.899 Other long term (current) drug therapy; F32.9 Major depressive disorder, single episode, unspecified; F41.9 Anxiety disorder, unspecified; E78.00 Pure hypercholesterolemia, unspecified
CPT/HCPCS: 36415; 71045; 71275; 80048; 80053; 80076; 80164; 81001; 82550; 82553; 83735; 83880; 84439; 84443; 84484; 85025; 85027; 85379; 85610; 85730; 87040; 87086; 87798; 93005; 93041; 93970; 94760; 96365; 96372; 99285; G0378; J0696; J1650; Q9967

== ENCOUNTER 2020-07-12 06:23 | Emergency (ER) | payer MEDICARE, BC ==
[~2020-07-12] VITALS: Ht 165.1 cm; Wt 72.7 kg
[~2020-07-12 06:23] MED LIST changes: +DIVA1TAB48 PO; +ELIQ5TAB PO; +FAMO20TA5 PO; +FLUT1BLS5 INH
[2020-07-12] MEDS ORDERED: NS 1,000 ML IV ONE (07:30)
--- NOTE | 2020-07-12 07:59 | REP ---
INDICATION: weakness. COMPARISON: Comparison radiograph July 03, 2020. May 31, 2020 chest x-ray is also reviewed. TECHNIQUE: Portable upright AP chest radiograph. FINDINGS: Patient is rotated slightly to the left for the current exposure. Right hemidiaphragm remains slightly elevated. There is increased pleuroparenchymal opacity in the left base unchanged from the May and June 2020 radiographs.. This may reflect at atelectasis perhaps in the lingular segment of the left upper lobe. There is blunting of the left lateral pleural angle. No other infiltrate is seen. Cardiomediastinal silhouette is unchanged. IMPRESSION: Pleuroparenchymal opacity and pleural angle blunting left base question atelectasis and/or fluid. No other infiltrate seen.. <Electronically signed by Pedro Ferrer > 07/12/20 4146
[2020-07-12 08:06] LABS: BASO % 0.5 % (0.0-1.0); EOS % 0.2 % (0.0-3.0); HEMOGLOBIN 11.9 g/dl (12.0-15.5); LYMPH # 1.6 10^3/uL (1.5-5.0); LYMPH % 27.9 % (24.0-44.0); MEAN CORPUSCULAR HEMOGLOBIN 28.2 pg (27.0-33.0); MEAN CORPUSCULAR HGB CONC 30.5 g/dl (32.0-36.5); MEAN CORPUSCULAR VOLUME 92.4 fl (80.0-96.0); MONO # 0.6 10^3/uL (0.0-0.8); MONO % 11.2 % (2.0-8.0); NEUTROPHILS # 3.3 10^3/uL (1.5-8.5); NEUTROPHILS % 57.6 % (36.0-66.0); PLATELET COUNT, AUTOMATED 121 10^3/uL (150-450); RED BLOOD COUNT 4.22 10^6/uL (4.00-5.40); WHITE BLOOD COUNT 5.7 10^3/uL (4.0-10.0)
[2020-07-12 08:16] LABS: INR 1.02; PROTHROMBIN TIME 13.6 SECONDS (12.5-14.3)
[2020-07-12 08:37] LABS: ALBUMIN 2.7 GM/DL (3.2-5.2); ALT/SGPT 22 U/L (12-78); BILIRUBIN,DIRECT 0.2 MG/DL (0.0-0.2); BILIRUBIN,TOTAL 0.4 MG/DL (0.2-1.0); BLOOD UREA NITROGEN 18 MG/DL (7-18); CALCIUM LEVEL 8.5 MG/DL (8.8-10.2); CARBON DIOXIDE LEVEL 28 MEQ/L (21-32); CHLORIDE LEVEL 109 MEQ/L (98-107); CK-MB VALUE MASS < 1.0 NG/ML (<3.6); CPK CREATINE PHOSPHOKINASE 29 U/L (26-192); CREATININE FOR GFR 0.53 MG/DL (0.55-1.30); FREE T4 0.97 NG/DL (0.76-1.46); GLOMERULAR FILTRATION RATE > 60.0 (>32); GLUCOSE, FASTING 80 MG/DL (70-100); LIPASE 30 U/L (73-393); MB/CK RELATIVE INDEX 3.45 (< OR =4); NT-PRO BNP 284 PG/ML (<450); POTASSIUM SERUM 4.2 MEQ/L (3.5-5.1); SODIUM LEVEL 142 MEQ/L (136-145); TOTAL PROTEIN 5.7 GM/DL (6.4-8.2); TROPONIN I < 0.02 NG/ML (< 0.10)
[2020-07-12] MEDS ORDERED: ISOVUE-370 76% 100ML VIAL As Ordered ONE (10:12)
--- NOTE | 2020-07-12 10:52 | REP ---
INDICATION: weakness, h/o intracranial bleed. COMPARISON: 05/31/2020 TECHNIQUE: 4.5 mm contiguous transaxial sections were obtained from the skull base to the cerebral convexities with thin cuts through the posterior fossa without the administration of intravenous contrast. FINDINGS: The right lateral ventricular compression seen on the prior exam has resolved. The degree of subfalcine herniation seen on the prior exam has decreased. The diffuse lucency seen previously in the right parietal, frontal parietal, parietooccipital, and temporal lobes has slightly increased. There is a persistent low density collection of fluid which is arising from the right middle temporal fossa region extending superiorly. This has increased from the prior exam. There is no evidence of an acute intracranial hemorrhage. The scattered areas of air density seen previously within the post craniotomy site has abated. The orbital and petrous structures, cerebellopontine angles, and posterior fossa are unremarkable. The sella turcica, cavernous, and paracavernous structures are essentially unremarkable. The visualized portions of the paranasal sinuses and mastoid air cells are clear. Images of the skull base show no gross abnormality. IMPRESSION: 1. The epidural collection seen previously persists and is of low density without evidence of active hemorrhage at this time. 2. There are chronic brain parenchymal changes and postoperative changes as described above. 3. Continued surveillance is recommended. <Electronically signed by Leonard Magdaleno > 07/12/20 1040
--- NOTE | 2020-07-12 11:02 | REP ---
INDICATION: weakness COMPARISON: 07/03/2020 TECHNIQUE: Axial contrast enhanced images from the thoracic inlet to the upper abdomen using pulmonary embolus technique with multiplanar re-formations. 75 ml Isovue 370 intravenous contrast material administered without complication. This CT examination was performed using the following dose reduction techniques: Automated exposure control, adjustment of mA and/or kv according to the patient's size, and use of iterative reconstruction technique. FINDINGS: Satisfactory enhancement of the pulmonary vasculature is achieved and no filling defects are identified to suggest pulmonary embolus. Previously noted subsegmental emboli to the lower lobes appear to have resolved. Further evaluation of the mediastinum demonstrates atherosclerotic changes to the aorta without aneurysm or dissection. Heart and pericardium are relatively normal. The bilateral lung kearns demonstrate chronic appearing changes. Minimal residual fibro atelectatic changes at the lingula and left lower lobe are identified but improved as compared with prior exam. No new acute consolidation. No effusion. No pneumothorax. No adenopathy. Musculoskeletal structures are intact/stable. IMPRESSION: No evidence for pulmonary embolus. Previously identified small subsegmental lower lobe emboli have resolved. Chronic appearing fibroatelectatic changes at the bases. No focal consolidation or effusion. <Electronically signed by Jeramie Novak > 07/12/20 6144
--- NOTE | 2020-07-12 11:10 | REP ---
INDICATION: weakness. COMPARISON: 08/25/2018 TECHNIQUE: Axial contrast-enhanced images from the lung bases to the pubic symphysis using 100 cc Isovue 370 intravenous contrast material. Coronal and sagittal reformations obtained. This CT examination was performed using the following dose reduction techniques: Automated exposure control, adjustment of mA and/or kv according to the patient's size, and the use of iterative reconstruction technique. FINDINGS: Liver, spleen, pancreas, bilateral adrenal glands and right kidney are normal/stable. Atrophic changes to the pancreas with suspected residual pancreatic tissue at the tail and small cystic nodule remain unchanged. 4.8 cm simple Bosniak 1 left renal cyst again noted. The enteric system demonstrates diffuse fecal stasis/constipation. Normal terminal ileum and appendix identified in the right lower quadrant. Colonic and sigmoid diverticulosis noted without acute diverticulitis.. Pelvis is limited due to beam hardening artifact from right hip prosthesis. Findings suggest prior hysterectomy. No ascites. No free air. No intraperitoneal or retroperitoneal adenopathy. Abdominal aorta and vasculature appear normal. Musculoskeletal structures are intact and without acute osseous abnormality. IMPRESSION: No acute abdominopelvic pathology appreciated. Chronic stable changes. <Electronically signed by Jeramie Novak > 07/12/20 9720
[2020-07-12 13:49] VITALS: BP 152/67
--- NOTE | 2020-07-12 19:54 | ECGEPIP ---
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
--- NOTE | 2020-07-13 11:54 | ED PDOC ---
Post-Departure Follow-Up ct head faxed to dr bangura for fu Jassi Marie MD July 13, 2020 11:54
[2020-07-15] MEDS ORDERED: CEPH500C PO (08:46)
--- NOTE | 2020-07-17 12:00 | ED PDOC ---
Post-Departure Follow-Up cxr faxed to dr bangura for fu Jassi Marie MD July 17, 2020 12:00
== END 2020-07-12 14:05 | disposition home or self-care (01) ==
LOC: M ED 06:23
DX: R53.1 Weakness (principal); R53.81 Other malaise; J45.909 Unspecified asthma, uncomplicated; Z79.51 Long term (current) use of inhaled steroids; Z79.899 Other long term (current) drug therapy; Z86.711 Personal history of pulmonary embolism; Z98.890 Other specified postprocedural states
CPT/HCPCS: 51701; 70450; 71045; 71275; 74177; 80048; 80076; 81001; 82550; 82553; 83605; 83690; 83880; 84439; 84443; 84484; 85025; 85610; 85730; 87040; 87077; 87088; 87186; 87798; 93005; 93041; 94760; 96360; 96361; 99285; Q9967

== ENCOUNTER 2020-08-05 11:33 | Emergency (ER) | payer MEDICARE, BC ==
[~2020-08-05] VITALS: Ht 165.1 cm; Wt 72.7 kg
[~2020-08-05 11:33] MED LIST changes: +CEPH500C PO
--- NOTE | 2020-08-05 12:25 | REP ---
INDICATION: DYSPNEA/COUGH. COMPARISON: Comparison chest x-ray July 12, 2020. TECHNIQUE: Portable upright AP chest radiograph. FINDINGS: The lungs are well inflated and free of infiltrate. Pleural angles are sharp. Heart size is borderline unchanged. The aorta is calcific and tortuous. Pulmonary vasculature is not increased. No acute bony abnormality is seen.. IMPRESSION: Borderline heart size. Otherwise no acute disease.. <Electronically signed by Pedro Ferrer > 08/05/20 0880
[2020-08-05 12:28] LABS: VENOUS BASE EXCESS 1.8 (-2.0-2.0); VENOUS O2 SATURATION 93.4 % (60.0-80.0); VENOUS PARTIAL PRESSURE CO2 34.8 mmHg (38.0-50.0); VENOUS PARTIAL PRESSURE O2 66.1 mmHg (30.0-50.0); VENOUS PH 7.475 UNITS (7.330-7.430); VENOUS STANDARD HCO3 25.9 MEQ/L; VENOUS TOTAL CO2 26.1 MEQ/L (24.0-28.0)
[2020-08-05 12:32] LABS: BASO # 0.1 10^3/uL (0.0-0.2); BASO % 0.9 % (0.0-1.0); EOS # 0.1 10^3/uL (0.0-0.5); HEMOGLOBIN 11.1 g/dl (12.0-15.5); LYMPH # 1.3 10^3/uL (1.5-5.0); LYMPH % 21.7 % (24.0-44.0); MEAN CORPUSCULAR HEMOGLOBIN 28.2 pg (27.0-33.0); MEAN CORPUSCULAR VOLUME 93.9 fl (80.0-96.0); MONO # 0.6 10^3/uL (0.0-0.8); NEUTROPHILS # 3.6 10^3/uL (1.5-8.5); NEUTROPHILS % 61.4 % (36.0-66.0); PLATELET COUNT, AUTOMATED 127 10^3/uL (150-450); RED BLOOD COUNT 3.94 10^6/uL (4.00-5.40); WHITE BLOOD COUNT 5.8 10^3/uL (4.0-10.0)
[2020-08-05 13:02] LABS: ALBUMIN 2.3 GM/DL (3.2-5.2); ALT/SGPT 26 U/L (12-78); BILIRUBIN,DIRECT 0.1 MG/DL (0.0-0.2); BILIRUBIN,TOTAL 0.3 MG/DL (0.2-1.0); BLOOD UREA NITROGEN 26 MG/DL (7-18); CALCIUM LEVEL 8.2 MG/DL (8.8-10.2); CARBON DIOXIDE LEVEL 25 MEQ/L (21-32); CHLORIDE LEVEL 113 MEQ/L (98-107); CK-MB VALUE MASS 1.1 NG/ML (<3.6); CPK CREATINE PHOSPHOKINASE 20 U/L (26-192); CREATININE FOR GFR 0.51 MG/DL (0.55-1.30); GLOMERULAR FILTRATION RATE > 60.0 (>32); GLUCOSE, FASTING 104 MG/DL (70-100); NT-PRO BNP 404 PG/ML (<450); POTASSIUM SERUM 4.4 MEQ/L (3.5-5.1); SODIUM LEVEL 145 MEQ/L (136-145); TOTAL PROTEIN 5.2 GM/DL (6.4-8.2); TROPONIN I 0.03 NG/ML (< 0.10)
[2020-08-05 14:30] VITALS: BP 105/61
--- NOTE | 2020-08-07 16:32 | ECGEPIP ---
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
== END 2020-08-05 14:53 | disposition home or self-care (01) ==
LOC: M ED 11:33
DX: R06.02 Shortness of breath (principal); J45.909 Unspecified asthma, uncomplicated; G43.909 Migraine, unspecified, not intractable, without status migrainosus; D32.0 Benign neoplasm of cerebral meninges; Z86.718 Personal history of other venous thrombosis and embolism; Z79.01 Long term (current) use of anticoagulants; Z79.899 Other long term (current) drug therapy

== ENCOUNTER → 2020-08-28 | Outpatient (REF) | payer MEDICARE, BC ==
[2020-08-28 14:51] LABS: BASO % 0.5 % (0.0-1.0); EOS # 0.1 10^3/uL (0.0-0.5); EOS % 1.9 % (0.0-3.0); HEMATOCRIT 30.9 % (36.0-47.0); HEMOGLOBIN 8.7 g/dl (12.0-15.5); LYMPH # 1.5 10^3/uL (1.5-5.0); LYMPH % 26.6 % (24.0-44.0); MEAN CORPUSCULAR HEMOGLOBIN 26.8 pg (27.0-33.0); MEAN CORPUSCULAR HGB CONC 28.2 g/dl (32.0-36.5); MEAN CORPUSCULAR VOLUME 95.1 fl (80.0-96.0); MONO # 0.7 10^3/uL (0.0-0.8); MONO % 11.4 % (2.0-8.0); NEUTROPHILS # 3.3 10^3/uL (1.5-8.5); NEUTROPHILS % 58.9 % (36.0-66.0); PLATELET COUNT, AUTOMATED 190 10^3/uL (150-450); RED BLOOD COUNT 3.25 10^6/uL (4.00-5.40); WHITE BLOOD COUNT 5.7 10^3/uL (4.0-10.0)
[2020-08-28 15:19] LABS: ERYTHROCYTE SEDIMENTATION RATE 35 mm/hr (0-30)
[2020-08-28 15:27] LABS: ALBUMIN 2.3 GM/DL (3.2-5.2); ALT/SGPT 12 U/L (12-78); BILIRUBIN,TOTAL 0.2 MG/DL (0.2-1.0); BLOOD UREA NITROGEN 16 MG/DL (7-18); C REACTIVE PROTEIN QUANTITATIV 1.36 MG/DL (0.00-0.30); CARBON DIOXIDE LEVEL 29 MEQ/L (21-32); CHLORIDE LEVEL 110 MEQ/L (98-107); CREATININE FOR GFR 0.49 MG/DL (0.55-1.30); GLOMERULAR FILTRATION RATE > 60.0 (>32); GLUCOSE, FASTING 97 MG/DL (70-100); POTASSIUM SERUM 3.8 MEQ/L (3.5-5.1); SODIUM LEVEL 144 MEQ/L (136-145); TOTAL PROTEIN 5.1 GM/DL (6.4-8.2)
== END ==
LOC: M LAB REF 14:38
PROVIDERS: ATTEND Internal Medicine Infectious Disease
DX: T81.49XA Infection following a procedure, other surgical site, initial encounter (principal); Z79.2 Long term (current) use of antibiotics; Z98.890 Other specified postprocedural states; Y83.8 Other surgical procedures as the cause of abnormal reaction of the patient, or of later complication, without mention of misadventure at the time of the procedure

== ENCOUNTER → 2020-09-04 | Outpatient (REF) | payer MEDICARE, BC ==
[2020-09-04 15:57] LABS: BASO % 0.8 % (0.0-1.0); EOS # 0.1 10^3/uL (0.0-0.5); HEMATOCRIT 28.5 % (36.0-47.0); LYMPH # 1.9 10^3/uL (1.5-5.0); LYMPH % 37.4 % (24.0-44.0); MEAN CORPUSCULAR HEMOGLOBIN 26.6 pg (27.0-33.0); MEAN CORPUSCULAR HGB CONC 28.1 g/dl (32.0-36.5); MEAN CORPUSCULAR VOLUME 94.7 fl (80.0-96.0); MONO # 0.5 10^3/uL (0.0-0.8); NEUTROPHILS # 2.5 10^3/uL (1.5-8.5); NEUTROPHILS % 49.4 % (36.0-66.0); PLATELET COUNT, AUTOMATED 180 10^3/uL (150-450); RED BLOOD COUNT 3.01 10^6/uL (4.00-5.40); WHITE BLOOD COUNT 5.1 10^3/uL (4.0-10.0)
[2020-09-04 16:24] LABS: ERYTHROCYTE SEDIMENTATION RATE 27 mm/hr (0-30)
[2020-09-04 16:33] LABS: ALBUMIN 2.3 GM/DL (3.2-5.2); ALT/SGPT 30 U/L (12-78); BILIRUBIN,TOTAL 0.1 MG/DL (0.2-1.0); BLOOD UREA NITROGEN 20 MG/DL (7-18); CALCIUM LEVEL 8.2 MG/DL (8.8-10.2); CARBON DIOXIDE LEVEL 28 MEQ/L (21-32); CHLORIDE LEVEL 111 MEQ/L (98-107); CREATININE FOR GFR 0.53 MG/DL (0.55-1.30); GLOMERULAR FILTRATION RATE > 60.0 (>32); GLUCOSE, FASTING 115 MG/DL (70-100); POTASSIUM SERUM 3.8 MEQ/L (3.5-5.1); SODIUM LEVEL 144 MEQ/L (136-145)
== END ==
LOC: M SHH 15:00
PROVIDERS: ATTEND Internal Medicine Infectious Disease
DX: T81.49XA Infection following a procedure, other surgical site, initial encounter (principal); Z98.890 Other specified postprocedural states; Z79.2 Long term (current) use of antibiotics

== ENCOUNTER → 2020-09-11 | Outpatient (REF) | payer MEDICARE, BC ==
[2020-09-11 16:57] LABS: BASO # 0.1 10^3/uL (0.0-0.2); EOS # 0.1 10^3/uL (0.0-0.5); EOS % 1.9 % (0.0-3.0); HEMOGLOBIN 8.3 g/dl (12.0-15.5); LYMPH # 1.7 10^3/uL (1.5-5.0); LYMPH % 31.9 % (24.0-44.0); MEAN CORPUSCULAR HEMOGLOBIN 25.9 pg (27.0-33.0); MEAN CORPUSCULAR HGB CONC 28.6 g/dl (32.0-36.5); MEAN CORPUSCULAR VOLUME 90.6 fl (80.0-96.0); MONO # 0.5 10^3/uL (0.0-0.8); MONO % 10.4 % (2.0-8.0); NEUTROPHILS # 2.8 10^3/uL (1.5-8.5); NEUTROPHILS % 54.6 % (36.0-66.0); PLATELET COUNT, AUTOMATED 180 10^3/uL (150-450); WHITE BLOOD COUNT 5.2 10^3/uL (4.0-10.0)
[2020-09-11 17:19] LABS: ERYTHROCYTE SEDIMENTATION RATE 43 mm/hr (0-30)
[2020-09-11 17:25] LABS: ALBUMIN 2.5 GM/DL (3.2-5.2); ALT/SGPT 15 U/L (12-78); BILIRUBIN,TOTAL 0.1 MG/DL (0.2-1.0); BLOOD UREA NITROGEN 13 MG/DL (7-18); CALCIUM LEVEL 8.7 MG/DL (8.8-10.2); CARBON DIOXIDE LEVEL 27 MEQ/L (21-32); CHLORIDE LEVEL 112 MEQ/L (98-107); CREATININE FOR GFR 0.53 MG/DL (0.55-1.30); GLOMERULAR FILTRATION RATE > 60.0 (>32); GLUCOSE, FASTING 136 MG/DL (70-100); SODIUM LEVEL 146 MEQ/L (136-145); TOTAL PROTEIN 5.5 GM/DL (6.4-8.2)
== END ==
LOC: M SHH 16:07
PROVIDERS: ATTEND Internal Medicine Infectious Disease
DX: T81.49XA Infection following a procedure, other surgical site, initial encounter (principal); Z98.890 Other specified postprocedural states; Z79.2 Long term (current) use of antibiotics; Y83.8 Other surgical procedures as the cause of abnormal reaction of the patient, or of later complication, without mention of misadventure at the time of the procedure

== ENCOUNTER → 2020-09-18 | Outpatient (REF) | payer MEDICARE, BC ==
[2020-09-18 13:59] LABS: BASO % 0.7 % (0.0-1.0); EOS # 0.1 10^3/uL (0.0-0.5); EOS % 2.2 % (0.0-3.0); HEMATOCRIT 30.8 % (36.0-47.0); HEMOGLOBIN 8.8 g/dl (12.0-15.5); LYMPH # 1.9 10^3/uL (1.5-5.0); LYMPH % 34.7 % (24.0-44.0); MEAN CORPUSCULAR HEMOGLOBIN 25.6 pg (27.0-33.0); MEAN CORPUSCULAR HGB CONC 28.6 g/dl (32.0-36.5); MEAN CORPUSCULAR VOLUME 89.5 fl (80.0-96.0); MONO # 0.6 10^3/uL (0.0-0.8); MONO % 10.2 % (2.0-8.0); NEUTROPHILS # 2.8 10^3/uL (1.5-8.5); PLATELET COUNT, AUTOMATED 178 10^3/uL (150-450); RED BLOOD COUNT 3.44 10^6/uL (4.00-5.40); WHITE BLOOD COUNT 5.4 10^3/uL (4.0-10.0)
[2020-09-18 14:32] LABS: ALBUMIN 2.8 GM/DL (3.2-5.2); ALT/SGPT 15 U/L (12-78); BILIRUBIN,TOTAL 0.1 MG/DL (0.2-1.0); BLOOD UREA NITROGEN 18 MG/DL (7-18); C REACTIVE PROTEIN QUANTITATIV 0.32 MG/DL (0.00-0.30); CALCIUM LEVEL 8.5 MG/DL (8.8-10.2); CARBON DIOXIDE LEVEL 26 MEQ/L (21-32); CHLORIDE LEVEL 113 MEQ/L (98-107); CREATININE FOR GFR 0.64 MG/DL (0.55-1.30); GLOMERULAR FILTRATION RATE > 60.0 (>32); GLUCOSE, FASTING 143 MG/DL (70-100); POTASSIUM SERUM 3.9 MEQ/L (3.5-5.1); SODIUM LEVEL 146 MEQ/L (136-145); TOTAL PROTEIN 5.8 GM/DL (6.4-8.2)
[2020-09-18 15:26] LABS: ERYTHROCYTE SEDIMENTATION RATE 23 mm/hr (0-30)
== END ==
LOC: M SHH 13:24
PROVIDERS: ATTEND Internal Medicine Infectious Disease
DX: Z98.890 Other specified postprocedural states (principal); T81.49XA Infection following a procedure, other surgical site, initial encounter; Z79.2 Long term (current) use of antibiotics

== ENCOUNTER → 2020-09-25 | Outpatient (REF) | payer MEDICARE, BC ==
[~2020-09-25] MED LIST changes: +DIVA125C6 PO; -DIVA1CAP PO; -GNP8.6TA7 PO; +SENN-111 PO; +SUMA6CAR SC; -SUMA6KIT SC
[2020-09-25 18:08] LABS: BASO % 0.7 % (0.0-1.0); EOS # 0.3 10^3/uL (0.0-0.5); EOS % 4.4 % (0.0-3.0); HEMATOCRIT 30.6 % (36.0-47.0); HEMOGLOBIN 8.7 g/dl (12.0-15.5); LYMPH # 2.1 10^3/uL (1.5-5.0); LYMPH % 35.5 % (24.0-44.0); MEAN CORPUSCULAR HEMOGLOBIN 25.1 pg (27.0-33.0); MEAN CORPUSCULAR HGB CONC 28.4 g/dl (32.0-36.5); MEAN CORPUSCULAR VOLUME 88.2 fl (80.0-96.0); MONO # 0.6 10^3/uL (0.0-0.8); MONO % 9.9 % (2.0-8.0); NEUTROPHILS # 2.9 10^3/uL (1.5-8.5); NEUTROPHILS % 49.2 % (36.0-66.0); PLATELET COUNT, AUTOMATED 190 10^3/uL (150-450); RED BLOOD COUNT 3.47 10^6/uL (4.00-5.40); WHITE BLOOD COUNT 5.9 10^3/uL (4.0-10.0)
[2020-09-25 18:33] LABS: ALBUMIN 2.7 GM/DL (3.2-5.2); ALT/SGPT 16 U/L (12-78); BILIRUBIN,TOTAL 0.1 MG/DL (0.2-1.0); BLOOD UREA NITROGEN 15 MG/DL (7-18); CALCIUM LEVEL 8.4 MG/DL (8.8-10.2); CARBON DIOXIDE LEVEL 28 MEQ/L (21-32); CHLORIDE LEVEL 111 MEQ/L (98-107); CREATININE FOR GFR 0.68 MG/DL (0.55-1.30); GLOMERULAR FILTRATION RATE > 60.0 (>32); GLUCOSE, FASTING 83 MG/DL (70-100); POTASSIUM SERUM 3.9 MEQ/L (3.5-5.1); SODIUM LEVEL 145 MEQ/L (136-145); TOTAL PROTEIN 5.4 GM/DL (6.4-8.2)
[2020-09-25 19:25] LABS: ERYTHROCYTE SEDIMENTATION RATE 5 mm/hr (0-30)
== END ==
LOC: M SHH 17:39
PROVIDERS: ATTEND Internal Medicine Infectious Disease
DX: T81.49XA Infection following a procedure, other surgical site, initial encounter (principal); Z98.890 Other specified postprocedural states; Z79.2 Long term (current) use of antibiotics; Y99.2 Volunteer activity

== ENCOUNTER → 2020-11-03 | Outpatient (REF) | payer MEDICARE, BC ==
[~2020-11-03] MED LIST changes: -DIVA125C6 PO; +DIVA1CAP PO; -SUMA6CAR SC; +SUMA6KIT SC
== END ==
LOC: M LAB REF 16:26
PROVIDERS: ATTEND Internal Medicine
DX: T81.49XA Infection following a procedure, other surgical site, initial encounter (principal); Z79.2 Long term (current) use of antibiotics

== ENCOUNTER → 2020-11-10 | Outpatient (REF) | payer MEDICARE, BC ==
[2020-11-10 17:22] LABS: PERCENT SATURATION 7.7 % (13.2-45.0)
== END ==
LOC: M LAB REF 15:59
PROVIDERS: ATTEND Internal Medicine
DX: D50.9 Iron deficiency anemia, unspecified (principal)

== ENCOUNTER → 2020-11-16 | Outpatient (CLI) | payer MEDICARE, BC ==
[~2020-11-16] MED LIST changes: +BARIUM SULFATE 700 MG TABLET (E-Z-DISK) As Ordered ONE; +E-Z-PAQUE 96% w/w SUSP 176GM BTL As Ordered ONE; +VARIBAR NECTAR 40% w/v 240ML SUSP BTL As Ordered ONE; +VARIBAR PUDDING 40% w/v 230ML TUBE As Ordered ONE
--- NOTE | 2020-11-16 16:50 | REP ---
INDICATION: DYSPHAGIA, OROPHARYNGEAL PHASE. COMPARISON: NONE TECHNIQUE: The procedure was performed under the direct supervision of . The procedure was performed with Amber Dailey from speech pathology present. 3 minutes of fluoroscopy time was utilized for this procedure. FINDINGS: [place] consistency: Patient was instructed to take a swallow from the cup. Again the patient was able to formal bolus by cupping of the tongue and manipulated the bolus well. Passavant's pad filomena and shifted posteriorly normally with no nasopharyngeal aspiration. The bolus cleared without evidence of laryngeal penetration or aspiration. The patient was then instructed to take a swallow from a straw. With this there is laryngeal penetration. Thin consistency: The patient was then given a 5 cc aliquots with a spoon. Patient was able to form a bolus by cupping the tongue and initiating deglutition without delay. There is laryngeal penetration identified. Passavant's pad filomena and shifted posteriorly normally with no nasopharyngeal aspiration. The patient was then instructed to take a swallow from a cup. Again, there is laryngeal penetration. Patient was then instructed to take consecutive swallows from a cup. With each swallow there is laryngeal penetration identified. The patient was then instructed to take a drink from a straw. Again, there is laryngeal penetration. The patient was then instructed to take a swallow from a straw with a chin tuck. Again, there is laryngeal penetration. Puree: A mixture of applesauce and pudding consistency barium was then administered with a spoon. The patient was able to form a bolus by cupping the tongue. There is delay in triggering and pooling in the vallecula. However, this passed upon the initial mechanics of swallowing. Passavant's pad filomena and shifted posteriorly normally with no nasopharyngeal aspiration. Pudding consistency: The patient was able to form a bolus by cupping of the tongue and manipulated the bolus well. The patient cleared the bolus immediately. Passavant's pad filomena and shifted posteriorly normally with no nasopharyngeal aspiration. Mixed fruit consistency: The patient was able to form a bolus by cupping of the tongue and manipulated the bolus well. There is laryngeal penetration identified. Passavant's pad filomena and shifted posteriorly normally with no nasopharyngeal aspiration. Soft consistency: The patient was able to form a bolus by cupping of the tongue and manipulated the bolus well. There is delay in triggering and pooling in the vallecula. This clears immediately upon the initial mechanics of swallowing. Passavant's pad filomena and shifted posteriorly normally with no nasopharyngeal aspiration. A detailed report of this examination will be provided by speech pathology. IMPRESSION: There is laryngeal penetration as described above with nectar, thin and mixed fruit consistency barium. With peer a and soft consistency barium there is delayed triggering and pooling in the vallecula. In both cases this clears immediately upon the initial mechanics of swallowing. A detailed report of this examination will be provided by speech pathology. <Electronically signed by Kaden Barrientos > 11/16/20 1632 <Electronically signed by Pedro Ferrer > 11/16/20 1884
== END ==
LOC: M RAD 11:25
PROVIDERS: ATTEND Family Medicine
DX: R13.12 Dysphagia, oropharyngeal phase (principal)

== ENCOUNTER → 2020-12-18 | Outpatient (REF) | payer MEDICARE, BC ==
[~2020-12-18] MED LIST changes: -BARIUM SULFATE 700 MG TABLET (E-Z-DISK) As Ordered ONE; -E-Z-PAQUE 96% w/w SUSP 176GM BTL As Ordered ONE; -VARIBAR NECTAR 40% w/v 240ML SUSP BTL As Ordered ONE; -VARIBAR PUDDING 40% w/v 230ML TUBE As Ordered ONE
[2020-12-18 19:00] LABS: PERCENT SATURATION 25.3 % (13.2-45.0)
== END ==
LOC: M LAB REF 16:53
PROVIDERS: ATTEND Internal Medicine
DX: D50.9 Iron deficiency anemia, unspecified (principal)

== ENCOUNTER → 2021-01-29 | Outpatient (REF) | payer MEDICARE, BC | LOC: M LAB REF 16:29 | PROVIDERS: ATTEND Family Medicine | DX: T81.49XA Infection following a procedure, other surgical site, initial encounter (principal); Y83.8 Other surgical procedures as the cause of abnormal reaction of the patient, or of later complication, without mention of misadventure at the time of the procedure ==

== ENCOUNTER → 2021-02-08 | Outpatient (REF) | LOC: M LABSMTC 09:19 | PROVIDERS: ATTEND Pediatrics | DX: Z11.52 Encounter for screening for COVID-19 (principal) ==

== ENCOUNTER → 2021-04-09 | Outpatient (REF) | payer MEDICARE, BC ==
[~2021-04-09] MED LIST changes: +DIVA125C6 PO; -DIVA1CAP PO; +SUMA6CAR SC; -SUMA6KIT SC
== END ==
LOC: M LAB REF 16:08
PROVIDERS: ATTEND Family Medicine
DX: T81.49XA Infection following a procedure, other surgical site, initial encounter (principal); Y83.8 Other surgical procedures as the cause of abnormal reaction of the patient, or of later complication, without mention of misadventure at the time of the procedure

== ENCOUNTER → 2021-04-30 | Outpatient (REF) | payer MEDICARE, BC | LOC: M LAB REF 16:21 | PROVIDERS: ATTEND Family Medicine | DX: T81.49XA Infection following a procedure, other surgical site, initial encounter (principal) ==

== ENCOUNTER → 2021-05-01 | Outpatient (CLI) | payer MEDICARE, BC | LOC: M WUC 13:42 | PROVIDERS: ATTEND Family Medicine | DX: R05.9 Cough, unspecified (principal) ==

== ENCOUNTER → 2021-08-02 | Outpatient (REF) | payer MEDICARE, BC | LOC: M LAB REF 12:58 | PROVIDERS: ATTEND Family Medicine | DX: T81.49XA Infection following a procedure, other surgical site, initial encounter (principal); Z96.9 Presence of functional implant, unspecified; Z79.2 Long term (current) use of antibiotics ==

== ENCOUNTER → 2021-09-18 | Outpatient (REF) | payer MEDICARE, BC | LOC: M LAB REF 11:16 | PROVIDERS: ATTEND Family Medicine | DX: T81.49XA Infection following a procedure, other surgical site, initial encounter (principal); Y83.8 Other surgical procedures as the cause of abnormal reaction of the patient, or of later complication, without mention of misadventure at the time of the procedure ==

== ENCOUNTER 2021-10-25 09:20 | Emergency (ER) | payer MEDICARE, BC ==
[~2021-10-25] VITALS: Ht 172.7 cm; Wt 62.1 kg
[~2021-10-25 09:20] MED LIST changes: +LEVO1TAB40 PO; -LEVO750T13 PO
[2021-10-25] MEDS ORDERED: TOPI200T7 (09:48)
[2021-10-25] MEDS ORDERED: TRAM50TA2 (09:48)
[2021-10-25] MEDS ORDERED: DIAZ5TAB (09:48)
[2021-10-25] MEDS ORDERED: ZOLP5TAB (09:48)
[2021-10-25 11:03] LABS: BASO # 0.1 10^3/uL (0.0-0.2); BASO % 0.7 % (0.0-1.0); EOS # 0.2 10^3/uL (0.0-0.5); EOS % 2.8 % (0.0-3.0); HEMATOCRIT 46.2 % (36.0-47.0); HEMOGLOBIN 14.6 g/dl (12.0-15.5); LYMPH # 2.7 10^3/uL (1.5-5.0); LYMPH % 37.1 % (24.0-44.0); MEAN CORPUSCULAR HEMOGLOBIN 30.9 pg (27.0-33.0); MEAN CORPUSCULAR HGB CONC 31.6 g/dl (32.0-36.5); MEAN CORPUSCULAR VOLUME 97.7 fl (80.0-96.0); MONO # 0.6 10^3/uL (0.0-0.8); MONO % 7.6 % (2.0-8.0); NEUTROPHILS # 3.8 10^3/uL (1.5-8.5); NEUTROPHILS % 51.5 % (36.0-66.0); PLATELET COUNT, AUTOMATED 161 10^3/uL (150-450); RED BLOOD COUNT 4.73 10^6/uL (4.00-5.40); WHITE BLOOD COUNT 7.4 10^3/uL (4.0-10.0)
[2021-10-25 11:32] LABS: ALBUMIN 3.6 GM/DL (3.2-5.2); ALT/SGPT 29 U/L (12-78); BILIRUBIN,DIRECT < 0.1 MG/DL (0.0-0.2); BILIRUBIN,TOTAL 0.3 MG/DL (0.2-1.0); LIPASE 78 U/L (73-393); TOTAL PROTEIN 6.4 GM/DL (6.4-8.2)
[2021-10-25] MEDS ORDERED: cefTRIAXone SOD 2 GM in D5W MINI-BAG PLUS 50 ML IV ONE (12:20)
[2021-10-25 12:33] VITALS: BP 167/65
[2021-10-25] MEDS ORDERED: BACT800T5 PO (12:41)
== END 2021-10-25 13:15 | disposition home or self-care (01) ==
LOC: M ED 09:20
DX: N39.0 Urinary tract infection, site not specified (principal); K57.90 Diverticulosis of intestine, part unspecified, without perforation or abscess without bleeding; E78.5 Hyperlipidemia, unspecified; J45.909 Unspecified asthma, uncomplicated; E03.9 Hypothyroidism, unspecified; F41.9 Anxiety disorder, unspecified; G43.909 Migraine, unspecified, not intractable, without status migrainosus; Z86.73 Personal history of transient ischemic attack (TIA), and cerebral infarction without residual deficits; Z79.01 Long term (current) use of anticoagulants; Z79.899 Other long term (current) drug therapy
CPT/HCPCS: 74176; 80047; 80076; 81000; 81015; 83690; 85025; 87088; 87186; 96365; 99284; J0696

== ENCOUNTER → 2021-11-27 | Outpatient (REF) | payer MEDICARE, BC ==
[~2021-11-27] MED LIST changes: +BACT800T5 PO; +DIAZ5TAB; +TOPI200T7; +TRAM50TA2; +ZOLP5TAB
== END ==
LOC: M LAB REF 13:04
PROVIDERS: ATTEND Family Medicine
DX: Z96.9 Presence of functional implant, unspecified (principal); T81.49XA Infection following a procedure, other surgical site, initial encounter; Y84.9 Medical procedure, unspecified as the cause of abnormal reaction of the patient, or of later complication, without mention of misadventure at the time of the procedure

== ENCOUNTER → 2022-03-14 | Outpatient (CLI) | payer MEDICARE, BC | LOC: M WUC 11:38 | PROVIDERS: ATTEND Nurse Practitioner Family | DX: M25.512 Pain in left shoulder (principal); M25.511 Pain in right shoulder; M19.012 Primary osteoarthritis, left shoulder ==

== ENCOUNTER → 2022-03-15 | Outpatient (REF) | payer MEDICARE, BC ==
[2022-03-15 14:11] LABS: APPEARANCE, URINE MANUAL CLOUDY (CLEAR); COLOR, URINE MANUAL BROWN (YELLOW)
[2022-03-15 14:13] LABS: BILIRUBIN, URINE MANUAL NEGATIVE (NEGATIVE); BLOOD URINE MANUAL POSITIVE (NEGATIVE); GLUCOSE, URINE (UA) MANUAL NEGATIVE (NEGATIVE); KETONE, URINE MANUAL NEGATIVE (NEGATIVE); LEUKOCYTE ESTERASE, URINE MAN NEGATIVE (NEGATIVE); NITRITE, URINE MANUAL NEGATIVE (NEGATIVE); PROTEIN, URINE MANUAL 1+ mg/dL (NEGATIVE); UROBILINOGEN, URINE MANUAL NORMAL (NORMAL)
[2022-03-15 14:30] LABS: RBC, URINE TNTC /hpf (0-3); SQUAMOUS EPITHELIAL CELL URINE NONE SEEN /hpf (SMALL AMT); WBC, URINE NONE SEEN /hpf (0-3)
[2022-03-15 14:31] LABS: BACTERIA, URINE NONE SEEN; CALCIUM OXALATE CRYSTALS,URINE SMALL AMOUNT /hpf; HYALINE CAST, URINE NONE SEEN /lpf (0-1)
== END ==
LOC: M LAB REF 12:09
PROVIDERS: ATTEND Family Medicine
DX: N39.0 Urinary tract infection, site not specified (principal)

== ENCOUNTER → 2022-03-20 | Outpatient (REF) | payer MEDICARE, BC | LOC: M LAB REF 12:19 | PROVIDERS: ATTEND Family Medicine | DX: Z79.2 Long term (current) use of antibiotics (principal) ==

== ENCOUNTER → 2022-03-27 | Outpatient (CLI) | payer MEDICARE, BC | LOC: M RAD 11:08 | PROVIDERS: ATTEND Family Medicine | DX: R30.0 Dysuria (principal); N26.1 Atrophy of kidney (terminal); N20.0 Calculus of kidney; N28.1 Cyst of kidney, acquired ==

== ENCOUNTER → 2022-05-06 | Outpatient (REF) | payer MEDICARE, BC ==
[~2022-05-06] MED LIST changes: +TOPI-254 PO; -TOPI50TA9 PO
== END ==
LOC: M LAB REF 16:10
PROVIDERS: ATTEND Family Medicine
DX: Z79.2 Long term (current) use of antibiotics (principal); Z96.9 Presence of functional implant, unspecified

== ENCOUNTER → 2022-05-08 | Outpatient (REF) | payer MEDICARE, BC ==
[2022-05-08 15:35] LABS: INR 1.07; PARTIAL THROMBOPLASTIN TIME 30.3 SECONDS (24.8-34.2); PROTHROMBIN TIME 14.1 SECONDS (12.5-14.5)
== END ==
LOC: M LAB REF 14:33
PROVIDERS: ATTEND Family Medicine
DX: Z01.812 Encounter for preprocedural laboratory examination (principal); D32.0 Benign neoplasm of cerebral meninges; Z79.01 Long term (current) use of anticoagulants

== ENCOUNTER → 2022-05-15 | Outpatient (REF) | payer MEDICARE, BC ==
[2022-05-15 17:34] LABS: APPEARANCE, URINE CLOUDY (CLEAR); BACTERIA, URINE AUTO NEGATIVE (NEGATIVE); BILIRUBIN, URINE AUTO NEGATIVE (NEGATIVE); BLOOD, URINE BLOOD 2+ (NEGATIVE); CALCIUM OXALATE CRYSTALS SMALL; COLOR, URINE AMBER (YELLOW); GLUCOSE, URINE (UA) AUTO NEGATIVE (NEGATIVE); KETONE, URINE AUTO NEGATIVE (NEGATIVE); LEUKOCYTE ESTERASE, URINE AUTO NEGATIVE (NEGATIVE); MUCUS, URINE SMALL (NEGATIVE); NITRITE, URINE AUTO NEGATIVE (NEGATIVE); PROTEIN, URINE AUTO 2+ mg/dL (NEGATIVE); RBC, URINE AUTO TNTC /HPF (0-3); SPECIFIC GRAVITY URINE AUTO 1.023 (1.002-1.035); SQUAMOUS EPITHELIAL CELL UR AU 0 /HPF (0-6); UROBILINOGEN, URINE AUTO 0.2 mg/dL (0.0-2.0); WBC, URINE AUTO 3 /HPF (0-3)
== END ==
LOC: M LAB REF 16:33
PROVIDERS: ATTEND Family Medicine
DX: N39.0 Urinary tract infection, site not specified (principal)

== ENCOUNTER → 2022-08-12 | Outpatient (CLI) | payer MEDICARE, BC ==
[~2022-08-12] MED LIST changes: -SENN-111 PO; +SENN-188 PO
== END ==
LOC: M WHC 12:34
PROVIDERS: ATTEND Family Medicine
DX: Z12.31 Encounter for screening mammogram for malignant neoplasm of breast (principal)

== ENCOUNTER → 2022-09-09 | Outpatient (CLI) | payer MEDICARE, BC | LOC: M PLAIMG 13:28 | PROVIDERS: ATTEND Specialist | DX: N20.0 Calculus of kidney (principal); N28.1 Cyst of kidney, acquired; K57.30 Diverticulosis of large intestine without perforation or abscess without bleeding ==

== ENCOUNTER → 2022-09-11 | Outpatient (REF) | payer MEDICARE, BC | LOC: M LAB REF 16:57 | PROVIDERS: ATTEND Family Medicine | DX: Z96.9 Presence of functional implant, unspecified (principal); Z79.2 Long term (current) use of antibiotics ==

== ENCOUNTER 2022-09-27 09:06 | Emergency (ER) | payer BC, MEDICARE ==
[~2022-09-27] VITALS: Ht 167.6 cm; Wt 62.7 kg
[~2022-09-27 09:06] MED LIST changes: +DICL100G10 TOP; -DICL1GEL3 TOP
[2022-09-27] MEDS ORDERED: MORPHINE 4 MG/ML 1ML VIAL IV ONE (12:05)
[2022-09-27] MEDS ORDERED: HYDR-3713 PO (13:52)
[2022-09-27 13:59] VITALS: BP 132/61; TEMP 98.2; O2SAT 100
== END 2022-09-27 14:14 | disposition home or self-care (01) ==
LOC: M ED 09:06
DX: S32.509A Unspecified fracture of unspecified pubis, initial encounter for closed fracture (principal); W18.30XA Fall on same level, unspecified, initial encounter; Y92.531 Health care provider office as the place of occurrence of the external cause; E78.5 Hyperlipidemia, unspecified; F41.9 Anxiety disorder, unspecified; F32.A Depression, unspecified; M81.0 Age-related osteoporosis without current pathological fracture; J45.909 Unspecified asthma, uncomplicated; Z86.73 Personal history of transient ischemic attack (TIA), and cerebral infarction without residual deficits; Z86.711 Personal history of pulmonary embolism; Z79.01 Long term (current) use of anticoagulants; Z79.899 Other long term (current) drug therapy

== ENCOUNTER → 2022-10-23 | Outpatient (CLI) | payer MEDICARE, BC ==
[~2022-10-23] MED LIST changes: +HYDR-3713 PO
== END ==
LOC: M SOG 07:55
PROVIDERS: ATTEND Orthopaedic Surgery
DX: S32.591A Other specified fracture of right pubis, initial encounter for closed fracture (principal); Z53.9 Procedure and treatment not carried out, unspecified reason

== ENCOUNTER → 2022-12-05 | Outpatient (CLI) | payer MEDICARE, BC | LOC: M SOG 13:12 | PROVIDERS: ATTEND Physician Assistant | DX: S32.591D Other specified fracture of right pubis, subsequent encounter for fracture with routine healing (principal); M25.561 Pain in right knee; M25.562 Pain in left knee; Z96.653 Presence of artificial knee joint, bilateral; M85.861 Other specified disorders of bone density and structure, right lower leg; M85.862 Other specified disorders of bone density and structure, left lower leg; M17.0 Bilateral primary osteoarthritis of knee ==

== ENCOUNTER → 2023-03-18 | Outpatient (REF) | payer MEDICARE, BC ==
[~2023-03-18] MED LIST changes: +TOPI-21 PO; -TOPI-254 PO
== END ==
LOC: M LAB REF 17:47
PROVIDERS: ATTEND Family Medicine
DX: S32.501A Unspecified fracture of right pubis, initial encounter for closed fracture (principal); Z96.9 Presence of functional implant, unspecified; Y93.9 Activity, unspecified; Y92.9 Unspecified place or not applicable

== ENCOUNTER → 2023-03-28 | Outpatient (REF) | payer MEDICARE, BC | LOC: M LAB REF 10:31 | PROVIDERS: ATTEND Family Medicine | DX: S32.501A Unspecified fracture of right pubis, initial encounter for closed fracture (principal); Z96.9 Presence of functional implant, unspecified; Y93.9 Activity, unspecified; Y92.9 Unspecified place or not applicable ==

== ENCOUNTER → 2023-06-11 | Outpatient (REF) | payer MEDICARE, BC ==
[~2023-06-11] MED LIST changes: -RISP-7 PO; +RISP0.5T82 PO
== END ==
LOC: M LAB REF 16:28
PROVIDERS: ATTEND Family Medicine
DX: Z98.890 Other specified postprocedural states (principal)

== ENCOUNTER → 2023-08-04 | Outpatient (REF) | payer MEDICARE, BC ==
[~2023-08-04] MED LIST changes: +AIMO70IN2; +ARNU1INH3; +BUDE10.7; +CEPH250T PO; +CEPH25SS PO; -DIAZ5TAB; +DIAZ5TAB PO; +ELIQ2.5T PO; +HAIRTAB PO; -TOPI200T7; -TRAM50TA2; +VITA100093 PO; -ZOLP5TAB; +ZOLP5TAB PO
== END ==
LOC: M LAB REF 12:39
PROVIDERS: ATTEND Family Medicine
DX: S32.501A Unspecified fracture of right pubis, initial encounter for closed fracture (principal)

== ENCOUNTER → 2023-08-25 | Outpatient (REF) | payer MEDICARE, BC ==
[2023-08-25 12:35] LABS: APPEARANCE, URINE CLOUDY (CLEAR); BACTERIA, URINE AUTO 3+ (NEGATIVE); BILIRUBIN, URINE AUTO NEGATIVE (NEGATIVE); BLOOD, URINE BLOOD 3+ (NEGATIVE); COLOR, URINE AMBER (YELLOW); GLUCOSE, URINE (UA) AUTO NEGATIVE (NEGATIVE); KETONE, URINE AUTO NEGATIVE (NEGATIVE); LEUKOCYTE ESTERASE, URINE AUTO 3+ (NEGATIVE); MUCUS, URINE SMALL (NEGATIVE); NITRITE, URINE AUTO POSITIVE (NEGATIVE); PROTEIN, URINE AUTO 1+ mg/dL (NEGATIVE); RBC, URINE AUTO 122 /HPF (0-3); SPECIFIC GRAVITY URINE AUTO 1.013 (1.002-1.035); SQUAMOUS EPITHELIAL CELL UR AU 2 /HPF (0-6); UROBILINOGEN, URINE AUTO 0.2 mg/dL (0.0-2.0); WBC, URINE AUTO TNTC /HPF (0-3)
[2023-08-25 12:40] LABS: INR 1.18; PARTIAL THROMBOPLASTIN TIME 31.6 SECONDS (24.8-34.2); PROTHROMBIN TIME 14.7 SECONDS (12.5-14.5)
== END ==
LOC: M LAB REF 11:42
PROVIDERS: ATTEND Family Medicine
DX: Z01.818 Encounter for other preprocedural examination (principal); Z79.01 Long term (current) use of anticoagulants; R39.9 Unspecified symptoms and signs involving the genitourinary system

== ENCOUNTER 2023-09-04 06:31 | Day surgery (SDC) | payer BC, MEDICARE ==
[~2023-09-04] VITALS: Ht 165.1 cm; Wt 62.3 kg
[2023-09-04] MEDS ORDERED: LR 1,000 ML IV SCH (07:20)
[2023-09-04] MEDS ORDERED: fentaNYL 100 MCG/2 ML INJECTION As Ordered ONE (07:58)
[2023-09-04] MEDS ORDERED: LIDOCAINE 2% 100MG/5ML SDV (FOR ANES.) As Ordered ONE (07:59)
[2023-09-04] MEDS ORDERED: propofoL 200 MG/20 ML VIAL As Ordered ONE (07:59)
[2023-09-04] MEDS ORDERED: ACETAMINOPHEN 1000MG 100ML IV BAG As Ordered ONE (07:59)
[2023-09-04] MEDS ORDERED: ONDANSETRON 4MG 2ML VIAL As Ordered ONE (07:59)
[2023-09-04 08:07] LABS: INR 1.08; PARTIAL THROMBOPLASTIN TIME 29.1 SECONDS (24.8-34.2); PROTHROMBIN TIME 13.7 SECONDS (12.5-14.5)
[2023-09-04] MEDS: CIPROFLOXACIN 400 MG in IV 1 EA IV ONE (08:42)
[2023-09-04 10:15] VITALS: BP 116/64; TEMP 96.9; O2SAT 100
== END 2023-09-04 10:23 | disposition home or self-care (01) ==
LOC: M SDC 06:31
PROVIDERS: ATTEND Urology
DX: N20.0 Calculus of kidney (principal); I10 Essential (primary) hypertension; R32 Unspecified urinary incontinence; E05.90 Thyrotoxicosis, unspecified without thyrotoxic crisis or storm; J45.909 Unspecified asthma, uncomplicated; Z79.01 Long term (current) use of anticoagulants; Z86.711 Personal history of pulmonary embolism; Z79.899 Other long term (current) drug therapy; Z86.718 Personal history of other venous thrombosis and embolism; Z79.620 Long term (current) use of immunosuppressive biologic; Z90.49 Acquired absence of other specified parts of digestive tract; Z86.73 Personal history of transient ischemic attack (TIA), and cerebral infarction without residual deficits; Z90.710 Acquired absence of both cervix and uterus; Z87.19 Personal history of other diseases of the digestive system
CPT/HCPCS: 36415; 50590; 74018; 85610; 85730; J0131; J0744; J2405; J3010

== ENCOUNTER → 2023-09-19 | Outpatient (REF) | payer MEDICARE | LOC: M LAB REF 12:45 | PROVIDERS: ATTEND Family Medicine | DX: Z98.890 Other specified postprocedural states (principal) ==

== ENCOUNTER → 2023-09-27 | Outpatient (CLI) | payer MEDICARE | LOC: M RAD 08:39 | PROVIDERS: ATTEND Specialist | DX: N20.0 Calculus of kidney (principal) ==

== ENCOUNTER → 2023-12-04 | Outpatient (REF) | payer MEDICARE, BC | LOC: M LAB REF 12:40 | PROVIDERS: ATTEND Family Medicine | DX: Z98.890 Other specified postprocedural states (principal) ==

== ENCOUNTER → 2024-03-22 | Outpatient (CLI) | payer MEDICARE, BC ==
[~2024-03-22] MED LIST changes: +NYST1POW3 TOP; -NYST1POW9 TOP
== END ==
LOC: M RAD 13:11
PROVIDERS: ATTEND Physician Assistant
DX: N20.0 Calculus of kidney (principal)

== ENCOUNTER → 2024-03-23 | Outpatient (REF) | payer MEDICARE, BC | LOC: M LAB REF 16:17 | PROVIDERS: ATTEND Family Medicine | DX: A49.1 Streptococcal infection, unspecified site (principal); Z96.9 Presence of functional implant, unspecified; Z79.2 Long term (current) use of antibiotics ==

== ENCOUNTER → 2024-04-06 | Outpatient (REF) | payer MEDICARE, BC | LOC: M LAB REF 12:16 | PROVIDERS: ATTEND Family Medicine | DX: A49.1 Streptococcal infection, unspecified site (principal) ==

== ENCOUNTER → 2024-06-21 | Outpatient (REF) | payer MEDICARE, BC ==
[~2024-06-21] MED LIST changes: +TOPI-14 PO; -TOPI200T7 PO
== END ==
LOC: M LAB REF 12:38
PROVIDERS: ATTEND Family Medicine
DX: A49.1 Streptococcal infection, unspecified site (principal); Z96.9 Presence of functional implant, unspecified; Z79.2 Long term (current) use of antibiotics

== ENCOUNTER → 2024-09-20 | Outpatient (REF) | payer MEDICARE, BC ==
[~2024-09-20] MED LIST changes: +LIDO1ADH93 TD; -LIDO5DIS41 TD
== END ==
LOC: M LAB REF 14:19
PROVIDERS: ATTEND Family Medicine
DX: A49.1 Streptococcal infection, unspecified site (principal)